=== PATIENT | female | born 1985 | race Caucasian/White ===

== ENCOUNTER 2020-07-14 15:23 | Inpatient (IN) | payer SELFPAY ==
[2020-07-14 15:24] VITALS: BP 173/131; PULSE 115; RESP 24; TEMP 36.8; O2SAT 98; BMI 29.0
--- NOTE | 2020-07-14 15:29 | W.ED.PSYCH ---
HPI - Psych General: Chief Complaint: Psychiatric Symptoms Stated Complaint: PSYCHOSIS Time Seen by Provider: 07/14/20 15:24 History of Present Illness: HPI Narrative: 34-year-old female comes in with acute psychosis. She was found by law enforcement and they were called through health and welfare check she was standing outside with a temperature is him upper 30s it was raining she was naked would not answer questions appropriately was behaving bizarrely. The deputy ultimately decided to bring her into the emergency room for psychiatric evaluation. According to family at the scene they reported IPH with a history of drug abuse allegedly did not give a drug of choice. She has had episodes like this in the past of this acute psychotic behavior in relation to her drug use. On arrival in the emergency room patient is completely naked in the police officers car staff help to get her out of the car in the ambulance bay was readily apparent that she is currently having her menses. She does not answer questions appropriately gives bizarre nonsensical answers or simply has cysts and spits at the staff. MD complaint: altered mental status Onset (ago): unknown Duration: constant Relieving factors: none Exacerbating factors: none Context: recent drug abuse Associated psychiatric symptoms: racing thoughts and delusions Treatments prior to arrival: physical restraints Review of Systems General: Reports: ROS unobtainable due to medical condition PFS ED PFSH: Medical History Drug abuse Physical Exam HENMT: COMMON NORMALS: normocephalic, atraumatic and hearing grossly normal bilaterally HEAD & SCALP: normocephalic and atraumatic Resp: COMMON NORMALS: normal respiratory effort, No retractions, No use of accessory muscles and clear to auscultation bilaterally AUSCULTATION: clear to auscultation bilaterally Cardio: COMMON NORMALS: regular rate, regular rhythm and No murmurs present (Cardio) RATE: regular rate RHYTHM: regular rhythm GI: COMMON NORMALS: Soft to palpation and No hepatosplenomegaly present AUSCULTATION: Yes normoactive bowel sounds PALPATION: Yes Soft to palpation, No Tenderness to palpation present (GI), No Guarding due to palpation present (GI) and Yes No hepatosplenomegaly present Psych: ATTITUDE: Yes bizarre, Yes uncooperative, Yes agitated, Yes aggressive and Yes hostile ACTIVITY/MOTOR BEHAVIOR: Yes psychomotor agitation and Yes hyperactivity SPEECH: Yes incoherent MOOD & AFFECT: Yes hostile affect THOUGHT PROCESS: incoherent, disorganized and Flight of ideas present Skin: COMMON NORMALS: no rashes or lesions noted GENERAL SKIN EXAM: no rashes or lesions noted MDM - Psych MDM Narrative: Medical decision making narrative: Patient now sedate out of the hard restraints. Medically cleared admitted for acute psychosis to Dr. Anglin. I discussed with him orders are written. Lab Data: Labs: Lab Results 07/14/20 07/14/20 07/14/20 Range/Units 15:58 15:58 15:58 WBC 12.6 H (4.0-10.0) 10^3/ uL RBC 4.85 (4.1-5.3) 10^6/u L Hgb 14.0 (11.5-15.3) g/dL Hct 41.7 (37.0-47.0) % MCV 86.0 (81-99) fL MCH 28.9 (28.0-34.0) pg MCHC 33.6 (30.0-36.0) g/dL RDW 12.7 (12.1-15.1) % Plt Count 317 (130-400) 10^3/c mm MPV 9.7 (7.4-10.4) fL Neut % (Auto) 80.5 % Lymph % (Auto) 13.0 % Davie % (Auto) 5.6 % Eos % (Auto) 0.3 % Baso % (Auto) 0.4 % Neut # (Auto) 10.11 H (1.8-7.7) 10^3/u L Lymph # (Auto) 1.6 (0.8-4.8) 10^3/u L Davie # (Auto) 0.7 (0.2-0.9) 10^3/u L Eos # (Auto) 0.0 (0.0-0.8) 10^3/u L Baso # (Auto) 0.1 (0.0-0.1) 10^3/u L Nucleated RBC % (a uto) 0 % Nucleated RBCs # 0.0 /100WBC Sodium 139 (136-145) mmol/L Potassium 3.1 L (3.5-5.1) mmol/L Chloride 103 (98-107) mmol/L Carbon Dioxide 20 L (22-29) mmol/L Anion Gap 19.1 H (5-19) BUN 29 H (6-20) mg/dL Creatinine 0.8 (0.5-0.9) mg/dL GFR Calculation 81.6 L (90-130) mL/min Glucose 109 (65-115) mg/dL Calculated Osmolal ity 294 (285-295) mOsm/k g Calcium 9.3 (8.5-10.5) mg/dL Total Bilirubin 0.6 (0.15-1.2) mg/dL AST 42 H (0-32) U/L ALT 37 H (0-33) U/L Alkaline Phosphata se 61 (35-105) IU/L Total Protein 7.3 (6.6-8.7) g/dL Albumin 4.2 (3.5-5.2) g/dL Globulin 3.1 (1.3-4.6) g/dL HCG, Qual Negative (Negative) Urine Color (Yellow) Urine Appearance (CLEAR) Urine pH (5-7) Ur Specific Gravit y (1.005-1.030) Urine Protein (Negative) Urine Glucose (UA) (Normal) Urine Ketones (Negative) Urine Blood (Negative) Urine Nitrate (Negative) Urine Bilirubin (Negative) Urine Urobilinogen (Negative) mg/dL Ur Leukocyte Marce ase (Negative) Urine RBC (0-2) /hpf Urine WBC (0-5) /hpf Ur Squamous Epith Cells (0-5) /hpf Amorphous Sediment Urine Bacteria (NONE) /hpf Hyaline Casts /lpf Urine Mucus /hpf Salicylates < 0.3 L (3-10) mg/dL Urine Opiates Scre en (Negative) ng/mL Acetaminophen < 5.0 L (10-30) ug/mL Ur Barbiturates Sc reen (Negative) ng/mL Ur Phencyclidine S crn (Negative) ng/mL Ur Amphetamines Sc reen (Negative) ng/mL U Benzodiazepines Scrn (Negative) ng/mL Urine Cocaine Scre en (Negative) ng/mL U Marijuana (THC) Screen (Negative) ng/mL Ethyl Alcohol < 10 (0-10) mg/dL 07/14/20 07/14/20 Range/Units 15:58 15:58 WBC (4.0-10.0) 10^3/ uL RBC (4.1-5.3) 10^6/u L Hgb (11.5-15.3) g/dL Hct (37.0-47.0) % MCV (81-99) fL MCH (28.0-34.0) pg MCHC (30.0-36.0) g/dL RDW (12.1-15.1) % Plt Count (130-400) 10^3/c mm MPV (7.4-10.4) fL Neut % (Auto) % Lymph % (Auto) % Davie % (Auto) % Eos % (Auto) % Baso % (Auto) % Neut # (Auto) (1.8-7.7) 10^3/u L Lymph # (Auto) (0.8-4.8) 10^3/u L Davie # (Auto) (0.2-0.9) 10^3/u L Eos # (Auto) (0.0-0.8) 10^3/u L Baso # (Auto) (0.0-0.1) 10^3/u L Nucleated RBC % (a uto) % Nucleated RBCs # /100WBC Sodium (136-145) mmol/L Potassium (3.5-5.1) mmol/L Chloride (98-107) mmol/L Carbon Dioxide (22-29) mmol/L Anion Gap (5-19) BUN (6-20) mg/dL Creatinine (0.5-0.9) mg/dL GFR Calculation (90-130) mL/min Glucose (65-115) mg/dL Calculated Osmolal ity (285-295) mOsm/k g Calcium (8.5-10.5) mg/dL Total Bilirubin (0.15-1.2) mg/dL AST (0-32) U/L ALT (0-33) U/L Alkaline Phosphata se (35-105) IU/L Total Protein (6.6-8.7) g/dL Albumin (3.5-5.2) g/dL Globulin (1.3-4.6) g/dL HCG, Qual (Negative) Urine Color Yellow (Yellow) Urine Appearance Sl hazy (CLEAR) Urine pH 5 (5-7) Ur Specific Gravit y 1.030 (1.005-1.030) Urine Protein Trace (Negative) Urine Glucose (UA) Norm (Normal) Urine Ketones 3+ H (Negative) Urine Blood 3+ H (Negative) Urine Nitrate Negative (Negative) Urine Bilirubin 1+ H (Negative) Urine Urobilinogen 1 H (Negative) mg/dL Ur Leukocyte Marce ase Negative (Negative) Urine RBC 0-4 H (0-2) /hpf Urine WBC 0-4 H (0-5) /hpf Ur Squamous Epith Cells Rare (0-5) /hpf Amorphous Sediment Not Reportable Urine Bacteria 1+ H (NONE) /hpf Hyaline Casts 10-15 H /lpf Urine Mucus 1+ /hpf Salicylates (3-10) mg/dL Urine Opiates Scre en Positive H (Negative) ng/mL Acetaminophen (10-30) ug/mL Ur Barbiturates Sc reen Negative (Negative) ng/mL Ur Phencyclidine S crn Negative (Negative) ng/mL Ur Amphetamines Sc reen Negative (Negative) ng/mL U Benzodiazepines Scrn Negative (Negative) ng/mL Urine Cocaine Scre en Negative (Negative) ng/mL U Marijuana (THC) Screen Negative (Negative) ng/mL Ethyl Alcohol (0-10) mg/dL Discharge Plan Discharge Prescriptions: No Action Unable to Assess RF: 0 Coding Level of Care Code ED Asset Protection Agent for Chg Fwd Exam Detailed
[2020-07-14] MEDS: LORazepam 2 mg/mL INJ 1 mL IM (15:32)
[2020-07-14] MEDS: ziprasidone 20 mg/mL SDV IM (15:32)
[2020-07-14 16:11] LABS: Glucose Urine UA Norm (Normal); Ketones Urine 3+ (Negative); Protein Urine Trace (Negative); Urine Appearance SL Hazy (CLEAR); Urine Color Yellow (Yellow); pH Urine 5 (5-7)
[2020-07-14 16:12] LABS: Add Urine Microscopic? YES; Basophils # 0.1 10^3/uL (0.0-0.1); Basophils % 0.4 %; Bilirubin Urine 1+ (Negative); Blood Urine 3+ (Negative); Eosinophils % 0.3 %; Hematocrit 41.7 % (37.0-47.0); Leukocyte Esterase Urine Negative (Negative); Lymphocytes # 1.6 10^3/uL (0.8-4.8); Mean Corpuscular HGB Conc 33.6 g/dL (30.0-36.0); Mean Corpuscular Hemoglobin 28.9 pg (28.0-34.0); Mean Platelet Volume 9.7 fL (7.4-10.4); Monocytes # 0.7 10^3/uL (0.2-0.9); Monocytes % 5.6 %; Neutrophils # 10.11 10^3/uL (1.8-7.7); Neutrophils % 80.5 %; Nitrate Urine Negative (Negative); Nucleated Red Blood Cells % 0 %; Platelet Count 317 10^3/cmm (130-400); Red Blood Count 4.85 10^6/uL (4.1-5.3); Red Cell Distribution Width 12.7 % (12.1-15.1); Urobilinogen Urine 1 mg/dL (Negative); White Blood Count 12.6 10^3/uL (4.0-10.0)
[2020-07-14 16:19] LABS: Amphetamines Screen Urine Negative (Negative); Barbiturates Screen Urine Negative (Negative); Benzodiazepines Screen Urine Negative (Negative); Cocaine Screen Urine Negative (Negative); Opiate Screen Urine Positive (Negative); PCP Screen Urine Negative (Negative); THC Screen Urine Negative (Negative)
[2020-07-14 16:25] LABS: Bacteria Urine 1+ /hpf; Mucus Urine 1+ /hpf; RBC Urine 0-4 /hpf (0-2); Squamous Epithelial Cell Urine RARE /hpf (0-5); WBC Urine 0-4 /hpf (0-5)
[2020-07-14 16:29] LABS: HCG, Serum Qual Negative (Negative)
[2020-07-14 16:37] LABS: Acetaminophen < 5.0 ug/mL (10-30); Alanine Aminotransferase 37 U/L (0-33); Albumin Level 4.2 g/dL (3.5-5.2); Alcohol Level < 10 mg/dL (0-10); Alkaline Phosphatase 61 IU/L (35-105); Anion Gap 19.1 (5-19); Aspartate Amino Transferase 42 U/L (0-32); Blood Urea Nitrogen 29 mg/dL (6-20); Calcium 9.3 mg/dL (8.5-10.5); Carbon Dioxide 20 mmol/L (22-29); Chloride 103 mmol/L (98-107); Globulin 3.1 g/dL (1.3-4.6); Glomerular Filtration Rate 81.6 mL/min (90-130); Glucose 109 mg/dL (65-115); Osmolality Calculated 294 mOsm/kg (285-295); Potassium 3.1 mmol/L (3.5-5.1); Salicylate < 0.3 mg/dL (3-10); Sodium 139 mmol/L (136-145); Total Bilirubin 0.6 mg/dL (0.15-1.2); Total Protein 7.3 g/dL (6.6-8.7)
--- NOTE | 2020-07-14 16:50 | PC.NURSE ---
d/c'd all four restraints.
[2020-07-14 17:29] VITALS: BP 130/87; PULSE 86; RESP 20; O2SAT 98
[2020-07-14 18:00] VITALS: PULSE 68
[2020-07-14] MEDS: haloperidol inj 5 mg/mL INJ 1 mL IM (18:07)
--- NOTE | 2020-07-14 18:09 | PC.NURSE ---
Patient was out of full restraints and was resting in bed. Patient was awoken to get in a wheelchair to go to NPU, patient became combative with staff requiring four point restraints, was not following commands and was swinging at staff. Received verbal order of 5mg Haldol from Dr Don. Code 10 called. Will continue to monitor patient at this time.
--- NOTE | 2020-07-14 20:05 | PC.NURSE ---
Skin assessment revealed bruising on the left forearm.
[2020-07-14 20:23] VITALS: BP 127/77; PULSE 85; RESP 20; TEMP 37.1; O2SAT 96
[2020-07-14 21:14] VITALS: BP 127/77; PULSE 85; RESP 20; TEMP 37.1; O2SAT 96
--- NOTE | 2020-07-15 02:46 | PC.NURSE ---
The patient is awake and up to the bathroom. Cooperative at this time.
[2020-07-15 05:43] VITALS: BP 144/103; PULSE 110; RESP 20; TEMP 36.3; O2SAT 100
[2020-07-15] MEDS: LORazepam 2 mg/mL INJ 1 mL IM ×2 (06:05→15:48)
[2020-07-15] MEDS: haloperidol inj 5 mg/mL INJ 1 mL IM ×2 (06:06→15:48)
--- NOTE | 2020-07-15 06:07 | PC.NURSE ---
the patient is up and pacing in the hallway. Banging her arms on the winter. Disorganized behavior. Threw TV remote on the floor. Removing contents of trash cans. Not responding to verbal redirection. Stated, I am a little boy named Coy. Ativan 2 mg IM and Haldol 5 mg IM given to right deltoid. The patient was cooperative with the administration.
[2020-07-15] MEDS: acetaminophen 325 mg Tablet 650 MG PO (08:11)
[2020-07-15] MEDS: potassium chloride oral liq 20 mEq/15 mL UDC PO (08:11)
[2020-07-15] MEDS: ziprasidone 20 mg/mL SDV IM (11:17)
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
[2020-07-15 13:46] VITALS: BP 107/68; PULSE 79; RESP 18; TEMP 36.4
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
[2020-07-15 20:01] VITALS: RESP 19
[2020-07-16] MEDS: haloperidol inj 5 mg/mL INJ 1 mL IM ×3 (01:21→15:52)
[2020-07-16] MEDS: diphenhydrAMINE 50 mg/mL SDV 1mL IM ×3 (01:21→15:53)
[2020-07-16] MEDS: LORazepam 2 mg/mL INJ 1 mL IM ×3 (01:22→15:53)
--- NOTE | 2020-07-16 01:27 | PC.NURSE ---
Pt has been noted to be up and down to the bathroom. has been trying to flush several items down the toilet. Pt also noted to be striping her clothes off. per RN, Ativan 2mg, Haldol 5mg, and Benadryl 50mg all given IM. Pt tolerated injections without difficulty.
[2020-07-16] MEDS: acetaminophen 325 mg Tablet 650 MG PO (01:44)
[2020-07-16 06:00] VITALS: BP 106/69; PULSE 107; RESP 19; TEMP 36.6; O2SAT 97
[2020-07-16] MEDS: ziprasidone 20 mg/mL SDV IM (09:34)
--- NOTE | 2020-07-16 09:39 | PC.NURSE ---
PRN GEODON 20mg IM Geodon given in L deltoid per psychosis, agitation, and hallucinations. Patient picking at doors in hallway, attempting to enter other patient's rooms, seeming to act paranoid. Patient did comply with injection and went to her room. Inj given and patient now resting in bed. Will monitor for med effectiveness. Continue 1:1 sitter for safety.
--- NOTE | 2020-07-16 11:41 | PC.NURSE ---
PRN MEDICATIONS 5mg Haldol, 2mg Ativan, & 50mg Benadryl IM given per increasing agitation. Patient near her room spitting on windows and doors, hitting wall with arm, seeming confused. Patient wandering all around, moving furniture. Attempt to communicate and orient patient unsuccessful. Dr. Anglin present and ordered the medications to be given and present when they were given. Will monitor for med effectiveness.
[2020-07-16 12:00] VITALS: BP 154/92; PULSE 104; RESP 18; TEMP 36.8; O2SAT 97
[2020-07-16 14:00] VITALS: BP 154/92; PULSE 104; RESP 18; TEMP 36.8; O2SAT 97
--- NOTE | 2020-07-16 16:06 | PC.NURSE ---
PRN MEDICATIONS 5mg Haldol, 2mg Ativan, & 50mg Benadryl IM given per direct order from Dr. Anglin for increasing agitation. Patient continues wandering all around, spitting on all winter, doors and windows. Patient also continues to take her shirt off and throw it in toilet. When new shirt placed on, patient just takes it off and throws it. Attempt to communicate and orient patient unsuccessful. Will monitor for med effectiveness.
[2020-07-16 18:00] VITALS: BP 132/86; PULSE 103; RESP 20; TEMP 36.8; O2SAT 95
--- NOTE | 2020-07-16 19:41 | PM.NPN ---
Subjective NPU Subjective: Interval history: Noni presents today continuing to have mostly purposeless interactions and behaviors. Making different sounds, spitting, trying to take her clothes off etc. He continues to be a poor historian and unable to give any responses in relation to what we should do as far as medication. Mental Status Exam MSE Comments: This is an obese white female with hospital scrubs on with limited grooming and eye contact. No abnormal movements except for aimless psychomotor agitation. Uncooperative with exam in no acute distress. Speech was limited spontaneous interactions often with odd prosody. Mood not described, affect bizarre. Thought process disorganized. Thought content: Patient did not respond to questions of lethality but did not have aggression towards herself or others, she did not report any delusional content and none was specifically noted, she did deny auditory or visual hallucinations while appearing to attend to internal stimuli. Attention compresses were impaired and memory was unreliable but none were formally tested. She is alert and oriented to person. Insight and judgment are impaired impulse control is impaired. Vitals/I&O/Wt Last Vital Signs Temp 98.2 F 07/16/20 18:00 Pulse 103 H 07/16/20 18:00 Resp 20 H 07/16/20 18:00 BP 132/86 07/16/20 18:00 Pulse Ox 95 07/16/20 18:00 Weight last 48 hrs Weight 81.647 kg Data NPU : 07/14/20 15:58 07/17/20 10:27 A&P Additional A&P Information (1) Psychosis: (2) Opiate use: (3) Substance use: Additional A&P Information This is a 34-year-old white female with a history of bipolar disorder and addiction who presents floridly psychotic with a positive UDS but not for anything that one would expect the yield this presentation who is unable to be a participant in her care due to the level of thought disorder being displayed. 1. Continue current medication. We will continue as needed antipsychotics as needed and hopefully we will be able to offer her a standing antipsychotic/mood stabilizer soon with some improvement. Initiated zyprexa IM 10mg q 2 hours max 3x/24 hours and the other interventions Haldol, Geodon have not been effective in slowing her down or stopping some of her more egregious behaviors. 2. Continue one-to-one for safety. 3. As she improves encourage individual and milieu therapy. 4. Work with treatment team for collateral information and encourage sober living treatment after discharge at the highest level of care to which she is willing to commit. 5. Talked to the ER doctor involved in her care, and we both believe that this could be best OR some other synthetic drug and not garden-variety pete. Involuntary Hold Information 96 Hour Hold: 96 Hour Involuntary Admission: No 96 Hour Hold Ending Date: 07/20/20 96 Hour Hold Ending Time: 18:15 Attestations NPU Medical Necessity Statement*: Inpatient hospitalization is medically necessary and the clinically appropriate intervention at this time. We will monitor medications and add or make changes as indicated. Likely length of stay 7-9 days. Coding Level of Care Code Acute Traffic Control Officer for Maritza Cherry
--- NOTE | 2020-07-16 20:13 | PC.NURSE ---
RESTING IN HER ROOM, SNORING, RESP EVEN, OCC MOVES LOWER EXT. HAS 1-1 SITTER D/T PSYCHOSIS, WILL DO ASSESSMENT WHEN AWAKE FOR VITAL SIGNS.
[2020-07-17] VITALS: BP 82/51; PULSE 88; RESP 20; TEMP 36.7; O2SAT 98
--- NOTE | 2020-07-17 00:18 | PC.NURSE ---
ASSESSMENT DONE WITH VITAL SIGNS,DENIES WANTING TO HARM SELF. CONTINUES TO HAVE 1-1 SITTER.
--- NOTE | 2020-07-17 02:31 | PC.NURSE ---
AWAKE, TRYING TO WASH HEWITT, STRIPPED BOTTOM CLOTHES OFF, HAD A GLOVE IN HER MOUTH TRYING TO BLOW IT UP, FOUND OTHER GLOVE AND REMOVED FROM ROOM. REDIRECTED TO HER BED, COVERED UP, CONTINUES TO HAVE 1-1 SITTER. MWD NURSE TO GIVE ZYPREXA [address] ORTIZ ORDERS TODAY PER DAY SHIFT. UP TO BATHROOM, PACING IN ROOM, CHEWING ON WET WASH CLOTH. ZYPREXA 10 MG IN GIVEN IN LEFT DELTOID PER S.M. MANAGER OF ORGANIZATIONAL DEVELOPMENT, PATIENT APPEARED TO TOLERATE INJECTION WELL. KEEPS KICKING COVERS OFF, REACHING FOR THINGS THAT IS NOT THERE. CONTINUES TO HAVE 1-1 SITTER.
[2020-07-17] MEDS: OLANZapine 10 mg VIAL IM ×3 (02:37→09:43)
--- NOTE | 2020-07-17 02:38 | PC.NURSE ---
Pt noted to be up and wandering. Pt assisted to the bathroom by CNAs. Pt noted with continued confusion. Zyprexa 10mg IM given as per shift report recommendations from
[2020-07-17] MEDS: acetaminophen 325 mg Tablet 650 MG PO ×2 (04:10→08:30)
[2020-07-17] MEDS: LORazepam 2 mg/mL INJ 1 mL IM ×4 (04:46→23:30)
[2020-07-17] MEDS: diphenhydrAMINE 50 mg/mL SDV 1mL IM ×4 (04:47→23:27)
--- NOTE | 2020-07-17 04:59 | PC.NURSE ---
PATIENT CONTINUES TO BE AWAKE, KEEPS EYES CLOSED, REPEATING NURSERY RHYMES, LITTLE SONGS AND REPEATING THINGS THAT MAKE NO SENSE. SWINGING AT AIDES AND NURSES, SPITTING ALL OVER AND LICKING HEWITT. CONTINUES TO TAKE HER CLOTHES OFF. CALLED DR ORTIZ, OKAYED TO GIVE ATIVAN 2 MG IM AND BENADRYL 50 IM IN RIGHT HIP. HAD SECOND DOSE OF ZYPREXA 10 MG IM AT 0434. HAS NOT SLOWED HER DOWN AT ALL. UP WANDERING IN ROOM, CONTINUES TO SPIT AND TRY TO HIT STAFF. SECURITY HERE. HOME HEALTH CARE PHYSICIAN AND ER STAFF HERE EARLIER.
--- NOTE | 2020-07-17 05:02 | PC.NURSE ---
Pt noted to be up wandering in room and hallway with both eyes closed, spitting at staff and try to wipe sputum on staff and winter. Pt given Zyprexa 10mg IM. Continuing to monitor with 1:1 sitter and several staff members.
--- NOTE | 2020-07-17 05:26 | PC.NURSE ---
CONTINUES TO SPIT AND TRY TO KICK STAFF. LAYS DOWN AND THEN GETS BACK UP. UNABLE TO BE REDIRECTED.
--- NOTE | 2020-07-17 05:46 | PC.NURSE ---
APPEARS TO BE SLEEPING/SORING, CONTINUES TO HAVE 1-1 SITTER.
[2020-07-17 06:00] VITALS: RESP 19
[2020-07-17] MEDS: hyDROXYzine 25 mg Capsule 50 MG PO ×2 (08:30→19:55)
--- NOTE | 2020-07-17 08:34 | PC.NURSE ---
Addendum entered by Safia Fontenot RN 07/17/20 09:30: Patient continues behavior, spitting everywhere, continuing to take her clothes off and walk outside in hallway. Dr. Anglin notified. Original Note: PRN Vistaril Patient appearing anxious, wandering around in room. Attempting to take her clothes off, hitting winter. Vistaril 50mg PO given with Tylenol for mouth pain. Patient redirected to bed to lay down. Will monitor for effectiveness.
[2020-07-17 09:40] VITALS: BP 147/103; PULSE 95; RESP 22; TEMP 36.8; O2SAT 97
--- NOTE | 2020-07-17 09:54 | PC.NURSE ---
PRN Medications Dr. Anglin notified that Vistaril was unsuccessful in calming patient and notified of continuing behavior. Patient also seems to be more agitated and aggressive today with staff, more difficult to redirect. Dr. Anglin ordered to give PRN medications of 10mg IM Zyprexa, 2mg IM Ativan, and 50mg IM Benadryl. Vital signs taken before administration. Will monitor for effectiveness.
[2020-07-17 11:00] LABS: Potassium 3.5 mmol/L (3.5-5.1)
[2020-07-17 12:00] VITALS: BP 141/95; PULSE 101; RESP 18; TEMP 36.9; O2SAT 94
--- NOTE | 2020-07-17 12:13 | PM.NPN ---
Subjective NPU Subjective: Interval history: Noni presents today with some occasional moments of cognitive clarity but those are few and far between. During the period of conversation which took place on a couple of occasions she at 1 point was answering questions if I posed them starting with her name. But she spent time spitting in the corner winter during that odd behavior where she takes her fingers and rubs in on the end of her tongue reducing spit in the very nasty unhygienic way. At times wandering aimlessly with purposeless behavior. At one point after her receiving another injection she attempted to lay down in bed which took about 15 minutes. Still on one-to-one being total care at times. Mental Status Exam MSE Comments: This is an obese white female with hospital scrubs on with limited grooming and eye contact. No abnormal movements except for aimless psychomotor agitation. Uncooperative with exam in no acute distress. Speech was limited spontaneous interactions often with odd prosody. Mood not described, affect bizarre. Thought process disorganized. Thought content: Patient did not respond to questions of lethality but did not have aggression towards herself or others but she did at times have agitation and destructive behavior requiring interventions, she did not report any delusional content and none was specifically noted, she did deny auditory or visual hallucinations while appearing to attend to internal stimuli. Attention and concentration were impaired and memory was unreliable but none were formally tested. She is alert and oriented to person. Insight and judgment are impaired impulse control is impaired. Vitals/I&O/Wt Last Vital Signs Temp 98.2 F 07/17/20 09:40 Pulse 95 07/17/20 09:40 Resp 22 H 07/17/20 09:40 BP 147/103 07/17/20 09:40 Pulse Ox 97 07/17/20 09:40 Weight last 48 hrs Weight 81.647 kg Data NPU : 07/14/20 15:58 07/17/20 10:27 A&P Additional A&P Information (1) Psychosis: (2) Opiate use: (3) Substance use: This is a 34-year-old white female with a history of bipolar disorder and addiction who presents floridly psychotic with a positive UDS but not for anything that one would expect the yield this presentation who is unable to be a participant in her care due to the level of thought disorder being displayed. 1. Continue current medication. 2. Continue one-to-one for safety. 3. As she improves encourage individual and milieu therapy. 4. Work with treatment team for collateral information and encourage sober living treatment after discharge at the highest level of care to which she is willing to commit. 5. Talked to the ER doctor involved in her care, and we both believe that this could be best OR some other synthetic drug and not garden-variety pete. Involuntary Hold Information 96 Hour Hold: 96 Hour Involuntary Admission: No 96 Hour Hold Ending Date: 07/20/20 96 Hour Hold Ending Time: 18:15 Attestations NPU Medical Necessity Statement*: Inpatient hospitalization is medically necessary and the clinically appropriate intervention at this time. We will monitor medications and add or make changes as indicated. Likely length of stay 6-8 days. Coding Level of Care Code Acute Patient Access Associate for Maritza Cherry
[2020-07-17] MEDS: haloperidol 5 mg Tablet PO ×2 (12:31→19:36)
[2020-07-17] MEDS: LORazepam 2 mg Tablet PO ×2 (12:50→19:55)
--- NOTE | 2020-07-17 12:50 | PC.NURSE ---
PRN Haldol & Ativan PRN Ativan 2mg PO & 5mg PO Haldol administered per Dr. Anglin order for continuing severe agitation, hallucinations, and behavior. Patient redirected to room in attempt to lay down. Patient continues to wander around very unsteadily. Fall mats placed beside bed and near room. Physician in room and attempting to speak with patient. Patient still walking around with eyes closed, unable to have conversation with physician or other staff members, attempting to grab staff's arms and hang upside off bed. 1:[address] still for safety.
[2020-07-17] MEDS: haloperidol inj 5 mg/mL INJ 1 mL IM ×2 (17:38→23:29)
[2020-07-17 18:00] VITALS: RESP 16
[2020-07-17] MEDS: OLANZapine 5 mg ODT PO (19:36)
[2020-07-17] MEDS: trazodone 50 mg Tablet PO (19:38)
--- NOTE | 2020-07-17 19:38 | PC.NURSE ---
PRN's Aggitation haloperidol 5mg po given for increased agitation trazodone 50mg PO given for sleep zyprexa zydis 5mg PO given fro increased agitation.
--- NOTE | 2020-07-17 20:08 | PC.NURSE ---
ativan/visteril Ativan 2mg PO given for increased agitation Visteril 50mg PO given for agitation Will continue to monitor pt
--- NOTE | 2020-07-17 20:15 | PC.NURSE ---
Pt Behavior Physician called. Dr. Anglin ordered 2mg ativan po and visteril 50mg in additon to the medication she received 10 min ago. She received zyprexa, geodon, and trazodone prior to calling physician. Pt is agitated, grabbing at staff mask, and acting out. RN Huber is sitting with pt. She is currently at the door of 170 and can barely stand. She has stripped her clothing and spit at staff and on herself.
--- NOTE | 2020-07-17 21:36 | PC.NURSE ---
HAS BEEN RESTING FOR SHORT WHILE, CONTINUES TO HAVE 1-1 SITTER .
--- NOTE | 2020-07-17 23:32 | PC.NURSE ---
B52/Aggression Pt has been increasingly anxious, agitated, with some episodes of aggression toward staff. Pt has been stripping off her bottoms, licking the windows,spit food, spit at the staff, she has thrown food at the staff. Every effort has been made by staff to de-escalate the patient and entice her to rest. She has not been excessively violent but the situation was becoming more intense. Pt is with 1:1. @2301 this evening I gave this pt 2mg IM Ativan/5mg IM Haldol in her right deltoid, and benedryl 50mg IM in her left deltoid using 22g needles. I continued to monitor this patient for the next 15 minutes to assure that she did not have any adverse affects from the injections. Pt is resting peacefully for the first time all evening. Will continue to monitor
[2020-07-18] VITALS: RESP 17
--- NOTE | 2020-07-18 00:58 | PC.NURSE ---
AWAKE/AGITATED PT SLEPT FOR A LITTLE OVER AN HOUR AFTER RECEIVING B52 THIS EVENING. sHE CONTINUES TO BE AGGRESSIVE/AGITATED/HALLUCINATING/AND UNABLE TO MAKE COHERENT CONVERSATION OR DECISIONS. UNABLE TO REASON WITH THIS PATIENT. PT TRIES TO CRAM SHEETS AND OTHER ITEMS INTO THE TOILET. SHE IS COMBATIVE WITH STAFF, TRIED TO ELBOW CHARGE NURSE RACHAEL. SHE TRIED TO KICK FRANCISCO RADHA, AND HAS BEEN GRABBING AT RN RODRÍGUEZ'S MASK. PT BACKS INTO THE CORNER NEAR THE RESTRAINT ROOM, HOLDS THE HANDLES, AND APPEARS TO LAUNCH HERSELF OUT OF THE CORNER. SHE HIDES BEHIND THE DOORS, PUTS HER HEAD DOWN AND WALKS WITH EYES SHUT. SHE CONTINUES TO BE COMBATIVE AND INTRUSIVE.
--- NOTE | 2020-07-18 04:00 | PC.NURSE ---
AWAKE AGAIN,UNABLE TO REDIRECT, HAS 3 TO ASSIST, ALMOST FALLS EACH TIME SHE GETS UP. WILL LAY ON BED FOR ABOUT 20 SECONDS AND THEN UP AGAIN.. MEDS DO NOT APPEAR TO BE HELPING HER IN ANY WAY.
--- NOTE | 2020-07-18 04:15 | PC.NURSE ---
Combative/Confused Pt is intrusive, becomes combative, irritable, refuses to follow simple commands. She has slept very little this evening. Pt repeatedly takes her clothing off, walks around the room as if she can not see where she is going. She is licking the winter, kissing the glass, and requires time piece repairer assistance of 2 or more staff. She grabs at staff and she is slapping at the staff. Pt is resistive to care. This patient is aggressive. I am not altogether convinced that all of this behavior is psychosis. Many of the things that she does and how she responds at times seems that she is playing. She seems to enjoy the intervention with staff and repeats the same actions over and over. Pt has require us to shut the annex area near her room to keep her from harming herself and others. Pt continues to walk around with her head down, eyes shut, stumbling, but has not fallen. Pt catches herself before she falls or injures herself. She seems to understand her limits in this area. Pt appears to need 2 full-time aides to assist at all times due to her behavior.
[2020-07-18 06:00] VITALS: BP 130/91; PULSE 90; RESP 19; TEMP 37.1; O2SAT 95
[2020-07-18] MEDS: diphenhydrAMINE 50 mg/mL SDV 1mL IM ×3 (08:49→23:15)
[2020-07-18] MEDS: OLANZapine 10 mg VIAL IM ×2 (08:49→15:34)
[2020-07-18] MEDS: LORazepam 2 mg/mL INJ 1 mL IM ×3 (08:49→23:15)
--- NOTE | 2020-07-18 08:50 | PC.NURSE ---
TELEPHONE ORDER FROM Cara ORTIZ TO GIVE INJECTION OF ZYPREXA 10 MG, ATIVAN 2 MG, BENADRYL 50 MG. PT UNCOOPERATIVE ON UNIT, PACING HALLWAY, BEING DISRUPTIVE, HITTING HEWITT, SPITTING ON THE FLOOR AND AT STAFF MEMBERS, REFUSING TO OPEN HER EYES WHILE AMBULATING DOWN HALLWAY. STAFF X4 HAS TO REDIRECT PT BACK TO HER ROOM SEVERAL TIMES. ZYPREXA GIVEN IN LEFT DELTOID, ATIVAN GIVEN IN RIGHT DELTOID, BENADRYL GIVEN RIGHT BUTTOCK. PT CONT TO BE 1:1 FOR SAFETY AND OBSERVATION.
[2020-07-18 12:00] VITALS: BP 145/105; PULSE 115; RESP 18; TEMP 36.9; O2SAT 97
--- NOTE | 2020-07-18 15:35 | PC.NURSE ---
Addendum entered by Kristal Reece LPN 07/18/20 16:30: PRN MEDS EFFECTIVE NO FURTHER C/O ANXIETY/AGGRESSION. PT ASLEEP IN BED IN ROOM, SNORING SOFTLY. CONT TO BE 1:1 WITH BOTTOM FINISHER Original Note: PRN ATIVAN, ZYPREXA, BENADRYL ATIVAN 2 MG GIVEN IM IN LEFT DELTOID PER PT C/O SEVERE ANXIETY/AGGRESSION. ZYPREXA 10 MG GIVEN IM IN LEFT BUTTOCK PER PT C/O SEVERE AGITATION/AGGRESSION/PSYCHOSIS. BENADRYL 50 MG GIVEN IM IN RIGHT DELTOID PER PT C/O SEVERE AGITATION/AGGRESSION/PREVENTATIVE DRUG FOR EPS. PT IN ROOM, ATTEMPTED TO TAKE CLIPBOARD FROM BOTTOM FINISHER, SPITTING ON THE FLOOR, ATTEMPTING TO PUSH THROUGH STAFF TO GET INTO HALLWAY. PHYSICIAN (ANA) IN ROOM AND OBSERVED BEHAVIOR. PT DEFIANT, UNABLE TO FOLLOW SAFETY INSTRUCTIONS GIVEN BY STAFF. VERBAL ORDER TO GIVE ATIVAN/BENADRYL/ZYPREXA IM NOW. PT DID TOLERATE INJECTIONS WITHOUT INCIDENT. WILL CONT TO MONITOR FOR DESIRED MED EFFECTIVENESS.
[2020-07-18] MEDS: OLANZapine 5 mg ODT PO ×2 (17:33→21:08)
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
--- NOTE | 2020-07-18 17:45 | PM.NPN ---
Subjective NPU Subjective: Interval history: Noni presents today continuing to have mostly aimless and lacking purpose. Still spitting being aggressive and agitated at times. She continues to need the full battery of as needed's throughout the day and needing seclusion to avoid her behaviors disturbing the other patients treatment. She remains unable to give appropriate [id number] of conversation. We discussed the fact that a 21-day hold will probably have to be filed in the next couple days. Mental Status Exam MSE Comments: This is an obese white female with hospital scrubs on with limited grooming and eye contact. No abnormal movements except for aimless psychomotor agitation. Uncooperative with exam in no acute distress. Speech was limited spontaneous interactions often with odd prosody. Mood not described, affect bizarre. Thought process disorganized. Thought content: Patient did not respond to questions of lethality but did have mounting aggression towards others and she did at times have agitation and destructive behavior requiring interventions, she did not report any delusional content and none was specifically noted, she did deny auditory or visual hallucinations while appearing to attend to internal stimuli. Attention and concentration were impaired and memory was unreliable but none were formally tested. She is alert and oriented to person. Insight and judgment are impaired impulse control is impaired. Vitals/I&O/Wt Last Vital Signs Temp 98.5 F 07/19/20 00:51 Pulse 80 07/19/20 00:51 Resp 16 07/19/20 00:51 BP 130/75 07/19/20 00:51 Pulse Ox 97 07/19/20 00:51 Data NPU : 07/14/20 15:58 07/17/20 10:27 Involuntary Hold Information 96 Hour Hold: 96 Hour Involuntary Admission: No 96 Hour Hold Ending Date: 07/20/20 96 Hour Hold Ending Time: 18:15 Attestations NPU Medical Necessity Statement*: Inpatient hospitalization is medically necessary and the clinically appropriate intervention at this time. We will monitor medications and add or make changes as indicated. Likely length of stay 6-8 days. Will be filing for 21-day hold shortly. Coding Level of Care Code Acute Typewriter Assembler for Maritza Cherry
--- NOTE | 2020-07-18 18:09 | PC.NURSE ---
OPEN SECLUSION Per Dr. Anglin, place patient in open seclusion room for safety for herself and for staff members. Patient not re-directable and becoming more and more agitated, aggressive, biting, kicking, punching, and spitting. Patient consistently taking clothes off and wandering down hallway near other patient's room. Patient will not open eyes when walking and is high fall risk. Patient seems to be not aware of behavior and unable to orient. 1:[address]
--- NOTE | 2020-07-18 19:24 | PC.NURSE ---
The patient is at the door of the seclusion room. She had disrobed. She was given a scrub top shirt by two female staff. the patient was given a snack. The patient said it is September 2019. She said she is in the cafeteria.
--- NOTE | 2020-07-18 19:51 | PC.NURSE ---
The patient disrobed again. I asked her to put the shirt back on and she did. I asked her to put the scrub pants back on and she did. I asked the patient if she wanted a snack. She was given a 4 ounce cup of pineapple flavored drink and a cookie.
--- NOTE | 2020-07-18 21:02 | PC.NURSE ---
The patient continues to display purposeless activity. She licks the window. She spits on the window and then may spread it with a lock of her hair. Currently pounding on the window in a very forceful manner. Hissing and making odd gestures with her fingers.
[2020-07-18] MEDS: haloperidol 5 mg Tablet PO (21:07)
--- NOTE | 2020-07-18 21:07 | PC.NURSE ---
bEHAVIOR pT IS IN SECLUSION ROOM AT THE BEGINNING OF MY SHIFT. sECLUSION TIME IS UP @2147. PT IS BANGING ON THE HEWITT AND DOORS, HISSING AT STAFF, URINATING IN THE CORNER, TORE HER SHIRT OFF INTO STRIPS WITH HER TEETH. sHE CONTINUES TO TAKE HER PANTS OFF. CONTACTED PHYSICIAN 2108 TO RENEW ORDER IF PO MEDICATIONS DO NOT HELP. PT IS RECEIVING ZYPREXA ZYDIS 5 MG PO AND HALDOL 5MG PO AT THIS TIME VIA [facility] NURSE ARELIS. WILL CONTINUE TO MONITOR PSYCHOSIS AND AGITATION FOR IMPROVEMENT. pT DOES NOT HAVE A MATTRESS IN THE ROOM AT THIS TIME DUE TO ATTEMPTS TO REMOVE THE ZIPPER. fALL MATTS ARE BEING PLACED AT THIS TIME,
--- NOTE | 2020-07-18 21:41 | PC.NURSE ---
The patient is standing at the seclusion room door. She is pounding on the wall and hissing. She has taken off her scrub pants and whipping them in the air.
--- NOTE | 2020-07-18 22:11 | PC.NURSE ---
The patient has become somewhat more cooperative. She is following verbal instructions. Evaluated by both RNs and decision made to remove patient from seclusion at 2209. The patient has agreed to cooperate. She said, I am cool and a 61.
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
--- NOTE | 2020-07-18 22:44 | PC.NURSE ---
@4902 Seclusion ordered Pt is combative with staff. Physician contacted. Seclusion reordered. Pt v/s 157/103 BP, UT 115, RR17. No physical injuries were received by staff or patient. She is in the seclusion room and is dressed at the moment. Med nurse notified that IM medication is necessary.
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
--- NOTE | 2020-07-18 23:01 | PC.NURSE ---
The patient is pounding on the wall. The patient said it is September, and she is in [place].
[2020-07-18] MEDS: haloperidol inj 5 mg/mL INJ 1 mL IM (23:15)
--- NOTE | 2020-07-18 23:36 | PC.NURSE ---
Addendum entered by Haven Wright RN 07/19/20 00:48: 0047 Pt removed from seclusion and is in bed resting, quietly with both eyes closed Original Note: @2315-Combative behavior Called medical records supervisor and security for assistance. Pt requires IM medication for combative/aggressive behavior. Attempts to verbally de-escalate patient has proved unsuccessful. B52 given.
[2020-07-19] VITALS: BP 130/75; PULSE 80; RESP 16; TEMP 36.9; O2SAT 97
--- NOTE | 2020-07-19 00:21 | PC.NURSE ---
I live at [address] [place] [address]. States it is July,, then corrects self and says it is 1920. She said she is in [facility].
--- NOTE | 2020-07-19 00:47 | PC.NURSE ---
The patient has become drowsy. She is sitting on a padded mat on the floor. Both RNs have assessed the patient and determined locked seclusion is no longer necessary. Locked seclusion discontinued at 0044. The patient ambulated to her bed and is resting. She remains on 1:1 observation.
--- NOTE | 2020-07-19 00:48 | PC.NURSE ---
0044..End Seclusion Pt is with 1:1 sitter at side, resting in bed with both eyes closed, pt is notably calmer,Pt complied with request to stand, walk to room, and lay down in bed with minimal assistance
[2020-07-19 00:51] VITALS: BP 130/75; PULSE 80; RESP 16; TEMP 36.9; O2SAT 97
--- NOTE | 2020-07-19 04:41 | PC.NURSE ---
The patient awakened at 0620. She approached me and appeared to be calm. She reached for a water I had on the table. Since it was fresh/unused I offered it to the patient. She moved to sit in a chair at my side. She abruptly began pushing past me to enter the hallway. She grabbed the meal I was eating and it ended up on the floor. She walked down the hallway where she was met by other staff members. The patient was resistant to redirection. She did not respond when food, fluid, toilet offered. She had her arm through the space between the windows at the nurse station. The patient was combative with staff members. Decision was made to place the patient in locked seclusion for the safety of the patient, other patients, and staff members. The patient was escorted to the seclusion room by the network security administrator and another staff member. The patient was controlled using a hold taught (SALT) in safe training.
--- NOTE | 2020-07-19 04:43 | PC.NURSE ---
0440-Seclusion ordered Pt woke up, threw the staffs belongings down the hallway, and came to the nurses station. Pt began to push staff, grab at their face masks, said take your fat ass down the hallway, Security was called by staff for assistance due to the increasingly combative nature of this patient. Patient recognized Keny as the vagina of a information security specialist. Several staff members attempted to coral the patient in a attempt to convince her to return to her room at the end of the myles. Pt then approached the nurses station, she put both hands through the glass openings and rubbed her wrists up and down over the glass in an attempt to harm herself. air defense control officer and NPU staff had to place pt in SALT position to walk her into the secured area for medication and safety of other patient and staff. air defense control officer, staff, warehouse freight handler, ED staff came to assist in administration of IM PRN medications. Pt is with 1:1 outside room for observation Pt began to take her pants off, she wrapped the pants around the door knob inside seclusion room, she shredded the scrub pants, attempted to remove the elastic band, waved them at the camera striking it, staff removed pant material. Patient is currently naked in the seclusion room and attempting to do the same thing with the scrub shirt. Physician notified of patient behavior and orders received to begin seclusion again. Will continue to monitor patient condition for changes.
[2020-07-19] MEDS: haloperidol inj 5 mg/mL INJ 1 mL IM (04:55)
[2020-07-19] MEDS: LORazepam 2 mg/mL INJ 1 mL IM (04:55)
[2020-07-19] MEDS: diphenhydrAMINE 50 mg/mL SDV 1mL IM (04:56)
--- NOTE | 2020-07-19 05:01 | PC.NURSE ---
The patient has completely disrobed. She is licking the winter. She is pounding the winter.
--- NOTE | 2020-07-19 05:24 | PC.NURSE ---
The patient said today is 1985. She said she is sitting on a porch swing.
--- NOTE | 2020-07-19 05:41 | PC.NURSE ---
I frequently am asking the patient to put on her scrub shirt. Usually she has complied but is not responding currently.
[2020-07-19 06:00] VITALS: RESP 16
--- NOTE | 2020-07-19 06:12 | PC.NURSE ---
aggressive/naked Pt has disrobed multiple times. Her skin is warm to touch. Pt is on her knees licking the door. Staff attempted redress patient and patient was cooperative at first. Mood changed and pt grabbed staffs eusebia harvey, attempted to bite the staff members face when asked to release the object. Pt then verbally became progressively angry and threatening to another staff member. She said, I am going to rip your face off, you fat fucking pig You play in your daughters underwear and I am going to kill you. Patient has received IM medications and continues to escalate. She is rubbing her bare breasts on the winter and pulled her pants down to rub her naked buttocks across the door. The entire seclusion room is contaminated with bodily fluids of all kinds. This patient repeatedly strips down to zero clothing stands in the corner facing the wall while touching various parts of her vagina.
--- NOTE | 2020-07-19 06:41 | PC.NURSE ---
Lab Drawn/Security and additional staff Pt was in seclusion, naked, she was cooperative enough to come out of the seclusion room. She was assisted by multiple staff members to a chair where she gave blood to lab members. Supervisor Inspection And Testing, lab staff, security staff, ED staff, and NPU staff members. Seclusion ended. Pt is in the bed resting with both eyes shut, RR is 17 at this time. NPU staff sitter with patient at this time. Will continue to monitor the need for additional medication and intervention,
[2020-07-19 06:52] LABS: Basophils # 0.1 10^3/uL (0.0-0.1); Basophils % 0.7 %; Eosinophils # 0.6 10^3/uL (0.0-0.8); Eosinophils % 7.5 %; Hematocrit 47.3 % (37.0-47.0); Hemoglobin 15.4 g/dL (11.5-15.3); Lymphocytes # 2.5 10^3/uL (0.8-4.8); Lymphocytes % 29.2 %; Mean Corpuscular HGB Conc 32.6 g/dL (30.0-36.0); Mean Corpuscular Hemoglobin 28.7 pg (28.0-34.0); Mean Corpuscular Volume 88.1 fL (81-99); Mean Platelet Volume 9.8 fL (7.4-10.4); Monocytes # 0.8 10^3/uL (0.2-0.9); Monocytes % 9.8 %; Neutrophils # 4.41 10^3/uL (1.8-7.7); Neutrophils % 52.7 %; Nucleated Red Blood Cells % 0 %; Platelet Count 309 10^3/cmm (130-400); Red Blood Count 5.37 10^6/uL (4.1-5.3); Red Cell Distribution Width 12.6 % (12.1-15.1); White Blood Count 8.4 10^3/uL (4.0-10.0)
[2020-07-19 07:04] LABS: Ammonia 15 umol/L (11-51)
[2020-07-19 07:06] LABS: Alanine Aminotransferase 45 U/L (0-33); Aspartate Amino Transferase 31 U/L (0-32); Lactate (Lactic Acid level) 1.6 mmol/L (0.5-2.2)
[2020-07-19 07:08] LABS: Alanine Aminotransferase 45 U/L (0-33); Albumin Level 4.5 g/dL (3.5-5.2); Alkaline Phosphatase 61 IU/L (35-105); Anion Gap 15.9 (5-19); Aspartate Amino Transferase 32 U/L (0-32); Blood Urea Nitrogen 19 mg/dL (6-20); Calcium 9.6 mg/dL (8.5-10.5); Carbon Dioxide 28 mmol/L (22-29); Chloride 102 mmol/L (98-107); Globulin 2.9 g/dL (1.3-4.6); Glomerular Filtration Rate 71.3 mL/min (90-130); Glucose 105 mg/dL (65-115); Osmolality Calculated 297 mOsm/kg (285-295); Potassium 3.9 mmol/L (3.5-5.1); Sodium 142 mmol/L (136-145); Total Bilirubin 0.3 mg/dL (0.15-1.2); Total Protein 7.4 g/dL (6.6-8.7)
[2020-07-19 07:16] LABS: Creatine Phosphokinase 624 U/L (26-192)
--- NOTE | 2020-07-19 08:20 | PC.NURSE ---
DISRUPTIVE BEHAVIOR/UNABLE TO REDIRECT PT CAME OUT OF ROOM 170, WITH HER TOP OFF, CAME DOWN THE HALLWAY TOWARDS THE NURSES STATION. STAFF OFFERED PT A SHIRT AND A SCRUB TOP TO PUT ON, PT TOOK SHIRT AND ALSO TOOK THE SCRUB TOP, SWUNG IT AT THIS NURSE IN A VIOLENT MANNER. PT ASKED TO CEASE BEHAVIOR. PT THEN HISSED AT THIS NURSE. SUBSTANCE ABUSE SPECIALIST AND CHARGE NURSE ALSO IN HALLWAY TO WITNESS BEHAVIOR. PT DID PUT ON SHIRT AND PROCEEDED TO WALK DOWN THE HALLWAY TOWARDS THE DAYROOM. ANOTHER MALE PATIENT WAS SITTING IN A CHAIR WATCHING TV, WITH HIS BACK TO PATIENT. PT CAME UP BEHIND HIM AND HELD HER HANDS OUT TOWARDS HIS NECK, ACTING LIKE SHE WAS GOING TO CHOKE HIM FROM BEHIND. STAFF INTERVENED BEFORE PT MADE ANY CONTACT WITH THIS MALE PATIENT, STAFF ASKED MALE PATIENT TO EXIT THE DAY ROOM AND HE DID. PT THEN WANDERED AROUND IN THE DAY ROOM, HAD HER EYES CLOSED, APPEARED TO BE RESPONDING TO INTERNAL STIMULI. HER HANDS KEEP MOTIONING THOUGHT SHE IS HOLDING AN ITEM ALTHOUGH SHE ISN'T, SHE ALSO ATTEMPTED TO STAND ON ONE OF THE CHAIRS DOWN IN THE DAY ROOM, STAFF AGAIN HAD TO INTERVENE AND ASSIST PT DOWN OFF OF THE CHAIR. PT THEN WENT INTO A CORNER OF THE ROOM AND TOOK HER PANTS OFF. STAFF ATTEMPTED TO REDIRECT WITH NO SUCCESS. WEB CONTENT EXECUTIVE ATTEMPTED TO ESCORT PT OUT OF THE DAY ROOM, PT SNATCHED HER HAND AWAY AND HIT WEB CONTENT EXECUTIVE ON HER BACKSIDE. Marisel MONTEMAYOR RN CONTACTED DOCTOR ORTIZ AND TELEPHONE ORDER RECEIVED TO PUT PT IN KAREL. SECURITY PRESENT AT THIS TIME AND HAD TO ASSIST TO ESCORT PATIENT BACK TO KAREL ALONG WITH SUBSTANCE ABUSE SPECIALIST AND TWO NURSING STAFF. PT CONT TO BE 1:1 WITH SUBSTANCE ABUSE SPECIALIST WHILE IN KAREL. STAFF WILL CONT TO MONITOR CLOSELY FOR CHANGE IN PT BEHAVIOR.
--- NOTE | 2020-07-19 10:30 | PC.NURSE ---
PT CONT TO BE IN KAREL, UNABLE TO FOLLOW SAFETY INSTRUCTIONS FROM STAFF. PT WILL NOT PUT HER SCRUB PANTS ON, HITTING AND KICKING THE DOOR. DIFFICULT TO REDIRECT. PT RESP EVEN ET UNLABORED & NO DISTRESS NOTED.
[2020-07-19 14:00] VITALS: RESP 16
--- NOTE | 2020-07-19 14:02 | PC.NURSE ---
PT CONTINUES TO BE IN KAREL UNDER 1:1 STAFF SUPERVISION. PT WAS GIVEN JUICE AND SNACKS. PT SITTING ON THE FLOOR EATING AND DRINKING HER JUICE.
--- NOTE | 2020-07-19 14:32 | PC.NURSE ---
PT CONT TO BE VERBALLY AGGRESSIVE WITH STAFF, YELLING AT STAFF THROUGH GLASS FUCK YOU! FUCK YOU LET ME OUT OF HERE! PT UNABLE TO FOLLOW VERBAL INSTRUCTION FROM STAFF.
--- NOTE | 2020-07-19 17:40 | P.PN_ITS ---
Subjective NPU Subjective: Interval history: Noni presented today continuing to struggle with moments of confusion and being out of control. Thus far she has had a little less medication but significant concerns about her safety. We discussed getting a consult but she was unclear what this meant. I did explain to her that another doctor will be coming in she did not seem to understand as she aimlessly walked around grabbing her tongue wiping spit on winter making weird noises and gestures. We are trying to get her to take oral medications which she does occasionally but she is certainly not having informed consent enough for us to initiate medication and schedule a likely desire. We informed her we were going to put in a 21-day hold request. Mental Status Exam MSE Comments: This is an obese white female with hospital scrubs on with limited grooming and eye contact. No abnormal movements except for aimless psychomotor agitation. Uncooperative with exam moderate distress. Speech was limited spontaneous interactions often with odd prosody. Mood not described, affect bizarre. Thought process disorganized. Thought content: Patient did not respond to questions of lethality but did have mounting aggression towards others and she did at times have agitation and destructive behavior requiring interventions, she did not report any delusional content and none was specifically noted, she did deny auditory or visual hallucinations while appearing to attend to internal stimuli. Attention and concentration were impaired and memory was unreliable but none were formally tested. She is alert and oriented to person. Insight and judgment are impaired impulse control is impaired. Vitals/I&O/Wt Last Vital Signs Temp 97.2 F L 07/19/20 18:28 Pulse 100 07/19/20 18:28 Resp 16 07/19/20 18:28 BP 132/95 07/19/20 18:28 Pulse Ox 99 07/19/20 18:28 Data NPU : 07/19/20 06:31 07/19/20 06:31 A&P Additional A&P Information (1) Psychosis: (2) Opiate use: (3) Substance use: This is a 34-year-old white female with a history of bipolar disorder and addiction who presents floridly psychotic with a positive UDS but not for anything that one would expect the yield this presentation who is unable to be a participant in her care due to the level of thought disorder being displayed. 1. Continue current medication. 2. Continue one-to-one for safety. 3. As she improves encourage individual and milieu therapy. 4. Work with treatment team for collateral information and encourage sober living treatment after discharge at the highest level of care to which she is willing to commit. Involuntary Hold Information 96 Hour Hold: 96 Hour Involuntary Admission: No 96 Hour Hold Ending Date: 07/20/20 96 Hour Hold Ending Time: 18:15 Attestations NPU Medical Necessity Statement*: Inpatient hospitalization is medically necessary and the clinically appropriate intervention at this time. We will monitor medications and add or make changes as indicated. Likely length of stay 6-8 days. Will be filing for 21-day hold shortly. Coding Level of Care Code Acute Parts Representative for Maritza Cherry
[2020-07-19 18:28] VITALS: BP 132/95; PULSE 100; RESP 16; TEMP 36.2; O2SAT 99
--- NOTE | 2020-07-19 19:45 | PC.NURSE ---
The patient said it is April,. The next big holiday is New . Stated she is currently on a trip to the [facility].
--- NOTE | 2020-07-19 21:01 | PC.NURSE ---
The patient said it is June,. She said she does not know her location.
[2020-07-19 22:00] VITALS: RESP 20
--- NOTE | 2020-07-19 22:00 | PC.NURSE ---
The patient has disrobed. She is agitated and pounding at the door to the seclusion room.
--- NOTE | 2020-07-19 23:13 | PC.NURSE ---
The patient is sitting on the floor. She said it is September,. She said she is at [facility]. I asked a few more questions and while her responses were not accurate they were at least related to the topic.
[2020-07-19] MEDS: haloperidol 5 mg Tablet PO (23:15)
[2020-07-19] MEDS: hyDROXYzine 25 mg Capsule 50 MG PO (23:15)
[2020-07-19] MEDS: LORazepam 2 mg Tablet PO (23:15)
--- NOTE | 2020-07-19 23:50 | PC.NURSE ---
The patient has been calm for about 15 minutes. She is following directions. Locked seclusion has been discontinued at 2350. The patient is on a mattress resting quietly covered by 3 blankets.
[2020-07-20] MEDS: trazodone 50 mg Tablet PO (02:11)
[2020-07-20] MEDS: OLANZapine 5 mg ODT PO (02:11)
[2020-07-20 06:00] VITALS: RESP 17
[2020-07-20] MEDS: LORazepam 2 mg Tablet PO (06:16)
[2020-07-20] MEDS: hyDROXYzine 25 mg Capsule 50 MG PO (06:16)
[2020-07-20] MEDS: haloperidol 5 mg Tablet PO ×2 (06:16→21:44)
--- NOTE | 2020-07-20 06:29 | PC.NURSE ---
At 0625 the patient became resistive and and was attempting to push past staff members to exit the seclusion area. The patient was moved to the smaller locked seclusion room where she would have no direct contact with staff members. The patient continues on 1:1 observation. The patient has partially disrobed in the seclusion room.
--- NOTE | 2020-07-20 10:59 | ECG_ITS ---
[facility] Test Date: 2020-07-20 Pat Name: Noni Rodríguez Department: Room: 170 Gender: Female Site Reliability Engineer: : 1985 Requested By: Petey Anglin Order Number: [id number] Zee MD: Daiana Rose M.D. Measurements Intervals [place] Rate: 96 P: 58 CO: 153 QRS: 42 QRSD: 84 T: 27 QT: 372 QTc: 470 Interpretive Statements SINUS RHYTHM Compared to ECG 10/07/2017 18:52:32 No significant changes Electronically Signed On 07-20-2020 22:42:58 BUSINESS ATTORNEY by Daiana Rose M.D. [id number]
[2020-07-20] MEDS: OLANZapine 10 mg ODT PO ×2 (11:16→21:44)
--- NOTE | 2020-07-20 11:16 | PC.NURSE ---
Addendum entered by Kristal Reece LPN 07/20/20 15:11: prn med not yet effective pt cont to be up in KAREL, cursing and punching the door, staff cont to be 1:1, pt not in physical distress but cont to be agitated Original Note: PRN ZYPREXA ZYDIS 10 MG GIVEN PO PER PT C/O PSYCHOSIS. PT UP AND TEARFUL, URINATED ON THE FLOOR, APPEARS TO BE RESPONDING TO INTERNAL STIMULI. MAKES MOVEMENTS WITH HER HANDS ACTING LIKE SHE IS GRABBING AT STUFF THAT ISN'T THERE. PT CONT TO BE 1:1 WITH DRY MOLDER. AFTER MED ADMINISTRATION PT CAME OUT OF KAREL, WENT TO LIE DOWN ON A MATTRESS ON THE FLOOR. CONT TO BE NAKED, REFUSED TO PUT CLOTHES ON, STAFF COVERED PT UP WITH A BLANKET TO PROTECT PRIVACY. STAFF WILL CONT TO MONITOR.
--- NOTE | 2020-07-20 12:55 | PM.CONSULT ---
Providers/Reason For Consult Consulting Physican/Specialty*: Armani Luna MD, hospitalist Reason for Consult*: Psychosis, abnormal movements Attending Physician: Petey Anglin MD History of Present Illness History of Present Illness Noni Rodríguez is a 34 year old female who have been asked to consult on by psychiatry secondary to abnormal movements, continued psychosis. Patient has an underlying mental health disorder, described on previous evaluation as bipolar disorder who was admitted on July 15 secondary to psychotic behavior. Patient cannot participate in giving an adequate history at this time. When I interviewed her she was able to respond in a calm way, complained of some left lower extremity discomfort, but would often go off on tangents. She believes her sister was in the room, and she was 12 years of age. Review of Systems General: Reports: ROS unobtainable due to mental status (Unable to obtain secondary to psychosis) Meds/Allergies Home Medications and Allergies Home Medications Medication Instructions Recorded Confirmed Last Taken Type Unable to Assess 07/18/20 07/18/20 Unknown History Allergies Allergy/AdvReac Type Severity Reaction Status Date / Time amoxicillin Allergy Unknown Unknown Verified 07/14/20 19:47 Current Medications Current Medications Generic Name Dose Route Start Last Admin Trade Name Freq PRN Reason Stop Dose Admin Acetaminophen 650 mg 07/14/20 19:36 07/17/20 08:30 Acetaminophen 325 Mg Tablet PO 650 mg Q4H PRN Administration MILD PAIN Diphenhydramine HCl 50 mg 07/14/20 19:36 07/18/20 15:34 Diphenhydramine 50 Mg/Ml Sdv 1ml IM 50 mg ONCE PRN Administration Severe Extrapyramidal Symptoms Diphenhydramine HCl 50 mg 07/14/20 19:36 07/19/20 04:56 Diphenhydramine 50 Mg/Ml Sdv 1ml IM 50 mg Q4H PRN Administration Severe Aggression Haloperidol 5 mg 07/14/20 19:36 07/20/20 06:16 Haloperidol 5 Mg Tablet PO 5 mg Q4H PRN Administration AGITATION Haloperidol Lactate 5 mg 07/14/20 19:36 07/19/20 04:55 Haloperidol Inj 5 Mg/Ml Inj 1 Ml IM 5 mg Q4H PRN Administration Severe Aggression Hydroxyzine Pamoate 50 mg 07/14/20 19:36 07/20/20 06:16 Hydroxyzine 25 Mg Capsule PO 50 mg Q6H PRN Administration ANXIETY Lorazepam 2 mg 07/14/20 19:36 07/19/20 04:55 Lorazepam 2 Mg/Ml Inj 1 Ml IM 2 mg Q4H PRN Administration Severe Aggression Lorazepam 2 mg 07/17/20 12:30 07/20/20 06:16 Lorazepam 2 Mg Tablet PO 2 mg Q4H PRN Administration ANXIETY Olanzapine 5 mg 07/14/20 19:36 07/20/20 02:11 Olanzapine 5 Mg Odt PO 5 mg Q4H PRN Administration Agitation/Psychosis Olanzapine 10 mg 07/16/20 16:13 07/18/20 15:34 Olanzapine 10 Mg Vial IM 10 mg Q2H PRN Administration SEVERE AGITATION Olanzapine 10 mg 07/20/20 10:23 07/20/20 11:16 Olanzapine 10 Mg Odt PO 10 mg Q6H PRN Administration psychosis Ziprasidone 20 mg 07/14/20 18:41 07/16/20 09:34 Ziprasidone 20 Mg/Ml Sdv IM 20 mg BID PRN Administration PSYCHOSIS/AGGRESSION PFSH Acute PFSH: Medical History (Updated 07/20/20 @ 12:57 by Armani Luna MD) Drug abuse Hyperlipidemia Hypertension Mental health disorder Obesity Female Reproductive History: Date of last menstrual period: 07/14/20 Supplemental PFSH Information: Secondary to patient's psychosis unable to obtain adequate surgical history, family history, or social history. Many of her responses are tangential. She denies alcohol, tobacco, or drug use at this time. Vitals/I&O/Wt Last Vital Signs Temp 97.2 F L 07/19/20 18:28 Pulse 100 07/19/20 18:28 Resp 17 07/20/20 06:00 BP 132/95 07/19/20 18:28 Pulse Ox 99 07/19/20 18:28 Physical Exam Narrative: EXAM NARRATIVE: General exam demonstrates a white female, with tangential thinking, who can communicate and respond with an answer to every question. However, she believes she is 12 years of age and her sister is in the room currently. Neurologic: Gait is measured but no obvious imbalance. She sits down without significant difficulty, and moves all extremities. There are no obvious focal deficits, or cerebellar dysfunction. She appears calm currently, but tries to keep her eyes closed or looking to the floor during the interview. She is capable upon being instructed to open her eyes without difficulty and extraocular movements are intact. No repetitive movement is noted during my exam HEENT: Atraumatic, normocephalic. Oropharynx is clear. Neck is supple no lymphadenopathy or thyromegaly Cardiovascular regular rate and rhythm without murmur Lungs are clear. No wheezing or crackles Abdomen is soft nontender, obese. No obvious organomegaly was deferred Extremities no cyanosis clubbing or edema, cap refill brisk Skin no obvious rash Data Other Data: Other data: LFTs are normal with exception of an ALT which is 45. CK was 624. Ammonia level is 15 A&P Assessment and plan (1) Psychosis: She has purposeful interactions currently. From discussing her case with psychiatry as well as nursing she occasionally will have some repetitive movements, but can continue purposeful movements at this time as well. She has been able to eat and drink. I do not think at this time there is any concern for seizure disorder. In reviewing her medications she is receiving there is a fair amount of antihistamine used to try to improve her agitation. At this point in time I would consider reducing this use to see if improvement would occur. She does not appear to be actively withdrawing. TSH will be ordered Status: Acute (2) Substance use: Urine drug screen positive for opiates on admission. Family indicated on admission that she has used drugs. Any drug use or individual drug use prior to admission is not known. Status: Acute Additional A&P Information Past history of bipolar disorder with psychotic presentation in the past Thank you for this consultation I will follow up tomorrow with the patient. Consult Attestations Medical Necessity Statement: As per primary Coding Level of Care Code Acute Smoking Pipe Coater for Maritza Cherry Diagnoses Psychosis F29 Substance use F19.90
[2020-07-20 14:00] VITALS: BP 129/94; PULSE 85; RESP 20; TEMP 36.3; O2SAT 100
[2020-07-20 14:25] LABS: Thyroid Stimulating Hormone 2.31 uIU/mL (0.27-4.20)
[2020-07-20] MEDS: LORazepam 2 mg/mL INJ 1 mL IM ×2 (16:19→23:43)
[2020-07-20] MEDS: OLANZapine 10 mg VIAL IM (16:19)
--- NOTE | 2020-07-20 16:19 | PC.NURSE ---
Addendum entered by Kristal Reece LPN 07/20/20 17:16: prn meds effective currently. pt mood is more calm, staff gave sandwich and milk in KAREL Original Note: CODE 10/PRN ZYPREXA AND ATIVAN PT HAD SOCK WRAPPED AROUND HER NECK IN KAREL. STAFF X2 ATTEMPT TO GET SOCK AWAY FROM PATIENT. PT CHARGED OUT OF KAREL & ATTEMPTED TO AMBULATE DOWN THE HALLWAY. PT PUSHED AND KICKED A BEDSIDE TABLE, PUSHED OVER A CLIPBOARD THAT 1:1 MARKET GARDEN WORKER WAS USING, REFUSED TO GIVE CLIPBOARD BACK TO STAFF. CODE 10 CALLED, SECURITY AND SEVERAL NURSING STAFF AND INSPECTOR MULTIFOCAL LENS PRESENT FOR CODE. SECURITY ASKED FOR CLIPBOARD BACK AND PATIENT WAS ABLE TO FOLLOW REQUEST AND GAVE CLIPBOARD BACK TO SECURITY. PT THEN AMBULATED BACK TO KAREL, TWO INJECTIONS GIVEN WITHOUT INCIDENT. ZYPREXA 10 MG WITH ATIVAN 2 MG BOTH GIVEN IM IN LEFT DELTOID. PT CONT TO BE BACK IN KAREL FOR HER BEHAVIORS, UNDER 1:1 SUPERVISION FROM STAFF.
--- NOTE | 2020-07-20 16:22 | PC.NURSE ---
CODE 10. STAFF SHOUTING FOR HELP TO THIS PATIENTS ROOM, PATIENT WAS REPORTEDLY PUTTING A SOCK AROUND HER NECK. OPENED SECLUSION DOOR TO OBTAIN SOCK FROM PATIENT, WHO THREW THE SOCK ON THE FLOOR AND PROCEEDED TO PUSH THE DOOR OPEN, HEADED TO THE BEDSIDE TABLE, KICKING IT INTO THE WALL, KNOCKING THE NURSING CLIPBOARD ON THE GROUND. PATIENT PICKED UP CLIPBOARD AND PROCEEDED TO STRIKE NURSE ON THE BOTTOM WITH IT, THEN ATTEMPTED TO PUT IT UNDER THE DRINK MACHINE. ATTEMPTS TO REDIRECT PATIENT BACK TO SECLUSION AND OBTAIN CLIPBOARD WERE NOT SUCCESSFUL. SECURITY ABLE TO OBTAIN CLIPBOARD WITH VERBAL DE-ESCALATION, PATIENT HANDED IT TO HIM AND WAS ABLE TO GET PATIENT TO WALK BACK TO SECLUSION WITHOUT DIFFICULTY. MEDICATION ADMINISTERED IM WITHOUT DIFFICULTY. WILL MONITOR FOR DRUG EFFECTIVENESS. PATIENT IN SECLUSION. NO DISTRESS NOTED.NO INJURIES NOTED TO PATIENT OR STAFF CONT WITH 1:1 PHYSICIAN PRESENT DURING CODE
--- NOTE | 2020-07-20 16:58 | P.PN_ITS ---
Subjective NPU Subjective: Interval history: Noni presents today being a little more cold at times still bleeding out of sorts reporting no pain or issues but then having continued moments where she is taking her clothes off spitting on things, throwing her food being aggressive and ultimately being in seclusion off and on. She may have had her first quiescent. Last night but woke up with the same energy and aimlessness as before. Mental Status Exam MSE Comments: This is an obese white female with hospital scrubs on with limited grooming and eye contact. No abnormal movements except for aimless psychomotor agitation. Uncooperative with exam moderate distress. Speech was limited spontaneous interactions often with odd prosody. Mood not described, affect bizarre. Thought process disorganized. Thought content: Patient did not respond to questions of lethality but did have mounting aggression towards others and she did at times have agitation and destructive behavior requiring interventions, she did not report any delusional content and none was specifically noted, she did deny auditory or visual hallucinations while appearing to attend to internal stimuli. Attention and concentration were impaired and memory was unreliable but none were formally tested. She is alert and oriented to person. Insight and judgment are impaired impulse control is impaired. Vitals/I&O/Wt Last Vital Signs Temp 97.4 F L 07/20/20 14:00 Pulse 85 07/20/20 14:00 Resp 20 H 07/20/20 14:00 BP 129/94 07/20/20 14:00 Pulse Ox 100 07/20/20 14:00 Data NPU : 07/19/20 06:31 07/19/20 06:31 A&P Additional A&P Information (1) Psychosis: (2) Opiate use: (3) Substance use: This is a 34-year-old white female with a history of bipolar disorder and addiction who presents floridly psychotic with a positive UDS but not for anything that one would expect the yield this presentation who is unable to be a participant in her care due to the level of thought disorder being displayed. 1. Continue current medication. 2. Continue one-to-one for safety. 3. As she improves encourage individual and milieu therapy. 4. Work with treatment team for collateral information and encourage sober living treatment after discharge at the highest level of care to which she is willing to commit. 5. Requested a consult this morning given the significant amount of antipsychotics, antihistamines, benzodiazepines that been given in the last 5 to 6 days. Wanting to see if there is any possible considerations neurologically or medically that we have not considered. Involuntary Hold Information 96 Hour Hold: 96 Hour Involuntary Admission: No 96 Hour Hold Ending Date: 07/20/20 96 Hour Hold Ending Time: 18:15 Attestations NPU Medical Necessity Statement*: Inpatient hospitalization is medically necessary and the clinically appropriate intervention at this time. We will monitor medications and add or make changes as indicated. Likely length of stay 6-8 days. 21-day hold filed. Coding Level of Care Code Acute Furnace And Wash Equipment Operator for Maritza Cherry
[2020-07-20 20:11] VITALS: RESP 20
--- NOTE | 2020-07-20 20:48 | PC.NURSE ---
Behavior not appropriate for situation. Patient is in and out of orientation.
--- NOTE | 2020-07-20 21:51 | PC.NURSE ---
PRN ZYPREXA & HALDOL PT WOKE UP AND STARTED PACING THE ROOM AND HITTING THE HEWITT. AFTER SEVERAL ATTEMPTS TO REDIRECT PATIENT. ADMINISTERED HALDOL 5MG & ZYPREXA 10MG. WILL MONITOR FOR MEDICATION EFFECTIVENESS.
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
[2020-07-20] MEDS: haloperidol inj 5 mg/mL INJ 1 mL 10 MG IM (23:42)
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
[2020-07-21] MEDS: nicotine 21 mg Patch 1 PATCH TRANSDERMA (02:21)
--- NOTE | 2020-07-21 03:59 | PC.NURSE ---
RASH PT WAS IN ROOM 170 UNDRESSED PRETENDING TO BE A VACUUM. THIS NURSE WENT TO CHECK ON PATENT AND NOTICED HER SKIN WAS RED AND BLOTCHY ALL OVER. PT'S RIGHT BREAST HAS A RED RASH AROUND THE AREOLA. PT STATES WHEN SHE GETS UPSET SHE GETS HIVES. PT REFUSED BENADRYL AT THIS TIME AND REFUSES TO PUT CLOTHES ON BECAUSE SHE STATES THE AIR FEELS GOOD ON HER SKIN. WILL CONTINUE TO MONITOR AND ATTEMPT TO REDIRECT PATIENT.
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
[2020-07-21 06:00] VITALS: BP 131/74; PULSE 123; RESP 21; TEMP 36.8; O2SAT 97
--- NOTE | 2020-07-21 09:03 | PC.NURSE ---
Patient out of seclusion room at 0855 Patient cooperative with staff and got dressed and used rest room and given breakfast.
--- NOTE | 2020-07-21 09:20 | CT_ITS ---
WS: [id number] CT HEAD NONCONTRAST HISTORY: psychosis TECHNIQUE: Contiguous axial imaging performed through the brain in 2.5 mm imaging. Bone and soft tiss ue windows. Sagittal and coronal reformats reviewed. All CT scans at [facility] use at ast one of these dose optimization techniques: automated exposure control; mA and/or kV adjustment pe r patient size (includes targeted exams where dose is matched to clinical indication); or iterative r econstruction. DLP: 811.29 mGy.cm COMPARISON: None available. No acute intracranial hemorrhage, midline shift or mass effect. No atrophy or prior infarcts or herniation. Ventricles: Normal size with no hydrocephalus. Paranasal sinuses: As visualized are clear. Mastoid air cells: Well pneumatized. Calvarium and scalp: Skull is intact with no soft tissue edema or swelling. CT/CT head wo con* 21221 IMPRESSION: Negative head CT.
--- NOTE | 2020-07-21 09:39 | PC.NURSE ---
Patient off unit for CT of head with RN and Security.
--- NOTE | 2020-07-21 11:14 | P.PN_ITS ---
Subjective Subjective: Interval history: Noni reports she is feeling okay this morning. She was able to eat breakfast. She was closed when I saw her after breakfast. She is willing to get a CT scan. Reports she has had a little bit of extremity pain but she believes this may be from laying in one spot all the time. Medications: Reviewed: Yes Vitals/I&O/Wt Last Vital Signs Temp 98.2 F 07/21/20 06:00 Pulse 123 H 07/21/20 06:00 Resp 21 H 07/21/20 06:00 BP 131/74 07/21/20 06:00 Pulse Ox 97 07/21/20 06:00 Physical Exam Narrative: EXAM NARRATIVE: General exam is a conversive white female, stating her age correctly Cardiovascular regular rate and rhythm without murmur Lungs clear Abdomen is soft with positive bowel sounds Extremities no cyanosis clubbing or edema Data : 07/19/20 06:31 07/19/20 06:31 A&P Assessment and plan (1) Psychosis: She has improved significantly since yesterday Continue to hold antihistamines TSH was performed and normal. CT head was ordered this morning to ensure no other process was occurring. I have reviewed this and it is normal. Status: Acute (2) Substance use: Urine drug screen positive for opiates on admission. Family indicated on admission that she has used drugs. Any drug use or individual drug use prior to admission is not known. Status: Acute Additional A&P Information Past history of bipolar disorder with psychotic presentation in the past Thank you for this consultation At this point considering the patient's improvement I will sign off. Attestations Medical Necessity Statement*: As per primary Coding Level of Care Code Acute Large Animal Husbandry Technician for Maritza Cherry Diagnoses Psychosis F29 Substance use F19.90
[2020-07-21] MEDS: LORazepam 2 mg Tablet PO (12:23)
--- NOTE | 2020-07-21 14:44 | PC.NURSE ---
Ativan Follow up Patient is still restless and constantly taking her clothes off. She has ripped clothing as well as bedding. Mattress is in secluded room with her, she is picking it up and moving it about the room. hits the door and window and does not male sense when trying to have a conversation
--- NOTE | 2020-07-21 15:59 | P.PN_ITS ---
Subjective NPU Subjective: Interval history: If the state needing to struggle with self control. She continues to be aimless and requiring significant medication and seclusion to avoid her posing a danger to herself and or others. She is seeming to sleep a little more and better, she is seeming to have a few periods of purposeful communication either spontaneously or when being engaged. She continues to regularly take her clothes off and show limited recognition of total norms or conformity. Mental Status Exam MSE Comments: This is an obese white female with hospital scrubs on with limited grooming and eye contact. No abnormal movements except for aimless psychomotor agitation. Uncooperative with exam moderate distress. Speech was limited spontaneous interactions often with odd prosody. Mood not described, affect bizarre. Thought process disorganized. Thought content: Patient did not respond to questions of lethality but did have mounting aggression towards others and she did at times have agitation and destructive behavior requiring interventions, she did not report any delusional content and none was specifically noted, she did deny auditory or visual hallucinations while appearing to attend to internal stimuli. Attention and concentration were impaired and memory was unreliable but none were formally tested. She is alert and oriented to person. Insight and judgment are impaired impulse control is impaired. Vitals/I&O/Wt Last Vital Signs Temp 98.2 F 07/21/20 06:00 Pulse 123 H 07/21/20 06:00 Resp 21 H 07/21/20 06:00 BP 131/74 07/21/20 06:00 Pulse Ox 97 07/21/20 06:00 Weight last 48 hrs Weight 90.718 kg Data NPU : 07/19/20 06:31 07/19/20 06:31 A&P Additional A&P Information (1) Psychosis: (2) Opiate use: (3) Substance use: This is a 34-year-old white female with a history of bipolar disorder and addiction who presents floridly psychotic with a positive UDS but not for anything that one would expect the yield this presentation who is unable to be a participant in her care due to the level of thought disorder being displayed. 1. Continue current medication. Encourage acceptance of a scheduled antipsycho tic. 2. Continue one-to-one for safety. 3. As she improves encourage individual, group and milieu therapy. 4. Work with treatment team for collateral information and encourage sober living treatment after discharge at the highest level of care to which she is willing to commit. 5. Appreciate consult and will follow recommendations. Involuntary Hold Information 96 Hour Hold: 96 Hour Involuntary Admission: No 96 Hour Hold Ending Date: 07/20/20 96 Hour Hold Ending Time: 18:15 Attestations NPU Medical Necessity Statement*: Inpatient hospitalization is medically necessary and the clinically appropriate intervention at this time. We will monitor med ications and add or make changes as indicated. Likely length of stay 8-10 days. 21-day hold hearing Friday. Coding Level of Care Code Acute Television Service Engineer for Maritza Cherry
[2020-07-21] MEDS: OLANZapine 10 mg ODT PO (21:32)
[2020-07-21] MEDS: trazodone 100 mg Tablet PO (21:32)
[2020-07-21 21:50] VITALS: BP 164/84; PULSE 113; RESP 19; TEMP 36.8; O2SAT 97
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
--- NOTE | 2020-07-22 03:50 | PC.NURSE ---
BEHAVIOR PT CONTINUES TO BANG ON THE DOOR, ROLL AROUND ON THE FLOOR, LICK HEWITT AND BE UNCOOPERATIVE. WILL CONTINUE TO MONITOR.
[2020-07-22 06:00] VITALS: RESP 20
--- NOTE | 2020-07-22 06:23 | PC.NURSE ---
PT REFUSED 0600 VITALS. RR NOTED
[2020-07-22] MEDS: LORazepam 2 mg Tablet PO (07:50)
[2020-07-22] MEDS: haloperidol 5 mg Tablet PO (07:50)
[2020-07-22] MEDS: OLANZapine 5 mg ODT PO (07:55)
--- NOTE | 2020-07-22 08:13 | PC.NURSE ---
PT BEHAVIOR; CLIENT PLACED IN SECLUSION AFTER EXHIBITING AGGRESSIVE BEHAVIORS DR ORTIZ NOTIFIED STAFF WILL CONTINUE TO MONITOR.
[2020-07-22] MEDS: acetaminophen 325 mg Tablet 650 MG PO (11:25)
[2020-07-22] MEDS: paliperidone ER 6 mg Tablet PO (11:25)
--- NOTE | 2020-07-22 12:36 | PC.NURSE ---
PT NOTE; PT GIVEN FIRST DOSE OF INVEGA 6MG PO AT 1042 THIS MORNING. CLIENT IS TOLERATING WELL. CLIENT REMAINS ONE ON ONE BUT IS CURRENTLY OUT OF SECLUSION AND IS RESTING WITH NO SIGNS OR SYMPTOMS OF DISTRESS AT THIS TIME. STAFF WILL CONTINUE TO MONITOR.
[2020-07-22] MEDS: hydrocortisone 2.5% cream 28 gm 1 APPLIC TOPICAL (13:43)
[2020-07-22 13:54] VITALS: RESP 18
--- NOTE | 2020-07-22 14:14 | PC.NURSE ---
Invega 6mg PO Patient was agreeable to take Invega 6mg PO and was given medication at 1125. Follow up at this time, there is no additional redness or rash noted to her skin that was not there prior to administering this medication.
--- NOTE | 2020-07-22 18:13 | PM.NPN ---
Subjective NPU Subjective: Interval history: Although Noni continues to require significant as needed medication and seclusion, she continues to have more purposeful communication and interaction. She listened to my discussion of the risks, benefits and alternatives of initiating Invega and she seemed understand and agreed to proceed as is documented in this note. She continued to be without social construct. Spending most of her time with her close off even with repeated assistance to put her clothes on she quickly comes out of them which is one of the reasons for seclusion. He was seen to sleep a little better and have more cogent moments but still significant disorganization and lack of clarity most of her waking hours. Mental Status Exam MSE Comments: This is an obese white female naked with limited grooming and eye contact. No abnormal movements except for aimless psychomotor agitation. More cooperative with exam moderate distress. Speech was limited spontaneous interactions often with odd prosody. Mood not described, affect bizarre. Thought process mostly disorganized with occasional moments of engagement and clarity. Thought content: Patient denied suicidal or homicidal ideations but did have aggression towards others and herself and she did at times have agitation and destructive behavior requiring interventions, she did report paranoia/delusional thoughts, but none was specifically noted, she endorsed some auditory/visual hallucinations. Attention and concentration were impaired and memory was unreliable but none were formally tested. She is alert and oriented to person. Insight and judgment are impaired, impulse control is impaired. Vitals/I&O/Wt Last Vital Signs Temp 97.9 F 07/22/20 22:00 Pulse 102 H 07/22/20 22:00 Resp 21 H 07/22/20 22:00 BP 128/81 07/22/20 22:00 Pulse Ox 98 07/22/20 22:00 Weight last 48 hrs Weight 90.718 kg Data NPU : 07/19/20 06:31 07/19/20 06:31 A&P Additional A&P Information (1) Psychosis: (2) Opiate use: (3) Substance use: This is a 34-year-old white female with a history of bipolar disorder and addiction who presents floridly psychotic with a positive UDS but not for anything that one would expect the yield this presentation who is unable to be a participant in her care due to the level of thought disorder being displayed. 1. Continue current medication. We will start Invega 6 mg p.o. every morning and continue to offer Zyprexa 10 mg p.o. nightly and assist with as needed medication aggressively in hopes of breaking this state. 2. Continue one-to-one for safety. 3. As she improves encourage individual, group and milieu therapy. 4. Work with treatment team for collateral information and encourage sober living treatment after discharge at the highest level of care to which she is willing to commit. 5. Appreciate consult and will follow recommendations. Involuntary Hold Information 96 Hour Hold: 96 Hour Involuntary Admission: No 96 Hour Hold Ending Date: 07/20/20 96 Hour Hold Ending Time: 18:15 Attestations NPU Medical Necessity Statement*: Inpatient hospitalization is medically necessary and the clinically appropriate intervention at this time. We will monitor medications and add or make changes as indicated. Likely length of stay 8-10 days. 21-day hold hearing Friday. Coding Level of Care Code Acute Strategic Planning Specialist for Maritza Cherry
[2020-07-22] MEDS: OLANZapine 10 mg ODT PO (21:41)
[2020-07-22] MEDS: trazodone 100 mg Tablet PO (21:41)
[2020-07-22 22:00] VITALS: BP 128/81; PULSE 102; RESP 21; TEMP 36.6; O2SAT 98
[2020-07-23 06:00] VITALS: RESP 19
[2020-07-23] MEDS: paliperidone ER 6 mg Tablet PO (07:51)
--- NOTE | 2020-07-23 11:20 | PC.NURSE ---
PT BEHAVIOR; PT REMAINS ONE ON ONE DUE HER PSYCHOTIC BEHAVIORS. CLIENT AGITATED AT TIMES CLIENT UNABLE TO KEEP CLOTHING ON AND NUMEROUS ATTEMPTS TO PROVIDE CLOTHING FOR THE PATIENT HAVE PROVED FUTILE. PT RIPES CLOTHING OFF BY TEARING IT UP WHICH POSES ANOTHER SAFETY HAZARD TO PT IN HER CURRENT STATE OF MIND. CLIENT REMAINS IN SECLUSION WITH A MATTRESS AND NO OTHER ITEMS THAT COULD POSE A DANGER TO THE PATIENT AT THIS TIME. STAFF CONTINUES TO MONITOR CLIENT CONTINUOUSLY.
[2020-07-23] MEDS: ziprasidone 20 mg/mL SDV IM (13:08)
[2020-07-23] MEDS: LORazepam 2 mg/mL INJ 1 mL IM (13:25)
--- NOTE | 2020-07-23 13:30 | PC.NURSE ---
PT BEHAVIOR NURSING INTERVENTION; CLIENT CONTINUES TO EXHIBIT BIZARRE AND UNUSUAL BEHAVIOR. CLIENT GIVEN 2MG OF ATIVAN IM AND 20MG OF GEODON IM ORDERED PRN FOR ANXIETY AND SEVERE AGITATION WHICH CLIENT HAS BEEN EXPERIENCING THROUGHOUT THE MORNING. CLIENT TOLERATED THE ADMINISTRATION OF PRESCRIBED MEDICATIONS WELL. CLIENT REMAINS ON ONE ON ONE OBSERVATION IN THE SECLUSION ROOM. STAFF WILL CONTINUE TO MONITOR AND ASSESS CLIENTS CONDITION FREQUENTLY. CLIENT OFFERED FOOD AND LIQUIDS AT THIS TIME. CLIENT DRANK A LARGE CUP OF JUICE BUT DECLINED HER MEAL AT THIS TIME.
[2020-07-23 14:00] VITALS: BP 139/85; PULSE 87; RESP 20; TEMP 36.6
--- NOTE | 2020-07-23 15:44 | P.PN_ITS ---
Subjective NPU Subjective: Interval history: Noni presents today reporting that she okay. Continues to have frequent visits to the seclusion room. Continues to have difficulty keeping close on but was unable to explain to me why. She appears to be slowly gaining the ability to have intelligent conversation for periods of time, but in between that she continues to be quite impulsive and continue to have periods of purposeless behavior. Mental Status Exam MSE Comments: This is an obese white female naked with limited grooming and eye contact. No abnormal movements except for aimless psychomotor agitation. More cooperative with exam in moderate distress. Speech was limited spontaneous interactions often with odd prosody. Mood not described, affect bizarre. Thought process mostly disorganized with occasional moments of engagement and clarity. Thought content: Patient denied suicidal or homicidal ideations but did have aggression towards others and herself and she did at times have a gitation and destructive behavior requiring interventions, she did report paranoia/delusional thoughts, but none was specifically noted, she endorsed some auditory/visual hallucinations. Attention and concentration were impaired and memory was unreliable but none were formally tested. She is alert and oriented to person. Insight and judgment are impaired, impulse control is impaired. Vitals/I&O/Wt Last Vital Signs Temp 97.9 F 07/23/20 15:55 Pulse 88 07/23/20 15:55 Resp 18 07/23/20 15:55 BP 139/85 07/23/20 15:55 Pulse Ox 98 07/23/20 15:55 Weight last 48 hrs Weight 90.718 kg Data NPU : 07/19/20 06:31 07/19/20 06:31 A&P Additional A&P Information (1) Psychosis: (2) Opiate use: (3) Substance use: This is a 34-year-old white female with a history of bipolar disorder and addiction who presents floridly psychotic with a positive UDS but not for anything that one would expect the yield this presentation who is unable to be a participant in her care due to the level of thought disorder being displayed. 1. Continue current medication. 2. Continue one-to-one for safety. 3. As she improves encourage individual, group and milieu therapy. 4. Work with treatment team for collateral information and encourage sober living treatment after discharge at the highest level of care to which she is willing to commit. 5. Appreciate consult and will follow recommendations. Involuntary Hold Information 96 Hour Hold: 96 Hour Involuntary Admission: No 96 Hour Hold Ending Date: 07/20/20 96 Hour Hold Ending Time: 18:15 Attestations NPU Medical Necessity Statement*: Inpatient hospitalization is medically necessary and the clinically appropriate intervention at this time. We will monitor medications and add or make changes as indicated. Likely length of stay 8-10 days. 21-day hold hearing tomorrow. Coding Level of Care Code Acute Licensed And Certified Midwife for Maritza Cherry
[2020-07-23 15:55] VITALS: BP 139/85; PULSE 88; RESP 18; TEMP 36.6; O2SAT 98
[2020-07-23] MEDS: trazodone 100 mg Tablet PO (21:00)
[2020-07-23] MEDS: OLANZapine 10 mg ODT PO (21:00)
[2020-07-23] MEDS: haloperidol 5 mg Tablet PO (21:00)
--- NOTE | 2020-07-23 21:12 | PC.NURSE ---
HAS BEEN SLEEPING OFF AND ON SINCE SHIFT CHANGE, WAS ASKING HOW SHE GOT HERE AND WHY WAS SHE HERE. WHEN AWAKE WAS ROLLING AROUND ON FLOOR, THEN WOULD PUT FEET ON WALL SHE LAID ON HER BACK.
--- NOTE | 2020-07-23 21:14 | PC.NURSE ---
CONTINUES WITH 1-1 SITTER.
[2020-07-23 22:00] VITALS: RESP 16
[2020-07-23] MEDS: acetaminophen 325 mg Tablet 650 MG PO (22:54)
--- NOTE | 2020-07-24 05:03 | PC.NURSE ---
HAS RASH TO BODY, HANDS ARE SWOLLEN, ORIENTED TO PLACE, YEAR BUT UNABLE TO RECALL HOW SHE GOT HERE. HAS BEEN SLEEPING GOOD TONIGHT. CONTINUES TO HAVE 1-1 SITTER.
[2020-07-24 06:00] VITALS: BP 139/87; PULSE 79; RESP 18; TEMP 36.8; O2SAT 99
[2020-07-24] MEDS: paliperidone ER 6 mg Tablet PO (07:53)
[2020-07-24] MEDS: OLANZapine 10 mg ODT PO ×2 (09:36→21:02)
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
[2020-07-24 14:00] VITALS: BP 125/84; PULSE 79; RESP 18; TEMP 37.4; O2SAT 99
--- NOTE | 2020-07-24 14:07 | PC.NURSE ---
Patient off unit Patient off unit accompanied by 2 [facility] deputies, in [facility].
--- NOTE | 2020-07-24 14:32 | PM.NPN ---
Subjective NPU Subjective: Interval history: Noni presents today reporting that she is feeling a little better. She is seeming to be a little less intrusive. She was able to go to the 21-day hearing and she did stipulate to ongoing treatment. She continues to demonstrate some awareness and understanding of her situation in 1 breath but then will have significant disconnect in another. She was seen mostly in clothing today at least by this telegraphic typewriter operator chief. She was little more interactive and less stuck in her room. She is starting to voice a desire to be discharged. If she continues to improve we can start discussing long-acting injectables. She continues to be in contact with her family as her communication skills are improving and waxing and waning less. She is eating okay and starting to sleep better. Mental Status Exam MSE Comments: This is an obese white female in hospital scrubs with limited grooming and eye contact. No abnormal movements except for aimless psychomotor agitation which is improving. More cooperative with exam in mild distress. Speech was improving in spontaneity but still limited often with odd prosody. Mood described as okay, affect becoming more normal. Thought process more organized with occasional moments of engagement and clarity. Thought content: Patient denied suicidal or homicidal ideations and was having less moments of aggression or agitation but still needing redirection, she did report paranoia/delusional thoughts, but none was specifically noted, she endorsed some auditory/visual hallucinations. Attention and concentration were impaired and memory was unreliable but none were formally tested. She is alert and oriented to person and place. Insight and judgment are impaired, impulse control is impaired. Vitals/I&O/Wt Last Vital Signs Temp 98.3 F 07/24/20 21:30 Pulse 80 07/24/20 21:30 Resp 16 07/24/20 21:30 BP 136/88 07/24/20 21:30 Pulse Ox 97 07/24/20 21:30 Data NPU : 07/19/20 06:31 07/19/20 06:31 A&P Additional A&P Information (1) Psychosis: (2) Opiate use: (3) Substance use: This is a 34-year-old white female with a history of bipolar disorder and addiction who presents floridly psychotic with a positive UDS but not for anything that one would expect the yield this presentation who is unable to be a participant in her care due to the level of thought disorder being displayed. 1. Continue current medication. If continues to improve we will explore Invega injection if she has insurance coverage or would be a candidate for the indigent program. 2. Continue one-to-one for safety. 3. As she improves encourage individual, group and milieu therapy. 4. Work with treatment team for collateral information and encourage sober living treatment after discharge at the highest level of care to which she is willing to commit. 5. She was placed on a 21-day hold. Involuntary Hold Information 96 Hour Hold: 96 Hour Involuntary Admission: No 96 Hour Hold Ending Date: 07/20/20 96 Hour Hold Ending Time: 18:15 Attestations NPU Medical Necessity Statement*: Inpatient hospitalization is medically necessary and the clinically appropriate intervention at this time. We will monitor medications and add or make changes as indicated. Likely length of stay 8-10 days. Coding Level of Care Code Acute Truck Assembler for Maritza Cherry
--- NOTE | 2020-07-24 15:03 | PC.NURSE ---
Patient back to unit from [address]
[2020-07-24] MEDS: trazodone 100 mg Tablet PO (21:02)
[2020-07-24 21:30] VITALS: BP 136/88; PULSE 80; RESP 16; TEMP 36.8; O2SAT 97
[2020-07-25 06:00] VITALS: BP 128/84; PULSE 83; RESP 16; TEMP 36.8; O2SAT 97
[2020-07-25] MEDS: paliperidone ER 6 mg Tablet PO (08:46)
[2020-07-25 14:00] VITALS: BP 124/82; PULSE 72; RESP 16; TEMP 37.1; O2SAT 98
--- NOTE | 2020-07-25 15:44 | P.PN_ITS ---
Subjective NPU Subjective: Interval history: Noni presented today actually starting to have a normal [id number] in conversation. She was able to avoid needing I am injections for management of her condition. She was also able to manage her self well enough for us to take her out of room 170 where the seclusion rooms are. And eventually during the day she was taken off of one-to-one observation. She continued to have no explanation for the extreme thing that had denying any elicited or engineered wood designer drug use. She is eating okay and sleeping a little better. Mental Status Exam MSE Comments: This is an obese white female in hospital scrubs with limited grooming and improving eye contact. No abnormal movements except for psychomotor retardation. More cooperative with exam in no acute distress. Speech was improving in spontaneity but still limited often with odd prosody. Mood described as okay, affect flat and subdued. Thought process more organized with more engagement and clarity. Thought content: Patient denied suicidal or homicidal ideations with clear reduction in aggression or agitation, responding to redirection, she did report paranoia/delusional thoughts, but none was sp ecifically noted, she endorsed some auditory/visual hallucinations. Attention and concentration were improving and memory was unreliable but none were formally tested. She is alert and oriented x3. Insight and judgment are impaired, but improving impulse control is impaired, but improving. Vitals/I&O/Wt Last Vital Signs Temp 98.8 F 07/25/20 14:00 Pulse 72 07/25/20 14:00 Resp 16 07/25/20 14:00 BP 124/82 07/25/20 14:00 Pulse Ox 98 07/25/20 14:00 Data NPU : 07/19/20 06:31 07/19/20 06:31 A&P Additional A&P Information (1) Psychosis: (2) Opiate use: (3) Substance use: This is a 34-year-old white female with a history of bipolar disorder and addiction who presents floridly psychotic with a positive UDS but not for anythi ng that one would expect the yield this presentation who is unable to be a participant in her care due to the level of thought disorder being displayed. 1. Continue current medication. If continues to improve we will explore Invega injection if she has insurance coverage or would be a candidate for the indigent program. 2. Initiate every 15 minute checks for safety and discontinue one-to-one o bservation. 3. Encourage individual, group and milieu therapy. 4. Work with treatment team for collateral information and encourage sober living treatment after discharge at the highest level of care to which she is willing to commit. 5. She was placed on a 21-day hold. Involuntary Hold Information 96 Hour Hold: 96 Hour Involuntary Admission: No 96 Hour Hold Ending Date: 07/20/20 96 Hour Hold Ending Time: 18:15 Attestations NPU Medical Necessity Statement*: Inpatient hospitalization is medically necessary and the clinically appropriate intervention at this time. We will monitor medications and add or make changes as indicated. Likely length of stay 7-9 days. Coding Level of Care Code Acute Physicist Cryogenics for Maritza Cherry
[2020-07-25] MEDS: trazodone 100 mg Tablet PO (21:35)
[2020-07-25] MEDS: OLANZapine 10 mg ODT PO (21:35)
[2020-07-25] MEDS: acetaminophen 325 mg Tablet 650 MG PO (21:36)
[2020-07-25 22:00] VITALS: BP 132/80; PULSE 74; RESP 18; TEMP 36.3; O2SAT 98
--- NOTE | 2020-07-26 02:18 | PC.NURSE ---
PM ASSESSMENT PT IS CALM, COOPERATIVE, AND EASY TO ENGAGE. SHE ANSWERS/ASKS QUESTIONS APPROPRIATELY. PT HAS BEEN IN HER ROOM MOST OF THE EVENING. ALL V/S ARE NORMAL, SHE GAVE A URINE SAMPLE WITHOUT ISSUE, AND SLEPT WITHOUT INCIDENT. THIS IS A BIG CHANGE FROM THE LAST TIME THIS NURSE OBSERVED THIS PATIENT.
[2020-07-26 06:00] VITALS: BP 129/79; PULSE 76; RESP 18; TEMP 36.8; O2SAT 97
[2020-07-26] MEDS: acetaminophen 325 mg Tablet 650 MG PO (07:08)
[2020-07-26] MEDS: paliperidone ER 6 mg Tablet PO (07:54)
[2020-07-26 12:36] VITALS: BP 141/91; PULSE 87; RESP 18; TEMP 37; O2SAT 97
--- NOTE | 2020-07-26 13:43 | PM.NPN ---
Subjective NPU Subjective: Interval history: Noni presents today reporting that she has been talking to her family and things are going better. She is finally well enough to start telling the story of what happened. She reports that she has been around some people prior to admission and smoking did not hear what it was. She did bring up the possibility of K2 or bath salts. She endorsed a plan to work with the treatment team to make sure that she had a safe and reasonable discharge. She endorsed having some memory of her behaviors from the past week but is very limited. Mental Status Exam MSE Comments: This is an obese white female in hospital scrubs with limited grooming and improving eye contact. No abnormal movements except for psychomotor retardation. More cooperative with exam in no acute distress. Speech was more normal rate and volume. Mood described as better, affect flat, but less subdued. Thought process more organized. Thought content: Patient denied suicidal or homicidal ideations, there were no delusions reported or noted, she denied any auditory or visual hallucinations. Attention and concentration were improving and memory was more reliable but none were formally tested. She is alert and oriented x3. Insight and judgment are improving, impulse control is impaired, but improving. Vitals/I&O/Wt Last Vital Signs Temp 98.6 F 07/26/20 12:36 Pulse 87 07/26/20 12:36 Resp 18 07/26/20 12:36 BP 141/91 07/26/20 12:36 Pulse Ox 97 07/26/20 12:36 Data NPU : 07/19/20 06:31 07/19/20 06:31 A&P Additional A&P Information (1) Psychosis: (2) Opiate use: (3) Substance use: This is a 34-year-old white female with a history of bipolar disorder and addiction who presents floridly psychotic with a positive UDS but not for anything that one would expect the yield this presentation who is unable to be a participant in her care due to the level of thought disorder being displayed. 1. Continue current medication. If continues to improve we will explore Invega injection if she has insurance coverage or would be a candidate for the indigent program. 2. Initiate every 15 minute checks for safety and discontinue one-to-one observation. 3. Encourage individual, group and milieu therapy. 4. Work with treatment team for collateral information and encourage sober living treatment after discharge at the highest level of care to which she is willing to commit. Involuntary Hold Information 96 Hour Hold: 96 Hour Involuntary Admission: No 96 Hour Hold Ending Date: 07/20/20 96 Hour Hold Ending Time: 18:15 Attestations NPU Medical Necessity Statement*: Inpatient hospitalization is medically necessary and the clinically appropriate intervention at this time. We will monitor medications and add or make changes as indicated. Likely length of stay 3-5 days. Coding Level of Care Code Acute Elastic Tape Inserter for Maritza Cherry
[2020-07-26] MEDS: nicotine 2 mg Gum BUCCAL ×2 (14:17→16:56)
[2020-07-26 15:07] LABS: Add Urine Microscopic? YES; Bilirubin Urine Neg (Negative); Blood Urine Trace (Negative); Glucose Urine UA Norm (Normal); Ketones Urine Negative (Negative); Leukocyte Esterase Urine Negative (Negative); Nitrate Urine Negative (Negative); Protein Urine Neg (Negative); Urine Appearance Clear (CLEAR); Urine Color Yellow (Yellow); Urobilinogen Urine Norm (Negative); pH Urine 7 (5-7)
[2020-07-26 15:08] LABS: Add Urine Culture? No; Bacteria Urine TRACE /hpf; RBC Urine RARE /hpf (0-2); Squamous Epithelial Cell Urine 0-4 /hpf (0-5)
[2020-07-26 21:09] VITALS: BP 148/78; PULSE 76; RESP 18; TEMP 36.8; O2SAT 96
[2020-07-26] MEDS: trazodone 100 mg Tablet PO (21:43)
[2020-07-26] MEDS: OLANZapine 10 mg ODT PO (21:43)
[2020-07-27 05:37] VITALS: BP 139/85; PULSE 79; RESP 18; TEMP 36.6; O2SAT 96
[2020-07-27] MEDS: nicotine 2 mg Gum BUCCAL ×2 (08:03→11:30)
[2020-07-27] MEDS: paliperidone ER 6 mg Tablet PO (08:03)
[2020-07-27 13:05] VITALS: BP 138/88; PULSE 79; RESP 18; TEMP 36.4; O2SAT 98
--- NOTE | 2020-07-27 17:45 | PM.NPN ---
Subjective NPU Subjective: Interval history: Today reporting feeling much better. All reports from staff are initiation much improved cognitive clarity and much more improved than anyone related is quickly given how bad last week was. She relates she has a recollection of what was going on but she quit doing about it as she was having extreme hallucinations and thinking. She continues to report that the medication has been effective and she is interested in continuing it but currently does not have [place] for [place] [facility] and identifying whether or not we could get her connected with medication rather than later. We discussed observing to see if she continues to have the ability and if so discussed discharge in the next 48 hours. Mental Status Exam MSE Comments: This is an obese white female in hospital scrubs with adequate grooming and improving eye contact. No abnormal movements except for mild psychomotor retardation. More cooperative with exam in no acute distress. Speech was more normal rate and volume. Mood described as pretty good, affect less flat. Thought process more organized. Thought content: Patient denied suicidal or homicidal ideations, there were no delusions reported or noted, she denied any auditory or visual hallucinations. Attention and concentration were improving and memory was more reliable but none were formally tested. She is alert and oriented x3. Insight and judgment are improving, impulse control is impaired, but improving. Vitals/I&O/Wt Last Vital Signs Temp 98.4 F 07/27/20 21:58 Pulse 92 07/27/20 21:58 Resp 18 07/27/20 21:58 BP 141/89 07/27/20 21:58 Pulse Ox 94 07/27/20 21:58 Data NPU : 07/19/20 06:31 07/19/20 06:31 A&P Additional A&P Information (1) Psychosis: (2) Opiate use: (3) Substance use: This is a 34-year-old white female with a history of bipolar disorder and addiction who presents floridly psychotic with a positive UDS but not for anything that one would expect the yield this presentation who is unable to be a participant in her care due to the level of thought disorder being displayed. 1. Continue current medication. 2. Initiate every 15 minute checks for safety and discontinue one-to-one observation. 3. Encourage individual, group and milieu therapy. Involuntary Hold Information 96 Hour Hold: 96 Hour Involuntary Admission: No 96 Hour Hold Ending Date: 07/20/20 96 Hour Hold Ending Time: 18:15 Attestations NPU Medical Necessity Statement*: Inpatient hospitalization is medically necessary and the clinically appropriate intervention at this time. We will monitor medications and add or make changes as indicated. Likely length of stay 1-4 days. We will consider discharge tomorrow. Coding Level of Care Code Acute Citrix Architect for Maritza Cherry
[2020-07-27] MEDS: trazodone 100 mg Tablet PO (19:46)
[2020-07-27] MEDS: OLANZapine 10 mg ODT PO (19:46)
[2020-07-27 21:58] VITALS: BP 141/89; PULSE 92; RESP 18; TEMP 36.9; O2SAT 94
[2020-07-27] MEDS: acetaminophen 325 mg Tablet 650 MG PO (22:43)
--- NOTE | 2020-07-28 00:04 | PC.NURSE ---
@0703 -Tylenol 650 mg Po given for headache and ear pain rated a 8 on 1-10 scale. @0004 pt is sleeping -Used FLAAC scale to rescore 0 at this time
[2020-07-28 06:00] VITALS: BP 122/84; PULSE 75; RESP 16; TEMP 36.4; O2SAT 98
--- NOTE | 2020-07-28 06:38 | PC.NURSE ---
Home meds Noni stated, I use the [facility] pharmacy in [place], [place]. She listed her home medications as Trazodone 25 PO at bedtime, Ibprophen for pain over the counter, Atorvastatin 25mg PO BID, and Prozac 40mg Po daily. She said that she needed a beta alicia for her hypertension. Med list and pharmacy are updated. We may need to call the pharmacy to ensure correct dosages and medications obtained here. She said that it has been over a month since she had her medications filled. Pt stated that she had an appointment scheduled with her doctor before all of this happened and she came to the unit to refill her medications.
[2020-07-28] MEDS: nicotine 2 mg Gum BUCCAL ×2 (08:43→16:49)
[2020-07-28] MEDS: paliperidone ER 6 mg Tablet PO (08:43)
[2020-07-28 14:00] VITALS: BP 146/92; PULSE 69; RESP 18; TEMP 36.6; O2SAT 99
[2020-07-28] MEDS: OLANZapine 5 mg ODT PO (17:42)
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
[2020-07-28 17:44] VITALS: BP 146/92; PULSE 69; RESP 18; TEMP 36.6; O2SAT 99
== END 2020-07-28 18:04 | disposition home or self-care (01) | DRG 885 ==
LOC: ER 16:01 → NP 17:43
PROVIDERS: Internal Medicine; Admitting Provider Psychiatry & Neurology Psychiatry; Emergency Provider Family Medicine; Visit Provider Psychiatry & Neurology Psychiatry
DX: F29 Unspecified psychosis not due to a substance or known physiological condition (principal); E78.5 Hyperlipidemia, unspecified; I10 Essential (primary) hypertension; F11.90 Opioid use, unspecified, uncomplicated; F19.90 Other psychoactive substance use, unspecified, uncomplicated; E66.9 Obesity, unspecified; Z68.32 Body mass index [BMI] 32.0-32.9, adult
CPT/HCPCS: 12345; 36415; 70450; 80053; 80306; 80307; 81001; 82140; 82550; 83605; 84132; 84443; 84450; 84460; 84703; 85025; 93005; 96372; 99285; J1200; J1630; J2060; J3486; J3490

== ENCOUNTER 2020-08-01 16:28 | Inpatient (IN) | payer SELFPAY ==
[2020-08-01 16:32] VITALS: BP 173/108; PULSE 59; RESP 20; TEMP 36.7; O2SAT 100; BMI 37.0
--- NOTE | 2020-08-01 17:13 | ECG_ITS ---
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 Measurements Intervals Santa Rate: 55 P: 48 DE: 169 QRS: 36 QRSD: 88 T: 29 QT: 437 QTc: 421 Interpretive Statements SINUS BRADYCARDIA Compared to ECG 07/20/2020 12:58:29 Sinus rhythm no longer present Electronically Signed On 08-01-2020 23:54:53 INTERNATIONAL LOGISTICS COORDINATOR by Daiana Rose M.D. [id number]
--- NOTE | 2020-08-01 17:17 | PC.NURSE ---
Patient changed out of fdc jump suit and into hospital gown due to no availability of paper scrubs to fit patient. Patient also provided urine sample at this time. Patient was under my 1:1 supervision until directed to go sit 1:1 with a different patient.
[2020-08-01 17:25] LABS: HCG Qualitative Urine. Negative (Negative)
[2020-08-01 18:06] VITALS: BP 154/92; PULSE 62; RESP 18; O2SAT 98
[2020-08-01 18:26] LABS: Basophils # 0.1 10^3/uL (0.0-0.1); Basophils % 0.5 %; Eosinophils # 0.5 10^3/uL (0.0-0.8); Eosinophils % 5.2 %; Hematocrit 40.6 % (37.0-47.0); Hemoglobin 13.2 g/dL (11.5-15.3); Lymphocytes # 2.9 10^3/uL (0.8-4.8); Lymphocytes % 31.8 %; Mean Corpuscular HGB Conc 32.5 g/dL (30.0-36.0); Mean Corpuscular Hemoglobin 28.8 pg (28.0-34.0); Mean Corpuscular Volume 88.5 fL (81-99); Mean Platelet Volume 9.2 fL (7.4-10.4); Monocytes # 0.6 10^3/uL (0.2-0.9); Monocytes % 6.8 %; Neutrophils # 5.07 10^3/uL (1.8-7.7); Neutrophils % 55.5 %; Nucleated Red Blood Cells % 0 %; Platelet Count 355 10^3/cmm (130-400); Red Blood Count 4.59 10^6/uL (4.1-5.3); Red Cell Distribution Width 13.1 % (12.1-15.1); White Blood Count 9.2 10^3/uL (4.0-10.0)
[2020-08-01 18:39] LABS: Amphetamines Screen Urine Negative (Negative); Barbiturates Screen Urine Negative (Negative); Benzodiazepines Screen Urine Negative (Negative); Cocaine Screen Urine Negative (Negative); Opiate Screen Urine Negative (Negative); PCP Screen Urine Negative (Negative); THC Screen Urine Negative (Negative)
--- NOTE | 2020-08-01 18:39 | ED_ITS ---
HPI - Psych General: Chief Complaint: Psychiatric Symptoms Stated Complaint: PSYCH SYMPTOMS/SEEKING 96 HR HOLD Time Seen by Provider: 08/01/20 17:08 History of Present Illness: HPI Narrative: The patient is a 34-year-old female who comes to the ER brought by police after cable hooker ordered 96-hour hold on her for bizarre and destructive behavior. She also had suicidal thoughts in care home and she says she is going to kill someone and herself. Reports were that she went crazy destroying property, mailbox, vehicles and wanting to eat a baby girl. In the ER she denies suicidal ideations but says she did feel that way in care home earlier today MD complaint: suicidal ideation Associated psychiatric symptoms: suicidal ideation Associated symptoms: Deny depression Review of Systems General: Reports: 10 or more systems reviewed and unremarkable except in HPI and below Const: Denies: fatigue Eyes: Denies: change in vision, blurry vision or eye redness ENMT: Denies: throat pain, swelling of lips/tongue, ear or mastoid pain or nasal congestion Card: Denies: chest pain, palpitations, irregular heart rhythm, edema, dyspnea on exertion or orthopnea Resp: Denies: dyspnea, productive cough or non-productive cough GI: Denies: abdominal pain, diarrhea or GI cramping : Denies: flank pain, difficulty voiding, urinary frequency or urinary urgency Musc: Denies: neck pain, back pain, extremity pain, joint pain, joint redness, limited range of motion or muscle weakness Skin/Breast: Denies: rash, pruritus, erythema, skin pain or skin tenderness Neuro: Denies: headache(s), numbness in extremities, weakness in extremities, sensory changes, difficulty walking, dizziness, confusion or Slurred speech present Psych: Denies: anxiety or depression Endo: Denies: polyuria All/Imm: Denies: urticaria, throat swelling or tongue swelling [facility] PFSH: Medical History (Updated 08/01/20 @ 19:19 by Josesito Manjarrez MD) Drug abuse Hyperlipidemia Hypertension Mental health disorder Obesity Female Reproductive History: Date of last menstrual period: 07/14/20 Physical Exam Const: COMMON NORMALS: no acute distress, average body habitus, patient oriented x3, no limitations, healthy appearing, alert and well nourished GENERAL APPEARANCE: cooperative, comfortable and well developed ORIENTATION/CONSCIOUSNESS: Yes awake, Yes oriented to person, Yes oriented to place and Yes oriented to time HENMT: COMMON NORMALS: normocephalic, external ears normal and Normal external nose present HEAD & SCALP: normal to inspection and normocephalic NOSE: Normal external nose present EXTERNAL EAR: Yes external ears normal MOUTH: Normal oral and palatal mucosa present THROAT: posterior oropharynx normal Eye: COMMON NORMALS: Equal, round and reactive pupils present and EOMs intact bilaterally GENERAL EYE: appearance normal, both eyes and all related struc tures PUPIL: Yes Equal, round and reactive pupils present Neck/C-Spine: COMMON NORMALS: full ROM, no lymphadenopathy, no meningeal signs and no JVD GENERAL: Yes normal visual inspection Lymph: LYMPHATIC: no lymphadenopathy noted Chest: COMMONS NORMALS: normal inspection of the chest and normal palpation of entire chest wall Resp: COMMON NORMALS: normal respiratory effort, No retractions, No use of accessory muscles, clear to auscultation bilaterally and percussion normal EFFORT & INSPECTION: Yes able to speak in complete sentences AUSCULTATION: clear to auscultation bilaterally PERCUSSION: percussion normal Cardio: COMMON NORMALS: no JVD, regular rate, regular rhythm, S1 normal heart sound present, S2 normal heart sound present and Peripheral pulses 2+ throughout RATE: regular rate RHYTHM: regular rhythm HEART SOUNDS: S1 normal heart sound present and S2 normal heart sound present PERIPHERAL PULSES: Peripheral pulses 2+ throughout GI: COMMON NORMALS: Normal to inspection, nondistended, normoactive bowel sounds present, Soft to palpation, non-tender and no masses INSPECTION: Yes normal to inspection PALPATION: Yes Soft to palpation : COMMON NORMALS: Yes no CVA tenderness BLADDER/KIDNEY EXAM: Yes no CVA tenderness Back/Pelvis: COMMON NORMALS: no CVA tenderness, thoracic and lumbar spine normal to inspection, no thoracic nor lumbar tenderness and thoraco-lumbar ROM normal Extremity: COMMON NORMALS: normal to inspection, full ROM, capillary refill normal, no joint enlargement and no pedal edema GENERAL: Yes normal exam except as noted Neuro: COMMON NORMALS: patient oriented x3, CN's II-XII intact bilaterally, moves all extremities, no focal motor deficits, no sensory deficits noted and gait normal SENSORIUM/ORIENTATION: Yes alert, Yes oriented to person, Yes oriented to place and Yes oriented to time MENINGEAL SIGNS: Yes no meningeal signs Psych: COMMON NORMALS: mental status grossly normal, Normal thought process present, cooperative and speech normal APPEARANCE: Yes unkempt ATTITUDE: Yes calm SPEECH: Yes normal speech THOUGHT PROCESS: Normal thought process present THOUGHT CONTENT: Yes Suicidality present INSIGHT: Poor insight present (Psych) JUDGEMENT: Poor judgement present (Psych) Skin: COMMON NORMALS: no rashes or lesions noted GENERAL SKIN EXAM: no rashes or lesions noted MDM - Psych MDM Narrative: Medical decision making narrative: Patient has a cable hooker ordered 96-hour hold. She is suicidal and exhibiting psychotic behaviors. Discussed with Dr. Anglin who accepts to behavioral health Lab Data: Labs: Lab Results 08/01/20 08/01/20 08/01/20 Range/Units 17:14 17:14 17:14 WBC (4.0-10.0) 10^3/ uL RBC (4.1-5.3) 10^6/u L Hgb (11.5-15.3) g/dL Hct (37.0-47.0) % MCV (81-99) fL MCH (28.0-34.0) pg MCHC (30.0-36.0) g/dL RDW (12.1-15.1) % Plt Count (130-400) 10^3/c mm MPV (7.4-10.4) fL Neut % (Auto) % Lymph % (Auto) % Wilkes % (Auto) % Eos % (Auto) % Baso % (Auto) % Neut # (Auto) (1.8-7.7) 10^3/u L Lymph # (Auto) (0.8-4.8) 10^3/u L Wilkes # (Auto) (0.2-0.9) 10^3/u L Eos # (Auto) (0.0-0.8) 10^3/u L Baso # (Auto) (0.0-0.1) 10^3/u L Nucleated RBC % (a uto) % Nucleated RBCs # /100WBC Sodium (136-145) mmol/L Potassium (3.5-5.1) mmol/L Chloride (98-107) mmol/L Carbon Dioxide (22-29) mmol/L Anion Gap (5-19) BUN (6-20) mg/dL Creatinine (0.5-0.9) mg/dL GFR Calculation (90-130) mL/min Glucose (65-115) mg/dL Calculated Osmolal ity (285-295) mOsm/k g Calcium (8.5-10.5) mg/dL Total Bilirubin (0.15-1.2) mg/dL AST (0-32) U/L ALT (0-33) U/L Alkaline Phosphata se (35-105) IU/L Total Protein (6.6-8.7) g/dL Albumin (3.5-5.2) g/dL Globulin (1.3-4.6) g/dL TSH (0.27-4.20) uIU/ mL HCG, Qual Negative (Negative) Urine Color Yellow (Yellow) Urine Appearance Clear (CLEAR) Urine pH 5.0 (5-7) Ur Specific Gravit y 1.020 (1.005-1.030) Urine Protein Neg (Negative) Urine Glucose (UA) Norm (Normal) Urine Ketones Negative (Negative) Urine Blood 2+ H (Negative) Urine Nitrate Negative (Negative) Urine Bilirubin Neg (Negative) Urine Urobilinogen Norm (Negative) mg/dL Ur Leukocyte Marce ase Negative (Negative) Urine RBC 0-4 H (0-2) /hpf Urine WBC None (0-5) /hpf Ur Squamous Epith Cells 10-15 H (0-5) /hpf Amorphous Sediment Not Reportable Urine Bacteria 1+ H (NONE) /hpf Salicylates (3-10) mg/dL Urine Opiates Scre en Negative (Negative) ng/mL Acetaminophen (10-30) ug/mL Ur Barbiturates Sc reen Negative (Negative) ng/mL Ur Phencyclidine S crn Negative (Negative) ng/mL Ur Amphetamines Sc reen Negative (Negative) ng/mL U Benzodiazepines Scrn Negative (Negative) ng/mL Urine Cocaine Scre en Negative (Negative) ng/mL U Marijuana (THC) Screen Negative (Negative) ng/mL Ethyl Alcohol (0-10) mg/dL 08/01/20 08/01/20 Range/Units 18:16 18:16 WBC 9.2 (4.0-10.0) 10^3/ uL RBC 4.59 (4.1-5.3) 10^6/u L Hgb 13.2 (11.5-15.3) g/dL Hct 40.6 (37.0-47.0) % MCV 88.5 (81-99) fL MCH 28.8 (28.0-34.0) pg MCHC 32.5 (30.0-36.0) g/dL RDW 13.1 (12.1-15.1) % Plt Count 355 (130-400) 10^3/c mm MPV 9.2 (7.4-10.4) fL Neut % (Auto) 55.5 % Lymph % (Auto) 31.8 % Wilkes % (Auto) 6.8 % Eos % (Auto) 5.2 % Baso % (Auto) 0.5 % Neut # (Auto) 5.07 (1.8-7.7) 10^3/u L Lymph # (Auto) 2.9 (0.8-4.8) 10^3/u L Wilkes # (Auto) 0.6 (0.2-0.9) 10^3/u L Eos # (Auto) 0.5 (0.0-0.8) 10^3/u L Baso # (Auto) 0.1 (0.0-0.1) 10^3/u L Nucleated RBC % (a uto) 0 % Nucleated RBCs # 0.0 /100WBC Sodium 140 (136-145) mmol/L Potassium 4.3 (3.5-5.1) mmol/L Chloride 104 (98-107) mmol/L Carbon Dioxide 27 (22-29) mmol/L Anion Gap 13.3 (5-19) BUN 8 (6-20) mg/dL Creatinine 0.7 (0.5-0.9) mg/dL GFR Calculation 95.2 (90-130) mL/min Glucose 104 (65-115) mg/dL Calculated Osmolal ity 289 (285-295) mOsm/k g Calcium 9.3 (8.5-10.5) mg/dL Total Bilirubin 0.2 (0.15-1.2) mg/dL AST 18 (0-32) U/L ALT 38 H (0-33) U/L Alkaline Phosphata se 78 (35-105) IU/L Total Protein 7.2 (6.6-8.7) g/dL Albumin 4.1 (3.5-5.2) g/dL Globulin 3.1 (1.3-4.6) g/dL TSH 1.48 (0.27-4.20) uIU/ mL HCG, Qual (Negative) Urine Color (Yellow) Urine Appearance (CLEAR) Urine pH (5-7) Ur Specific Gravit y (1.005-1.030) Urine Protein (Negative) Urine Glucose (UA) (Normal) Urine Ketones (Negative) Urine Blood (Negative) Urine Nitrate (Negative) Urine Bilirubin (Negative) Urine Urobilinogen (Negative) mg/dL Ur Leukocyte Marce ase (Negative) Urine RBC (0-2) /hpf Urine WBC (0-5) /hpf Ur Squamous Epith Cells (0-5) /hpf Amorphous Sediment Urine Bacteria (NONE) /hpf Salicylates < 0.3 L (3-10) mg/dL Urine Opiates Scre en (Negative) ng/mL Acetaminophen < 5.0 L (10-30) ug/mL Ur Barbiturates Sc reen (Negative) ng/mL Ur Phencyclidine S crn (Negative) ng/mL Ur Amphetamines Sc reen (Negative) ng/mL U Benzodiazepines Scrn (Negative) ng/mL Urine Cocaine Scre en (Negative) ng/mL U Marijuana (THC) Screen (Negative) ng/mL Ethyl Alcohol < 10 (0-10) mg/dL Discharge Plan Discharge Patient Disposition: Admitted As Inpatient Clinical Impression: Suicidal ideation Psychosis Qualifiers: Psychosis type: unspecified psychosis type Qualified Code(s): F29 - Unspecified psychosis not due to a substance or known physiological condition Condition: Stable Discharge Diet: Usual diet Discharge Activity: Resume usual activity Coding Level of Care Code ED Ballpoint Pen Cartridge Tester for Maritza Fwd Exam Comprehensive
[2020-08-01 19:03] LABS: Alanine Aminotransferase 38 U/L (0-33); Albumin Level 4.1 g/dL (3.5-5.2); Alkaline Phosphatase 78 IU/L (35-105); Anion Gap 13.3 (5-19); Aspartate Amino Transferase 18 U/L (0-32); Blood Urea Nitrogen 8 mg/dL (6-20); Calcium 9.3 mg/dL (8.5-10.5); Carbon Dioxide 27 mmol/L (22-29); Chloride 104 mmol/L (98-107); Globulin 3.1 g/dL (1.3-4.6); Glomerular Filtration Rate 95.2 mL/min (90-130); Glucose 104 mg/dL (65-115); Osmolality Calculated 289 mOsm/kg (285-295); Potassium 4.3 mmol/L (3.5-5.1); Sodium 140 mmol/L (136-145); Thyroid Stimulating Hormone 1.48 uIU/mL (0.27-4.20); Total Bilirubin 0.2 mg/dL (0.15-1.2); Total Protein 7.2 g/dL (6.6-8.7)
[2020-08-01 19:05] LABS: Urine Appearance Clear (CLEAR); Urine Color Yellow (Yellow)
[2020-08-01 19:06] LABS: Add Urine Culture? No; Add Urine Microscopic? YES; Bacteria Urine 1+ /hpf; Bilirubin Urine Neg (Negative); Blood Urine 2+ (Negative); Glucose Urine UA Norm (Normal); Ketones Urine Negative (Negative); Leukocyte Esterase Urine Negative (Negative); Nitrate Urine Negative (Negative); Protein Urine Neg (Negative); RBC Urine 0-4 /hpf (0-2); Urobilinogen Urine Norm (Negative)
[2020-08-01 19:10] LABS: Acetaminophen < 5.0 ug/mL (10-30); Alcohol Level < 10 mg/dL (0-10); Salicylate < 0.3 mg/dL (3-10)
[2020-08-01 20:11] VITALS: BP 136/71; PULSE 85; RESP 17; O2SAT 99
[2020-08-01 20:35] VITALS: BP 148/86; PULSE 71; RESP 18; TEMP 37.1; O2SAT 97
[2020-08-01] MEDS: trazodone 50 mg Tablet PO (21:30)
[2020-08-01] MEDS: hyDROXYzine 25 mg Capsule 50 MG PO (21:31)
[2020-08-01 22:00] VITALS: BP 148/86; PULSE 71; RESP 18; TEMP 37.1; O2SAT 97
[2020-08-02] MEDS: acetaminophen 325 mg Tablet 650 MG PO ×3 (01:44→23:01)
--- NOTE | 2020-08-02 05:11 | PC.NURSE ---
Skin assessment revealed no wounds or injuries.
[2020-08-02 06:00] VITALS: BP 119/73; PULSE 78; RESP 18; TEMP 36.8; O2SAT 96
[2020-08-02] MEDS: nicotine 21 mg Patch 1 PATCH TRANSDERMA (09:18)
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
[2020-08-02 14:00] VITALS: BP 132/80; PULSE 80; RESP 20; TEMP 37; O2SAT 98
[2020-08-02] MEDS: ibuprofen 800 mg tablet PO (18:33)
[2020-08-02] MEDS: hyDROXYzine 25 mg Capsule 50 MG PO (21:41)
[2020-08-02] MEDS: nicotine 2 mg Gum BUCCAL (21:41)
[2020-08-02] MEDS: trazodone 50 mg Tablet PO (21:42)
[2020-08-02] MEDS: OLANZapine 5 mg ODT PO (21:42)
--- NOTE | 2020-08-02 21:53 | PC.NURSE ---
Panic attack Pt was in the dayroom and had a panic attack. She was hearing a dog bark and it set her off. Pt was tearful but regained composure with breathing exercises, going to a less stimulating area, relaxing in her room, medication received. Patient is calm now, she asked to bathe.
[2020-08-02 22:00] VITALS: BP 140/62; PULSE 84; RESP 17; TEMP 36.9; O2SAT 99
--- NOTE | 2020-08-02 22:53 | PC.NURSE ---
pain level reassessed at 19:03 from medication administered by day shift.
--- NOTE | 2020-08-03 00:53 | PC.NURSE ---
Angry outburst Pt verbalized anger toward staff interpreter while they were on unit cleaning. Pt wanted her floor mopped and she did not like the answer one of the staff gave her. Nursing Staff was able to calm patient. She was moved to another room to avoid any further complications. She is resting comfortably at this time .
[2020-08-03] MEDS: blistex lip oint 7 gm Tube 1 APPLIC TOPICAL (01:32)
[2020-08-03] MEDS: ibuprofen 800 mg tablet PO ×3 (03:37→21:40)
[2020-08-03 03:44] LABS: Bilirubin Urine Neg (Negative); Blood Urine Neg (Negative); Glucose Urine UA Norm (Normal); Ketones Urine Negative (Negative); Leukocyte Esterase Urine Negative (Negative); Nitrate Urine Negative (Negative); Protein Urine Neg (Negative); Urine Appearance Clear (CLEAR); Urine Color Yellow (Yellow); Urobilinogen Urine Norm (Negative)
[2020-08-03 03:47] LABS: Add Urine Culture? No; Bacteria Urine TRACE /hpf; Mucus Urine 1+ /hpf
--- NOTE | 2020-08-03 03:48 | PC.NURSE ---
Addendum entered by Haven Wright RN 08/03/20 04:13: Pt reports decrease in pain to a 4 on a 1-10 pain scale, will continue to monitor pt for s/s of infection or pain increase Original Note: Motrin 800mg Po given for pain. Pt reports pain of 8 on a 1-10 pain scale. She states, I have either a kidney stone or infection. Pt reports urine retention, pressure, pain, and burning before/during urination. UA w/micro ordered, collected, sent to lab. Will continue to monitor pt.
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
--- NOTE | 2020-08-03 05:29 | PC.NURSE ---
2100 Removed Nicotine patch
[2020-08-03 05:55] VITALS: BP 162/114; PULSE 83; RESP 20; TEMP 36.7; O2SAT 99
[2020-08-03] MEDS: OLANZapine 5 mg ODT PO ×2 (06:29→22:32)
--- NOTE | 2020-08-03 06:29 | PC.NURSE ---
Zyprexa Zydis 5mg PO given for increasing anxiety. Pt was in the patient bathroom, took the laundry tub, slammed the lid, put the trash in the floor. She is fixated on cleaning the unit to avoid covid. Will continue to monitor for decrease anxiety
[2020-08-03] MEDS: acetaminophen 325 mg Tablet 650 MG PO ×2 (07:53→14:18)
[2020-08-03] MEDS: nicotine 21 mg Patch 1 PATCH TRANSDERMA (07:58)
[2020-08-03] MEDS: metoprolol tartrate 25 mg Tablet PO ×2 (07:58→17:13)
--- NOTE | 2020-08-03 08:01 | PC.NURSE ---
BEHAVIOR PT CAME TO THE NURSES STATION AND STATED SHE WAS IN PAIN. I OFFERED HER TYLENOL BUT SHE WANTED IBUPROFEN. PT IS UNABLE TO HAVE IBU AT THIS TIME. PT THEN BECAME UPSET STATING THIS NURSES TEETH WERE TO BIG AND YOUR FACE IS TO LONG, YOU LOOK LIKE WICKED WITCH OF THE WEST . PT STATES SHE HAS US FIGURED OUT. WE SIT AND WATCH HER ON THE CAMERAS AND MUST FIND HER ENTERTAINING. ZACK WALLER HELPED TO DE-ESCALATE PATIENT. ADMINISTERED NICOTINE PATCH AND BLOOD PRESSURE MEDICATION. PT IS NOW RESTING IN BED. WILL CONTINUE TO MONITOR AND RE-DIRECT NEEDED.
[2020-08-03] MEDS: sennosides-docusate Tablet 2 TAB PO (13:13)
[2020-08-03 13:28] VITALS: BP 163/92; PULSE 69; RESP 18; TEMP 37.3; O2SAT 98
--- NOTE | 2020-08-03 15:08 | P.PN_ITS ---
Subjective NPU Subjective: Interval history: Noni presented today having some confusion and a somewhat disjointed accounting of what occurred after discharge last week. Further investigation and covered what we were fearing and that is that she did not potato picker her medication and therefore has not had her medication since she left. She endorsed a willingness to take the medication and can give no clear reason why she did not get it. She did endorse at some point going to the pharmacy and the being closed but then related to monitor to the pharmacy and she got her medication, but it is likely she is talking about other medications for her medical maladies and not the psychiatric medications that brought her out of an extreme altered mental state. We discussed making sure she gets the medication here and we may need to see if there is any possible way we can get her the injection so that she is able to maintain her stability. Mental Status Exam MSE Comments: This is an obese white female in hospital scrubs with adequate grooming and eye contact. No abnormal movements except for mild psychomotor retardation. Mostly cooperative with exam in no acute distress. Speech was decreased rate and volume. Mood described as okay, affect flat and somewhat odd. Thought process mostly organized. Thought content: Patient denied suicidal or homicidal ideations, there were no delusions reported but some paranoia seeming to be present, she denied any auditory or visual hallucinations. Attention and concentration were improving and memory was unreliable but none were formally tested. She is alert and oriented x3. Insight and judgment are limited, impulse control is impaired. Vitals/I&O/Wt Last Vital Signs Temp 98.2 F 08/03/20 20:11 Pulse 69 08/03/20 20:11 Resp 15 08/03/20 20:11 BP 165/90 08/03/20 20:11 Pulse Ox 99 08/03/20 20:11 Data NPU : 08/01/20 18:16 08/01/20 18:16 A&P Additional A&P Information (1) Suicidal ideation: (2) Substance use: (3) Opiate use: (4) Psychosis: This is a 34-year-old white female with a recent history of a very challenging psychiatric admission where she was getting as needed medications and being in seclusion often. She returns less than a week after discharge with less p rominent symptoms then her previous day but reports of fairly aggressive destructive behavior prior to admission. 1. Continue current Acacian. Identify if there is any way we can get her approved for the Invega Sustenna injection. 2. Continue every 15 minute checks for safety. 3. Encourage individual, group and milieu therapy. 4. Encourage sober living treatment discharge the highest level of care to which she is willing to commit. Involuntary Hold Information 96 Hour Hold: 96 Hour Involuntary Admission: Yes 96 Hour Hold Ending Date: 08/08/20 96 Hour Hold Ending Time: 19:18 Attestations NPU Medical Necessity Statement*: Inpatient hospitalization is medically necessary and the clinically appropriate intervention at this time. We will monitor medications make changes as indicated. Likely length of stay 4 to 6 days. Coding Level of Care Code Acute Circuit Breaker Supervisor for Maritza Cherry
[2020-08-03] MEDS: nicotine 2 mg Gum BUCCAL (18:23)
[2020-08-03 20:11] VITALS: BP 165/90; PULSE 69; RESP 15; TEMP 36.8; O2SAT 99
[2020-08-03] MEDS: hyDROXYzine 25 mg Capsule 50 MG PO (21:39)
[2020-08-03] MEDS: OLANZapine 10 mg TABLET PO (21:39)
[2020-08-03] MEDS: paliperidone ER 6 mg Tablet PO (21:40)
[2020-08-03] MEDS: trazodone 100 mg Tablet PO (21:40)
[2020-08-04] MEDS: LORazepam 2 mg Tablet PO (02:00)
--- NOTE | 2020-08-04 02:03 | PC.NURSE ---
Patient is beginning to have increased anxiety. She is pacing the myles way. She was pounding on exit door. Gave 2mg Ativan PO as per Dr. morse. Counseled patient about agitation and pounding on doors. Patient returned to room and is currently resting in bed.
[2020-08-04 06:00] VITALS: BP 132/85; PULSE 73; RESP 18; TEMP 36.7; O2SAT 97
[2020-08-04] MEDS: fluoxetine 20 mg Capsule 40 MG PO (08:45)
[2020-08-04] MEDS: paliperidone ER 6 mg Tablet PO (08:45)
[2020-08-04] MEDS: metoprolol tartrate 25 mg Tablet PO ×2 (08:46→17:05)
[2020-08-04] MEDS: nicotine 21 mg Patch 1 PATCH TRANSDERMA (10:05)
[2020-08-04] MEDS: ibuprofen 800 mg tablet PO (12:28)
--- NOTE | 2020-08-04 12:32 | PC.NURSE ---
PRN MED PT GIVEN 800MG IBUPROFEN FOR C/O BACK PAIN AT 6 ON SCALE 1-10 WILL CONTINUE TO MONITOR.
[2020-08-04 13:44] VITALS: BP 141/79; PULSE 78; RESP 20; TEMP 37; O2SAT 99
--- NOTE | 2020-08-04 14:44 | PM.NPN ---
Subjective NPU Subjective: Interval history: Noni presents today reporting that one of the major issues with her and her medication compliance is lost. We discussed the importance of her taking the medication so that she can have the clarity that she had prior to her last discharge. We agreed to work with the treatment team to make sure that she can get access to her medication prior to discharge. She continues to have some confusion and have some angry thoughts but reports he is eating okay and sleeping fine. Mental Status Exam MSE Comments: This is an obese white female in hospital scrubs with adequate grooming and eye contact. No abnormal movements except for mild psychomotor retardation. Mostly cooperative with exam in no acute distress. Speech was decreased rate and volume. Mood described as fine, affect flat and somewhat odd. Thought process mostly organized. Thought content: Patient denied suicidal or homicidal ideations, there were no delusions reported but some paranoia seeming to be present, she denied any auditory or visual hallucinations. Attention and concentration were improving and memory was unreliable but none were formally tested. She is alert and oriented x3. Insight and judgment are limited, impulse control is impaired. Vitals/I&O/Wt Last Vital Signs Temp 98.4 F 08/04/20 20:52 Pulse 71 08/04/20 20:52 Resp 18 08/04/20 20:52 BP 135/76 08/04/20 20:52 Pulse Ox 98 08/04/20 20:52 Data NPU : 08/01/20 18:16 08/01/20 18:16 A&P Additional A&P Information (1) Suicidal ideation: (2) Substance use: (3) Opiate use: (4) Psychosis: This is a 34-year-old white female with a recent history of a very challenging psychiatric admission where she was getting as needed medications and being in seclusion often. She returns less than a week after discharge with less prominent symptoms then her previous day but reports of fairly aggressive destructive behavior prior to admission. 1. Continue current medication. Will work to see if there are any indigent programs to ensure that she gets her medication daily after discharge. 2. Continue every 15 minute checks for safety. 3. Encourage individual, group and milieu therapy. 4. Encourage sober living treatment discharge the highest level of care to which she is willing to commit. Involuntary Hold Information 96 Hour Hold: 96 Hour Involuntary Admission: Yes 96 Hour Hold Ending Date: 08/08/20 96 Hour Hold Ending Time: 19:18 Attestations NPU Medical Necessity Statement*: Inpatient hospitalization is medically necessary and the clinically appropriate intervention at this time. We will monitor medications make changes as indicated. Likely length of stay 4 to 6 days. Coding Level of Care Code Acute Ruby Software Developer for Maritza Cherry
[2020-08-04] MEDS: acetaminophen 325 mg Tablet 650 MG PO (18:13)
[2020-08-04] MEDS: OLANZapine 10 mg TABLET PO (20:36)
[2020-08-04] MEDS: trazodone 100 mg Tablet PO (20:36)
[2020-08-04 20:52] VITALS: BP 135/76; PULSE 71; RESP 18; TEMP 36.9; O2SAT 98
[2020-08-05] MEDS: diphenhydrAMINE 25 mg Capsule PO (03:18)
[2020-08-05] MEDS: ibuprofen 800 mg tablet PO ×2 (03:19→14:41)
[2020-08-05] MEDS: dexamethasone 4 mg Tablet 10 MG PO (03:23)
--- NOTE | 2020-08-05 03:26 | PC.NURSE ---
Swelling Pt woke up with swollen lips, face, hands, feet. Contacted Dr Anglin for consult. Dr Healy contacted via telephone. He gave orders for 25mg PO benedryl now and Decadron 10mg PO now. Meds given, will continue to monitor patient condition for any worsening effect
[2020-08-05] MEDS: nicotine 2 mg Gum BUCCAL ×2 (04:06→12:03)
--- NOTE | 2020-08-05 04:47 | PC.NURSE ---
Dr Healy consult Pt lips were swollen, feet swollen, hands swollen, and face swelling. Given an order for 25mg Benedryl PO and Decadron 10mg PO. Pt received those medications. Swelling has not increased but still remains somewhat swollen. Pt is attempting to rest at this time. Will continue to monitor this patient.
[2020-08-05] MEDS: sennosides-docusate Tablet 2 TAB PO (04:56)
[2020-08-05 06:00] VITALS: BP 114/74; PULSE 69; RESP 18; TEMP 36.9; O2SAT 98
[2020-08-05] MEDS: blistex lip oint 7 gm Tube 1 APPLIC TOPICAL (07:47)
[2020-08-05] MEDS: metoprolol tartrate 25 mg Tablet PO ×2 (08:32→18:02)
[2020-08-05] MEDS: LORazepam 2 mg Tablet PO (08:32)
[2020-08-05] MEDS: paliperidone ER 6 mg Tablet PO (08:33)
[2020-08-05] MEDS: fluoxetine 20 mg Capsule 40 MG PO (08:33)
[2020-08-05 14:00] VITALS: BP 148/88; PULSE 96; RESP 20; TEMP 37.1; O2SAT 97
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
[2020-08-05 20:06] VITALS: BP 143/81; PULSE 85; RESP 17; TEMP 37.3; O2SAT 97
[2020-08-05] MEDS: trazodone 100 mg Tablet PO (21:34)
[2020-08-05] MEDS: OLANZapine 10 mg TABLET PO (21:34)
[2020-08-05] MEDS: acetaminophen 325 mg Tablet 650 MG PO (21:35)
[2020-08-05] MEDS: hyDROXYzine 25 mg Capsule 50 MG PO (21:42)
[2020-08-06] MEDS: OLANZapine 5 mg ODT PO (00:57)
--- NOTE | 2020-08-06 00:57 | PC.NURSE ---
PRN ZYPREXA ZYDIS PT CAME TO NURSES STATION STATING SHE WAS BECOMING MORE ANXIOUS. ADMINISTERED ZYPREXA ZYDIS 5MG SUBLINGUAL. WILL MONITOR FOR MEDICATION EFFECTIVENESS.
[2020-08-06] MEDS: nicotine 2 mg Gum BUCCAL ×3 (03:24→16:14)
[2020-08-06 05:50] VITALS: BP 136/88; PULSE 78; RESP 19; TEMP 36.1; O2SAT 97
[2020-08-06 05:59] VITALS: BMI 37.0
[2020-08-06] MEDS: fluoxetine 20 mg Capsule 40 MG PO (08:28)
[2020-08-06] MEDS: metoprolol tartrate 25 mg Tablet PO ×2 (08:28→17:25)
[2020-08-06] MEDS: ibuprofen 800 mg tablet PO (08:28)
[2020-08-06] MEDS: paliperidone ER 6 mg Tablet PO (08:28)
--- NOTE | 2020-08-06 09:47 | PM.NPN ---
Subjective NPU Subjective: Interval history: Noni presents today continuing to show slow improvement in her altered mental status. We continue to discuss the importance of her taking her medication daily and following the treatment regimen that she is on here in the hospital. She continues to express concerns about availability of medication and we will explore those things in depth in the morning with the treatment team. Mental Status Exam MSE Comments: This is an obese white female in hospital scrubs with adequate grooming and eye contact. No abnormal movements except for mild psychomotor retardation. Mostly cooperative with exam in no acute distress. Speech was more normal rate and volume. Mood described as a little better, affect brighter. Thought process mostly organized. Thought content: Patient denied suicidal or homicidal ideations, there were no delusions reported or noted, she denied any auditory or visual hallucinations. Attention and concentration were improving and memory was becoming more reliable but none were formally tested. She is alert and oriented x3. Insight and judgment are limited, but improving impulse control is impaired. Vitals/I&O/Wt Last Vital Signs Temp 97 F L 08/06/20 05:50 Pulse 78 08/06/20 05:50 Resp 19 H 08/06/20 05:50 BP 136/88 08/06/20 05:50 Pulse Ox 97 08/06/20 05:50 Weight last 48 hrs Weight 110.677 kg Data NPU : 08/01/20 18:16 08/01/20 18:16 A&P Additional A&P Information (1) Suicidal ideation: (2) Substance use: (3) Opiate use: (4) Psychosis: This is a 34-year-old white female with a recent history of a very challenging psychiatric admission where she was getting as needed medications and being in seclusion often. She returns less than a week after discharge with less prominent symptoms then her previous day but reports of fairly aggressive destructive behavior prior to admission. 1. Continue current medication. Will work to see if there are any indigent programs to ensure that she gets her medication daily after discharge. 2. Continue every 15 minute checks for safety. 3. Encourage individual, group and milieu therapy. 4. Encourage sober living treatment discharge the highest level of care to which she is willing to commit. Involuntary Hold Information 96 Hour Hold: 96 Hour Involuntary Admission: Yes 96 Hour Hold Ending Date: 08/08/20 96 Hour Hold Ending Time: 19:18 Attestations NPU Medical Necessity Statement*: Inpatient hospitalization is medically necessary and the clinically appropriate intervention at this time. We will monitor medications make changes as indicated. Likely length of stay 2-4 days. Coding Level of Care Code Acute Clinical Program Manager for Maritza Cherry
[2020-08-06] MEDS: acetaminophen 325 mg Tablet 650 MG PO (12:28)
[2020-08-06] MEDS: hyDROXYzine 25 mg Capsule 50 MG PO ×2 (13:53→20:51)
--- NOTE | 2020-08-06 13:53 | PC.NURSE ---
PRN ANXIETY Patient given 50 mg po Vistaril for anxiety.
[2020-08-06 14:00] VITALS: BP 146/96; PULSE 86; RESP 18; TEMP 36.8
--- NOTE | 2020-08-06 20:14 | PC.NURSE ---
HAS BEEN IN DAY ROOM WATCHING TV AND THEN ON PHONE. DENIES WANTING TO HARM SELF OR OTHERS AT THIS TIME,
[2020-08-06] MEDS: OLANZapine 10 mg TABLET PO (20:51)
[2020-08-06] MEDS: sennosides-docusate Tablet 2 TAB PO (20:51)
[2020-08-06] MEDS: trazodone 100 mg Tablet PO (20:51)
[2020-08-06 21:28] VITALS: BP 127/82; PULSE 69; RESP 19; TEMP 36.9; O2SAT 99
[2020-08-06] MEDS: magnesium hydroxide 30 mL UDC PO (23:01)
[2020-08-06] MEDS: haloperidol 5 mg Tablet PO (23:27)
[2020-08-07] MEDS: nicotine 2 mg Gum BUCCAL ×3 (03:19→14:34)
--- NOTE | 2020-08-07 03:29 | PC.NURSE ---
HAS BEEN UP MOST OF EVENING, OCC LAYS DOWN TO REST. APPEARS TO GET AGITATED WITH STAFF AND THEN WALKS AWAY. CURRENTLY IN DAY ROOM WATCHING SHADOW ON WALL AND MOVING AROUND IN DAY ROOM. WAS GIVEN HALDOL 5 MG PO AT 2330, HAS NOT APPEARED TO HELP ANY.
[2020-08-07] MEDS: ibuprofen 800 mg tablet PO (03:53)
[2020-08-07 06:00] VITALS: BP 152/97; PULSE 65; RESP 17; TEMP 36.5; O2SAT 99
[2020-08-07] MEDS: fluoxetine 20 mg Capsule 40 MG PO (08:23)
[2020-08-07] MEDS: metoprolol tartrate 25 mg Tablet PO ×2 (08:23→17:07)
[2020-08-07] MEDS: paliperidone ER 6 mg Tablet PO (08:23)
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
[2020-08-07 15:29] VITALS: BP 152/97; PULSE 65; RESP 17; TEMP 36.5; O2SAT 99
== END 2020-08-07 17:59 | disposition home or self-care (01) | DRG 885 ==
LOC: ER 19:19 → NP 19:44
PROVIDERS: Admitting Provider Psychiatry & Neurology Psychiatry; Emergency Provider Family Medicine; Visit Provider Psychiatry & Neurology Psychiatry
DX: F29 Unspecified psychosis not due to a substance or known physiological condition (principal); R45.851 Suicidal ideations; E78.5 Hyperlipidemia, unspecified; I10 Essential (primary) hypertension; F17.210 Nicotine dependence, cigarettes, uncomplicated; E66.9 Obesity, unspecified; Z68.37 Body mass index [BMI] 37.0-37.9, adult; F11.90 Opioid use, unspecified, uncomplicated; F19.90 Other psychoactive substance use, unspecified, uncomplicated; R45.850 Homicidal ideations; Z91.14 Patient's other noncompliance with medication regimen
CPT/HCPCS: 12345; 80053; 80306; 80307; 81001; 81025; 84443; 85025; 93005; 99284; J8540

== ENCOUNTER 2020-08-11 11:18 | Emergency (ER) | payer SELFPAY ==
[2020-08-11 12:34] VITALS: BP 134/84; PULSE 79; RESP 20; TEMP 36.8; O2SAT 98; BMI 35.7
[2020-08-11 13:19] VITALS: PULSE 75
--- NOTE | 2020-08-11 13:21 | XR_ITS ---
WS: [id number] Right knee, 3 views, 08/11/2020 Clinical Data: trauma Comparison: Right knee, 07/18/2016. Findings: The proximal lateral plate of the right tibia is fixed to the tibia with multiple orthopedic screws. No change from the prior right knee x-rays seen. Narrowing of the lateral joint compartment. The patella is intact. The soft tissues are normal. XR/XR knee RT 3V* [id number] Impression: 1. No change in internal fixation of lateral tibial plateau fracture. 2. Narrowing of the lateral joint compartment.
[2020-08-11 13:23] VITALS: BP 135/80; PULSE 80; RESP 18; TEMP 36.6; O2SAT 99
--- NOTE | 2020-08-11 13:30 | ED_ITS ---
HPI - Extremity Injury (Lower) General: Chief Complaint: Extremity Injury, Lower Stated Complaint: Rt leg possibly broken Time Seen by Provider: 08/11/20 13:19 Source: patient Mode of arrival: wheelchair Limitations: no limitations History of Present Illness: HPI Narrative: Patient is a nice 34-year-old female who presents to ED today for evaluation of her right knee injury. Freeman destinychaya tells me earlier this morning she was standing on a table to turn on a ceiling fan when the table gave way causing her to fall. Patient states when she landed she twisted her right knee. She did not fall to the ground or have any direct injury or trauma. She has no other complaints other than her right knee discomfort. Patient tells me she is able to ambulate on the extremity but with discomfort. She states any type of twisting activity gives her a sensation of instability. She has noticed significant swelling to the knee and extremity since event. MD complaint: knee injury Onset (ago): hour(s) Place: home Severity: moderate Relieving factors: immobilization Exacerbating factors: weight bearing, movement and palpation Other symptoms: none Review of Systems Const: Denies: fever(s) or chills Card: Denies: chest pain Resp: Denies: dyspnea Musc: Reports: joint pain (R knee), joint swelling (R knee) and limited range of motion; Denies: neck pain or back pain Neuro: Denies: numbness in extremities or sensory changes [facility] PFSH: Medical History (Updated 08/11/20 @ 13:53 by ABEL George) Drug abuse Hyperlipidemia Hypertension Mental health disorder Obesity Female Reproductive History: Date of last menstrual period: 07/14/20 Physical Exam Const: COMMON NORMALS: no acute distress, average body habitus, patient oriented x3, no limitations, healthy appearing, alert and well nourished Extremity: GENERAL: Yes normal exam except as noted RIGHT LOWER EXTREMITY: Yes knee joint (significant swelling consistent with effusion; warmth) Right knee: Yes ROM (dec secondary to pain and swelling) and Yes neurovascular exam (normal) OTHER: pt with significant swelling/warmth to R knee; swelling starting to move distally into lower extremity; no calf pain Neuro: COMMON NORMALS: patient oriented x3, moves all extremities, no focal motor deficits and no sensory deficits noted SENSORIUM/ORIENTATION: Yes alert GAIT: Yes Unable to assess gait Skin: COMMON NORMALS: no rashes or lesions noted GENERAL SKIN EXAM: no rashes or lesions noted Course Vital Signs: Vital signs: Vital Signs Temperature 97.8 F 08/11/20 13:23 Pulse Rate 80 08/11/20 13:23 Respiratory Rate 18 08/11/20 13:23 Blood Pressure 135/80 08/11/20 13:23 Pulse Oximetry 99 08/11/20 13:23 MDM - Extremity Injury (Lower) MDM Narrative: Medical decision making narrative: Pt reports she has NILSA wrap and crutches at home she feels comfortable using. She states OTC Tylenol will be adequate for her pain. Imaging Data^: R knee XR: Radiologist's impression: [address] [address] XRay Report Signed Patient: Wilber Rodríguez #: [id number] : 1985Acct#:[id number] Age/Sex: 34 / FADM Date: 08/11/20 Loc: ERRoom/Bed: Attending Dr: Ordering Provider/Ordering MD: Myra Joshi Date of Service: 08/11/20 Procedure(s): XR knee RT 3V* [id number] Accession Number(s): [id number] Report Number: [id number] WS: [id number] Right knee, 3 views, 08/11/2020 Clinical Data: trauma Comparison: Right knee, 07/18/2016. Findings: The proximal lateral plate of the right tibia is fixed to the tibia with multiple orthopedic screws. No change from the prior right knee x-rays seen. Narrowing of the lateral joint compartment. The patella is intact. The soft tissues are normal. XR/XR knee RT 3V* [id number] Impression: 1. No change in internal fixation of lateral tibial plateau fracture. 2. Narrowing of the lateral joint compartment. Dictated By:Char Tsai MD Signed By:Char Tsai MDSigned Date/Time:08/11/201336 DD/ 1335 Discharge Plan Discharge Patient Disposition: Home Clinical Impression: Injury of right knee Qualifiers: Encounter type: initial encounter Qualified Code(s): S89.91XA - Unspecified injury of right lower leg, initial encounter Condition: Stable Prescriptions: No Action Tylenol 325 mg Tablet 325 mg PO QID PRN (Reason: Pain) RF: 0 Hair,Skin and Nails 1 mg iron-66.7 mcg-1,000 mcg Tablet 1 tab PO DAILY@0630 RF: 0 Prozac 40 mg capsule 40 mg PO DAILY@0630 RF: 0 trazodone 100 mg tablet 100 mg PO BEDTIME RF: 0 olanzapine 10 mg PO BEDTIME RF: 0 paliperidone 6 mg PO DAILY RF: 0 Motrin 600 mg PO QID PRN (Reason: Pain) RF: 0 metoprolol tartrate 25 mg Tablet 25 mg PO BID RF: 0 Discharge Orders: Discharge ED (Routine); Ordered 08/11/20 Ordered By: Myra Joshi Patient Instructions: Knee Sprain (ED), Knee Effusion (ED), RICE Therapy (ED) Activity Restrictions/Additional Instructions: As discussed perform the RICE therapy as directed. You have been given handouts regarding this. Please follow up with your primary care provider in 1 to 2 weeks for continued pain and swelling. You may require further evaluation/imaging. I hope your knee begins to feel better soon. Coding Level of Care Code ED Edi Programmer Analyst for Chg Fwd Exam Expanded Problem Focused
[2020-08-11 14:30] VITALS: BP 138/84; PULSE 84; RESP 16; O2SAT 97
== END 2020-08-11 14:33 | disposition home or self-care (01) ==
PROVIDERS: Emergency Provider Physician Assistant
DX: S89.91XA Unspecified injury of right lower leg, initial encounter (principal); E78.5 Hyperlipidemia, unspecified; I10 Essential (primary) hypertension; W08.XXXA Fall from other furniture, initial encounter
CPT/HCPCS: 12345; 73562; 99281; 99282

== ENCOUNTER 2020-09-25 13:40 | Inpatient (IN) | payer SELFPAY ==
[2020-09-25 13:55] VITALS: BP 139/91; PULSE 91; RESP 16; TEMP 36.7; O2SAT 96; BMI 31.6
[2020-09-25 14:14] LABS: Add Urine Microscopic? NO
[2020-09-25 14:17] LABS: Basophils # 0.1 10^3/uL (0.0-0.1); Basophils % 0.4 %; Eosinophils # 0.9 10^3/uL (0.0-0.8); Eosinophils % 7.6 %; Hemoglobin 15.2 g/dL (11.5-15.3); Lymphocytes # 3.2 10^3/uL (0.8-4.8); Lymphocytes % 27.7 %; Mean Corpuscular HGB Conc 32.3 g/dL (30.0-36.0); Mean Corpuscular Hemoglobin 29.1 pg (28.0-34.0); Mean Platelet Volume 9.4 fL (7.4-10.4); Monocytes # 0.6 10^3/uL (0.2-0.9); Monocytes % 5.3 %; Neutrophils # 6.84 10^3/uL (1.8-7.7); Neutrophils % 58.7 %; Nucleated Red Blood Cells % 0 %; Platelet Count 279 10^3/cmm (130-400); Red Blood Count 5.22 10^6/uL (4.1-5.3); Red Cell Distribution Width 13.6 % (12.1-15.1); White Blood Count 11.7 10^3/uL (4.0-10.0)
[2020-09-25 14:27] LABS: Bilirubin Urine Neg (Negative); Blood Urine Neg (Negative); Glucose Urine UA Norm (Normal); HCG Qualitative Urine. Negative (Negative); Ketones Urine Negative (Negative); Leukocyte Esterase Urine Negative (Negative); Nitrate Urine Negative (Negative); Protein Urine Neg (Negative); Specific Gravity, Urine 1.005 (1.005-1.030); Urine Appearance Clear (CLEAR); Urine Color Straw (Yellow); Urobilinogen Urine Norm (Negative); pH Urine 5 (5-7)
[2020-09-25 14:31] LABS: Amphetamines Screen Urine Negative (Negative); Barbiturates Screen Urine Negative (Negative); Benzodiazepines Screen Urine Negative (Negative); Cocaine Screen Urine Negative (Negative); Opiate Screen Urine Negative (Negative); PCP Screen Urine Negative (Negative); THC Screen Urine Negative (Negative)
[2020-09-25 14:52] LABS: Alanine Aminotransferase 18 U/L (0-33); Albumin Level 4.4 g/dL (3.5-5.2); Alcohol Level 40 mg/dL (0-10); Alkaline Phosphatase 65 IU/L (35-105); Anion Gap 14.3 (5-19); Aspartate Amino Transferase 14 U/L (0-32); Blood Urea Nitrogen 9 mg/dL (6-20); Calcium 9.4 mg/dL (8.5-10.5); Carbon Dioxide 24 mmol/L (22-29); Chloride 104 mmol/L (98-107); Creatinine Clr Calc Pharmacy 151.7419; Globulin 3.3 g/dL (1.3-4.6); Glomerular Filtration Rate 113.1 mL/min (90-130); Glucose 84 mg/dL (65-115); Osmolality Calculated 284 mOsm/kg (285-295); Potassium 4.3 mmol/L (3.5-5.1); Sodium 138 mmol/L (136-145); Thyroid Stimulating Hormone 1.72 uIU/mL (0.27-4.20); Total Bilirubin 0.2 mg/dL (0.15-1.2); Total Protein 7.7 g/dL (6.6-8.7)
[2020-09-25 14:57] LABS: Acetaminophen < 5.0 ug/mL (10-30); Salicylate < 0.3 mg/dL (3-10)
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
[2020-09-25] MEDS: LORazepam 2 mg/mL INJ 1 mL IM (15:31)
[2020-09-25] MEDS: haloperidol inj 5 mg/mL INJ 1 mL IM (15:32)
[2020-09-25 15:39] VITALS: RESP 20
[2020-09-25] MEDS: OLANZapine 10 mg ODT PO (16:42)
[2020-09-25] MEDS: fluoxetine 10 mg Capsule PO (16:42)
[2020-09-25 16:45] VITALS: BP 116/79; PULSE 79; RESP 18; TEMP 37.2; O2SAT 97
[2020-09-25 19:39] VITALS: BP 133/84; PULSE 95; RESP 18; TEMP 36.3; O2SAT 97
[2020-09-26 06:00] VITALS: BP 121/84; PULSE 91; RESP 18; TEMP 36.8; O2SAT 97
[2020-09-26] MEDS: OLANZapine 10 mg ODT PO (08:12)
[2020-09-26] MEDS: fluoxetine 10 mg Capsule PO (08:12)
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
[2020-09-26 14:00] VITALS: BP 132/86; PULSE 92; RESP 20; TEMP 36.3; O2SAT 97
[2020-09-26] MEDS: nicotine 2 mg Gum BUCCAL (18:01)
[2020-09-26 19:23] VITALS: BP 122/85; PULSE 98; RESP 19; TEMP 37; O2SAT 97
[2020-09-26] MEDS: hyDROXYzine 25 mg Capsule 50 MG PO (21:39)
[2020-09-26] MEDS: trazodone 50 mg Tablet PO (21:39)
[2020-09-27] MEDS: nicotine 2 mg Gum BUCCAL ×2 (02:45→07:33)
[2020-09-27 06:00] VITALS: BP 130/80; PULSE 95; RESP 18; TEMP 36.3; O2SAT 95
[2020-09-27] MEDS: fluoxetine 20 mg Capsule 40 MG PO (07:32)
[2020-09-27] MEDS: acetaminophen 325 mg Tablet 650 MG PO (07:56)
--- NOTE | 2020-09-27 10:19 | PM.NDC ---
Diagnoses at Discharge Discharge Diagnosis (1) Psychosis: Status: Acute (2) Substance use: Status: Acute Reason for Visit Reason for Visit: 96 Hospital Course Hospital Course 35 year old female with history of unclearly defined episodes of acute psychotic behavior presented to the emergency department after calling police and had reportedly been handling an electric wire with water nearby and what was perceived to be a suicidal gesture although patient currently denying any suicidal gesture or attempt. Patient was started on olanzapine 5 mg twice daily at the time of her admission although patient quickly reconstituted with no reported bizarre behaviors while on the unit. Patient was also noted to not have any disorganized speech or behavior or disorganization of her thoughts. Urine drug screen was negative at the time of admission although patient reports drinking a couple of beers and had a blood alcohol level of 40 mg/dL. Patient historically is a substance user, opiate abuse, and states that at the time of her last presentation she had taken a couple of hits of dab with psychotic behaviors. Patient was denying any mood symptoms during her hospitalization and denied any suicidal ideation or thoughts about self-harm. Patient participated in unit milieu with no reports of behavioral disturbances and tolerated restarting her home medication with no reports of any medication side effects. Patient was not suicidal at the time of discharge and did not appear to pose an imminent threat of harm to self or others. Low to moderate risk of harm to self and others given no current suicidal ideation and no current report of any psychiatric symptoms although patient's risk may be elevated if she continues to abuse substances or alcohol or is noncompliant with her medication medication management follow-up leading to unexpected, impulsive behavior. Risk mitigation included psychiatric hospitalization for observation for any psychotic symptoms, suicidal ideation or behavior, continuation of her home medications, coordination for safe discharge as well as recommendation to abstain from the use of substances and alcohol. Patient was able to communicate her understanding of the need to abstain from the use of substances and alcohol as well as the need for compliance with her medication and medication management follow-up in order to further mitigate her risk of harm to self and others. Involuntary Hold Information 96 Hour Hold: 96 Hour Involuntary Admission: Yes 96 Hour Hold Ending Date: 09/29/20 96 Hour Hold Ending Time: 15:00 Mental Status Exam MSE Comments: Initially sitting in the day room participating in a group session, calm, cooperative, appropriately groomed and dressed, good eye contact Psychomotor activity is neither increased nor decreased, no agitation Speech is normal rate and volume, spontaneous, clear articulation, not pressured Good, full range of affect, appropriately smiles at times during interview, not labile Alert and oriented to person, place, time, situation Memory and concentration appear to be intact per interview Thought process, linear, no flight of ideas, no looseness of associations Thought content, no delusions, no hallucinations, no suicidal or homicidal ideation Insight and judgment appear to be intact Discharge Data Vitals: Last Vital Signs Temp 97.4 F L 09/27/20 06:00 Pulse 95 09/27/20 06:00 Resp 18 09/27/20 06:00 BP 130/80 09/27/20 06:00 Pulse Ox 95 09/27/20 06:00 Discharge Plan Discharge Patient Disposition: Home Condition: Stable Prescriptions: Continued fluoxetine [Prozac] 40 mg capsule 40 mg PO QAM RF: 0 cyclobenzaprine 10 mg tablet 10 mg PO TID PRN (Reason: Muscle Spasm) RF: 0 trazodone 50 mg tablet 50 mg PO BEDTIME RF: 0 cetirizine 10 mg tablet 10 mg PO QAM RF: 0 Allergy Eye (ketotifen) 0.025 % (0.035 %) Drops 1 - 2 drp ophthalmic (eye) PRN RF: 0 atenolol 25 mg tablet 25 mg PO BID RF: 0 Tylenol Extra Strength 500 mg Tablet 1,000 mg PO PRN RF: 0 ibuprofen 200 mg Tablet 800 mg PO PRN RF: 0 Saline Nasal 0.65 % Aerosol,[place] 1 - 2 spray INTRANASAL PRN RF: 0 Ear Nose Throat Lozenges 1 robert PO DAILY RF: 0 Discharge Orders: Discharge Order (Routine); Ordered 09/27/20 Ordered By: Nuria Rosales Referrals: Kirsten Pearce [Referring] - 10/03/20 10:00 am (Hospital follow up) Discharge Diet: Usual diet Discharge Activity: Resume usual activity Patient Instructions: Brief Psychotic Disorder (GEN) Discharge Attestations NPU Time Spent in Discharge Care*: greater than 30 min Status at Discharge: Cognitive status at discharge: cognitively intact, Behavioral status at discharge: cooperative, Functional status at discharge: independent ambulation Overall status at discharge: patient is back to baseline Coding Level of Care Code Acute [employer] Worker for Maritza Cherry Diagnoses Psychosis F29 Substance use F19.90
[2020-09-27 10:20] VITALS: BP 130/80; PULSE 95; RESP 18; TEMP 36.3; O2SAT 95
== END 2020-09-27 10:43 | disposition short-term general hospital (02) | DRG 885 ==
LOC: ER 15:53 → NP 15:57
PROVIDERS: Admitting Provider Psychiatry & Neurology Psychiatry; Emergency Provider Family Medicine; Visit Provider Psychiatry & Neurology Psychiatry
DX: F29 Unspecified psychosis not due to a substance or known physiological condition (principal); F12.90 Cannabis use, unspecified, uncomplicated; F11.10 Opioid abuse, uncomplicated; E78.5 Hyperlipidemia, unspecified; I10 Essential (primary) hypertension; E66.9 Obesity, unspecified; Z68.31 Body mass index [BMI] 31.0-31.9, adult
CPT/HCPCS: 36415; 80053; 80306; 80307; 81003; 81025; 84443; 85025; 99285; J1630; J2060

== ENCOUNTER 2020-10-05 18:58 | Inpatient (IN) | payer MEDICAID, SELFPAY ==
[2020-10-05 19:08] VITALS: BP 159/99; PULSE 101; RESP 18; TEMP 36.6; O2SAT 97; BMI 31.6
[2020-10-05] MEDS: haloperidol inj 5 mg/mL INJ 1 mL IM (19:26)
[2020-10-05] MEDS: LORazepam 2 mg/mL INJ 1 mL IM (19:27)
[2020-10-05 19:37] VITALS: BP 159/99; PULSE 101; RESP 16; O2SAT 97
[2020-10-05 19:49] LABS: HCG Qualitative Urine. Negative (Negative)
[2020-10-05 19:57] LABS: Amphetamines Screen Urine Negative (Negative); Barbiturates Screen Urine Negative (Negative); Benzodiazepines Screen Urine Negative (Negative); Cocaine Screen Urine Negative (Negative); Opiate Screen Urine Negative (Negative); PCP Screen Urine Negative (Negative); THC Screen Urine Negative (Negative)
[2020-10-05 20:36] VITALS: BP 159/105; PULSE 99; RESP 18; O2SAT 99
[2020-10-05 20:37] LABS: Basophils # 0.1 10^3/uL (0.0-0.1); Basophils % 0.5 %; Eosinophils # 0.4 10^3/uL (0.0-0.8); Eosinophils % 4.6 %; Hematocrit 43.6 % (37.0-47.0); Hemoglobin 14.2 g/dL (11.5-15.3); Lymphocytes # 3.3 10^3/uL (0.8-4.8); Mean Corpuscular HGB Conc 32.6 g/dL (30.0-36.0); Mean Corpuscular Hemoglobin 28.7 pg (28.0-34.0); Mean Corpuscular Volume 88.3 fL (81-99); Mean Platelet Volume 9.8 fL (7.4-10.4); Monocytes # 0.6 10^3/uL (0.2-0.9); Monocytes % 6.3 %; Neutrophils # 5.01 10^3/uL (1.8-7.7); Neutrophils % 53.5 %; Nucleated Red Blood Cells % 0 %; Platelet Count 342 10^3/cmm (130-400); Red Blood Count 4.94 10^6/uL (4.1-5.3); Red Cell Distribution Width 13.3 % (12.1-15.1); White Blood Count 9.4 10^3/uL (4.0-10.0)
[2020-10-05 20:49] LABS: Alanine Aminotransferase 26 U/L (0-33); Albumin Level 4.3 g/dL (3.5-5.2); Alkaline Phosphatase 70 IU/L (35-105); Anion Gap 14.6 (5-19); Aspartate Amino Transferase 19 U/L (0-32); Blood Urea Nitrogen 7 mg/dL (6-20); Calcium 9.2 mg/dL (8.5-10.5); Carbon Dioxide 25 mmol/L (22-29); Chloride 103 mmol/L (98-107); Creatinine Clr Calc Pharmacy 151.7419; Globulin 3.2 g/dL (1.3-4.6); Glomerular Filtration Rate 113.1 mL/min (90-130); Glucose 104 mg/dL (65-115); Osmolality Calculated 286 mOsm/kg (285-295); Potassium 3.6 mmol/L (3.5-5.1); Salicylate < 0.3 mg/dL (3-10); Sodium 139 mmol/L (136-145); Total Bilirubin 0.2 mg/dL (0.15-1.2); Total Protein 7.5 g/dL (6.6-8.7)
[2020-10-05 20:50] LABS: Acetaminophen < 5.0 ug/mL (10-30); Alcohol Level < 10 mg/dL (0-10)
[2020-10-05 20:52] VITALS: BP 110/75; PULSE 86; RESP 14; O2SAT 94
[2020-10-05 21:26] VITALS: BP 129/77; PULSE 87; RESP 18; O2SAT 94
[2020-10-05 22:00] VITALS: BP 141/83; PULSE 86; RESP 17; TEMP 36.5; O2SAT 95
--- NOTE | 2020-10-05 22:43 | W.ED.PSYCH ---
HPI - Psych General: Chief Complaint: Psychiatric Symptoms Stated Complaint: 96 hour hold Time Seen by Provider: 10/05/20 19:02 Source: patient and police Mode of arrival: other (law enforcement) History of Present Illness: HPI Narrative: This 35-year-old female patient was brought into the emergency department by law enforcement. They were called to her location and she was apparently not making any sense. She appeared to be psychotic and threatened to kill her . She told the officers that she was a galeana and other things that do not make sense. They filled out affidavits and brought her in to be evaluated. She is not making a lot of sense in the ED. complaint: altered mental status History of same: No Relieving factors: none Exacerbating factors: none Associated symptoms: Reports homicidal ideation Review of Systems General: Reports: ROS unobtainable due to mental status Psych: Reports: homicidal ideation [facility] ED PFSH: Medical History (Reviewed 10/05/20 @ 23:13 by Delphine Seymour MD, [facility]) Drug abuse Hyperlipidemia Hypertension Mental health disorder Obesity Female Reproductive History: Date of last menstrual period: 07/14/20 Physical Exam Const: COMMON NORMALS: no acute distress, average body habitus, patient oriented x3, no limitations, healthy appearing, alert and well nourished HENMT: COMMON NORMALS: normocephalic, atraumatic and moist oral mucous membranes HEAD & SCALP: normocephalic and atraumatic Neck/C-Spine: COMMON NORMALS: no meningeal signs and no JVD Resp: COMMON NORMALS: normal respiratory effort, No retractions, No use of accessory muscles, clear to auscultation bilaterally and percussion normal AUSCULTATION: clear to auscultation bilaterally PERCUSSION: percussion normal Cardio: COMMON NORMALS: no JVD, regular rate, regular rhythm, S1 normal heart sound present, S2 normal heart sound present, No gallops present (Cardio), No clicks present (Cardio), No murmurs present (Cardio), No rub (Cardio) and Peripheral pulses 2+ throughout RATE: regular rate RHYTHM: regular rhythm HEART SOUNDS: S1 normal heart sound present and S2 normal heart sound present PERIPHERAL PULSES: Peripheral pulses 2+ throughout GI: COMMON NORMALS: Normal to inspection, nondistended, normoactive bowel sounds present, Soft to palpation, non-tender, No hepatosplenomegaly present, no masses and no bruits PALPATION: Yes Soft to palpation and Yes No hepatosplenomegaly present Extremity: COMMON NORMALS: normal to inspection, full ROM, capillary refill normal, no calf tenderness and no pedal edema Neuro: COMMON NORMALS: patient oriented x3 SENSORIUM/ORIENTATION: Yes alert MENINGEAL SIGNS: Yes no meningeal signs Psych: APPEARANCE: Yes disheveled ATTITUDE: Yes evasive ACTIVITY/MOTOR BEHAVIOR: Yes psychomotor agitation Skin: COMMON NORMALS: no rashes or lesions noted, no wounds, turgor normal, no jaundice, no petechiae and no mottling GENERAL SKIN EXAM: no rashes or lesions noted and turgor normal MDM - Psych MDM Narrative: Medical decision making narrative: Patient is a 35-year-old female who was brought in by law enforcement and she was in obvious psychosis. While she was in the emergency department she became aggressive ripped out things from the wall and the room started chewing on the curtains and had to be physically and chemically restrained. She was medically cleared and admitted to the neuropsychiatric unit for further evaluation and management. Medical Records: Attestation: I reviewed the patient's medical records. Lab Data: Attestation: I reviewed the patient's lab results. Labs: Lab Results 10/05/20 10/05/20 10/05/20 Range/Units 19:20 19:20 19:20 WBC 9.4 (4.0-10.0) 10^3/ uL RBC 4.94 (4.1-5.3) 10^6/u L Hgb 14.2 (11.5-15.3) g/dL Hct 43.6 (37.0-47.0) % MCV 88.3 (81-99) fL MCH 28.7 (28.0-34.0) pg MCHC 32.6 (30.0-36.0) g/dL RDW 13.3 (12.1-15.1) % Plt Count 342 (130-400) 10^3/c mm MPV 9.8 (7.4-10.4) fL Neut % (Auto) 53.5 % Lymph % (Auto) 35.0 % Isabela % (Auto) 6.3 % Eos % (Auto) 4.6 % Baso % (Auto) 0.5 % Neut # (Auto) 5.01 (1.8-7.7) 10^3/u L Lymph # (Auto) 3.3 (0.8-4.8) 10^3/u L Isabela # (Auto) 0.6 (0.2-0.9) 10^3/u L Eos # (Auto) 0.4 (0.0-0.8) 10^3/u L Baso # (Auto) 0.1 (0.0-0.1) 10^3/u L Nucleated RBC % (a uto) 0 % Nucleated RBCs # 0.0 /100WBC Sodium 139 (136-145) mmol/L Potassium 3.6 (3.5-5.1) mmol/L Chloride 103 (98-107) mmol/L Carbon Dioxide 25 (22-29) mmol/L Anion Gap 14.6 (5-19) BUN 7 (6-20) mg/dL Creatinine 0.6 (0.5-0.9) mg/dL GFR Calculation 113.1 (90-130) mL/min Glucose 104 (65-115) mg/dL Calculated Osmolal ity 286 (285-295) mOsm/k g Calcium 9.2 (8.5-10.5) mg/dL Total Bilirubin 0.2 (0.15-1.2) mg/dL AST 19 (0-32) U/L ALT 26 (0-33) U/L Alkaline Phosphata se 70 (35-105) IU/L Total Protein 7.5 (6.6-8.7) g/dL Albumin 4.3 (3.5-5.2) g/dL Globulin 3.2 (1.3-4.6) g/dL HCG, Qual Negative (Negative) Salicylates < 0.3 L (3-10) mg/dL Urine Opiates Scre en (Negative) ng/mL Acetaminophen < 5.0 L (10-30) ug/mL Ur Barbiturates Sc reen (Negative) ng/mL Ur Phencyclidine S crn (Negative) ng/mL Ur Amphetamines Sc reen (Negative) ng/mL U Benzodiazepines Scrn (Negative) ng/mL Urine Cocaine Scre en (Negative) ng/mL U Marijuana (THC) Screen (Negative) ng/mL Ethyl Alcohol < 10 (0-10) mg/dL 03/04/21 Range/Units 19:20 WBC (4.0-10.0) 10^3/ uL RBC (4.1-5.3) 10^6/u L Hgb (11.5-15.3) g/dL Hct (37.0-47.0) % MCV (81-99) fL MCH (28.0-34.0) pg MCHC (30.0-36.0) g/dL RDW (12.1-15.1) % Plt Count (130-400) 10^3/c mm MPV (7.4-10.4) fL Neut % (Auto) % Lymph % (Auto) % Isabela % (Auto) % Eos % (Auto) % Baso % (Auto) % Neut # (Auto) (1.8-7.7) 10^3/u L Lymph # (Auto) (0.8-4.8) 10^3/u L Isabela # (Auto) (0.2-0.9) 10^3/u L Eos # (Auto) (0.0-0.8) 10^3/u L Baso # (Auto) (0.0-0.1) 10^3/u L Nucleated RBC % (a uto) % Nucleated RBCs # /100WBC Sodium (136-145) mmol/L Potassium (3.5-5.1) mmol/L Chloride (98-107) mmol/L Carbon Dioxide (22-29) mmol/L Anion Gap (5-19) BUN (6-20) mg/dL Creatinine (0.5-0.9) mg/dL GFR Calculation (90-130) mL/min Glucose (65-115) mg/dL Calculated Osmolal ity (285-295) mOsm/k g Calcium (8.5-10.5) mg/dL Total Bilirubin (0.15-1.2) mg/dL AST (0-32) U/L ALT (0-33) U/L Alkaline Phosphata se (35-105) IU/L Total Protein (6.6-8.7) g/dL Albumin (3.5-5.2) g/dL Globulin (1.3-4.6) g/dL HCG, Qual (Negative) Salicylates (3-10) mg/dL Urine Opiates Scre en Negative (Negative) ng/mL Acetaminophen (10-30) ug/mL Ur Barbiturates Sc reen Negative (Negative) ng/mL Ur Phencyclidine S crn Negative (Negative) ng/mL Ur Amphetamines Sc reen Negative (Negative) ng/mL U Benzodiazepines Scrn Negative (Negative) ng/mL Urine Cocaine Scre en Negative (Negative) ng/mL U Marijuana (THC) Screen Negative (Negative) ng/mL Ethyl Alcohol (0-10) mg/dL Discharge Plan Discharge Patient Disposition: Admitted As Inpatient Admit Provider: Petey Anglin Clinical Impression: Acute psychosis Condition: Stable Coding Level of Care Code ED Advertising Teacher for Maritza Cherry
[2020-10-06] MEDS: haloperidol 5 mg Tablet PO (03:11)
--- NOTE | 2020-10-06 03:13 | PC.NURSE ---
Based on patients behavior and level of agitation ( she does not respond well to zyprexa ) 5mg Haldol PO was give.
--- NOTE | 2020-10-06 03:25 | PC.NURSE ---
PM assessment 35/F combative in ED, restrained for about an hour,as she caused a code 10 by yelling, becoming aggressive, punching holes in the wall, and tearing the room up. She received IM Ketamine 180mg, 5mg Im Haldol, and 2mg Im Ativan transported by law enforcement this evening. They were called to her location and she was apparently not making any sense. She appeared to be psychotic and threatened to kill her . She told the officers that she was a galeana and other things that do not make sense. They filled out affidavits and brought her in to be evaluated. Once in NPU, pt was placed in scrubs and she slept for a couple of hours, woke up, went to the bathroom, staff assisted pt to the shower to clean her up as she is on a very heavy menses. Pt talked with nursing staff, cooperated with requests, ate a snack, and began to make comments that did not make sense again. PSA is 1:1 with patient at this time. Pt is easily irritated, becomes agitated, fixates on one person. This can escalate quickly, Med nurse gave 5mg PO Haldol at approximately 0300. Decision to skip Zyprexa Zydis was made between both RN's. This patient is known to staff, she does not respond to Zyprexa Zydis, she becomes increasingly irritable with it. Heart/ Lung Sounds are WNL, pt is not SI, but still is HI. Pt does not seem to experience AH/VH at this time, however, speech is tangential. Mood rapidly changes.
[2020-10-06 06:00] VITALS: RESP 16
[2020-10-06] MEDS: cetirizine 10 mg Tablet PO (08:08)
[2020-10-06] MEDS: fluoxetine 20 mg Capsule 40 MG PO (08:08)
[2020-10-06] MEDS: atenolol 50 mg Tablet 25 MG PO ×2 (08:09→21:34)
[2020-10-06 13:39] VITALS: BP 127/85; PULSE 95; RESP 16; TEMP 36.3; O2SAT 96
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
[2020-10-06 20:24] VITALS: BP 133/86; PULSE 87; RESP 17; TEMP 36.2; O2SAT 99
[2020-10-06] MEDS: trazodone 50 mg Tablet PO (21:35)
[2020-10-07] MEDS: ibuprofen 200 mg Tablet PO (02:01)
[2020-10-07] MEDS: cyclobenzaprine 10 mg Tablet PO (02:03)
[2020-10-07 06:00] VITALS: BP 121/82; PULSE 76; RESP 15; TEMP 36.2; O2SAT 95
[2020-10-07] MEDS: haloperidol 5 mg Tablet PO (07:58)
[2020-10-07] MEDS: atenolol 50 mg Tablet 25 MG PO ×2 (07:58→21:42)
[2020-10-07] MEDS: cetirizine 10 mg Tablet PO (07:58)
[2020-10-07] MEDS: fluoxetine 20 mg Capsule 40 MG PO (07:58)
--- NOTE | 2020-10-07 08:01 | PC.NURSE ---
PRN HALDOL 5 MG GIVEN PO PER PT C/O INCREASED AGITATION/PSYCHOSIS. PACING UNIT, MANIC BEHAVIOR, ATTEMPTING TO EAT PAPER AND CRAYONS. STAFF AND SECURITY INTERVENE & REDIRECT PT TO NOT EAT THOSE ITEMS. PT TOOK MEDS WITHOUT INCIDENT. WILL CONT TO MONITOR
[2020-10-07] MEDS: nicotine 2 mg Gum BUCCAL ×2 (09:32→17:12)
[2020-10-07] MEDS: OLANZapine 5 mg ODT PO (10:59)
--- NOTE | 2020-10-07 10:59 | PC.NURSE ---
PRN ZYPREXA ZYDIS 5 MG GIVEN PO PER PT C/O AGITATION/PSYCHOSIS. PT UP PACING UNIT, CONT TO BE SOMEWHAT DISRUPTIVE, BROKE THE END OF THE SINK OFF IN THE DAY ROOM. GAVE SINK PART TO STAFF. PT IN DAY ROOM WATCHING TV CURRENTLY. WILL CONT TO MONITOR.
--- NOTE | 2020-10-07 11:20 | PM.NPN ---
Subjective NPU Subjective: Interval history: Noni presents today appearing somewhat annoyed. She seemed to want to blame others for her being in the hospital and not understanding why she is in the hospital. She needed as needed medication to calm down but that hospitalization and since then and she identifies that is a problem with a hospital and denies any issues with her behavior that would require admission or medication by the NPU staff. She denied to discuss any substance abuse issues denying that those things have any relevance. Mental Status Exam MSE Comments: This is an obese white female looking older than her stated age with limited grooming and eye contact. No abnormal movements except for psychomotor retardation. Semicooperative with exam and no acute distress. Speech was limited and decreased rate and volume. Mood described as there is nothing wrong with me, affect confused. Thought process disorganized. Thought content: Patient endorsed homicidal ideation, but denied suicidal ideation, there were no delusions reported but clear paranoid, persecutory and bizarre delusions noted, she denied auditory or visual hallucinations but did appear to be attending to internal stimuli. Attention and concentration were impaired and memory was unreliable but none were formally tested. She is alert and oriented to person and place. Insight and judgment are impaired, impulse control is impaired. Vitals/I&O/Wt Last Vital Signs Temp 97.2 F L 10/07/20 06:00 Pulse 76 10/07/20 06:00 Resp 15 10/07/20 06:00 BP 121/82 10/07/20 06:00 Pulse Ox 95 10/07/20 06:00 Weight last 48 hrs Weight 92.986 kg Data NPU : 10/05/20 19:20 10/05/20 19:20 A&P Additional A&P Information (1) Acute psychosis: (2) Substance use: (3) Obesity: Additional A&P Information This is a 35-year-old white female with psychosis and substance use who presents with psychosis and a negative UDS endorsing homicidality with bizarre behavior and aggression. 1. Continue current medication. 2. Continue every 15 minute checks for safety. 3. Encourage individual, group and milieu therapies. 4. Encourage sober living treatment after discharge at the highest level of care to which she is willing to commit. Involuntary Hold Information 96 Hour Hold: 96 Hour Involuntary Admission: Yes 96 Hour Hold Ending Date: 10/11/20 96 Hour Hold Ending Time: 22:21 Attestations NPU Medical Necessity Statement*: Inpatient hospitalization is medically necessary and the clinically appropriate intervention at this time. We will monitor medications and make changes as indicated. Likely length of stay 3 to 5 days. Coding Level of Care Code Acute Pockets And Pieces Necktie Operator for Maritza Cherry
[2020-10-07 14:00] VITALS: RESP 19
[2020-10-07 17:12] VITALS: BP 144/90; PULSE 72; RESP 20; TEMP 36.2; O2SAT 97
[2020-10-07] MEDS: trazodone 50 mg Tablet PO (21:42)
[2020-10-07] MEDS: hyDROXYzine 25 mg Capsule 50 MG PO (21:42)
--- NOTE | 2020-10-07 21:43 | PC.NURSE ---
VISTERIL 50MG PO GIVEN FOR ANXIETY
[2020-10-07 22:00] VITALS: RESP 17
[2020-10-08] MEDS: nicotine 2 mg Gum BUCCAL (05:57)
[2020-10-08 06:00] VITALS: BP 129/82; PULSE 67; RESP 18; TEMP 36.6; O2SAT 94
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
[2020-10-08] MEDS: LORazepam 2 mg/mL INJ 1 mL IM (06:36)
[2020-10-08] MEDS: haloperidol inj 5 mg/mL INJ 1 mL IM (06:36)
[2020-10-08] MEDS: diphenhydrAMINE 50 mg/mL SDV 1mL IM (06:38)
--- NOTE | 2020-10-08 06:40 | PC.NURSE ---
Patient was beginning to get severely agitated, pounding nurses station glass, yelling and talking nonsense, throwing and ripping up tissue.. yelling at staff that they are Cunts . B-52 ( 5mg IM Haldol, 50mg Benadryl IM, and 2mg atavan IM given.
[2020-10-08] MEDS: atenolol 50 mg Tablet 25 MG PO ×2 (09:51→21:17)
[2020-10-08] MEDS: cetirizine 10 mg Tablet PO (09:51)
[2020-10-08] MEDS: fluoxetine 20 mg Capsule 40 MG PO (09:51)
[2020-10-08 14:00] VITALS: BP 144/88; PULSE 78; RESP 18; TEMP 37.1
--- NOTE | 2020-10-08 17:34 | P.PN_ITS ---
Subjective NPU Subjective: Interval history: Noni presents today continuing to be irritable and endorsed that the issue she is having in the hospital are reflection of others and not her behavior. She continues to deny that addiction has any role in it and blames it all on her relationship and her anger about her relationship and her significant other cheating and being unkind to her. She did not except the fact that they are . She continues to have some periods of disorganization. Mental Status Exam MSE Comments: This is an obese white female looking older than her stated age with limited grooming and eye contact. No abnormal movements except for psychomotor retardation. Semicooperative with exam and no acute distress. Speech was limited and decreased rate and volume. Mood described as I am fine, affect less confused, but irritable. Thought process disorganized, but improv ing. Thought content: Patient endorsed homicidal ideation, but denied suicidal ideation, there were no delusions reported but clear paranoid, persecutory and bizarre delusions noted, she denied auditory or visual hallucinations but did appear to be attending to internal stimuli. Attention and concentration were impaired, but improving and memory was unreliable but none were formally tested. She is alert and oriented to person and place. Insight and judgment are impaired, impulse control is impaired. Vitals/I&O/Wt Last Vital Signs Temp 97.9 F 10/08/20 20:50 Pulse 85 10/08/20 20:50 Resp 16 10/08/20 20:50 BP 143/85 10/08/20 20:50 Pulse Ox 97 10/08/20 20:50 Weight last 48 hrs Weight 92.986 kg Data NPU : 10/05/20 19:20 10/05/20 19:20 A&P Additional A&P Information (1) Acute psychosis: (2) Substance use: (3) Obesity: Additional A&P Information This is a 35-year-old white female with psychosis and substance use who presents with psychosis and a negative UDS endorsing homicidality with bizarre behavior and aggression. 1. Continue current medication. Continue offer antipsychotic but she is currently refusing. 2. Continue every 15 minute checks for safety. 3. Encourage individual, group and milieu therapies. 4. Encourage sober living treatment after discharge at the highest level of care to which she is willing to commit. Involuntary Hold Information 96 Hour Hold: 96 Hour Involuntary Admission: Yes 96 Hour Hold Ending Date: 10/11/20 96 Hour Hold Ending Time: 22:21 Attestations NPU Medical Necessity Statement*: Inpatient hospitalization is medically necessary and the clinically appropriate intervention at this time. We will monitor medications and make changes as indicated. Likely length of stay 3 to 5 days. Coding Level of Care Code Acute Service Center Representative for Maritza Cherry
[2020-10-08 20:50] VITALS: BP 143/85; PULSE 85; RESP 16; TEMP 36.6; O2SAT 97
[2020-10-08] MEDS: OLANZapine 5 mg ODT PO (21:17)
[2020-10-08] MEDS: hyDROXYzine 25 mg Capsule 50 MG PO (21:17)
[2020-10-08] MEDS: trazodone 50 mg Tablet PO (21:17)
[2020-10-09 06:00] VITALS: BP 147/96; PULSE 58; RESP 19; TEMP 36.9; O2SAT 97
[2020-10-09] MEDS: atenolol 50 mg Tablet 25 MG PO (08:07)
[2020-10-09] MEDS: cetirizine 10 mg Tablet PO (08:07)
[2020-10-09] MEDS: hyDROXYzine 25 mg Capsule 50 MG PO (08:07)
[2020-10-09] MEDS: fluoxetine 20 mg Capsule 40 MG PO (08:07)
--- NOTE | 2020-10-09 08:09 | PC.NURSE ---
PRN VISTARIL 50 MG GIVEN PO PER PT C/O ANXIETY. PT PACING UNIT, RAPID PRESSURED SPEECH NOTED. PT KEEPS GOING TO THE TELEPHONE, HITTING RANDOM NUMBERS, CAME TO THE DESK AND WAS PICKING HER NOSE, BIZARRE BEHAVIOR. STAFF ATTEMPTED TO REDIRECT WITH LITTLE SUCCESS. WILL CONT TO MONITOR.
[2020-10-09] MEDS: nicotine 2 mg Gum BUCCAL (10:17)
[2020-10-09 14:00] VITALS: BP 131/84; PULSE 70; RESP 16; TEMP 36.9; O2SAT 98
[2020-10-09] MEDS: nicotine 21 mg Patch 1 PATCH TRANSDERMA (14:12)
--- NOTE | 2020-10-09 17:13 | PM.NPN ---
Subjective NPU Subjective: Interval history: Noni presents today reporting that she does not think there is anything wrong with her but ultimately she endorsed a willingness to take an antipsychotic. We discussed the risk benefits and alternatives of initiating Zyprexa at night and she understood and agreed to proceed as is documented in this note. She continued to be quite irritable and negative about [facility], the NPU and staff in general. Mental Status Exam MSE Comments: This is an obese white female looking older than her stated age with limited grooming and eye contact. No abnormal movements except for psychomotor agitation. Semicooperative with exam in mild distress. Speech was more spontaneous and more normal rate and volume. Mood described as I am fine, affect less confused, but irritable. Thought process disorganized, but improving. Thought content: Patient endorsed homicidal ideation, but denied suicidal ideation, there were no delusions reported but clear paranoid, persecutory and bizarre delusions noted, she denied auditory or visual hallucinations but did appear to be attending to internal stimuli. Attention and concentration were impaired, but improving and memory was unreliable but none were formally tested. She is alert and oriented to person and place. Insight and judgment are impaired, impulse control is impaired. Vitals/I&O/Wt Last Vital Signs Temp 98.2 F 10/09/20 22:00 Pulse 70 10/09/20 14:00 Resp 18 10/09/20 22:00 BP 131/84 10/09/20 14:00 Pulse Ox 98 10/09/20 14:00 Data NPU : 10/05/20 19:20 10/05/20 19:20 A&P Additional A&P Information (1) Acute psychosis: (2) Substance use: (3) Obesity: Additional A&P Information This is a 35-year-old white female with psychosis and substance use who presents with psychosis and a negative UDS endorsing homicidality with bizarre behavior and aggression. 1. Continue current medication. Start Zyprexa 10 mg p.o. nightly. 2. Continue every 15 minute checks for safety. 3. Encourage individual, group and milieu therapies. 4. Encourage sober living treatment after discharge at the highest level of care to which she is willing to commit. Involuntary Hold Information 96 Hour Hold: 96 Hour Involuntary Admission: Yes 96 Hour Hold Ending Date: 10/11/20 96 Hour Hold Ending Time: 22:21 Attestations NPU Medical Necessity Statement*: Inpatient hospitalization is medically necessary and the clinically appropriate intervention at this time. We will monitor medications and make changes as indicated. Likely length of stay 3 to 5 days. Coding Level of Care Code Acute Windows Systems Architect for Maritza Cherry
--- NOTE | 2020-10-09 18:04 | PC.NURSE ---
Addendum entered by Kristal Reece, MOSHE 10/09/20 18:51: PRN ATIVAN 2 MG/HALDOL 5 MG EFFECTIVE, PT RESTING QUIETLY IN BED IN ROOM WITH EYES CLOSED, RESP EVEN ET UNLABORED. NO FURTHER C/O AGITATION/AGGRESSION/ANXIETY Original Note: CODE 10 PT ESCALATING AT THE NURSES STATION BECAUSE SHE COULD NOT MAKE A PHONE CALL. STAFF TOLD PT THAT PER PHYSICIAN ORDER, SHE NO LONGER HAD PHONE PRIVILEGES FOR THE DAY. PREVIOUSLY PT WAS CALLING HER CHILDREN'S [employer] AND MAKING THREATS. STAFF ATTEMPTS TO EDUCATE PT THAT THIS IS WHY SHE CAN NOT USE THE PHONE RIGHT NOW. PT GETTING VERBALLY AND PHYSICALLY AGGRESSIVE WITH STAFF, THREW HER BRUSH DOWN ON THE FLOOR IN THE HALLWAY. YELLED AT STAFF THAT SHE WOULD BE LEAVING TONIGHT. PT GIVEN COPY OF HER 96 HOUR HOLD PAPERWORK, PT CONT TO BE RESISTANT TO LEARNING. YELLING & CURSING AT STAFF, THROWING PAPERS IN HALLWAY, ACTING AGGRESSIVELY. SECURITY ON UNIT. PT PICKED UP PAPERS FROM FLOOR AND STATED I WONDER IF THESE PAPERS WILL FLUSH DOWN THE TOILET! PT THEN WENT INTO BATHROOM BY NURSES STATION AND ATTEMPTED TO FLUSH PAPERS DOWN THE TOILET. NURSING STAFF AND SECURITY WENT TO GET PT OUT OF BATHROOM AND PREVENT PT FROM DESTRUCTING PROPERTY. STAFF AND SECURITY HAD TO DO A MANUAL HOLD, SALT TECHNIQUE USED. CODE 10 CALLED AT THIS TIME. PT ESCORTED TO RESTRAINT ROOM BY SECURITY AND NURSING STAFF. PT SAT ON THE BED, BUT NO RESTRAINTS WERE PUT ON. INJECTION OF ATIVAN/HALDOL GIVEN IN LEFT DELTOID. PT TOOK INJECTION WITHOUT INCIDENT. PROCUREMENT REPRESENTATIVE AND SECURITY CONT TO TALK TO PT TO ENCOURAGE DE-ESCALATION.
[2020-10-09] MEDS: haloperidol inj 5 mg/mL INJ 1 mL IM (18:27)
[2020-10-09] MEDS: LORazepam 2 mg/mL INJ 1 mL IM (18:27)
[2020-10-09 22:00] VITALS: RESP 18; TEMP 36.8
[2020-10-10 06:45] VITALS: BP 148/94; PULSE 85; RESP 18; TEMP 36.7; O2SAT 97
[2020-10-10] MEDS: acetaminophen 325 mg Tablet 650 MG PO (07:15)
[2020-10-10] MEDS: nicotine 21 mg Patch 1 PATCH TRANSDERMA (09:01)
[2020-10-10] MEDS: atenolol 50 mg Tablet 25 MG PO ×2 (09:02→20:57)
[2020-10-10] MEDS: cetirizine 10 mg Tablet PO (09:02)
[2020-10-10] MEDS: fluoxetine 20 mg Capsule 40 MG PO (09:02)
--- NOTE | 2020-10-10 11:51 | PC.NURSE ---
bizzare behavior Patient came to nurses station carrying a dripping wet ball of hair. This nurse asked patient to please go throw this away, she lifts it up and places it in her mouth and walks away.
[2020-10-10 14:00] VITALS: BP 160/95; PULSE 84; RESP 16; TEMP 36.2; O2SAT 97
--- NOTE | 2020-10-10 18:00 | PM.NPN ---
Subjective NPU Subjective: Interval history: Noni continues to present with a balance between irritable and aggressive versus whimsical and apparent attempts to be comical. She is very needy and frustrated if something does not happen immediately and many of her behaviors come across as attention seeking. After a fairly exhaustive day she then was asking if she was for sure leaving tomorrow. We discussed the fact that she is a 96-hour hold and is unclear if she actually safe for discharge. Discussed the possibility of a 21-day hold and her eventually getting a second opinion with Dr. Rosales. He continues to have some fairly spontaneous bizarre actions. Mental Status Exam MSE Comments: This is an obese white female looking older than her stated age with limited grooming and eye contact. No abnormal movements except for psychomotor agitation. Semicooperative with exam in mild distress. Speech was more spontaneous and more normal rate and volume. Mood described as [place] going home tomorrow, affect less confused or irritable. Thought process disorganized, but improving. Thought content: Patient denied homicidal or suicidal ideation, there were no delusions reported but clear paranoid, persecutory and bizarre delusions noted, she denied auditory or visual hallucinations but did appear to be attending to internal stimuli. Attention and concentration were improving, but and memory was unreliable but none were formally tested. She is alert and oriented to person and place. Insight and judgment are impaired, impulse control is impaired. Vitals/I&O/Wt Last Vital Signs Temp 98.2 F 10/10/20 20:11 Pulse 90 10/10/20 20:11 Resp 16 10/10/20 20:11 BP 138/89 10/10/20 20:11 Pulse Ox 97 10/10/20 20:11 Data NPU : 10/05/20 19:20 10/05/20 19:20 A&P Additional A&P Information (1) Acute psychosis: (2) Substance use: (3) Obesity: Additional A&P Information This is a 35-year-old white female with psychosis and substance use who presents with psychosis and a negative UDS endorsing homicidality with bizarre behavior and aggression. 1. Continue current medication. 2. Continue every 15 minute checks for safety. 3. Encourage individual, group and milieu therapies. 4. Encourage sober living treatment after discharge at the highest level of care to which she is willing to commit. 5. We will consider 21-day hold tomorrow. Involuntary Hold Information 96 Hour Hold: 96 Hour Involuntary Admission: Yes 96 Hour Hold Ending Date: 10/11/20 96 Hour Hold Ending Time: 22:21 Attestations NPU Medical Necessity Statement*: Inpatient hospitalization is medically necessary and the clinically appropriate intervention at this time. We will monitor medications and make changes as indicated. Likely length of stay 2-4 days. Coding Level of Care Code Acute Flavor Tank Tender for Maritza Cherry
[2020-10-10 20:11] VITALS: BP 138/89; PULSE 90; RESP 16; TEMP 36.8; O2SAT 97
--- NOTE | 2020-10-10 20:32 | PC.NURSE ---
The patient started to escalate around 1944. She was pounding on the bench near the nurse's station. She came to the nurse's station holding a plastic bottle to her ear as if on a phone call then asked several times, is the doctor a good person. She was redirected when seen shutting the door to another patient's room. The patient said, he wanted me to shut the door. She asked to take a bath. A few minutes later she came out of the bathroom undressed, breast covered with hands. She was on her way to the day room. Redirected to return to the bathroom and assisted by female HEAD BANDER AND LINER OPERATOR to dress in scrubs.
[2020-10-10 20:38] LABS: Glucose Point of Care 126 mg/dL (70-110)
[2020-10-10] MEDS: cyclobenzaprine 10 mg Tablet PO (20:56)
[2020-10-10] MEDS: trazodone 50 mg Tablet PO (20:57)
[2020-10-10] MEDS: OLANZapine 5 mg ODT PO (20:57)
[2020-10-10] MEDS: OLANZapine 10 mg TABLET PO (20:57)
[2020-10-11 06:00] VITALS: BP 144/82; PULSE 85; RESP 17; TEMP 36.8; O2SAT 97
[2020-10-11] MEDS: fluoxetine 20 mg Capsule 40 MG PO (07:46)
[2020-10-11] MEDS: cetirizine 10 mg Tablet PO (07:47)
[2020-10-11] MEDS: atenolol 50 mg Tablet 25 MG PO ×2 (07:47→20:24)
[2020-10-11] MEDS: nicotine 21 mg Patch 1 PATCH TRANSDERMA (09:04)
[2020-10-11] MEDS: acetaminophen 325 mg Tablet 650 MG PO (13:05)
[2020-10-11 14:00] VITALS: BP 161/96; PULSE 80; RESP 20; TEMP 36; O2SAT 97
--- NOTE | 2020-10-11 18:29 | PM.NPN ---
Subjective NPU Subjective: Interval history: Noni presents today very upset about being put on a 21-day hold but came to have odd behaviors and speak nonsensically. She went on about a 10-minute ramp about why she could use the phone and was wrong with her calling her kids school etc. talked about the importance of her being able to follow basic norms. Not eat hair out of the drain, while naked on the hallway etc. She endorsed that she would work on her behaviors so that she can be discharged after she saw Dr. Rosales and noted that he let me go earlier than you do. Mental Status Exam MSE Comments: This is an obese white female looking older than her stated age with limited grooming and eye contact. No abnormal movements except for psychomotor agitation. Semicooperative with exam in mild distress. Speech was more spontaneous and more normal rate and volume. Mood described as what is wrong with me? , affect less confused but agitated. Thought process disorganized, but improving. Thought content: Patient denied homicidal or suicidal ideation, there were no delusions reported but clear paranoid, persecutory and bizarre delusions noted, she denied auditory or visual hallucinations but did appear to be attending to internal stimuli. Attention and concentration were improving, but and memory was unreliable but none were formally tested. She is alert and oriented to person and place. Insight and judgment are impaired, impulse control is impaired. Vitals/I&O/Wt Last Vital Signs Temp 98.3 F 10/11/20 20:24 Pulse 83 10/11/20 20:24 Resp 18 10/11/20 20:24 BP 165/105 10/11/20 20:24 Pulse Ox 97 10/11/20 20:24 Data NPU : 10/05/20 19:20 10/05/20 19:20 A&P Additional A&P Information (1) Acute psychosis: (2) Substance use: (3) Obesity: Additional A&P Information This is a 35-year-old white female with psychosis and substance use who presents with psychosis and a negative UDS endorsing homicidality with bizarre behavior and aggression. 1. Continue current medication. 2. Continue every 15 minute checks for safety. 3. Encourage individual, group and milieu therapies. 4. Encourage sober living treatment after discharge at the highest level of care to which she is willing to commit. 5. 21-day hold submitted will allow Dr. Rosales to evaluate. Involuntary Hold Information 96 Hour Hold: 96 Hour Involuntary Admission: Yes 96 Hour Hold Ending Date: 10/11/20 96 Hour Hold Ending Time: 22:21 Attestations NPU Medical Necessity Statement*: Inpatient hospitalization is medically necessary and the clinically appropriate intervention at this time. We will monitor medications and make changes as indicated. Likely length of stay 2-4 days. Coding Level of Care Code Acute Industrial Engineering Intern for Maritza Cherry
[2020-10-11 20:24] VITALS: BP 165/105; PULSE 83; RESP 18; TEMP 36.8; O2SAT 97
[2020-10-11] MEDS: cyclobenzaprine 10 mg Tablet PO (20:24)
[2020-10-11] MEDS: trazodone 50 mg Tablet PO (20:24)
[2020-10-11] MEDS: hyDROXYzine 25 mg Capsule 50 MG PO (20:48)
[2020-10-11] MEDS: OLANZapine 10 mg TABLET PO (20:48)
[2020-10-11] MEDS: nicotine 2 mg Gum BUCCAL (21:19)
[2020-10-11] MEDS: diphenhydrAMINE 50 mg/mL SDV 1mL IM (22:54)
[2020-10-11] MEDS: haloperidol inj 5 mg/mL INJ 1 mL IM (22:55)
[2020-10-11] MEDS: LORazepam 2 mg/mL INJ 1 mL (22:55)
--- NOTE | 2020-10-11 23:00 | PC.NURSE ---
The patient has become increasingly agitated. She said, I will walk home tonight. She does not accept she is on a hold. She said she has frostbite on her feet. She has pressured speech. She began shouting and disrobing. She tore up a book. She approached the RN Concrete Mixer Truck Driver and said, I want to fight. I want to fuck somebody up. Bring on that oracle security consultant. She shouted, give me a shot. Haldol 5 mg IM, Ativan 2 mg IM, Benadryl 50 mg IM given.
--- NOTE | 2020-10-11 23:05 | PC.NURSE ---
@[id number] given for agitation and increased potential for violence against staff. Pt became angry when she began to talk about her 21-day hold paperwork that she received today. Pt began to yell, tore up a bible, threw items down the myles way. Nursing staff called security to deter patient from escalating further, camp housekeeper notified for potential of code. Nursing claims adjuster supervisor came to the unit and she was approached by patient got nose to nose with her. Nursing claims adjuster supervisor requested patient to step back, patient got mad, asked her, why shouldn't I hurt you, are you ? Pt yelled Bring on fucking security, I wanna fucking fight,give me a shot, fuck it .. I hate my life, I might as well . Charge nurse gave 2mg Ativan IM combined with 5mg Haldol IM and gave this injection to patient in the hip. Patient received a second IM injection containing 50mg Benedryl. Patient went into her room, shut off the light, and went to bed leaving a trail of torn up papers in the myles near female side nurses station. Will continue to observe patient for any s/s of increased/decreased agitation.
--- NOTE | 2020-10-12 00:22 | PC.NURSE ---
B52 FOLLOW-UP PT RESTING CALMLY IN HER ROOM, RR , SNORING GENTLY, NO S/S OF AGITATION NOTED AT THIS TIME.
--- NOTE | 2020-10-12 02:32 | PC.NURSE ---
PM assessment Pt was irritable from the beginning of shift. Patient stated, I can't get along with the drunks and crack heads over on the male side. Pt received 21-day court paperwork notification to appear. She is upset, confused as to the meaning of having to appear. Pt believes she is able to leave whenever she wants as long as she goes to court. The volatility of her mood is escalated all shift until the patient had a meltdown in the hallway of the NPU unit. Pt destroyed a bible, smeared red crayon down the hallway, and took off her scrub top in the myles. Pt continues to talk about subjects like illicit drugs and needing/wanting to . staff continues to redirect her.
[2020-10-12 06:00] VITALS: RESP 16
[2020-10-12] MEDS: atenolol 50 mg Tablet 25 MG PO ×2 (07:56→21:52)
[2020-10-12] MEDS: cetirizine 10 mg Tablet PO (07:57)
[2020-10-12] MEDS: fluoxetine 20 mg Capsule 40 MG PO (07:57)
[2020-10-12] MEDS: nicotine 21 mg Patch 1 PATCH TRANSDERMA (10:04)
[2020-10-12 14:00] VITALS: BP 152/93; PULSE 75; RESP 20; TEMP 36.8; O2SAT 97
--- NOTE | 2020-10-12 16:37 | PM.NPN ---
Subjective NPU Subjective: Interval history: Patient with reported interval behavioral disturbances requiring as needed medication. Patient is calm and cooperative during interview Denies any mood symptoms, denies any depressive symptoms but reports being frustrated with family and feels like people are calling to have her admitted to the hospital Denies any interval auditory or visual hallucinations, denies any delusions Reports being compliant with her medication and denies any medication side effects Denies any problems with sleep Reports appetite is been good Mental Status Exam MSE Comments: Sitting in the day room, calm, cooperative, appropriately groomed and dressed, good eye contact Psychomotor activity is neither increased nor decreased, no agitation Speech is normal rate and volume, spontaneous, clear articulation, not pressured Good, full range of affect, not labile Alert and oriented to person, place, time, situation Memory and concentration appear to be intact per interview Thought process, linear, no flight of ideas, no looseness of associations Thought content, no delusions, no hallucinations, no suicidal or homicidal ideation Insight and judgment appear to be intact Vitals/I&O/Wt Last Vital Signs Temp 98.2 F 10/12/20 14:00 Pulse 75 10/12/20 14:00 Resp 20 H 10/12/20 14:00 BP 152/93 10/12/20 14:00 Pulse Ox 97 10/12/20 14:00 Data NPU : 10/05/20 19:20 10/05/20 19:20 A&P Assessment and plan (1) Acute psychosis: Status: Acute (2) Substance use: Status: Acute Additional A&P Information Patient appears to be organized, no disorganization of speech or behavior, denies any hallucinations, no reported delusions. Patient has history of substance use and remains unclear with regards to contribution of substance use with her psychiatric symptoms. CONTINUE current medication, continue to monitor Patient has court scheduled for tomorrow Involuntary Hold Information 96 Hour Hold: 96 Hour Involuntary Admission: Yes 96 Hour Hold Ending Date: 10/11/20 96 Hour Hold Ending Time: 22:21 Attestations NPU Medical Necessity Statement*: Continues require psychiatric hospitalization for observation, medication stabilization Coding Level of Care Code Acute Photonics Engineering Technician for Mairtza Cherry Diagnoses Acute psychosis F23 Substance use F19.90
--- NOTE | 2020-10-12 19:29 | PM.NPTHER ---
NPU Therapy Progress Note Therapy Progress Note Date: 10/13/20 Time In: 18:20 Time Out: 18:40 Symptoms Reported: anger, frustration Mood: elevated, appropriate, is noted to exhibit much less psychotic sx Progress Note: SUPERVISOR MACHINE WORKERS approached Noni in the dayroom as she is watching T.V. Noni is open and friendly, willing to talk with SUPERVISOR MACHINE WORKERS. She vents about life frustrations involving ownership of land and her trailer that her Ex is fighting her in court for. She tells SUPERVISOR MACHINE WORKERS this is a trigger for her coming to the hospital. She is mildly manic in her speech but is redirectable and she converses well. She seems to still lack insight into the gravity of of sx as she states her goals after the NPU are to eventually get off all medications ; however, she is open to continuing to take an antidepressant. Intervention: SUPERVISOR MACHINE WORKERS listened and provided therapeutic support. Noni has questions about her 21 day paperwork and SUPERVISOR MACHINE WORKERS answered to her best knowledge. Noni was appropriate and understanding and in no time was she observed to become agitated. She is honest about not wanting to follow up at [facility]; however, she has ongoing therapy tx from a provider in [place], [place]. This works for her as she lives in [place]. SUPERVISOR MACHINE WORKERS educated on [facility] crisis services and her ability to walk-in should she be in crisis and speak with a therapist face to face without charge. Noni thanked SUPERVISOR MACHINE WORKERS for this information and was happy to take [facility]'s card and information. Reported Goals Before Discharge: none reported except to be released due to obligations she has waiting at home
[2020-10-12] MEDS: cyclobenzaprine 10 mg Tablet PO (21:07)
[2020-10-12] MEDS: trazodone 50 mg Tablet PO (21:07)
[2020-10-12] MEDS: OLANZapine 10 mg TABLET PO (21:10)
[2020-10-12] MEDS: nicotine 2 mg Gum BUCCAL (21:11)
[2020-10-12 22:00] VITALS: BP 154/101; PULSE 77; RESP 18; TEMP 36.6; O2SAT 99
[2020-10-13 06:00] VITALS: BP 145/102; PULSE 75; RESP 19; TEMP 36.6; O2SAT 97
[2020-10-13] MEDS: atenolol 50 mg Tablet 25 MG PO (08:05)
[2020-10-13] MEDS: fluoxetine 20 mg Capsule 40 MG PO (08:05)
[2020-10-13] MEDS: cetirizine 10 mg Tablet PO (08:06)
--- NOTE | 2020-10-13 09:05 | PM.NDC ---
Diagnoses at Discharge Discharge Diagnosis (1) Acute psychosis: Status: Acute (2) Substance use: Status: Acute Reason for Visit Reason for Visit: 96/officer with patient Hospital Course Hospital Course Under unclear circumstances please were called to respond to the patient at her residence secondary to unusual behavior. Patient was reportedly not making sense and was demonstrating psychotic symptoms. Patient has presented under similar circumstances in the past and unclear if this represents pete versus substance-induced psychosis although patient has denied use of substances and has had a negative UDS on last 2 presentations. Patient was restarted on her home medication and quickly reconstituted presenting in a more organized manner with no reports of any side effects. Patient occasionally would have some behavioral disturbances and appears to have some elevated and expansive mood but does not appear to be pressured or endorsing any psychotic signs or symptoms. Patient continues to report her understanding of the need with compliance with her medication and medication management follow-up and did not endorse any suicidal ideation or homicidal ideation throughout her hospital stay. Patient was not suicidal at the time of discharge and did not appear to pose an imminent threat of harm to self or others. Low to moderate risk of harm to self and others given no current suicidal ideation and no current report of any psychiatric symptoms although patient's risk may be elevated if she continues to abuse substances or alcohol or is noncompliant with her medication and medication management follow-up leading to unexpected, impulsive behavior. Risk mitigation included psychiatric hospitalization for observation for any psychotic symptoms, suicidal ideation or behavior, continuation of her home medications, coordination for safe discharge as well as recommendation to abstain from the use of substances and alcohol. Patient was able to communicate her understanding of the need to abstain from the use of substances and alcohol as well as the need for compliance with her medication and medication management follow-up in order to further mitigate her risk of harm to self and others. Involuntary Hold Information 96 Hour Hold: 96 Hour Involuntary Admission: Yes 96 Hour Hold Ending Date: 10/11/20 96 Hour Hold Ending Time: 22:21 Mental Status Exam MSE Comments: Appears stated age, properly groomed and dressed, wearing glasses, wearing hospital scrubs, calm, cooperative, interactive, good eye contact Psychomotor activity is neither increased nor decreased, no agitation Speech is normal rate and volume, spontaneous, clear articulation, not pressured I feel good, full range, not labile Alert and oriented to person, place, time, situation Memory and concentration appear to be intact per interview Intellectual functioning appears to be average based on vocabulary, interview Thought process, linear, occasionally circumstantial but easily redirected, no flight of ideas, no looseness of associations Thought content, no delusions, no hallucinations, no suicidal or homicidal ideation Insight and judgment appear to be fair to intact Discharge Data Vitals: Last Vital Signs Temp 97.9 F 10/13/20 06:00 Pulse 75 10/13/20 06:00 Resp 19 H 10/13/20 06:00 BP 145/102 10/13/20 06:00 Pulse Ox 97 10/13/20 06:00 Discharge Plan Discharge Patient Disposition: Home Condition: Stable Prescriptions: New olanzapine 10 mg Tablet 10 mg PO BEDTIME Qty: 30 RF: 0 Continued fluoxetine [Prozac] 40 mg capsule 40 mg PO DAILY RF: 0 cyclobenzaprine 10 mg tablet 10 mg PO TID PRN (Reason: Muscle Spasm) RF: 0 trazodone 50 mg tablet 50 mg PO BEDTIME RF: 0 cetirizine 10 mg tablet 10 mg PO DAILY RF: 0 ketotifen fumarate [Allergy Eye (ketotifen)] 0.025 % (0.035 %) Drops 1 - 2 drp ophthalmic (eye) PRN RF: 0 atenolol 25 mg tablet 25 mg PO BID RF: 0 acetaminophen [Tylenol Extra Strength] 500 mg Tablet 1,000 mg PO PRN RF: 0 ibuprofen 200 mg Tablet 800 mg PO PRN RF: 0 sodium chloride [Saline Nasal] 0.65 % Aerosol,[place] 1 - 2 spray INTRANASAL PRN RF: 0 Ear Nose Throat Lozenges 1 robert PO DAILY RF: 0 Discharge Orders: Discharge Order (Routine); Ordered 10/13/20 Ordered By: Nuria Rosales Referrals: Kirsten Pearce [Referring] - 10/27/20 10:30 am (Hosptial follow up) Discharge Diet: Regular Discharge Activity: Resume usual activity Discharge Attestations NPU Time Spent in Discharge Care*: greater than 30 min Status at Discharge: Cognitive status at discharge: cognitively intact, Behavioral status at discharge: cooperative, Coding Level of Care Code Acute Senior C Software Engineer for g Fwd Diagnoses Acute psychosis F23 Substance use F19.90
[2020-10-13 09:33] VITALS: BP 145/102; PULSE 75; RESP 19; TEMP 36.6; O2SAT 97
== END 2020-10-13 10:20 | disposition home or self-care (01) | DRG 885 ==
LOC: ER 19:08 → NP 21:12
PROVIDERS: Emergency Medicine; Admitting Provider Psychiatry & Neurology Psychiatry; Emergency Provider Family Medicine; Visit Provider Psychiatry & Neurology Psychiatry
DX: F23 Brief psychotic disorder (principal); F19.90 Other psychoactive substance use, unspecified, uncomplicated; E78.5 Hyperlipidemia, unspecified; I10 Essential (primary) hypertension; E66.9 Obesity, unspecified; Z68.31 Body mass index [BMI] 31.0-31.9, adult
CPT/HCPCS: 36416; 80053; 80306; 80307; 81025; 82962; 85025; 96372; 99285; J1200; J1630; J2060; J3490

== ENCOUNTER 2022-06-04 00:12 | Emergency (ER) | payer OTHER, MEDICAID, SELFPAY ==
[2022-06-04 00:17] VITALS: BP 178/128; PULSE 87; RESP 16; TEMP 36.4; O2SAT 97
--- NOTE | 2022-06-04 00:43 | W.ED.GENADLT ---
HPI - General Adult General: Chief complaint: General Medical Stated complaint: Rt Hand Numb\Jaws will not close Time Seen by Provider: 06/04/22 00:29 Source: patient Mode of arrival: ambulatory Limitations: no limitations History of Present Illness: 36-year-old female states she been having right arm pain and muscle spasms for over a year. She states she is also noticed some tingling to her hand she was seen at [facility] yesterday diagnosed with Raynaud's and started on nifedipine. Patient here states that she is having difficulty sleeping that has been going on for 3 years she wants to figure out what is causing her pain for over a year and why she cannot sleep. She denies any chest pain. Denies any new complaints today. Associated symptoms: Deny chest pain, dyspnea, headache(s), nausea, rash or vomiting Review of Systems Const: Denies: fever(s), chills, body aches or change in appetite Eyes: Denies: blurry vision or eye discomfort ENMT: Denies: throat pain or dental pain Card: Denies: chest pain Resp: Denies: dyspnea GI: Denies: abdominal pain, nausea, vomiting or diarrhea : Denies: dysuria Musc: Reports: extremity pain Skin/Breast: Denies: rash Neuro: Denies: headache(s) Psych: Reports: sleeping less Wai/Lymph: Denies: easy bruising All/Imm: Denies: urticaria PFS ED PFSH: Medical History (Updated 06/04/22 @ 00:45 by Barbara Shearer MD) Drug abuse Hyperlipidemia Hypertension Mental health disorder Obesity Female Reproductive History: Date of last menstrual period: 07/14/20 Physical Exam Const: COMMON NORMALS: no acute distress, patient oriented x3 and healthy appearing HENMT: COMMON NORMALS: normocephalic and atraumatic HEAD & SCALP: normocephalic and atraumatic Eye: COMMON NORMALS: Equal, round and reactive pupils present and EOMs intact bilaterally PUPIL: Yes Equal, round and reactive pupils present Neck/C-Spine: COMMON NORMALS: full ROM and supple Chest: COMMONS NORMALS: normal inspection of the chest and normal palpation of entire chest wall Resp: COMMON NORMALS: normal respiratory effort, No retractions, No use of accessory muscles and clear to auscultation bilaterally AUSCULTATION: clear to auscultation bilaterally Cardio: COMMON NORMALS: regular rate, regular rhythm and No murmurs present (Cardio) RATE: regular rate RHYTHM: regular rhythm GI: COMMON NORMALS: Normal to inspection, nondistended, normoactive bowel sounds present, Soft to palpation, non-tender and no masses PALPATION: Yes Soft to palpation Extremity: COMMON NORMALS: normal to inspection and full ROM Neuro: COMMON NORMALS: patient oriented x3, moves all extremities and no focal motor deficits Psych: COMMON NORMALS: mental status grossly normal, Normal thought process present and cooperative THOUGHT PROCESS: Normal thought process present Skin: COMMON NORMALS: no rashes or lesions noted and no wounds GENERAL SKIN EXAM: no rashes or lesions noted Course Vital Signs: Vital signs: Vital Signs Temperature 97.5 F L 06/04/22 00:17 Pulse Rate 87 06/04/22 00:17 Respiratory Rate 16 06/04/22 00:17 Blood Pressure 178/128 06/04/22 00:17 Pulse Oximetry 97 06/04/22 00:17 Oxygen Delivery Me thod 06/04/22 00:17 MDM - General Adult Medical Decision Making Patient presents here with insomnia and spitting on for years along with right upper extremity pain she states that she would like an MRI as she is supposed to go on outpatient I informed her we are not able to do an MRI here and she is to follow-up with her PCP to get MRI set up also get her follow-up with orthopedics for her wrist pain that has been chronic. Discharge Plan Discharge Patient Disposition: Home Clinical Impression: Hand pain, right, Insomnia Condition: Stable Prescriptions: No Action fluoxetine [Prozac] 40 mg capsule 40 mg PO DAILY cyclobenzaprine 10 mg tablet 10 mg PO TID PRN (Reason: Muscle Spasm) trazodone 50 mg tablet 50 mg PO BEDTIME cetirizine 10 mg tablet 10 mg PO DAILY ketotifen fumarate [Allergy Eye (ketotifen)] 0.025 % (0.035 %) Drops 1 - 2 drp ophthalmic (eye) PRN atenolol 25 mg tablet 25 mg PO BID acetaminophen [Tylenol Extra Strength] 500 mg Tablet 1,000 mg PO PRN ibuprofen 200 mg Tablet 800 mg PO PRN sodium chloride [Saline Nasal] 0.65 % Aerosol,Marvin 1 - 2 spray INTRANASAL PRN Ear Nose Throat Lozenges 1 robert PO DAILY olanzapine 10 mg Tablet 10 mg PO BEDTIME Qty: 30 0RF Discharge Orders: Discharge ED (Routine); Ordered 06/04/22 Ordered By: Barbara Shearer Referrals: Mari Maldonado FNP [Primary Care Provider] - Mahad Ritter DO [Physician] - 1-3 days Discharge Diet: Advance as tolerated Discharge Activity: Resume usual activity Patient Instructions: Raynaud Disease (ED) Coding Level of Care Code ED Electronic Warfare Officer for Maritza Cherry
[2022-06-04 01:13] VITALS: BP 168/98; PULSE 82; RESP 16; TEMP 36.4; O2SAT 98
--- NOTE | 2022-06-04 08:55 | DCPLANNER ---
Addendum entered by Sidra Huff 08/02/22 14:45: Patient had a follow up appointment scheduled with ortho - patient did not attend appointment Addendum entered by Sidra Huff 06/07/22 14:05: Patient has a follow up appointment scheduled for June at 9:[address] Ritter at ortho. Clinic will call patient with appointment information. Original Note: manager protein had message to schedule a follow up appointment for patient with ortho. manager protein sent patients information to the front office staff at ortho. Patients information will be printed and reviewed. Clinic will call patient with appointment information.
== END 2022-06-04 01:17 | disposition home or self-care (01) ==
PROVIDERS: Emergency Provider Emergency Medicine; PCP Nurse Practitioner Family
DX: G47.00 Insomnia, unspecified (principal); M79.641 Pain in right hand; E78.5 Hyperlipidemia, unspecified; I10 Essential (primary) hypertension
CPT/HCPCS: 99282

== ENCOUNTER 2022-06-23 11:21 | Emergency (ER) | payer MEDICAID, SELFPAY ==
[2022-06-23 11:36] VITALS: BP 152/93; PULSE 99; RESP 18; TEMP 37.1; O2SAT 99
--- NOTE | 2022-06-23 11:58 | W.ED.GENADLT ---
HPI - General Adult General: Chief complaint: Extremity Problem,Nontraumatic Stated complaint: thinks she may have an infection in both hands Time Seen by Provider: 06/23/22 11:47 History of Present Illness: 36-year-old female presents to the emergency department requesting help with pain in her fingertips. She was diagnosed with Raynaud's syndrome over the last few months. She has not undergone work-up for any other alternative diagnosis. She had formally been vaping, drinking alcohol, smoking cigarettes, and using vibrating tools at work. She has since stopped all of this. She does take atenolol but has not been started on any calcium channel blockers. She has apparent dry gangrene on her right second third and fourth digits distal to the DIP as well as on the left hand in the second digit in particular but also starting in the remainder of the digits. She reports this keeps her up at night despite using trazodone. She is taking Tylenol and aspirin. She has been trying to use warm clothing and gloves to minimize symptoms. She went to the emergency department at [facility] and was were referred to an orthopedic surgery but did not think this was appropriate. Today she would like referral to a different specialists and recommendations on what to do for pain. Associated symptoms: Reports rash; Deny chest pain, dyspnea, nausea, syncope or vomiting Review of Systems General: Reports: 10 or more systems reviewed and unremarkable except in HPI and below Const: Denies: fever(s), chills or body aches Eyes: Denies: change in vision ENMT: Denies: throat pain Card: Denies: chest pain, edema or syncope Resp: Denies: dyspnea or productive cough GI: Denies: abdominal pain, nausea, vomiting or diarrhea : Denies: flank pain, dysuria or urinary frequency Musc: Reports: extremity pain; Denies: joint redness Skin/Breast: Reports: rash, erythema, skin pain, skin tenderness, skin swelling, sores, changes in skin color and dry skin Neuro: Reports: other (Burning in the fingertips) [facility] ED PFSH: Medical History (Updated 06/23/22 @ 12:33 by Agustín Dove MD) Drug abuse Hyperlipidemia Hypertension Mental health disorder Obesity Female Reproductive History: Date of last menstrual period: 07/14/20 Physical Exam Const: COMMON NORMALS: no limitations, alert and well nourished EXAM LIMITATIONS: no altered mental status HENMT: COMMON NORMALS: normocephalic, atraumatic and external ears normal HEAD & SCALP: normocephalic and atraumatic EXTERNAL EAR: Yes external ears normal MOUTH: no muffled voice Eye: COMMON NORMALS: conjunctivae normal CONJUNCTIVA: Yes conjunctivae normal Neck/C-Spine: GENERAL: Yes normal visual inspection and Yes trachea midline Resp: COMMON NORMALS: normal respiratory effort and No use of accessory muscles Cardio: COMMON NORMALS: regular rate RATE: regular rate Neuro: COMMON NORMALS: moves all extremities and no focal motor deficits SENSORIUM/ORIENTATION: Yes alert Psych: COMMON NORMALS: mental status grossly normal, Normal thought process present, cooperative, normal affect and speech normal SPEECH: Yes normal speech THOUGHT PROCESS: Normal thought process present Skin: COMMON NORMALS: turgor normal and no jaundice NARRATIVE SKIN EXAM: The patient's right fingertips were examined. There is dry gangrene of the second third and fourth digits with early changes in the first and fifth digits as well. There is mild swelling at this area and mild decreased sensation to some aspects of touch and increased pain sensation to others. On the left hand the second digit is the worse followed by the third fourth and early changes in the fifth and first as well. There is no evidence of overt infection, streaking, redness, warmth of any of the fingertips. All of this is distal to the DIP joints. There are some early nail changes. She has dry gangrene as described above. GENERAL SKIN EXAM: turgor normal Course Vital Signs: Vital signs: Vital Signs Temperature 98.7 F 06/23/22 11:36 Pulse Rate 87 06/23/22 12:50 Respiratory Rate 18 06/23/22 11:36 Blood Pressure 162/105 06/23/22 12:30 Pulse Oximetry 94 06/23/22 12:50 Oxygen Delivery Me thod 06/23/22 12:30 MDM - General Adult Medical Decision Making I spoke with the superintendent general here about the best place for patient to have specialty follow-up. No vascular surgery is present here so I contacted [facility] in [place]. Johny Gonzales is a vascular surgeon there. I spoke with him about the patient. I am going to start the patient on amlodipine 5 mg twice a day. I will stop atenolol so she does not get symptomatic hypotension. I described to the patient that she should avoid using any vibrating tools and she should always keep her entire body warm, especially her hands and arms. She may continue to use fluoxetine and trazodone. Continue aspirin. She is going to follow-up with vascular surgery in [place] this week. I will prescribe her hydrocodone along with a bowel regimen for uncontrolled pain. The patient has already quit cigarettes and other provocative factors. I will place her on Keflex 500 mg twice a day until she has follow-up as the patient is worried she is developing infection. Discharge Plan Discharge Patient Disposition: Home Clinical Impression: Dry gangrene, Raynaud phenomenon Condition: Stable Prescriptions: New amlodipine 5 mg tablet 5 mg PO BID Qty: 60 2RF Colace 2-In-1 8.6-50 mg tablet 2 tab-cap PO BID PRN (Reason: constipation) Qty: 60 0RF hydrocodone-acetaminophen 5-325 mg tablet 1 tab PO Q6H PRN (Reason: pain) Qty: 20 0RF cephalexin 500 mg capsule 500 mg PO BID 7 Days Qty: 14 0RF Discontinued atenolol 25 mg tablet 25 mg PO BID acetaminophen [Tylenol Extra Strength] 500 mg Tablet 1,000 mg PO PRN No Action fluoxetine [Prozac] 40 mg capsule 40 mg PO DAILY cyclobenzaprine 10 mg tablet 10 mg PO TID PRN (Reason: Muscle Spasm) trazodone 50 mg tablet 50 mg PO BEDTIME cetirizine 10 mg tablet 10 mg PO DAILY ketotifen fumarate [Allergy Eye (ketotifen)] 0.025 % (0.035 %) Drops 1 - 2 drp ophthalmic (eye) PRN ibuprofen 200 mg Tablet 800 mg PO PRN sodium chloride [Saline Nasal] 0.65 % Aerosol,[place] 1 - 2 spray INTRANASAL PRN Ear Nose Throat Lozenges 1 robert PO DAILY olanzapine 10 mg Tablet 10 mg PO BEDTIME Qty: 30 0RF Discharge Orders: Discharge ED (Routine); Ordered 06/23/22 Ordered By: Agustín Dove Referrals: Reji Gonzales MD [Referring] - 1-3 days (Dry gangrene, vasculitis/spasm fingers) Discharge Diet: Usual diet Discharge Activity: Limit activity as instructed Patient Instructions: Gangrene (DC), Opioid Safety, Pain Management Activity Restrictions/Additional Instructions: Keep whole body warm, avoid cold exposure, drink at least 72oz of clear fluid daily, use gloves, avoid vibrations, no decongestants. General measures ?Avoidance of cold exposure?? Avoidance of cold exposure and sudden temperature changes (when possible) is a orona component of the management of RP. Patients should be made aware of circumstances that can trigger an attack such as putting one's hand in a refrigerator or freezer, holding an ice-cold drink, and entering an air conditioned environment such as the frozen food section of the [employer] or swimming in cold water. Modest seasonal changes such as cool rainy days can aggravate RP. There are no randomized trials that have investigated the effect of cold avoidance on symptoms of RP. This approach of avoiding a known trigger is based on our understanding of the mechanism of the disease along with common sense and anecdotal reports that taking measures to reduce cold exposure will limit the number of attacks. ?Strategies to maintain whole body and digital warmth?? It is important to understand that one must keep the whole body warm and not just the hands and feet. We therefore advise that patients with RP use strategies that not only keep the digits warm (eg, hand warmers, warm socks), but also the whole body. Strategies to maintain body warmth include dressing warmly with thermal underwear, layered clothing, and a hat when going outside and arranging to have appropriate heating in both the home and working environment. This also includes measures to avoid whole body cold exposure such as not sitting still in cold breezes from air conditioning and avoiding situations that involve rapid changes from a warm to cold ambient temperature. Keeping the digits of the hands and feet warm with winter gloves, chemical hand warmers, and heavy wool socks may also help. Heating up clothing in a dryer and putting them on while they are still warm before entering a cold environment is suggested as helpful. Limited evidence from two small observational studies of patients with systemic sclerosis (SSc, scleroderma) have suggested that warming the hands can reduce cold-induced symptoms [6,7https://www.[employer].com/contents/socflhocy-yf-gqtxbvr-osnayhpzsd-laczdvy-qaneexaimy/abstract/6,7]. A number of different types of gloves have been proposed for patients with RP to reduce the likelihood of attacks, including battery-heated gloves and gloves knotted with silver thread. The only randomized trial to evaluate specialized gloves, specifically ceramic-impregnated gloves, had significant methodologic issues, making it difficult to interpret the findings [8https://www.[employer]/contents/wfvfdvgct-kq-hvklefr-gilpbhgzkt-zoeryjp-aothzkutje/abstract/8]. Patients should also be taught methods to help terminate an attack of RP. These include placing the hands under warm water or in a warm place (such as the axilla) or rotating arms in a whirling or windmill pattern. A maneuver similar to throwing a Frisbee can also be used [9https://www.[employer]/contents/vvuuyjvja-qe-psltecl-sawyinjkao-zcbhmdd-vrdyisdmqb/abstract/9]. Rubbing the hands together can also help warm the hands and restore blood flow. A typical attack lasts approximately 15 to 20 minutes after rewarming. ?Other general measures: ?Avoidance of repeated trauma to the fingertips by all patients with RP and avoidance of vibrating tools by patients with vibration-induced RP [10https://www.[employer]/contents/htyxhqfnq-jx-uczapfu-dggzkbkpmx-zqyrmdu-xbxbonbdvb/abstract/10]. ?We do not routinely treatment counselor patients with RP to stop consuming caffeine-containing drinks, although some experts have recommended doing so. The impact of caffeine on RP has not been defined, and its xanthine-related properties may result in systemic vasodilation [11,12https://www.[employer]/contents/pfjupkwce-fi-duiynuo-izdcdmdpdu-ubyvrco-okecxbsiuv/abstract/11,12]. Coffee consumption has been associated with vasoconstrictive effects, which transiently increase blood pressure (BP). However, coffee contains many biologically active compounds in addition to caffeine and overall may have vascular benefit [13https://www.[employer]/contents/coavawzxr-wz-qnmrusj-royczvzfok-envagpk-cksczazxwe/abstract/13]. Thus, the decision to stop caffeine-containing drinks should be based on the patient's experience. ?In patients with RP undergoing surgery, the risk of attacks from increased cold exposure in the operating room can be reduced by keeping patients warm. The choice of medications in patients undergoing an attack in this setting should be individualized based upon the specific clinical circumstances. ?Control or limitation of emotional stress because the thermoregulatory vessels are constricted by increased sympathetic tone. Stress plus cold exposure is an especially potent trigger for RP [14https://www.[employer]/contents/iyjeufrpk-vy-xiapwmb-kbevmeuquf-hydcqwl-hgtgboduhs/abstract/14].The exact impact of stress and anxiety has been challenging to define due to the lack of studies accounting for the influence of ambient temperature and differences between laboratory-based studies and real life experiences. In a laboratory study of patients with primary RP, finger temperature decreased when subjects viewed a cold-related stress situation [15https://www.[employer]/contents/lxndptfur-zj-awngvlf-lgtyvbwxxu-eubuhlu-arbwrckoqf/abstract/15]. An ambulatory study in over 300 patients with primary RP found a relationship between the trait of anxiety and severity of RP [16https://www.[employer]/contents/xywzqltju-sx-grnvwyr-snrzctjhkv-chsldqe-djdnubcxej/abstract/16]. Most interventions have focused on managing stress situations rather than treating any defined mental health condition. To date, clinical trial evidence does not support behavioral therapy (eg, biofeedback, relaxation therapy) in the treatment of RP. The management of anxiety and stress in the treatment of RP is primarily based on clinical and patient-related experiences, and attention to depression and anxiety disorders should be provided. (See?'Therapies lacking efficacy or of uncertain benefit'https://www.[employer]/contents/rjwtamnmx-yo-iusnwfj-jcmxeefusl-nucerrn-rxpinokjhm?search=raynauds%20treatment&source=search_result&selectedTitle=1~150&usage_type=default&display_rank=1#[id number]?below.) Avoidance of vasoconstricting drugs???Patients should be advised to avoid medications known to worsen vasospasm, when possible. There are almost no formal studies that have evaluated the effects of various drugs on RP; however, since the therapeutic mechanism of some drugs is known to cause vasospasm, we advise that these medications be avoided. Several classes of drugs known to be associated with vasospasm include the following: ?Tgnu-fjj-wxpocvv nasal decongestants (eg,?phenylephrinehttps://www.[employer]/contents/nogefleolpuzs-cequ-kuomgqhliua?search=raynauds+treatment&hbyiwSwn=1815&source=see_link,?pseudoephedrinehttps://www.[employer]/Search123/zwealcpdnzqkrvb-taqg-twkzosijvnf?search=raynauds+treatment&to fvzBkd=0319&source=see_link) ?Amphetamines, diet pills, and herbs with ephedra ?Agents used to treat attention deficit hyperactivity disorder (ADHD) (methylphenidatehttps://[employer]/Search123/ipbzietlqafqzuo-eflj-izndypnahhi?search=raynauds+treatment&ynlelNwh=4100&source=see_link?and?dextroamphetaminehttps://[employer]/Search123/bnvwpimbjapbhioxi-yivq-fywetjwmddz?search=raynauds+treat ment&exvaqUqj=0473&source=see_link) ?Some medications used for migraine headaches, including serotonin agonists (eg,?sumatriptanhttps://[employer]/Search123/uoqjuhwerlx-qrsu-sstqtmxiebr?search=raynauds+treatment&kdvldPsf=2436&source=see_link) or?ergotaminehttps://www.[employer]/Search123/rjwuawwbmr-tqeb-rlbizryjmwh?search=raynauds+treatment&rbkkbDqq=8018&source=see_link The only study that investigated the relationship between a medication and RP was a small case-control study including 64 pediatric rheumatology patents, half of whom had RP [17https://www.[employer]/contents/lsipcpizr-bl-irtgjft-erzmjbocqm-xxiviyk-jjfmfblxck/abstract/17]. The presence of RP was associated with past or current use of stimulants for ADHD (methylphenidatehttps://[employer]/contents/bvxmanjvppvbmgl-upsk-vbbirhndrjg?search=raynauds+treatment&sthswCdj=0284&source=see_link?and?dextroamphetaminehttps://[employer]/Search123/jvcfxkjegvybclmpx-ecmq-cmvhrbhvsmc?search=raynauds+treat ment&jlcabZmg=8042&source=see_link). An aggravating role of estrogen use is suggested by the finding that postmenopausal women using unopposed estrogens have a higher prevalence of RP [18https://www.[employer]/contents/jcgkgnzwj-xr-ixeodaq-eemesfabrc-vafevtw-pkboqudglq/abstract/18]. However, while the exact impact of estrogens is not fully defined, most experts avoid estrogen replacement in patients with severe RP. Smoking cessation???The vascular effects of smoking do not appear to be any different in patients with RP [19https://www.[employer]/contents/rstkqpfan-uk-pnmvncy-wifuaolnnn-oueucwn-psnzbejkim/abstract/19]. Thus, avoidance of smoking is advised since smokers are sensitized to the vasoconstrictive properties of cigarettes. Avoiding secondhand smoke and electronic cigarettes is also prudent. (See? Benefits and consequences of smoking cessation https://www.[employer]/contents/cjinohue-cbq-obfgzlvqhsjb-tk-nnzcqxf-obxzcclqs?search=raynauds+treatment&jdoeyNnq=4047&source=see_link?and? Overview of smoking cessation management in adults https://www.[employer]/contents/nvkcnego-vt-divitai-svjnczbzz-fybmcuktir-om-adults?search=raynauds+treatment&rdpcoJcl=4697&source=see_link?and? Pharmacotherapy for smoking cessation in adults https://www.[employer]/contents/hdrclwhxdopaflg-mlt-hebjyvf-urifkyqjw-cu-fwflja?search=raynauds+treatment&ryyxbXxo=8860&source=see_link.). The detrimental effects of smoking are multifactorial, with mechanisms that include vasoconstriction and alterations in wound healing [19,20https://www.[employer]/contents/eaktospld-yj-cgiwaju-wuycbialjk-gaxjgaz-kpjoszmnhx/abstract/19,20]. A large study including over 600 patients with SSc found that smoking was associated with substantially worse RP symptoms and that symptom severity decreased after smoking cessation [21https://www.[employer]/contents/izojrkrwx-qu-yavgswj-puxqoyqijh-rvvvsar-mraiyxhhfl/abstract/21]. Coding Level of Care Code ED Mine Inspector for Maritza Cherry
[2022-06-23] MEDS: HYDROcodone-acetaminophen 10-325 mg Tablet 1 TAB PO (12:27)
[2022-06-23] MEDS: NIFEdipine 10 mg Capsule PO (12:27)
[2022-06-23 12:30] VITALS: BP 162/105; PULSE 96; O2SAT 100
[2022-06-23 12:50] VITALS: PULSE 87; O2SAT 94
== END 2022-06-23 12:48 | disposition home or self-care (01) ==
PROVIDERS: Emergency Provider Emergency Medicine; PCP Nurse Practitioner Family
DX: I96 Gangrene, not elsewhere classified (principal); I73.00 Raynaud's syndrome without gangrene
CPT/HCPCS: 99283

== ENCOUNTER 2022-07-05 09:57 | Emergency (ER) | payer MEDICAID, SELFPAY ==
[2022-07-05 10:23] VITALS: BP 133/89; PULSE 91; RESP 14; TEMP 36.8; O2SAT 100; BMI 35.7
--- NOTE | 2022-07-05 11:17 | W.ED.EXTPRO ---
HPI - Extremity Problem General: Chief complaint: Extremity Problem,Nontraumatic Stated complaint: possible finger tip infection, left hand Time Seen by Provider: 07/05/22 10:57 History of Present Illness: This patient returns to the emergency department because she is concerned about her fingers. She had a history of Raynaud's phenomena and was in the emergency departmentOn 23 June. At that time consultation was arranged with vascular surgery at [facility] which she was unable to follow through with because of transportation issues as she does not drive. She is here now today because she is concerned that she might be developing infection in her fingers. She completed a course of Keflex which ended last Friday. She denies any fevers or chills. She has significant pain in 9 out of 10 of her digits. She states she is made very valid attempts to completely quit smoking and she is down to approximately 3 cigarettes/day. She denies caffeine use. She attempts to avoid other triggers. Has had some issues with constipation due to her opioid use but that has improved with use of a colonic stimulant and she does not have any constipation issues today. MD Complaint: extremity pain Associated symptoms: Deny chest pain or fever(s) Review of Systems Const: Denies: fever(s) or chills Eyes: Denies: change in vision ENMT: Denies: throat pain, odynophagia, nasal discharge or nasal congestion Card: Denies: chest pain or palpitations Resp: Denies: dyspnea, productive cough or non-productive cough GI: Denies: nausea, vomiting or diarrhea Musc: Denies: neck pain or back pain Skin/Breast: Reports: skin pain Neuro: Reports: numbness in extremities; Denies: headache(s) or weakness in extremities Psych: Reports: anxiety PFSH ED PFSH: Medical History Drug abuse Hyperlipidemia Hypertension Mental health disorder Obesity Female Reproductive History: Date of last menstrual period: 07/14/20 Physical Exam Narrative: EXAM NARRATIVE: Patient is alert makes good eye contact speech is goal-directed. Const: COMMON NORMALS: no acute distress, average body habitus and patient oriented x3 GENERAL APPEARANCE: cooperative HENMT: COMMON NORMALS: normocephalic and moist oral mucous membranes HEAD & SCALP: normocephalic Eye: COMMON NORMALS: Equal, round and reactive pupils present PUPIL: Yes Equal, round and reactive pupils present Neck/C-Spine: COMMON NORMALS: full ROM Resp: COMMON NORMALS: normal respiratory effort and No use of accessory muscles EFFORT & INSPECTION: Yes able to speak in complete sentences Cardio: COMMON NORMALS: Peripheral pulses 2+ throughout PERIPHERAL PULSES: Peripheral pulses 2+ throughout Back/Pelvis: COMMON NORMALS: thoraco-lumbar ROM normal Extremity: NARRATIVE EXTREMITY EXAM: Extremities are normal with exception of both left and right hands. 9 out of 10 digits are involved with cyanotic tips the exception being the fifth finger on the right hand which is unaffected. There is evidence of significantly decreased vascularity to the fingertips with dusky appearance. There is no proximal erythema, swelling, lymphangitis, lymphadenopathy. Neuro: COMMON NORMALS: patient oriented x3, moves all extremities and no focal motor deficits Psych: COMMON NORMALS: mental status grossly normal and denies suicidal ideation Skin: COMMON NORMALS: turgor normal NARRATIVE SKIN EXAM: Fingertip changes as noted in the extremity examination. GENERAL SKIN EXAM: turgor normal Course Vital Signs: Vital signs: Vital Signs Temperature 98.3 F 07/05/22 10:23 Pulse Rate 91 07/05/22 10:23 Respiratory Rate 14 07/05/22 10:23 Blood Pressure 133/89 07/05/22 10:23 Pulse Oximetry 100 07/05/22 10:23 Oxygen Delivery Me thod 07/05/22 10:23 MDM - Extremity (Nontraumatic) Medical Decision Making This patient return to the emergency department primarily because of concerns about infection of her fingertips. No evidence clinically to suggest infection at this time. She is afebrile no erythema or other signs of infection at this time. She has significant dry gangrene of her fingertips consistent with severe Raynaud's. She had some issues with being able to get to [place] for vascular surgery appointment and I have engaged case management to assist with making appointment and getting her there. She is currently on a calcium channel alicia and has had a history of opioid use for obvious reasons. I proposed to her that we give her a trial of gabapentin to help with her neuropathic pain as well as adding sildenafil to her regimen for its vasodilatory properties. I encouraged her to continue her calcium channel alicia, discontinue smoking, avoid cold or other precipitating environments as much as possible. Also discussed return precautions with her regarding fevers chills worsening symptoms etc. that might occur prior to her vascular surgery appointment. She acknowledged our discussion. Medical Records I reviewed the patient's medical records. Lab Data I reviewed the patient's lab results. Discharge Plan Discharge Patient Disposition: Home Clinical Impression: Raynaud's disease with gangrene Condition: Stable Prescriptions: New sildenafil 25 mg tablet 25 mg PO DAILY Qty: 30 1RF gabapentin 300 mg capsule 300 mg PO BID Qty: 60 1RF No Action fluoxetine [Prozac] 40 mg capsule 40 mg PO DAILY trazodone 50 mg tablet 50 mg PO BEDTIME cetirizine 10 mg tablet 10 mg PO DAILY ibuprofen 200 mg Tablet 800 mg PO PRN Saline Nasal 0.65 % Aerosol,[place] 1 - 2 spray INTRANASAL DAILY PRN (Reason: Allergy Symptoms) nifedipine 30 mg tablet extended release 24hr 30 mg PO DAILY atorvastatin 20 mg tablet 20 mg PO DAILY amlodipine 5 mg tablet 5 mg PO BID Qty: 60 2RF sennosides-docusate sodium [Colace 2-In-1] 8.6-50 mg tablet 2 tab-cap PO BID PRN (Reason: constipation) Qty: 60 0RF Discharge Orders: Discharge ED (Routine); Ordered 07/05/22 Ordered By: Kyree Flor Referrals: Mari Maldonado FNP [Primary Care Provider] - Discharge Diet: Usual diet Discharge Activity: Increase activity as tolerated Patient Instructions: Opioid Safety, Pain Management Activity Restrictions/Additional Instructions: Continue to take your usual medications with the exception of your atenolol. We have prescribed 2 medications for you: #1. A different type of medication to help control your pain and #2. A medicine to help dilate your blood vessels and increase blood flow. You should receive contact information and a an appointment time to see Dr. Jonna Clmeens the vascular surgeon at [facility] in [place]. Do not smoke cigarettes under any circumstances. To the best of your ability prevents her hands from getting cold. Make sure they are covered in the ambient temperature that she do not have the remainder of your body exposed to cold either as this may also contribute to your vasoconstriction. If you develop fevers redness of your hands etc. return to this or the nearest emergency department for reevaluation. Coding Level of Care Code ED Appliance Sales Associate for Maritza Cherry Exam Comprehensive
[2022-07-05 12:33] VITALS: BP 116/86; PULSE 95; RESP 16; O2SAT 100
--- NOTE | 2022-07-09 10:12 | DCPLANNER ---
manager staffing was asked to send patients records to [facility] vascular surgery. manager staffing faxed patients information to the [phone]. Clinic will call patient with appointment information.
== END 2022-07-05 12:30 | disposition home or self-care (01) ==
PROVIDERS: Emergency Provider Emergency Medicine; PCP Nurse Practitioner Family
DX: I73.01 Raynaud's syndrome with gangrene (principal); F17.210 Nicotine dependence, cigarettes, uncomplicated; Z79.891 Long term (current) use of opiate analgesic
CPT/HCPCS: 99283

== ENCOUNTER 2022-07-12 17:31 | Emergency (ER) | payer MEDICAID, SELFPAY ==
[2022-07-12 17:38] VITALS: BP 120/77; PULSE 125; RESP 18; O2SAT 98
--- NOTE | 2022-07-12 18:05 | W.ED.ALLEREA ---
HPI - Allergic Reaction General: Chief complaint: Allergic Reaction Stated complaint: Allergic Reaction Time Seen by Provider: 07/12/22 17:40 Source: patient Mode of arrival: ambulatory Limitations: no limitations History of Present Illness: HPI narrative: 36-year-old female states she has had a rash to her trunk over the last 2 days states pruritic in nature states she felt some difficulty breathing she has no throat swelling here she is in no distress she states she believes she have allergic reaction she denies any worsening proving factors denies any vomiting or diarrhea. Associated symptoms: Deny abdominal pain, nausea or vomiting Review of Systems Const: Denies: fever(s), chills, body aches or change in appetite Eyes: Denies: blurry vision or eye discomfort ENMT: Denies: throat pain or dental pain Card: Denies: chest pain Resp: Denies: dyspnea GI: Denies: abdominal pain, nausea, vomiting or diarrhea : Denies: dysuria Musc: Denies: neck pain or back pain Skin/Breast: Reports: rash and pruritus Neuro: Denies: headache(s) Psych: Denies: depression Wai/Lymph: Denies: easy bruising All/Imm: Denies: urticaria PFSH ED PFSH: Medical History Drug abuse Hyperlipidemia Hypertension Mental health disorder Obesity Female Reproductive History: Date of last menstrual period: 07/14/20 Physical Exam Const: COMMON NORMALS: no acute distress, patient oriented x3 and healthy appearing HENMT: COMMON NORMALS: normocephalic and atraumatic HEAD & SCALP: normocephalic and atraumatic Eye: COMMON NORMALS: Equal, round and reactive pupils present and EOMs intact bilaterally PUPIL: Yes Equal, round and reactive pupils present Neck/C-Spine: COMMON NORMALS: full ROM and supple Chest: COMMONS NORMALS: normal inspection of the chest and normal palpation of entire chest wall Resp: COMMON NORMALS: normal respiratory effort, No retractions, No use of accessory muscles and clear to auscultation bilaterally AUSCULTATION: clear to auscultation bilaterally Cardio: COMMON NORMALS: regular rate, regular rhythm and No murmurs present (Cardio) RATE: regular rate RHYTHM: regular rhythm GI: COMMON NORMALS: Normal to inspection, nondistended, normoactive bowel sounds present, Soft to palpation, non-tender and no masses PALPATION: Yes Soft to palpation Extremity: COMMON NORMALS: normal to inspection and full ROM Neuro: COMMON NORMALS: patient oriented x3, moves all extremities and no focal motor deficits Psych: COMMON NORMALS: mental status grossly normal, Normal thought process present and cooperative THOUGHT PROCESS: Normal thought process present Skin: COMMON NORMALS: no wounds NARRATIVE SKIN EXAM: Slight rash to trunk Course Vital Signs: Vital signs: Vital Signs Pulse Rate 125 H 07/12/22 17:38 Respiratory Rate 18 07/12/22 17:38 Blood Pressure 120/77 07/12/22 17:38 Pulse Oximetry 98 07/12/22 17:38 Oxygen Delivery Me thod 07/12/22 17:38 MDM - Allergic Reaction Medical Decision Making Patient presents here with slight rash possible allergic reaction patient given prednisone and Benadryl will prescribe prednisone for home. Patient is to return if worsening. Discharge Plan Discharge Patient Disposition: Home Clinical Impression: Allergic reaction Condition: Stable Prescriptions: New prednisone 50 mg tablet 50 mg PO DAILY Qty: 5 0RF No Action fluoxetine [Prozac] 40 mg capsule 40 mg PO DAILY trazodone 50 mg tablet 50 mg PO BEDTIME cetirizine 10 mg tablet 10 mg PO DAILY ibuprofen 200 mg Tablet 800 mg PO PRN Saline Nasal 0.65 % Aerosol,[place] 1 - 2 spray INTRANASAL DAILY PRN (Reason: Allergy Symptoms) nifedipine 30 mg tablet extended release 24hr 30 mg PO DAILY atorvastatin 20 mg tablet 20 mg PO DAILY sildenafil 25 mg tablet 25 mg PO DAILY Qty: 30 1RF gabapentin 300 mg capsule 300 mg PO BID Qty: 60 1RF amlodipine 5 mg tablet 5 mg PO BID Qty: 60 2RF sennosides-docusate sodium [Colace 2-In-1] 8.6-50 mg tablet 2 tab-cap PO BID PRN (Reason: constipation) Qty: 60 0RF Discharge Orders: Discharge ED (Routine); Ordered 07/12/22 Ordered By: Barbara Shearer Referrals: Mari Maldonado FNP [Primary Care Provider] - Discharge Diet: Advance as tolerated Discharge Activity: Resume usual activity Patient Instructions: Allergic Reaction Coding Level of Care Code ED Train Electronic Technician for Chg Fwd Exam Comprehensive
[2022-07-12] MEDS: diphenhydrAMINE 50 mg Capsule PO (18:06)
[2022-07-12] MEDS: predniSONE 20 mg Tablet 60 MG PO (18:06)
== END 2022-07-12 18:50 | disposition home or self-care (01) ==
PROVIDERS: Emergency Provider Emergency Medicine; PCP Nurse Practitioner Family
DX: T78.40XA Allergy, unspecified, initial encounter (principal); X58.XXXA Exposure to other specified factors, initial encounter; L29.9 Pruritus, unspecified; R21 Rash and other nonspecific skin eruption
CPT/HCPCS: 99283; J7512; Q0163

== ENCOUNTER 2022-07-19 17:40 | Inpatient (IN) | payer OTHER, MEDICAID, SELFPAY ==
[2022-07-19 18:01] VITALS: BP 149/75; PULSE 116; RESP 18; O2SAT 99
[2022-07-19 18:05] VITALS: BP 132/76
--- NOTE | 2022-07-19 18:37 | W.ED.PSYCHS ---
HPI - Psych General: Chief Complaint: Psychiatric Symptoms Stated Complaint: Mental Health Eval Time Seen by Provider: 07/19/22 17:43 Source: patient and police Mode of arrival: other (Police brought her in) Limitations: other (Patient has disorganized speech and acutely psychotic) History of Present Illness: See nursing assessment. 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 Patient very anxious. Patient states it is 2021 with would not give me the month. She denies any pain anywhere. She does admit to having Raynaud's phenomenon. Associated symptoms: Reports visual hallucinations; Deny suicidal ideation Review of Systems Const: Denies: fever(s) or chills Eyes: Denies: change in vision ENMT: Denies: throat pain Card: Denies: chest pain or palpitations Resp: Denies: dyspnea or wheezing GI: Denies: abdominal pain, nausea or vomiting : Denies: flank pain Musc: Denies: neck pain or back pain Skin/Breast: Reports: other (Chronic necrosis of fingertips due to Raynaud's); Denies: rash or pruritus Neuro: Denies: headache(s) or numbness in extremities Psych: Reports: anxiety, mood swings, paranoia and visual hallucinations; Denies: suicidal ideation Wai/Lymph: Denies: enlarged lymph nodes COUNT INCLUDES THE [facility] ED PFSH: Medical History Drug abuse Hyperlipidemia Hypertension Mental health disorder Obesity Female Reproductive History: Date of last menstrual period: 07/14/20 Physical Exam Const: COMMON NORMALS: no limitations and well nourished GENERAL APPEARANCE: cooperative HENMT: COMMON NORMALS: normocephalic and atraumatic HEAD & SCALP: normocephalic and atraumatic FACE & SINUS: normal facial exam Eye: COMMON NORMALS: EOMs intact bilaterally Neck/C-Spine: COMMON NORMALS: full ROM, no lymphadenopathy, supple and no meningeal signs GENERAL: Yes normal visual inspection Lymph: LYMPHATIC: no lymphadenopathy noted Chest: COMMONS NORMALS: normal inspection of the chest and normal palpation of entire chest wall CHEST: No Ecchymosis present and No rash Resp: COMMON NORMALS: normal respiratory effort, No retractions and clear to auscultation bilaterally EFFORT & INSPECTION: No respiratory distress AUSCULTATION: clear to auscultation bilaterally Cardio: COMMON NORMALS: regular rate, regular rhythm and Peripheral pulses 2+ throughout JUGULAR VENOUS DISTENTION: no JVD RATE: regular rate RHYTHM: regular rhythm PERIPHERAL PULSES: Peripheral pulses 2+ throughout GI: COMMON NORMALS: Normal to inspection, nondistended, normoactive bowel sounds present and non-tender : COMMON NORMALS: Yes no CVA tenderness BLADDER/KIDNEY EXAM: Yes no CVA tenderness Back/Pelvis: COMMON NORMALS: no CVA tenderness Extremity: COMMON NORMALS: normal to inspection, full ROM and capillary refill normal Neuro: COMMON NORMALS: CN's II-XII intact bilaterally, no focal motor deficits and no sensory deficits noted MENINGEAL SIGNS: Yes no meningeal signs Psych: APPEARANCE: Yes disheveled ATTITUDE: Yes paranoid, Yes bizarre, No agitated, No aggressive and No hostile ACTIVITY/MOTOR BEHAVIOR: Yes psychomotor agitation, Yes fidgeting and Yes hyperactivity SPEECH: Yes excessive and Yes rapid MOOD & AFFECT: Yes anxious THOUGHT PROCESS: incoherent, disorganized, Flight of ideas present, Illogical thought process present and Tangential thought process present ATTENTION/CONCENTRATION: Yes concentration grossly impaired INSIGHT: Poor insight present (Psych) JUDGEMENT: Poor judgement present (Psych) OTHER: EducatedPatient is unable to make surgeons about her care. Skin: OTHER: Patient does have chronic necrosis of many of her fingertips consistent with her Raynaud's phenomenon. No acute bleeding. Course Vital Signs: Vital signs: Vital Signs Pulse Rate 116 H 07/19/22 18:01 Respiratory Rate 18 07/19/22 18:01 Blood Pressure 132/76 07/19/22 18:05 Pulse Oximetry 99 07/19/22 18:01 [facility] - Psych Medical Decision Making 96-hour involuntary hold affidavit was filled out by vice squad police officer that brought patient in. Patient reportedly was running around naked the parking lot and states she was playing baseball for the [employer]. Patient is acutely psychotic. Patient has flight of ideas and disorganized speech. She appears to have visual hallucinations. She is alert and oriented to year but not the month. No stroke symptoms. Patient does have a history of Raynaud's phenomenon 1938: Patient much improved after Geodon injection. Patient's speech is clear now. She is slightly somnolent but feels much better. She is okay with Rocephin injection for urinary tract infection 2056: Discussed with psychiatrist Dr. Anglin. He excepted the patient for admission to the behavioral health unit. Lab Data 07/19/22 19:50 07/19/22 19:50 Laboratory Results WBC 10.8 10^3/uL (4.0-10.0) H 07/19/22 19:50 RBC 3.80 10^6/uL (4.1-5.3) L 07/19/22 19:50 Hgb 10.1 g/dL (11.5-15.3) L 07/19/22 19:50 Hct 32.4 % (37.0-47.0) L 07/19/22 19:50 MCV 85.3 fl (81-99) 07/19/22 19:50 MCH 26.6 pg (28.0-34.0) L 07/19/22 19:50 MCHC 31.2 g/dL (30.0-36.0) 07/19/22 19:50 RDW 13.6 % (12.1-15.1) 07/19/22 19:50 Plt Count 548 10^3/cmm (130-400) H 07/19/22 19:50 MPV 8.1 fL (7.4-10.4) 07/19/22 19:50 Neut % (Auto) 68.0 % 07/19/22 19:50 Lymph % (Auto) 20.7 % 07/19/22 19:50 [place] % (Auto) 5.9 % 07/19/22 19:50 Eos % (Auto) 4.7 % 07/19/22 19:50 Baso % (Auto) 0.3 % 07/19/22 19:50 Neut # (Auto) 7.32 10^3/uL (1.8-7.7) 07/19/22 19:50 Lymph # (Auto) 2.2 10^3/uL (0.8-4.8) 07/19/22 19:50 [place] # (Auto) 0.6 10^3/uL (0.2-0.9) 07/19/22 19:50 Eos # (Auto) 0.5 10^3/uL (0.0-0.8) 07/19/22 19:50 Baso # (Auto) 0.0 10^3/uL (0.0-0.1) 07/19/22 19:50 Nucleated RBC % (auto) 0 % 07/19/22 19:50 Nucleated RBCs # 0.0 /100WBC 07/19/22 19:50 Sodium 138 mmol/L (136-145) 07/19/22 19:50 Potassium 3.6 mmol/L (3.5-5.1) 07/19/22 19:50 Chloride 101 mmol/L (98-107) 07/19/22 19:50 Carbon Dioxide 27 mmol/L (22-29) 07/19/22 19:50 Anion Gap 13.6 (5-19) 07/19/22 19:50 BUN 11 mg/dL (6-20) 07/19/22 19:50 Creatinine 0.6 mg/dL (0.5-0.9) 07/19/22 19:50 GFR Calculation 112.5 mL/min (90-130) 07/19/22 19:50 Glucose 114 mg/dL (65-115) 07/19/22 19:50 Calculated Osmolality 286 mOsm/kg (285-295) 07/19/22 19:50 Calcium 8.7 mg/dL (8.5-10.5) 07/19/22 19:50 Total Bilirubin 0.2 mg/dL (0.15-1.2) 07/19/22 19:50 AST 12 U/L (0-32) 07/19/22 19:50 ALT 15 U/L (0-33) 07/19/22 19:50 Alkaline Phosphatase 100 U/L (35-105) 07/19/22 19:50 Total Protein 6.7 g/dL (6.6-8.7) 07/19/22 19:50 Albumin 3.1 g/dL (3.5-5.2) L 07/19/22 19:50 Globulin 3.6 g/dL (1.3-4.6) 07/19/22 19:50 TSH 1.58 uIU/mL (0.27-4.20) 07/19/22 19:50 HCG, Qual Negative (Negative) 07/19/22 17:59 Urine Color Yellow (Yellow) 07/19/22 17:59 Urine Appearance Hazy (CLEAR) A 07/19/22 17:59 Urine pH 5 (5-7) 07/19/22 17:59 Ur Specific [place] 1.025 (1.005-1.030) 07/19/22 17:59 Urine Protein 1+ (Negative) H 07/19/22 17:59 Urine Glucose (UA) Norm (Normal) 07/19/22 17:59 Urine Ketones 1+ (Negative) H 07/19/22 17:59 Urine Blood 3+ (Negative) H 07/19/22 17:59 Urine Nitrate Negative (Negative) 07/19/22 17:59 Urine Bilirubin 1+ (Negative) H 07/19/22 17:59 Urine Urobilinogen 1 mg/dL (Negative) H 07/19/22 17:59 Ur Leukocyte Esterase 2+ (Negative) H 07/19/22 17:59 Urine RBC 10-15 /hpf (0-2) H 07/19/22 17:59 Urine WBC 55-80 /hpf (0-5) H 07/19/22 17:59 Ur Squamous Epith Cells 15-25 /hpf (0-5) H 07/19/22 17:59 Amorphous Sediment Not Reportable 07/19/22 17:59 Urine Bacteria 3+ /hpf (NONE) H 07/19/22 17:59 Salicylates < 0.3 mg/dL (3-10) L 07/19/22 19:50 Urine Opiates Screen Negative ng/mL (Negative) 07/19/22 17:59 Acetaminophen < 5.0 ug/mL (10-30) L 07/19/22 19:50 Ur Barbiturates Screen Negative ng/mL (Negative) 07/19/22 17:59 Ur Phencyclidine Scrn Negative ng/mL (Negative) 07/19/22 17:59 Ur Amphetamines Screen Negative ng/mL (Negative) 07/19/22 17:59 U Benzodiazepines Scrn Positive ng/mL (Negative) H 07/19/22 17:59 Urine Cocaine Screen Negative ng/mL (Negative) 07/19/22 17:59 U Marijuana (THC) Screen Positive ng/mL (Negative) H 07/19/22 17:59 Ethyl Alcohol < 10 mg/dL (0-10) 07/19/22 19:50 Discharge Plan Discharge Patient Disposition: Admitted As Inpatient Clinical Impression: Acute psychosis Raynauds disease Qualifiers: Raynaud?s-associated gangrene presence: with gangrene Qualified Code(s): I73.01 - Raynaud's syndrome with gangrene UTI (urinary tract infection) Qualifiers: Urinary tract infection type: site unspecified Hematuria presence: without hematuria Qualified Code(s): N39.0 - Urinary tract infection, site not specified Condition: Stable Coding Level of Care Code ED Upstairs Maid for Chg Fwd History Comprehensive Exam Comprehensive Medical Decision Making Moderate Complexity
[2022-07-19] MEDS: ziprasidone 20 mg/mL SDV 10 MG IM ×2 (18:44→20:17)
[2022-07-19 19:02] LABS: HCG Qualitative Urine. Negative (Negative)
[2022-07-19 19:10] LABS: Amphetamines Screen Urine Negative (Negative); Barbiturates Screen Urine Negative (Negative); Benzodiazepines Screen Urine Positive (Negative); Cocaine Screen Urine Negative (Negative); Opiate Screen Urine Negative (Negative); PCP Screen Urine Negative (Negative); THC Screen Urine Positive (Negative)
[2022-07-19 19:23] LABS: Bilirubin Urine 1+ (Negative); Blood Urine 3+ (Negative); Glucose Urine UA Norm (Normal); Ketones Urine 1+ (Negative); Nitrate Urine Negative (Negative); Protein Urine 1+ (Negative); Specific Gravity, Urine 1.025 (1.005-1.030); Urine Appearance Hazy (CLEAR); Urine Color Yellow (Yellow); Urobilinogen Urine 1 mg/dL (Negative); pH Urine 5 (5-7)
[2022-07-19 19:24] LABS: Leukocyte Esterase Urine 2+ (Negative)
[2022-07-19 19:25] LABS: Add Urine Culture? Yes; Bacteria Urine 3+ /hpf; Squamous Epithelial Cell Urine 15-25 /hpf (0-5); WBC Urine 55-80 /hpf (0-5)
[2022-07-19 20:02] LABS: Basophils % 0.3 %; Eosinophils # 0.5 10^3/uL (0.0-0.8); Eosinophils % 4.7 %; Hematocrit 32.4 % (37.0-47.0); Hemoglobin 10.1 g/dL (11.5-15.3); Lymphocytes # 2.2 10^3/uL (0.8-4.8); Lymphocytes % 20.7 %; Mean Corpuscular HGB Conc 31.2 g/dL (30.0-36.0); Mean Corpuscular Hemoglobin 26.6 pg (28.0-34.0); Mean Corpuscular Volume 85.3 fl (81-99); Mean Platelet Volume 8.1 fL (7.4-10.4); Monocytes # 0.6 10^3/uL (0.2-0.9); Monocytes % 5.9 %; Neutrophils # 7.32 10^3/uL (1.8-7.7); Nucleated Red Blood Cells % 0 %; Platelet Count 548 10^3/cmm (130-400); Red Cell Distribution Width 13.6 % (12.1-15.1); White Blood Count 10.8 10^3/uL (4.0-10.0)
[2022-07-19] MEDS: cefTRIAXone 1,000 MG in lidocaine 1% 2.1 ML 3 MG IM (20:05)
[2022-07-19 20:39] LABS: Alanine Aminotransferase 15 U/L (0-33); Albumin Level 3.1 g/dL (3.5-5.2); Alkaline Phosphatase 100 U/L (35-105); Anion Gap 13.6 (5-19); Aspartate Amino Transferase 12 U/L (0-32); Blood Urea Nitrogen 11 mg/dL (6-20); Calcium 8.7 mg/dL (8.5-10.5); Carbon Dioxide 27 mmol/L (22-29); Chloride 101 mmol/L (98-107); Globulin 3.6 g/dL (1.3-4.6); Glomerular Filtration Rate 112.5 mL/min (90-130); Glucose 114 mg/dL (65-115); Osmolality Calculated 286 mOsm/kg (285-295); Potassium 3.6 mmol/L (3.5-5.1); Sodium 138 mmol/L (136-145); Thyroid Stimulating Hormone 1.58 uIU/mL (0.27-4.20); Total Bilirubin 0.2 mg/dL (0.15-1.2); Total Protein 6.7 g/dL (6.6-8.7)
[2022-07-19 20:51] LABS: Salicylate < 0.3 mg/dL (3-10)
[2022-07-19 20:52] LABS: Acetaminophen < 5.0 ug/mL (10-30); Alcohol Level < 10 mg/dL (0-10)
[2022-07-19 21:01] VITALS: BP 133/85; PULSE 88; RESP 18; TEMP 36.7; O2SAT 96
[2022-07-19 21:43] LABS: SARS Covid-2 Antigen negative (Negative)
[2022-07-19 21:44] LABS: Influenza A by IFA Negative (Negative); Influenza B by IFA Negative (Negative)
[2022-07-19 22:00] VITALS: BP 131/72; BP 133/85; PULSE 102; PULSE 88; RESP 18; TEMP 36.7; O2SAT 96; O2SAT 98
[2022-07-20] MEDS: diphenhydrAMINE 50 mg/mL SDV 1mL IM (00:35)
[2022-07-20] MEDS: LORazepam 2 mg/mL INJ 1 mL IM (00:35)
[2022-07-20] MEDS: haloperidol inj 5 mg/mL INJ 1 mL IM (00:35)
--- NOTE | 2022-07-20 00:43 | PC.NURSE ---
Patient arrived from the ED at 23:35. Patient was unable to be redirected when requested to refrain from entering other patients rooms. She was unable to speak in coherent sentences / speech. Patient would not stay in her room and began tearing patient informational materials from the wall. Patient began hitting her head ageist the wall and hitting herself with the telephone. Charge nurse had notified MD earlier and received T.O for Geodon 20mg BID IM or PO. Decision was made to give Haldol 5mg IM, Benadryl 50mg IM and Ativan 2mg IM as patient had already received a total of 20mg Geodon IM in the ED prior to arrival on the unit.
[2022-07-20 06:00] VITALS: RESP 18
[2022-07-20] MEDS: fluoxetine 20 mg Capsule 40 MG PO (08:08)
[2022-07-20] MEDS: diphenhydrAMINE 50 mg Capsule PO ×2 (08:08→13:30)
[2022-07-20] MEDS: atorvastatin 40 mg Tablet 20 MG PO (08:09)
[2022-07-20] MEDS: benztropine 1 mg Tablet PO (08:09)
[2022-07-20] MEDS: LORazepam 2 mg Tablet PO ×2 (08:09→13:30)
[2022-07-20] MEDS: amlodipine 5 mg Tablet PO (08:09)
[2022-07-20] MEDS: cetirizine 10 mg Tablet PO (08:09)
[2022-07-20] MEDS: gabapentin 300 mg Capsule PO ×2 (08:09→18:04)
[2022-07-20] MEDS: ziprasidone hcl 20 mg Capsule PO ×2 (08:09→20:25)
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
[2022-07-20] MEDS: ibuprofen 200 mg Tablet 800 MG PO (08:48)
[2022-07-20] MEDS: haloperidol 5 mg Tablet PO (13:30)
[2022-07-20 14:00] VITALS: BP 136/89; PULSE 87; RESP 17; TEMP 36.6; O2SAT 100
[2022-07-20] MEDS: OLANZapine 5 mg ODT PO (14:43)
[2022-07-20] MEDS: nicotine 4 mg lozenge MUCOUS MEM (14:43)
[2022-07-20] MEDS: sulfamethoxazole-trimeth DS 160-800 mg Tablet 1 TAB PO ×2 (14:43→20:25)
--- NOTE | 2022-07-20 15:30 | USR_ITS ---
PROCEDURE INFORMATION: Exam: US Bilateral Noninvasive Physiologic Study of the Upper Extremity Arteries, Limited Exam date and time: 07/20/2022 6:04 PM Age: 36 years old Clinical indication: Other: Discoloration; Additional info: Buergers disease TECHNIQUE: Imaging protocol: Bilateral Noninvasive physiologic studies of upper extremity arteries. Images were documented and archived. Exam is limited. COMPARISON: OT Knee 3 views, RIGHT* [id number] 01/14/2016 10:29 AM FINDINGS: Right upper arm arterial waveform: Vascular waveforms are normal in the artery. Waveforms have sharp upstrokes with scooped or flat interval between peaks. Dicrotic notch is present. Right forearm arterial waveform: Vascular waveforms are normal in the artery. Waveforms have sharp upstrokes with scooped or flat interval between peaks. Dicrotic notch is present. Right wrist arterial waveform: Vascular waveforms are normal in the artery. Waveforms have sharp upstrokes with scooped or flat interval between peaks. Dicrotic notch is present. Left arm arterial waveform: Vascular waveforms are normal in the artery. Waveforms have sharp upstrokes with scooped or flat interval between peaks. Dicrotic notch is present. Left forearm arterial waveform: Vascular waveforms are normal in the artery. Waveforms have sharp upstrokes with scooped or flat interval between peaks. Dicrotic notch is present. Left wrist arterial waveform: Vascular waveforms are normal in the artery. Waveforms have sharp upstrokes with scooped or flat interval between peaks. Dicrotic notch is present. Right systolic pressures: Not provided. Left Systolic pressures: Not provided. US/CV ankle brachial index [id number] IMPRESSION: No evidence of stenosis or occlusion in the upper extremity.
--- NOTE | 2022-07-20 15:30 | USR_ITS ---
PROCEDURE INFORMATION: Exam: US Duplex Upper Extremity Arteries Exam date and time: 07/20/2022 6:23 PM Age: 36 years old Clinical indication: Other: Finger discoloration; Additional info: Wrist brachial index for buergers disease TECHNIQUE: Imaging protocol: Real-time ultrasound scan of the arteries of the bilateral upper extremities with 2-D dougherty scale, color Doppler flow and spectral waveform analysis. Complete exam. COMPARISON: US CV ankle brachial index [id number] 07/20/2022 6:04 PM FINDINGS: Right subclavian artery: No occlusion or significant stenosis. Normal waveform. Right axillary artery: No occlusion or significant stenosis. Normal waveform. Right brachial artery: No occlusion or significant stenosis. Normal waveform. Right radial artery: No occlusion or significant stenosis. Normal waveform. Right ulnar artery: No occlusion or significant stenosis. Normal waveform. Left subclavian artery: No occlusion or significant stenosis. Normal waveform. Left axillary artery: No occlusion or significant stenosis. Normal waveform. Left brachial artery: No occlusion or significant stenosis. Normal waveform. Left radial artery: No occlusion or significant stenosis. Normal waveform. Left ulnar artery: No occlusion or significant stenosis. Normal waveform. US/[place] [id number] IMPRESSION: No arterial stenosis.
--- NOTE | 2022-07-20 15:51 | P.CONIM_ITS ---
Providers/Reason For Consult Consulting Physician/Specialty*: PSYCHIATRY Reason for Consult*: [facility] Attending Physician: Petey Anglin MD Primary Care Provider: Mari Maldonado History of Present Illness History of Present Illness Noni Rodríguez is a 36 year old female with a past medical history of Raynaud's disease, hypertension, history of marijuana use, who presents to [facility], currently admitted in the neuropsychiatric unit for acute psychosis, she was found wandering villeda, acutely psychotic. Currently she is alert to person, to place, not to time she follows all commands, general medical service is consulted as she has been blackened bilateral upper extremities. She tells me that she has a history of Raynaud's disease, she tells me that she has had a bluish and blackish discoloration of her bilateral digits of upper extremities for the last month, it really has not hurt or bothered her, she has not really seeK any medical attention for it, she does smoke, when I asked her is her possibility that she has developed frostbite, but she tells me that she has her own house, she lives with her boyfriend, although she was found wandering outside, the cold, she has a house, and this has been present for the last month. She denies a history of vasculitis, denies a history of Buerger's disease, does have Raynaud's she frequently uses gloves. When I asked her about the severe mummification blackening of a few of her digits, she tells that it re ally does not bother her, she tells me that some of them have drained in the last few weeks, but now they are quite dry, and she picks at them. She also has blue discoloration of lower bilateral lower extremity lower digits, she has blocking of her fifth digit of her left foot. Review of Systems Const: Denies: fever(s) Eyes: Denies: change in vision Card: Denies: chest pain Resp: Denies: dyspnea GI: Denies: abdominal pain : Denies: flank pain Skin/Breast: Reports: rash Medications/Allergies Home Medications Medication Instructions Recorded Confirmed Last Taken Type fluoxetine 40 mg capsule (Prozac) 40 mg PO DAILY 08/01/20 07/20/22 07/05/22 History cetirizine 10 mg tablet 10 mg PO DAILY 09/25/20 07/20/22 07/05/22 History ibuprofen 200 mg tablet 800 mg PO PRN PRN Back Pain 09/25/20 07/20/22 Unknown History sodium chloride 0.65 % nasal spray 1 - 2 spray intranasal DAILY PRN 09/25/20 07/20/22 Unknown History aerosol (Saline Nasal) Allergy Symptoms trazodone 50 mg tablet 50 mg PO BEDTIME 09/25/20 07/20/22 07/04/22 History amlodipine 5 mg tablet 5 mg PO BID #60 tabs 06/23/22 07/19/22 07/05/22 Rx sennosides 8.6 mg-docusate sodium 2 tab-cap PO BID PRN constipation 06/23/22 07/20/22 Unknown Rx 50 mg tablet (Colace 2-In-1) #60 tabs atorvastatin 20 mg tablet 20 mg PO DAILY 07/05/22 07/19/22 07/05/22 History gabapentin 300 mg capsule 300 mg PO BID raynauds #60 caps 07/05/22 07/20/22 Unknown Rx sildenafil 25 mg tablet 25 mg PO DAILY raynauds #30 tabs 07/05/22 07/20/22 Unknown Rx Allergies Allergy/AdvReac Type Severity Reaction Status Date / Time amoxicillin Allergy Unknown Unknown Verified 07/05/22 11:27 cod liver oil Allergy ADR-Anxiety Verified 07/05/22 11:30 Penicillins Allergy Unknown Verified 07/05/22 11:27 Current Medications Generic Name Dose Route Start Last Admin Trade Name Freq PRN Reason Stop Dose Admin Atorvastatin Calcium 20 mg 07/20/22 09:00 07/20/22 08:09 Atorvastatin 40 Mg Tablet PO 20 mg DAILY COLLIN Administration Benztropine Mesylate 1 mg 07/19/22 21:00 07/20/22 08:09 Benztropine 1 Mg Tablet PO 1 mg BID PRN Administration Mild Extrapyramidal symptoms Cetirizine HCl 10 mg 07/20/22 09:00 07/20/22 08:09 Cetirizine 10 Mg Tablet PO 10 mg DAILY COLLIN Administration Diphenhydramine HCl 50 mg 07/19/22 21:00 07/20/22 00:35 Diphenhydramine 50 Mg/Ml Sdv 1ml IM 50 mg ONCE PRN Administration Severe Extrapyramidal Symptoms Diphenhydramine HCl 50 mg 07/20/22 00:30 07/20/22 13:30 Diphenhydramine 50 Mg Capsule PO 50 mg Q4H PRN Administration AGITATION Fluoxetine HCl 40 mg 07/20/22 09:00 07/20/22 08:08 Fluoxetine 20 Mg Capsule PO 40 mg DAILY COLLIN Administration Gabapentin 300 mg 07/20/22 09:00 07/20/22 08:09 Gabapentin 300 Mg Capsule PO 300 mg BID COLLIN Administration Haloperidol 5 mg 07/20/22 07:32 07/20/22 13:30 Haloperidol 5 Mg Tablet PO 5 mg Q4H PRN Administration AGITATION Haloperidol Lactate 5 mg 07/19/22 21:00 07/20/22 00:35 Haloperidol Inj 5 Mg/Ml Inj 1 Ml IM 5 mg Q4H PRN Administration Severe Aggression Ibuprofen 800 mg 07/20/22 00:54 07/20/22 08:48 Ibuprofen 200 Mg Tablet PO 800 mg PRN PRN Administration Back Pain Lorazepam 2 mg 07/19/22 21:00 07/20/22 00:35 Lorazepam 2 Mg/Ml Inj 1 Ml IM 2 mg Q4H PRN Administration Severe Aggression Lorazepam 2 mg 07/20/22 00:28 07/20/22 13:30 Lorazepam 2 Mg Tablet PO 2 mg Q4H PRN Administration ANXIETY Nicotine Polacrilex 4 mg 07/20/22 13:57 07/20/22 14:43 Nicotine 4 Mg Lozenge MUCOUS MEM 4 mg Q2H PRN Administration NICOTINE CRAVINGS Olanzapine 5 mg 07/19/22 21:00 07/20/22 14:43 Olanzapine 5 Mg Odt PO 5 mg Q4H PRN Administration Agitation/Psychosis Trimethoprim/Sulfamethoxazole 1 tab 07/20/22 14:15 07/20/22 14:43 Sulfamethoxazole-Trimeth Ds 160-800 Mg Tablet PO 1 tab Q12H COLLIN Administration Protocol Ziprasidone 20 mg 07/20/22 00:24 07/20/22 08:09 Ziprasidone Hcl 20 Mg Capsule PO 20 mg BID PRN Administration AGITATION PFSH Acute PFSH: Medical History Drug abuse Hyperlipidemia Hypertension Mental health disorder Obesity Social History Smoking and tobacco status: current every day smoker Female Reproductive History: Date of last menstrual period: 07/14/22 Vitals/I&O/Wt Last Vital Signs Temp 98.1 F 07/19/22 22:00 Pulse 88 07/19/22 22:00 Resp 18 07/20/22 06:00 BP 133/85 07/19/22 22:00 Pulse Ox 96 07/19/22 22:00 O2 Del Method 07/19/22 23:47 Weight last 48 hrs Weight 102.058 kg Physical Exam Const: COMMON NORMALS: no acute distress and patient oriented x3 HENMT: COMMON NORMALS: normocephalic HEAD & SCALP: normocephalic Resp: COMMON NORMALS: normal respiratory effort, No retractions, No use of accessory muscles and clear to auscultation bilaterally AUSCULTATION: clear to auscultation bilaterally Cardio: COMMON NORMALS: regular rate, regular rhythm, S1 normal heart sound present and S2 normal heart sound present RATE: regular rate RHYTHM: regular rhythm HEART SOUNDS: S1 normal heart sound present and S2 normal heart sound present GI: COMMON NORMALS: Normal to inspection, nondistended, normoactive bowel sounds present, Soft to palpation, non-tender, No hepatosplenomegaly present, no masses and no bruits PALPATION: Yes Soft to palpation and Yes No hepatosplenomegaly present Extremity: COMMON NORMALS: no calf tenderness and no pedal edema Neuro: COMMON NORMALS: patient oriented x3, CN's II-XII intact bilaterally, moves all extremities and no focal motor deficits Psych: COMMON NORMALS: mental status grossly normal Data 07/19/22 19:50 07/19/22 19:50 A&P Assessment and plan (1) Buerger disease: - Right hand -First digit, thumb, black discoloration, extending up to DIP joint, involving the nail -Second digit, dry gangrene, black discoloration, at the tips of the finger -Third digit, also black discoloration, dry gangrene at the tip -Fourth digit, also black discoloration, dry gangrene at the tip -Fifth digit, blue-black discoloration Left hand -First digit, thumb, black and blue and dry gangrene, at the tip -Second digit, significant mummification, extending close to PIP joint -Third digit, black or blue discoloration, dry gangrene Fourth digit, blue blue discoloration, dry gangrene at the tip -Fifth digit also blue-black discoloration, dry gangrene at the tip -Lower extremities, right foot, all 5 digits have a bluish discoloration only slight -Left foot, all 5 digits also have a bit of a bluish discolored discoloration -Fifth digit left foot, pinky toe has blue-black discoloration, partial dry gangrene -Buerger's disease versus severe vasculitis versus frostbite -Etiology unclear at this time -She is a smoker, Buerger's disease is a possibility -She did have an ER visit on 06/25/2022, for discoloration of her fingertips, also dry gangrene, she was referred to vascular surgeon at [facility] however has not followed up -I spoke to [facility] burn unit, waiting to speak with the physician, but apparently she has been up to [facility] multiple times for these complaints, -This could be a severe frostbite that has been persistently getting worse due to improper care for the last month -Plan on doing a vascular's study work-up, vasculitis work-up -In terms of wound care, I have reached out to [facility] -She will also need a vascular surgeon to evaluate her we will see if we can arrange an appointment -More recommendations based upon discussion with [facility] -Bactrim for antibiotic coverage Coding Level of Care Code Acute Unix Architect for Chg Fwd Diagnoses Buerger disease I73.1
[2022-07-20] MEDS: NIFEdipine ER (24 hr) 30 mg Tablet PO (15:59)
[2022-07-20 16:50] LABS: Erythrocyte Sedimentation Rate 40 mm/hr (0-15)
[2022-07-20] MEDS: aspirin 81 mg EC Tablet PO (16:57)
[2022-07-20] MEDS: acetaminophen 325 mg Tablet 650 MG PO (16:57)
[2022-07-20 17:13] LABS: C Reactive Protein 5.5 mg/L (0.0-4.9); Complement C3 145 mg/dL (90-180)
[2022-07-20 17:17] LABS: Estmated Average Glucose 103; Hemoglobin A1C 5.2 % (4.0-6.0)
[2022-07-20 17:26] LABS: HIV 1 & 2 Antibody Non-Reactive (Non-Reactiv); HIV 1 & 2 Antigen Non-Reactive (Non-Reactiv)
[2022-07-20 17:29] LABS: Hepatitis A Antibody IgM Non-Reactive (Nonreactive); Hepatitis B Core IgM Non-Reactive (Nonreactive); Hepatitis B Surface Antigen Non-Reactive (Nonreactive); Hepatitis C Virus Antibody Non-Reactive (Nonreactive)
[2022-07-20] MEDS: trazodone 50 mg Tablet PO (20:24)
[2022-07-20 20:48] VITALS: BP 146/102; RESP 16; TEMP 36.5
[2022-07-21] MEDS: diphenhydrAMINE 50 mg Capsule PO ×4 (04:44→21:20)
[2022-07-21] MEDS: LORazepam 2 mg Tablet PO ×4 (04:44→21:21)
[2022-07-21] MEDS: haloperidol 5 mg Tablet PO ×4 (04:45→21:21)
[2022-07-21 05:21] VITALS: BP 121/71; RESP 18; TEMP 36.9
[2022-07-21] MEDS: atorvastatin 40 mg Tablet 20 MG PO (07:53)
[2022-07-21] MEDS: fluoxetine 20 mg Capsule 40 MG PO (07:53)
[2022-07-21] MEDS: gabapentin 300 mg Capsule PO ×2 (07:54→17:02)
[2022-07-21] MEDS: NIFEdipine ER (24 hr) 30 mg Tablet PO (07:54)
[2022-07-21] MEDS: aspirin 81 mg EC Tablet PO (07:54)
[2022-07-21] MEDS: cetirizine 10 mg Tablet PO (07:54)
[2022-07-21] MEDS: ibuprofen 200 mg Tablet 800 MG PO (07:58)
[2022-07-21] MEDS: sulfamethoxazole-trimeth DS 160-800 mg Tablet 1 TAB PO ×2 (07:59→19:40)
[2022-07-21] MEDS: benztropine 1 mg Tablet PO (07:59)
[2022-07-21] MEDS: ziprasidone hcl 20 mg Capsule PO ×2 (07:59→19:40)
--- NOTE | 2022-07-21 08:05 | PC.NURSE ---
PT WALKING THE HALLS PANTLESS, YELLING SAY NO TO DRUGS PT ATTEMPTING TO GO INTO OTHER PTS ROOMS, PT MAKING DELUSIONAL STATEMENTS, ROBOTIC NOISES. PT GIVEN PRN MEDS WITH AM SCHEDULED MEDS. PT RESPONDING TO INTERNAL STIMULI SPEAKING TO NOBODY IN HALLS. BIZARRE BEHAVIORS, PICKING UP TRASH BAGS AND CARRYING BAGS AROUND SPEAKING TO THE BAGS AND WHATS INSIDE THEN THROWING OUT TRASH ONTO FLOOR
[2022-07-21] MEDS: OLANZapine 5 mg ODT PO ×2 (12:21→17:23)
--- NOTE | 2022-07-21 13:33 | P.PN_ITS ---
Subjective Subjective: Patient was seen this morning, she has no complaints this morning, no lower extremity pain, no hand pain Vitals/I&O/Wt Last Vital Signs Temp 98.5 F 07/21/22 05:21 Pulse 87 07/20/22 14:00 Resp 18 07/21/22 05:21 BP 121/71 07/21/22 05:21 Pulse Ox 100 07/20/22 14:00 O2 Del Method 07/19/22 23:47 Weight last 48 hrs Weight 109.588 kg Weight 102.058 kg Physical Exam Const: COMMON NORMALS: no acute distress and patient oriented x3 Resp: COMMON NORMALS: normal respiratory effort, No retractions, No use of accessory muscles and clear to auscultation bilaterally AUSCULTATION: clear to auscultation bilaterally Cardio: COMMON NORMALS: regular rate, regular rhythm, S1 normal heart sound present and S2 normal heart sound present RATE: regular rate RHYTHM: regular rhythm HEART SOUNDS: S1 normal heart sound present and S2 normal heart sound present GI: COMMON NORMALS: Normal to inspection, nondistended, normoactive bowel sounds present and non-tender Extremity: COMMON NORMALS: no pedal edema Neuro: COMMON NORMALS: patient oriented x3 Psych: COMMON NORMALS: mental status grossly normal Data 07/19/22 19:50 07/19/22 19:50 Micro: Microbiology 07/19/22 17:59 Urine Culture - Preliminary Urine,Clean Catch A&P Assessment and plan (1) Buerger disease: - Right hand -First digit, thumb, black discoloration, extending up to DIP joint, involving the nail -Second digit, dry gangrene, black discoloration, at the tips of the finger -Third digit, also black discoloration, dry gangrene at the tip -Fourth digit, also black discoloration, dry gangrene at the tip -Fifth digit, blue-black discoloration Left hand -First digit, thumb, black and blue and dry gangrene, at the tip -Second digit, significant mummification, extending close to PIP joint -Third digit, black or blue discoloration, dry gangrene Fourth digit, blue blue discoloration, dry gangrene at the tip -Fifth digit also blue-black discoloration, dry gangrene at the tip -Lower extremities, right foot, all 5 digits have a bluish discoloration only slight -Left foot, all 5 digits also have a bit of a bluish discolored discoloration -Fifth digit left foot, pinky toe has blue-black discoloration, partial dry gangrene LEILANI Right subclavian artery: No occlusion or significant stenosis. Normal waveform. Right axillary artery: No occlusion or significant stenosis. Normal waveform. Right brachial artery: No occlusion or significant stenosis. Normal waveform. Right radial artery: No occlusion or significant stenosis. Normal waveform. Right ulnar artery: No occlusion or significant stenosis. Normal waveform. Left subclavian artery: No occlusion or significant stenosis. Normal waveform. Left axillary artery: No occlusion or significant stenosis. Normal waveform. Left brachial artery: No occlusion or significant stenosis. Normal waveform. Left radial artery: No occlusion or significant stenosis. Normal waveform. Left ulnar artery: No occlusion or significant stenosis. Normal waveform. ight upper arm arterial waveform: Vascular waveforms are normal in the artery. Waveforms have sharp upstrokes with scooped or flat interval between peaks. Dicrotic notch is present. Right forearm arterial waveform: Vascular waveforms are normal in the artery. Waveforms have sharp upstrokes with scooped or flat interval between peaks. Dicrotic notch is present. Right wrist arterial waveform: Vascular waveforms are normal in the artery. Waveforms have sharp upstrokes with scooped or flat interval between peaks. Dicrotic notch is present. Left arm arterial waveform: Vascular waveforms are normal in the artery. Waveforms have sharp upstrokes with scooped or flat interval between peaks. Dicrotic notch is present. Left forearm arterial waveform: Vascular waveforms are normal in the artery. Waveforms have sharp upstrokes with scooped or flat interval between peaks. Dicrotic notch is present. Left wrist arterial waveform: Vascular waveforms are normal in the artery. Waveforms have sharp upstrokes with scooped or flat interval between peaks. Dicrotic notch is present. Right systolic pressures: Not provided. Left Systolic pressures: Not provided. -Likely Buerger's disease -Other thoughts that it could be are severe vasculitis versus frostbite although frostbite fairly unlikely -She is a smoker, Buerger's disease is likely -She did have an ER visit on 06/25/2022, for discoloration of her fingertips, also dry gangrene, she was referred to vascular surgeon at [facility] however has not followed up -I spoke to [facility] burn unit, however according to their records she has been up at at [facility] ER and burn unit multiple times for these exact complaints is not much that they can do further there and they have made a referral for her to follow with a hand specialist however she has not, and patient's not sure exactly this information -The burn community health program representative who I spoke to also reached out to the physician at [facility] burn unit, I was not allowed the opportunity to speak to the [facility] burn unit physician all I was told is that this is not a burn and that the cannot do anything for her there, and they have advised for her to follow-up with hand specialist at [facility] -I spoke to a orthopedic, hand specialist at [facility], they are aware of the case, she was supposed to follow-up but she has not, only have advised is general wound care, dry dressings, a calcium channel alicia and nitro paste if needed -On discharge we need her to follow-up with our licensed nuclear operator for vasculitis -She needs to quit smoking, avoid all caffeine -Discharged with nifedipine -Dry dressings -She needs to follow-up with [facility] hand specialist, orthopedics on discharge, will have to arrange an appointment -I have ordered a vasculitis work-up she needs to follow-up with rheumatology -Continue Bactrim Attestations Medical Necessity Statement*: Patient requires hospitalization for buergers disease, acute psychosis Coding Level of Care Code Acute System Operator for g Fwd Diagnoses Buerger disease I73.1
[2022-07-21 14:00] VITALS: BP 120/82; PULSE 106; RESP 18; TEMP 36.4; O2SAT 98
[2022-07-21] MEDS: neomycin-poly-bacitracin oint 28 gm 1 APPLIC TOPICAL (17:43)
[2022-07-21] MEDS: hyDROXYzine 25 mg Capsule 50 MG PO (19:40)
[2022-07-21] MEDS: trazodone 50 mg Tablet PO (19:41)
[2022-07-21 20:53] VITALS: BP 124/82; RESP 16; TEMP 36.4
--- NOTE | 2022-07-21 21:25 | PC.NURSE ---
PT WANDERING UNIT WRAPPED ONLY IN A BLANKET. PT INSISTING SHE BE LET TO GO HOME. PT STATING SEVERAL TIMES IS THIS PART OF MY TRAINING? PT GIVEN ORAL B52 OF BENADRYL 50MG PO, ATIVAN 2MG PO AND HALDOL 5MG PO WITHOUT DIFFICULTY. PT ASSISTED BACK TO HER ROOM AND ASSITED WITH REDRESSING AND MAKING HER BED.
--- NOTE | 2022-07-21 21:49 | W.PM.NPUPNS ---
Subjective NPU Subjective: Patient is a 36-year-old white female admitted after showing evidence of active psychosis with patient showing evidence of bizarre behavior including stripping naked with disorganized behavior. She continued to show evidence of disorganized behavior and she had stripped naked on the milieu. 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 Her speech remained confused as well as she had stated that her medications were not helpful for her friend Coy Bernard. The patient was unable to provide any clear history but described her okay. Staff notes the patient was redirectable. Mental Status Exam MSE Comments: This is an obese white female with limited grooming and eye contact. Eschars on the tips of multiple fingers of her hands very noteworthy. No abnormal movements except for psychomotor retardation as well as actions that seem to have meaning to her but seem to aimless to the rest of us. She was minimally cooperative with exam and no acute distress. Speech was limited and normal rate and decreased volume. Mood described as good. Her affect was bizarre. Thought process disorganized. Thought content: Patient did not respond to question effectively, but did not appear to have any self-directed or outwardly directed aggression, there was evidence of bizarre behavior and bizarre delusions noted. She did appear to be attending to internal stimuli. Attention and concentration were impaired and memory was unreliable but none were formally tested. She is alert and oriented to person and place. Insight and judgment are impaired, impulse control is impaired. Vitals/I&O/Wt Last Vital Signs Temp 97.5 F L 07/21/22 20:53 Pulse 106 H 07/21/22 14:00 Resp 16 07/21/22 20:53 BP 124/82 07/21/22 20:53 Pulse Ox 98 07/21/22 14:00 O2 Del Method 07/19/22 23:47 Weight last 48 hrs Weight 109.588 kg Data NPU 07/19/22 19:50 07/19/22 19:50 Micro: Microbiology 07/19/22 17:59 Urine Culture - Preliminary Urine,Clean Catch Microbiology 07/19/22 17:59 Urine,Clean Catch Urine Culture - Preliminary A&P Assessment and plan (1) Acute psychosis: (2) Raynauds disease: Qualifiers: Raynaud?s-associated gangrene presence: with gangrene Qualified Code(s): I73.01 - Raynaud's syndrome with gangrene (3) UTI (urinary tract infection): Qualifiers: Hematuria presence: without hematuria Urinary tract infection type: site unspecified Qualified Code(s): N39.0 - Urinary tract infection, site not specified (4) Substance use: Plan This is a 36-year-old white female with psychosis and substance use who presents with psychosis/altered mental status and a positive UDS with bizarre behavior and the tips of her fingers with eschars behaving confused. 1.? Trial of Paliperidone 3mg at night, discontinue prozac. 2.? Continue every 15 minute checks for safety. 3.? Encourage individual, group and milieu therapies. 4.? Encourage sober living treatment after discharge at the highest level of care to which she is willing to commit. 5. Obtain a hospitalist consult to ensure there is nothing more we should be doing for the tips of her fingers. Involuntary Hold Information 96 Hour Hold: 96 Hour Involuntary Admission: Yes 96 Hour Hold Ending Date: 10/11/20 96 Hour Hold Ending Time: 22:21 Attestations NPU Medical Necessity Statement*: Inpatient hospitalization is medically necessary and the clinically appropriate intervention at this time. We will monitor medications and make changes as indicated with likely length of stay 7-10 days. Coding Level of Care Code Established Pt Acute Substation Technician for Maritza Cherry Patient Type Established History Problem Focused Exam Problem Focused Medical Decision Making Straight Forward Diagnoses Acute psychosis F23 Raynauds disease I73.01 Raynaud?s-associated gangrene presence: with gangrene UTI (urinary tract infection) N39.0 Hematuria presence: without hematuria Urinary tract infection type: site unspecified Substance use F19.90
[2022-07-22] MEDS: haloperidol 5 mg Tablet PO ×2 (04:07→20:29)
[2022-07-22] MEDS: diphenhydrAMINE 50 mg Capsule PO ×2 (04:07→20:31)
[2022-07-22] MEDS: LORazepam 2 mg Tablet PO ×2 (04:07→20:31)
--- NOTE | 2022-07-22 04:10 | PC.NURSE ---
PT UP WANDERING IN AND OUT OF OTHER PTS ROOMS, HAS BEEN WALKING IN THE HALLWAY WRAPPED ONLY IN HER BLANKET. rn REQUESTED PT BE GIVEN AN ORAL B52 (BENADRYL 50 MG CAP, HALDOL 5MG TAB, ATIVAN 2MG TAB). MEDICATION GIVEN.
--- NOTE | 2022-07-22 05:13 | PC.NURSE ---
0500 pt found in front of hallway bathroom in the floor. states she had a fall and tried to catch herself but was unable to. no injury noted or reported. ROM intact for BUE and BLE. denies pain. VSS. AxO X2 which is baseline at this time. fall precautions in place and socks placed on pt. no other issues voiced or noted at this time.
[2022-07-22 05:15] VITALS: BP 139/86; PULSE 117; RESP 18; TEMP 37; O2SAT 100
[2022-07-22] MEDS: gabapentin 300 mg Capsule PO ×2 (07:54→20:32)
[2022-07-22] MEDS: sulfamethoxazole-trimeth DS 160-800 mg Tablet 1 TAB PO ×2 (07:54→20:31)
[2022-07-22] MEDS: ziprasidone hcl 20 mg Capsule PO ×2 (07:55→20:32)
[2022-07-22] MEDS: paliperidone ER 3 mg Tablet PO (07:55)
[2022-07-22] MEDS: atorvastatin 40 mg Tablet 20 MG PO (07:55)
[2022-07-22] MEDS: aspirin 81 mg EC Tablet PO (07:55)
[2022-07-22] MEDS: cetirizine 10 mg Tablet PO (07:55)
[2022-07-22] MEDS: NIFEdipine ER (24 hr) 30 mg Tablet PO (07:55)
--- NOTE | 2022-07-22 08:11 | PC.NURSE ---
PT UP WALKING HALLS, INTRUSIVE DELUSIONAL. PT IN DAYROOM FOR BREAKFAST, FAHEEM SINGH REPORTS PT TOOK PAPER BAG OF TRASH AND DUMPED CONTENTS OF TRASH BAG ONTO HER FOOD TRAY, THEN WAS EATING TRASH. PT APPROACHING OTHER PTS GIVING THEM TRASH AND MAKING NONSENSICAL STATEMENTS. REPEATED ATTEMPTS BY STAFF TO REDIRECT PT BACK TO ROOM OR DAYROOM AND PT CONT BIZARRE BEHAVIOR
[2022-07-22] MEDS: neomycin-poly-bacitracin oint 28 gm 1 APPLIC TOPICAL (09:42)
[2022-07-22 12:14] LABS: COMPLEMENT, TOTAL (CH50) >60 U/mL (31-60)
[2022-07-22 13:04] LABS: COMPLEMENT COMPONENT C3C 152 mg/dL (83-193); COMPLEMENT COMPONENT C4C 22 mg/dL (15-57)
[2022-07-22 14:00] VITALS: BP 139/86; PULSE 117; RESP 18; TEMP 37; O2SAT 100
[2022-07-22] MEDS: ibuprofen 200 mg Tablet 800 MG PO ×2 (14:11→20:31)
[2022-07-22 14:55] LABS: Anti-Double Strand DNA AB 1 IU/mL; SS A Ro Sjogrens Antibody <1.0 NEG AI (<1.0 NEG); SS-B/LA IGG <1.0 NEG AI (<1.0 NEG); Smith Antibody <1.0 NEG AI (<1.0 NEG)
[2022-07-22 17:17] VITALS: BP 125/84; PULSE 107; RESP 20; TEMP 36.4; O2SAT 97
--- NOTE | 2022-07-22 20:04 | W.PM.NPUPNS ---
Subjective NPU Subjective: Patient is a 36-year-old white female admitted after showing evidence of active psychosis with patient showing evidence of bizarre behavior including stripping naked with disorganized behavior. Patient had appeared confused on showed evidence of continued problems with disorganized thinking. She had continued to report at times feeling but later in the day she had appeared to be working her thinking and stated that she had taken some unknown substance and had lost a sense of time for about 4 days. She had minimized the significance of her substance abuse as how it may relate to her being here in the hospital and stated that she was beginning to feel better. Staff notes indicate the patient had required significant redirection on the unit and continue to require as needed use of medications. Mental Status Exam MSE Comments: This is an obese white female with limited grooming and eye contact. Eschars on the tips of multiple fingers of her hands very noteworthy. No abnormal movements except for psychomotor retardation as well as actions that seem to have meaning to her but seem to aimless to the rest of us. She was more cooperative with exam and less distress. Speech was limited and normal rate and decreased volume. Mood described as good. Her affect was bizarre. Thought process appeared linear but appeared to derail during the interview. Thought content: Patient did not respond to question effectively, but did not appear to have any self-directed or outwardly directed aggression, there was continued evidence of bizarre behavior and bizarre delusions. She did appear to be responding to internal stimuli. Attention and concentration were impaired and memory was unreliable but none were formally tested. She is alert and oriented to person and place. Insight and judgment are impaired, impulse control is impaired. Vitals/I&O/Wt Last Vital Signs Temp 97.5 F L 07/22/22 17:17 Pulse 107 H 07/22/22 17:17 Resp 20 H 07/22/22 17:17 BP 125/84 07/22/22 17:17 Pulse Ox 97 07/22/22 17:17 O2 Del Method 07/19/22 23:47 Weight last 48 hrs Weight 109.588 kg Data NPU 07/19/22 19:50 07/19/22 19:50 Micro: Microbiology 07/19/22 17:59 Urine Culture - Final Urine,Clean Catch Microbiology 07/19/22 17:59 Urine,Clean Catch Urine Culture - Final A&P Assessment and plan (1) Acute psychosis: (2) Raynauds disease: Qualifiers: Raynaud?s-associated gangrene presence: with gangrene Qualified Code(s): I73.01 - Raynaud's syndrome with gangrene (3) UTI (urinary tract infection): Qualifiers: Hematuria presence: without hematuria Urinary tract infection type: site unspecified Qualified Code(s): N39.0 - Urinary tract infection, site not specified (4) Substance use: Plan This is a 36-year-old white female with psychosis and substance use who presents with psychosis/altered mental status and a positive UDS with bizarre behavior and the tips of her fingers with eschars behaving confused. 1.? Continue Paliperidone 3mg daily. 2.? Continue every 15 minute checks for safety. 3.? Encourage individual, group and milieu therapies. 4.? Encourage sober living treatment after discharge at the highest level of care to which she is willing to commit. 5. Obtain a hospitalist consult to ensure there is nothing more we should be doing for the tips of her fingers. Involuntary Hold Information 96 Hour Hold: 96 Hour Involuntary Admission: Yes 96 Hour Hold Ending Date: 10/11/20 96 Hour Hold Ending Time: 22:21 Attestations NPU Medical Necessity Statement*: Inpatient hospitalization is medically necessary and the clinically appropriate intervention at this time. We will monitor medications and make changes as indicated with likely length of stay 7-10 days. 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
[2022-07-22 20:11] VITALS: BP 145/82; PULSE 74; RESP 18; TEMP 36.7; O2SAT 98
[2022-07-22] MEDS: trazodone 50 mg Tablet PO (20:30)
--- NOTE | 2022-07-22 20:35 | PC.NURSE ---
Pt complaining of pain in both hands, motrin 800mg po given.
[2022-07-23 06:00] VITALS: RESP 18
[2022-07-23] MEDS: neomycin-poly-bacitracin oint 28 gm 1 APPLIC TOPICAL (08:35)
[2022-07-23] MEDS: sulfamethoxazole-trimeth DS 160-800 mg Tablet 1 TAB PO ×2 (08:36→20:17)
[2022-07-23] MEDS: atorvastatin 40 mg Tablet 20 MG PO (08:36)
[2022-07-23] MEDS: aspirin 81 mg EC Tablet PO (08:36)
[2022-07-23] MEDS: ziprasidone hcl 20 mg Capsule PO ×2 (08:36→20:17)
[2022-07-23] MEDS: cetirizine 10 mg Tablet PO (08:36)
[2022-07-23] MEDS: gabapentin 300 mg Capsule PO ×2 (08:36→20:17)
[2022-07-23] MEDS: paliperidone ER 3 mg Tablet PO (08:36)
[2022-07-23] MEDS: NIFEdipine ER (24 hr) 30 mg Tablet PO (08:36)
[2022-07-23 14:00] VITALS: BP 112/72; PULSE 115; RESP 20; TEMP 36.4; O2SAT 98
[2022-07-23 15:04] LABS: THYROID PEROXIDASE ANTIBODIES 1 IU/mL (<9)
[2022-07-23] MEDS: LORazepam 2 mg/mL INJ 1 mL IM (15:27)
[2022-07-23] MEDS: diphenhydrAMINE 50 mg/mL SDV 1mL IM (15:28)
[2022-07-23] MEDS: haloperidol inj 5 mg/mL INJ 1 mL IM (15:28)
[2022-07-23] MEDS: OLANZapine 5 mg ODT PO (15:39)
--- NOTE | 2022-07-23 15:51 | W.PM.NPUPNS ---
Subjective NPU Subjective: Patient is a 36-year-old white female admitted after showing evidence of active psychosis with patient showing evidence of bizarre behavior including stripping naked with disorganized behavior. Patient continued to show evidence of emotional incontinence with periods of bizarre behavior including throwing pillows at nurses and invading other patients personal spaces while appearing to respond to internal stimuli. The patient appeared significantly confused and reports confusion regarding where she is. 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 Mental Status Exam MSE Comments: This is an obese white female with limited grooming, malodorous, and eye contact. Eschars on the tips of multiple fingers of her hands very noteworthy. No abnormal movements except for psychomotor retardation as well as actions that seem to have meaning to her but seem to aimless to the rest of us. She was minimally cooperative on interview as she appeared wandering the halls. Speech was limited in productivity and normal rate and variable volume. Mood described as good. Her affect was bizarre and mood incongruent. Thought process appeared linear but appeared to derail during the interview. Thought content: She denied any suicidal or homicidal ideation. There was evidence of bizarre delusions with considerable ideas of reference. She did appear to be responding to internal stimuli. Attention and concentration were impaired and memory was unreliable but none were formally tested. She is alert and oriented to person and place. Insight and judgment are impaired, impulse control is impaired. Vitals/I&O/Wt Last Vital Signs Temp 97.5 F L 07/23/22 14:00 Pulse 115 H 07/23/22 14:00 Resp 20 H 07/23/22 14:00 BP 112/72 07/23/22 14:00 Pulse Ox 98 07/23/22 14:00 O2 Del Method 07/19/22 23:47 Data NPU 07/19/22 19:50 07/19/22 19:50 Micro: Microbiology 07/19/22 17:59 Urine Culture - Final Urine,Clean Catch Microbiology 07/19/22 17:59 Urine,Clean Catch Urine Culture - Final A&P Assessment and plan (1) Acute psychosis: (2) Raynauds disease: Qualifiers: Raynaud?s-associated gangrene presence: with gangrene Qualified Code(s): I73.01 - Raynaud's syndrome with gangrene (3) UTI (urinary tract infection): Qualifiers: Hematuria presence: without hematuria Urinary tract infection type: site unspecified Qualified Code(s): N39.0 - Urinary tract infection, site not specified (4) Substance use: Plan This is a 36-year-old white female with psychosis and substance use who presents with psychosis/altered mental status and a positive UDS with bizarre behavior and the tips of her fingers with eschars behaving confused. 1.? Increase Paliperidone 6mg daily. She continues to require prn use of antipsychotics today. 2.? Continue every 15 minute checks for safety. 3.? Encourage individual, group and milieu therapies. 4.? Encourage sober living treatment after discharge at the highest level of care to which she is willing to commit. 5. Obtain a hospitalist consult to ensure there is nothing more we should be doing for the tips of her fingers. Involuntary Hold Information 96 Hour Hold: 96 Hour Involuntary Admission: Yes 96 Hour Hold Ending Date: 10/11/20 96 Hour Hold Ending Time: 22:21 Attestations NPU Medical Necessity Statement*: Inpatient hospitalization is medically necessary and the clinically appropriate intervention at this time. We will monitor medications and make changes as indicated with likely length of stay 7-10 days. 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
[2022-07-23] MEDS: ondansetron 4 MG Tablet PO (16:13)
--- NOTE | 2022-07-23 17:26 | PC.NURSE ---
AT APPROX 1220 SITTER WITH PT, ALICIA, CALLED FOR HELP FROM DAYROOM, THIS NURSE INSTRUCTED STAFF TO CALL SECURITY FOR STANDBY AND WENT WITH AND CHAUNCEY SINGH WENT TO ASSIST IN DAYROOM. PT HAD SHOVED ALICIA IN CHEST AND THREW PAPER AND THE TV REMOTE AT HER. THIS NURSE AND CHAUNCEY WENT TO PT AND GUIDED HER BACK TO HER ROOM WITHOUT DIFF. PT WAS MAKING MACHINE NOISES AND MOVING LIKE A ROBOT. PT SPEECH NONSENSICAL. EVELYN CHAN AISSATOU UP PRN HALDOL, ATIVAN AND BENADRYL. LAYTON WITH SECURITY PRESENT, COMMERCIAL CREDIT ANALYST LYLE WALLER PRESENT. PT STATES THE LIGHTS THE STARS I ASKED HER IF THATS WHAT SHES SEEING AND PT STATES YES. EVELYN CHAN AISSATOU UP IM PRN HALDOL, ATIVAN, BENADRYL. PT INST SHE WAS GETTING MEDICINE TO HELP WITH VH, PT COMPLIANT WITH LAYING ON BELLY TO RECEIVE INJ. MEDS GIVEN WITHOUT ISSUE. STAFF STAYED IN ROOM WITH PT, PT IMMEDITLY UP AND MAKING BIZARRE MOVES AND NOISES. PT THREW A PILLOW AT EVELYN CHAN. REDIRECTED BACK TO BED. PT SLID OUT OF BED ONTO FLOOR AND BEGAIN SCOOTING AROUND ON HER BOTTOM. PT RESPONDING TO INTERNAL STIMULI AND SPEECH IS CONT TO BE NONSENSICAL. REPORTED TO DR YOUNG AND HE RECOMMENDED PRN ZYDIS AFTER APPROX 15MIN OF NO DE ESCALATING PT. ZYDIS SUB LINGUAL GIVEN WITHOUT DIFF. PT THEN C/O NAUSEA THEN PRN ZOFRAN GIVEN. PT DID LAY DOWN AFTER STAFF REDIRECTING HER TO BED MULTIPLE TIMES. PT STAYED IN BED AND LEFT WITH ONE TO ONE SITTER PRESENT IN ROOM. PT FELL ASLEEP. NO OTHER ISSUES
[2022-07-23] MEDS: haloperidol 5 mg Tablet PO (20:17)
[2022-07-23] MEDS: ibuprofen 200 mg Tablet 800 MG PO (20:17)
[2022-07-23] MEDS: diphenhydrAMINE 50 mg Capsule PO (20:18)
[2022-07-23] MEDS: trazodone 50 mg Tablet PO (20:18)
[2022-07-23] MEDS: LORazepam 2 mg Tablet PO (20:18)
[2022-07-23 20:19] VITALS: BP 126/80; PULSE 73; RESP 17; O2SAT 98
[2022-07-24 06:00] VITALS: RESP 18
[2022-07-24] MEDS: cetirizine 10 mg Tablet PO (08:13)
[2022-07-24] MEDS: atorvastatin 40 mg Tablet 20 MG PO (08:13)
[2022-07-24] MEDS: gabapentin 300 mg Capsule PO ×2 (08:13→19:47)
[2022-07-24] MEDS: paliperidone ER 6 mg Tablet PO (08:13)
[2022-07-24] MEDS: ondansetron 4 MG Tablet PO (08:13)
[2022-07-24] MEDS: aspirin 81 mg EC Tablet PO (08:13)
[2022-07-24] MEDS: NIFEdipine ER (24 hr) 30 mg Tablet PO (08:13)
[2022-07-24] MEDS: sulfamethoxazole-trimeth DS 160-800 mg Tablet 1 TAB PO ×2 (08:13→19:46)
[2022-07-24] MEDS: neomycin-poly-bacitracin oint 28 gm 1 APPLIC TOPICAL (08:16)
[2022-07-24 12:14] LABS: CENTROMERE B ANTIBODY <1.0 NEG AI (<1.0 NEG); JO-1 ANTIBODY <1.0 NEG AI (<1.0 NEG); RNP ANTIBODY <1.0 NEG AI (<1.0 NEG); SCL-70 ANTIBODY <1.0 NEG AI (<1.0 NEG); SJOGREN'S ANTIBODY (SS-A) <1.0 NEG AI (<1.0 NEG); SM ANTIBODY <1.0 NEG AI (<1.0 NEG); SS-B <1.0 NEG AI (<1.0 NEG)
[2022-07-24 14:00] VITALS: BP 115/74; PULSE 108; RESP 18; TEMP 36.6; O2SAT 98
[2022-07-24] MEDS: OLANZapine 5 mg ODT PO (16:17)
--- NOTE | 2022-07-24 16:18 | PC.NURSE ---
PRN School Guidance Counselor Patient presented to nurses' station tapping glass. When asked if this RN could get her something to eat or drink she began pointing frantically to the ceiling and in front of her, then stuck her armband in her mouth. This RN tried to verbally redirect patient and suggest the patient sit down in her room and take deep breaths but patient did not respond. Patient was still frantic so RN administered zyprexa 5 mg ODT. Patient is now in the dayroom, visibly responding to internal stimuli by whispering to herself and waving her arms about.
--- NOTE | 2022-07-24 17:43 | W.PM.NPUPNS ---
Subjective NPU Subjective: Patient is a 36-year-old white female admitted after showing evidence of active psychosis with patient showing evidence of bizarre behavior including stripping naked with disorganized behavior. The patient continued to struggle on the milieu with disorganized behavior and disorganized thinking. She required ongoing one-to-one observation due to unpredictable behaviors and excessive intrusiveness. She had required the use of as needed medications to manage agitation and threatening behavior. Patient continued to share odd beliefs and continued to make odd statements that were nonsensical on interview. Mental Status Exam MSE Comments: This is an obese white female with limited grooming, malodorous, and eye contact. Eschars on the tips of multiple fingers of her hands very noteworthy. No abnormal movements except for psychomotor retardation as well as actions that seem to have meaning to her but seem to aimless to the rest of us. She was minimally cooperative on interview as she appeared wandering the halls. Speech was limited in productivity and normal rate and variable volume. Mood described as fine. Her affect was bizarre and mood incongruent. Thought process was nonlinear, with word salad noted. Thought content: She denied any suicidal or homicidal ideation. There was evidence of bizarre delusions with considerable ideas of reference. She did appear to be responding to internal stimuli. Attention and concentration were impaired and memory was unreliable but none were formally tested. She is alert and oriented to person and place. Insight and judgment are impaired, impulse control is impaired. Vitals/I&O/Wt Last Vital Signs Temp 97.8 F 07/24/22 14:00 Pulse 108 H 07/24/22 14:00 Resp 18 07/24/22 14:00 BP 115/74 07/24/22 14:00 Pulse Ox 98 07/24/22 14:00 O2 Del Method 07/24/22 14:00 Data NPU 07/19/22 19:50 07/19/22 19:50 A&P Assessment and plan (1) Acute psychosis: (2) Raynauds disease: Qualifiers: Raynaud?s-associated gangrene presence: with gangrene Qualified Code(s): I73.01 - Raynaud's syndrome with gangrene (3) UTI (urinary tract infection): Qualifiers: Hematuria presence: without hematuria Urinary tract infection type: site unspecified Qualified Code(s): N39.0 - Urinary tract infection, site not specified (4) Substance use: Plan This is a 36-year-old white female with psychosis and substance use who presents with psychosis/altered mental status and a positive UDS with bizarre behavior and the tips of her fingers with eschars behaving confused. 1. Continue Paliperidone 6mg daily. She continues to require prn use of antipsychotics today. 2.? Continue every 15 minute checks for safety. 3.? Encourage individual, group and milieu therapies. 4.? Encourage sober living treatment after discharge at the highest level of care to which she is willing to commit. 5. Obtain a hospitalist consult to ensure there is nothing more we should be doing for the tips of her fingers. Involuntary Hold Information 96 Hour Hold: 96 Hour Involuntary Admission: Yes 96 Hour Hold Ending Date: 10/11/20 96 Hour Hold Ending Time: 22:21 Attestations NPU Medical Necessity Statement*: Inpatient hospitalization is medically necessary and the clinically appropriate intervention at this time. We will monitor medications and make changes as indicated with likely length of stay 7-10 days. 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
[2022-07-24] MEDS: LORazepam 2 mg Tablet PO (18:09)
[2022-07-24] MEDS: diphenhydrAMINE 50 mg Capsule PO (18:09)
[2022-07-24] MEDS: haloperidol 5 mg Tablet PO (18:09)
--- NOTE | 2022-07-24 18:12 | PC.NURSE ---
PRN Graphic Artist Patient becoming agitated towards 1:1 sitter and making threatening motions. Patient administered ativan 2 mg PO, haldol 5 mg PO, and benadryl 50 mg PO.
[2022-07-24] MEDS: hyDROXYzine 25 mg Capsule 50 MG PO (19:46)
[2022-07-24] MEDS: trazodone 50 mg Tablet PO (19:46)
[2022-07-24 20:25] VITALS: BP 143/82; PULSE 114; RESP 17; TEMP 36.7; O2SAT 96
[2022-07-24] MEDS: nicotine 2 mg Gum BUCCAL (20:37)
[2022-07-25 06:00] VITALS: RESP 18
[2022-07-25] MEDS: ibuprofen 200 mg Tablet 800 MG PO ×2 (06:52→10:13)
[2022-07-25] MEDS: nicotine 4 mg lozenge MUCOUS MEM ×2 (08:02→16:18)
[2022-07-25] MEDS: cetirizine 10 mg Tablet PO (08:02)
[2022-07-25] MEDS: sulfamethoxazole-trimeth DS 160-800 mg Tablet 1 TAB PO ×2 (08:02→19:48)
[2022-07-25] MEDS: NIFEdipine ER (24 hr) 30 mg Tablet PO (08:02)
[2022-07-25] MEDS: paliperidone ER 6 mg Tablet PO (08:02)
[2022-07-25] MEDS: aspirin 81 mg EC Tablet PO (08:02)
[2022-07-25] MEDS: atorvastatin 40 mg Tablet 20 MG PO (08:02)
[2022-07-25] MEDS: gabapentin 300 mg Capsule PO ×2 (08:03→19:49)
[2022-07-25] MEDS: neomycin-poly-bacitracin oint 28 gm 1 APPLIC TOPICAL (08:05)
[2022-07-25 09:04] LABS: ANA SCREEN, IFA POSITIVE (NEGATIVE); ANA TITER > OR = 1:1280 titer
[2022-07-25 13:34] LABS: ANCA Screen NEGATIVE (NEGATIVE)
[2022-07-25 14:00] VITALS: BP 119/74; PULSE 101; RESP 18; TEMP 36.6; O2SAT 100
[2022-07-25] MEDS: nicotine 2 mg Gum BUCCAL (15:03)
--- NOTE | 2022-07-25 18:05 | W.PM.NPUPNS ---
Subjective NPU Subjective: Patient is a 36-year-old white female admitted after showing evidence of active psychosis with patient showing evidence of bizarre behavior including stripping naked with disorganized behavior. The patient spent much of the day requiring one-to-one observation due to unusual and bizarre behaviors. She had repeatedly been sucking on her necrotic fingers and appeared unable to address or ask any meaningful questions on interview or discussion today. She appeared to remain confused and continued to report that angels were flying into her helmet. Mental Status Exam MSE Comments: This is an obese white female with limited grooming, malodorous, and eye contact. Eschars on the tips of multiple fingers of her hands very noteworthy. No abnormal movements except for psychomotor retardation as well as actions that seem to have meaning to her but seem to aimless to the rest of us. She was minimally cooperative on interview as she appeared wandering the halls. Speech was limited in productivity and normal rate and variable volume. Mood described as good. Her affect was bizarre and mood incongruent. Thought process was nonlinear, with derailment. Thought content: She denied any suicidal or homicidal ideation. There was evidence of bizarre delusions with considerable ideas of reference. She did appear to be responding to internal stimuli. Attention and concentration were impaired and memory was unreliable but none were formally tested. She is alert and oriented to person and place. Insight and judgment are impaired. The impulse control is impaired. Vitals/I&O/Wt Last Vital Signs Temp 97.9 F 07/25/22 14:00 Pulse 101 H 07/25/22 14:00 Resp 18 07/25/22 14:00 BP 119/74 07/25/22 14:00 Pulse Ox 100 07/25/22 14:00 O2 Del Method 07/24/22 14:00 Data NPU 07/19/22 19:50 07/19/22 19:50 A&P Assessment and plan (1) Acute psychosis: (2) Raynauds disease: Qualifiers: Raynaud?s-associated gangrene presence: with gangrene Qualified Code(s): I73.01 - Raynaud's syndrome with gangrene (3) UTI (urinary tract infection): Qualifiers: Hematuria presence: without hematuria Urinary tract infection type: site unspecified Qualified Code(s): N39.0 - Urinary tract infection, site not specified (4) Substance use: Plan This is a 36-year-old white female with psychosis and substance use who presents with psychosis/altered mental status and a positive UDS with bizarre behavior and the tips of her fingers with eschars behaving confused. 1. Increase Paliperidone 9mg daily. She continues to require prn use of antipsychotics today. 2.? Continue every 15 minute checks for safety. 3.? Encourage individual, group and milieu therapies. 4.? Encourage sober living treatment after discharge at the highest level of care to which she is willing to commit. 5. Obtain a hospitalist consult to ensure there is nothing more we should be doing for the tips of her fingers. Involuntary Hold Information 96 Hour Hold: 96 Hour Involuntary Admission: Yes 96 Hour Hold Ending Date: 10/11/20 96 Hour Hold Ending Time: 22:21 Attestations NPU Medical Necessity Statement*: Inpatient hospitalization is medically necessary and the clinically appropriate intervention at this time. We will monitor medications and make changes as indicated with likely length of stay 7-10 days. 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
[2022-07-25 19:21] VITALS: BP 134/86; PULSE 117; RESP 18; TEMP 36.7; O2SAT 98
[2022-07-25] MEDS: trazodone 50 mg Tablet PO (19:48)
[2022-07-25] MEDS: hyDROXYzine 25 mg Capsule 50 MG PO (19:49)
[2022-07-26] MEDS: ibuprofen 200 mg Tablet 800 MG PO ×2 (05:39→16:48)
[2022-07-26 05:54] VITALS: BP 122/79; PULSE 117; RESP 18; TEMP 36.9; O2SAT 96
[2022-07-26] MEDS: atorvastatin 40 mg Tablet 20 MG PO (08:09)
[2022-07-26] MEDS: paliperidone ER 6 mg Tablet 9 MG PO (08:09)
[2022-07-26] MEDS: NIFEdipine ER (24 hr) 30 mg Tablet PO (08:09)
[2022-07-26] MEDS: sulfamethoxazole-trimeth DS 160-800 mg Tablet 1 TAB PO ×2 (08:09→21:41)
[2022-07-26] MEDS: cetirizine 10 mg Tablet PO (08:09)
[2022-07-26] MEDS: gabapentin 300 mg Capsule PO ×2 (08:09→21:41)
[2022-07-26] MEDS: neomycin-poly-bacitracin oint 28 gm 1 APPLIC TOPICAL (08:10)
[2022-07-26] MEDS: nicotine 4 mg lozenge MUCOUS MEM (11:44)
[2022-07-26] MEDS: acetaminophen 325 mg Tablet 650 MG PO (13:48)
[2022-07-26 14:00] VITALS: RESP 18
--- NOTE | 2022-07-26 14:25 | PC.NURSE ---
Received verbal order from Dr. Quevedo for betadine topically to fingers; allow to air dry/pat dry as needed. Per pharmacy betadine is not part of the formulary here. Informed by pharmacy they use betasept instead. Received verbal order from Dr. Quevedo to use betasept BID to pt's fingers as previously ordered. No dressings. Monitor areas for drainage.
[2022-07-26] MEDS: chlorhexidine gluconate 4% Btl 118 mL 1 APPLIC TOPICAL (17:43)
--- NOTE | 2022-07-26 18:10 | W.PM.NPUPNS ---
Subjective NPU Subjective: Patient is a 36-year-old white female admitted after showing evidence of active psychosis with patient showing evidence of bizarre behavior including stripping naked with disorganized behavior. The patient continue to require one-to-one due to continued evidence of unusual behavior. She appeared less intrusive and was mostly in her room today. She had reported significant pain in her trigger finger of her right hand secondary to dry gangrene. The patient had received cleaning with Betadine in her fingers twice a day after consultation with the wound care team. The patient had reported that the pain had been unbearable at times with limited improvement with ibuprofen. She did appear to have continued unusual movements of hand movements without any reason while walking around the milieu. 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 She did report that she continued to travel between the [facility] and the [facility]. Mental Status Exam MSE Comments: This is an obese white female with limited grooming, malodorous, and eye contact. Eschars on the tips of multiple fingers of her hands very noteworthy. No abnormal movements except for psychomotor retardation. Her actions seem to have meaning to her but remained aimless to the typewriter assembly and parts inspector of this note. She was more cooperative on interview as she appeared wandering the halls. Speech was limited in productivity and normal rate and variable volume. Mood described as not good. Her affect was bizarre and mood incongruent. Thought process was more linear but derailed after a few minutes. Thought content: She denied any suicidal or homicidal ideation. There was evidence of bizarre delusions with considerable ideas of reference. She did appear to be responding to internal stimuli. Attention and concentration were impaired and memory was unreliable but none were formally tested. She is alert and oriented to person and place. Insight and judgment are impaired. The impulse control is impaired. Vitals/I&O/Wt Last Vital Signs Temp 98.4 F 07/26/22 05:54 Pulse 117 H 07/26/22 05:54 Resp 18 07/26/22 05:54 BP 122/79 07/26/22 05:54 Pulse Ox 96 07/26/22 05:54 O2 Del Method 07/24/22 14:00 Data NPU 07/19/22 19:50 07/19/22 19:50 A&P Assessment and plan (1) Acute psychosis: (2) Raynauds disease: Qualifiers: Raynaud?s-associated gangrene presence: with gangrene Qualified Code(s): I73.01 - Raynaud's syndrome with gangrene (3) UTI (urinary tract infection): Qualifiers: Hematuria presence: without hematuria Urinary tract infection type: site unspecified Qualified Code(s): N39.0 - Urinary tract infection, site not specified (4) Substance use: Plan This is a 36-year-old white female with psychosis and substance use who presents with psychosis/altered mental status and a positive UDS with bizarre behavior and the tips of her fingers with eschars behaving confused. 1. Continue Paliperidone 9mg daily. She continues to require prn use of antipsychotics today. She has been showing some modest improvement. 2.? Continue every 15 minute checks for safety. 3.? Encourage individual, group and milieu therapies. 4.? Encourage sober living treatment after discharge at the highest level of care to which she is willing to commit. 5. May require additional consultation as patient appears in some considerable pain with the betadyne washings. Involuntary Hold Information 96 Hour Hold: 96 Hour Involuntary Admission: Yes 96 Hour Hold Ending Date: 10/11/20 96 Hour Hold Ending Time: 22:21 Attestations NPU Medical Necessity Statement*: Inpatient hospitalization is medically necessary and the clinically appropriate intervention at this time. We will monitor medications and make changes as indicated with likely length of stay 7-10 days. 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
[2022-07-26] MEDS: sennosides-docusate Tablet 2 TAB PO (18:22)
[2022-07-26 20:29] VITALS: BP 130/77; PULSE 108; RESP 18; TEMP 36.6; O2SAT 98
[2022-07-26] MEDS: hyDROXYzine 25 mg Capsule 50 MG PO (21:41)
[2022-07-26] MEDS: trazodone 50 mg Tablet PO (21:41)
[2022-07-27 06:00] VITALS: RESP 17
[2022-07-27] MEDS: ibuprofen 200 mg Tablet 800 MG PO (06:58)
[2022-07-27] MEDS: paliperidone ER 6 mg Tablet 9 MG PO (09:30)
[2022-07-27] MEDS: gabapentin 300 mg Capsule PO ×2 (09:31→21:04)
[2022-07-27] MEDS: NIFEdipine ER (24 hr) 30 mg Tablet PO (09:32)
[2022-07-27] MEDS: atorvastatin 40 mg Tablet 20 MG PO (09:32)
[2022-07-27] MEDS: aspirin 81 mg EC Tablet PO (09:32)
[2022-07-27] MEDS: sulfamethoxazole-trimeth DS 160-800 mg Tablet 1 TAB PO ×2 (09:32→21:04)
[2022-07-27] MEDS: cetirizine 10 mg Tablet PO (09:33)
[2022-07-27] MEDS: nicotine 2 mg Gum BUCCAL (10:57)
[2022-07-27] MEDS: chlorhexidine gluconate 4% Btl 118 mL 1 APPLIC TOPICAL (11:48)
[2022-07-27 14:00] VITALS: BP 125/74; PULSE 106; RESP 16; TEMP 36.4; O2SAT 94
--- NOTE | 2022-07-27 16:36 | W.PM.NPUPNS ---
Subjective NPU Subjective: Patient presented today reporting that she is tired and did not have much to say. She spent much of the time underneath her blanket with very little of her face showing. She did at one point removed the blanket momentarily so I can see her and smiled and then recovered. She continues on one-to-one. Mental Status Exam MSE Comments: This is an obese white female in hospital scrubs with limited grooming, malodorous, and limited eye contact. Eschars on the tips of multiple fingers of her hands very noteworthy. No abnormal movements except for psychomotor retardation. She continued to have aimless and purposeless movements that seem to have meaning for her but the meaning can be derived. She was more cooperative with exam in no acute distress.. Speech was limited in productivity and normal rate and variable volume. Mood described as tired. Her affect was bizarre and mood incongruent. Thought process was more linear but derailed after a few minutes. Thought content: She denied any suicidal or homicidal ideation. There was evidence of bizarre delusions with considerable ideas of reference. She did appear to be responding to internal stimuli. Attention and concentration were impaired and memory was unreliable but none were formally tested. She is alert and oriented to person and place. Insight and judgment are impaired. The impulse control is impaired. Vitals/I&O/Wt Last Vital Signs Temp 97.5 F L 07/27/22 14:00 Pulse 106 H 07/27/22 14:00 Resp 16 07/27/22 14:00 BP 125/74 07/27/22 14:00 Pulse Ox 94 07/27/22 14:00 O2 Del Method 07/27/22 14:00 Weight last 48 hrs Weight 114.033 kg Data NPU 07/19/22 19:50 07/19/22 19:50 A&P Assessment and plan (1) Acute psychosis: (2) Raynauds disease: Qualifiers: Raynaud?s-associated gangrene presence: with gangrene Qualified Code(s): I73.01 - Raynaud's syndrome with gangrene (3) UTI (urinary tract infection): Qualifiers: Hematuria presence: without hematuria Urinary tract infection type: site unspecified Qualified Code(s): N39.0 - Urinary tract infection, site not specified (4) Substance use: Plan This is a 36-year-old white female with psychosis and substance use who presents with psychosis/altered mental status and a positive UDS with bizarre behavior and the tips of her fingers with eschars behaving confused. 1. Continue Paliperidone 9mg daily. She continues to require prn use of antipsychotics today. She has been showing some modest improvement. 2.? Continue one-to-one for safety. 3.? Encourage individual, group and milieu therapies. 4.? Encourage sober living treatment after discharge at the highest level of care to which she is willing to commit. 5. May require additional consultation as patient appears in some considerable pain with the betadyne washings. Involuntary Hold Information 96 Hour Hold: 96 Hour Involuntary Admission: Yes 96 Hour Hold Ending Date: 10/11/20 96 Hour Hold Ending Time: 22:21 Attestations NPU Medical Necessity Statement*: Inpatient hospitalization is medically necessary and the clinically appropriate intervention at this time. We will monitor medications and make changes as indicated with likely length of stay 7-10 days. 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
[2022-07-27 20:12] VITALS: BP 122/73; RESP 17; TEMP 37
[2022-07-27] MEDS: trazodone 50 mg Tablet PO (21:04)
[2022-07-28 06:00] VITALS: RESP 18
[2022-07-28] MEDS: gabapentin 300 mg Capsule PO ×2 (08:37→19:39)
[2022-07-28] MEDS: nicotine 4 mg lozenge MUCOUS MEM (08:37)
[2022-07-28] MEDS: cetirizine 10 mg Tablet PO (08:37)
[2022-07-28] MEDS: NIFEdipine ER (24 hr) 30 mg Tablet PO (08:37)
[2022-07-28] MEDS: sulfamethoxazole-trimeth DS 160-800 mg Tablet 1 TAB PO ×2 (08:37→19:39)
[2022-07-28] MEDS: OLANZapine 5 mg ODT PO (08:37)
[2022-07-28] MEDS: aspirin 81 mg EC Tablet PO (08:38)
[2022-07-28] MEDS: ziprasidone hcl 20 mg Capsule PO ×2 (08:38→19:38)
[2022-07-28] MEDS: paliperidone ER 6 mg Tablet 9 MG PO (08:38)
[2022-07-28] MEDS: benztropine 1 mg Tablet PO (08:38)
[2022-07-28] MEDS: acetaminophen 325 mg Tablet 650 MG PO (08:39)
[2022-07-28] MEDS: atorvastatin 40 mg Tablet 20 MG PO (08:39)
[2022-07-28] MEDS: chlorhexidine gluconate 4% Btl 118 mL 1 APPLIC TOPICAL ×3 (08:40→19:58)
[2022-07-28] MEDS: neomycin-poly-bacitracin oint 28 gm 1 APPLIC TOPICAL (08:42)
--- NOTE | 2022-07-28 08:42 | PC.NURSE ---
PRN GEODON & ZYPREXA ZYDIS GEODON 20 MG GIVEN PO ALONG WITH ZYPREXA ZYDIS 5 MG PO SUBLINGUAL PER PT C/O INCREASED ANXIETY/AGITATION/PSYCHOSIS. PT CONT TO BE 1:1, PACING UNIT AND HALLWAY, PLEASANT MOOD BUT WILL CONT TO MAKE SOME NONSENSICAL STATEMENTS, SUCH MY NAME ISN'T IN THE BIBLE EITHER BUT I THINK IT MEANS METH.
--- NOTE | 2022-07-28 10:58 | P.NPUPN_ITS ---
Subjective NPU Subjective: Patient presented today continuing to be fairly aimless and purposeless in her behaviors. She was a little more cogent in conversation and was reporting that she is been sober for a year and a half. She is aware to some degree of her thought disorder and her not being functional enough for d ischarge. We discussed continuing to get her medications to the point where she would be able to discharge. Mental Status Exam MSE Comments: This is an obese white female in hospital scrubs with limited g rooming, malodorous, and limited eye contact. Eschars and sloughing off of the tips of multiple fingers of her hands very noteworthy. No abnormal movements except for mild psychomotor agitation. She continued to have aimless and purposeless movements that seem to have meaning for her but the meaning can be derived. She was more cooperative with exam in no acute distress. Speech was more spontaneous and normal rate and variable volume. Mood described as okay. Her affect was bizarre and mood incongruent. Thought process was more linear/organized with less derailments. Thought content: She denied any suicidal or homicidal ideation. There was evidence of bizarre delusions with co nsiderable ideas of reference. She appeared to be less responsive to internal stimuli. Attention and concentration were improving and memory appeared more reliable but none were formally tested. She is alert and oriented to person and place. Insight and judgment are impaired. The impulse control is impaired. Vitals/I&O/Wt Last Vital Signs Temp 98.6 F 07/27/22 20:12 Pulse 106 H 07/27/22 14:00 Resp 18 07/28/22 06:00 BP 122/73 07/27/22 20:12 Pulse Ox 94 07/27/22 14:00 O2 Del Method 07/27/22 20:12 Weight last 48 hrs Weight 114.033 kg Data NPU 07/19/22 19:50 07/19/22 19:50 A&P Assessment and plan (1) Acute psychosis: (2) Raynauds disease: Qualifiers: Raynaud?s-associated gangrene presence: with gangrene Qualified Code(s): I73.01 - Raynaud's syndrome with gangrene (3) UTI (urinary tract infection): Qualifiers: Hematuria presence: without hematuria Urinary tract infection type: site unspecified Qualified Code(s): N39.0 - Urinary tract infection, site not specified (4) Substance use: Plan This is a 36-year-old white female with psychosis and substance use who presents with psychosis/altered mental status and a positive UDS with bizarre behavior and the tips of her fingers with eschars behaving confused. 1. Continue Paliperidone 9mg daily. She continues to require prn use of antipsychotics today. She has been showing some modest improvement. 2.? Continue one-to-one for safety. 3.? Encourage individual, group and milieu therapies. 4.? Encourage sober living treatment after discharge at the highest level of care to which she is willing to commit. 5. May require additional consultation as patient appears in some considerable pain with the betadyne washings. Involuntary Hold Information 96 Hour Hold: 96 Hour Involuntary Admission: Yes 96 Hour Hold Ending Date: 10/11/20 96 Hour Hold Ending Time: 22:21 Attestations NPU Medical Necessity Statement*: Inpatient hospitalization is medically necessary and the clinically appropriate intervention at this time. We will monitor medications and make changes as indicated with likely length of stay 6-9 days. 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
[2022-07-28 14:00] VITALS: BP 122/82; PULSE 107; RESP 18; TEMP 36.7; O2SAT 97
[2022-07-28] MEDS: sennosides-docusate Tablet 2 TAB PO (14:00)
--- NOTE | 2022-07-28 14:00 | PC.NURSE ---
PRN SENNA-S 2 TABLETS GIVEN PO PER PT C/O STATED CONSTIPATION
[2022-07-28] MEDS: nicotine 2 mg Gum BUCCAL (14:41)
[2022-07-28] MEDS: trazodone 50 mg Tablet PO (19:39)
[2022-07-28 19:58] VITALS: BP 128/80; PULSE 110; RESP 17; TEMP 36.6; O2SAT 96
[2022-07-29 06:00] VITALS: BP 126/78; PULSE 113; RESP 17; TEMP 36.6; O2SAT 97
[2022-07-29] MEDS: paliperidone ER 6 mg Tablet 9 MG PO (08:59)
[2022-07-29] MEDS: cetirizine 10 mg Tablet PO (09:00)
[2022-07-29] MEDS: aspirin 81 mg EC Tablet PO (09:00)
[2022-07-29] MEDS: atorvastatin 40 mg Tablet 20 MG PO (09:00)
[2022-07-29] MEDS: NIFEdipine ER (24 hr) 30 mg Tablet PO (09:01)
[2022-07-29] MEDS: gabapentin 300 mg Capsule PO ×2 (09:01→19:56)
[2022-07-29] MEDS: chlorhexidine gluconate 4% Btl 118 mL 1 APPLIC TOPICAL ×4 (09:02→19:54)
[2022-07-29] MEDS: sulfamethoxazole-trimeth DS 160-800 mg Tablet 1 TAB PO ×2 (09:10→19:27)
[2022-07-29] MEDS: neomycin-poly-bacitracin oint 28 gm 1 APPLIC TOPICAL (09:12)
[2022-07-29] MEDS: nicotine 2 mg Gum BUCCAL ×3 (11:18→19:28)
--- NOTE | 2022-07-29 11:40 | W.PM.NPUPNS ---
Subjective NPU Subjective: Patient presented today continuing to be fairly aimless and purposeless in her behaviors. She continued to be able to converse with limited insight, but with understanding of need for treatment. She is aware of her thought disorder, We discussed continuing to get her medications to the point where she would be able to discharge. Mental Status Exam MSE Comments: This is an obese white female in hospital scrubs with limited grooming, malodorous, and limited eye contact. Eschars and sloughing off of the tips of multiple fingers of her hands very noteworthy. No abnormal movements except for mild psychomotor agitation. She continued to have aimless and purposeless movements that seem to have meaning for her but the meaning can be derived. She was more cooperative with exam in no acute distress. Speech was more spontaneous and normal rate and variable volume. Mood described as okay. Her affect was less bizarre. Thought process was more linear/organized with less derailments. Thought content: She denied any suicidal or homicidal ideation. There was evidence of bizarre delusions with considerable ideas of reference. She appeared to be less responsive to internal stimuli. Attention and concentration were improving and memory appeared more reliable but none were formally tested. She is alert and oriented to person and place. Insight and judgment are impaired. The impulse control is impaired. Vitals/I&O/Wt Last Vital Signs Temp 97.9 F 07/28/22 19:58 Pulse 110 H 07/28/22 19:58 Resp 17 07/28/22 19:58 BP 128/80 07/28/22 19:58 Pulse Ox 96 07/28/22 19:58 O2 Del Method 07/28/22 14:00 Weight last 48 hrs Weight 114.033 kg Data NPU 07/19/22 19:50 07/19/22 19:50 A&P Assessment and plan (1) Acute psychosis: (2) Raynauds disease: Qualifiers: Raynaud?s-associated gangrene presence: with gangrene Qualified Code(s): I73.01 - Raynaud's syndrome with gangrene (3) UTI (urinary tract infection): Qualifiers: Hematuria presence: without hematuria Urinary tract infection type: site unspecified Qualified Code(s): N39.0 - Urinary tract infection, site not specified (4) Substance use: Plan This is a 36-year-old white female with psychosis and substance use who presents with psychosis/altered mental status and a positive UDS with bizarre behavior and the tips of her fingers with eschars behaving confused. 1. Continued Paliperidone 9mg daily. She continues to require prn use of antipsychotics today. She has been showing some modest improvement. 2.? Continue one-to-one for safety. 3.? Encourage individual, group and milieu therapies. 4.? Encourage sober living treatment after discharge at the highest level of care to which she is willing to commit. 5. May require additional consultation as patient appears in some considerable pain with the betadyne washings. Involuntary Hold Information 96 Hour Hold: 96 Hour Involuntary Admission: Yes 96 Hour Hold Ending Date: 10/11/20 96 Hour Hold Ending Time: 22:21 Attestations NPU Medical Necessity Statement*: Inpatient hospitalization is medically necessary and the clinically appropriate intervention at this time. We will monitor medications and make changes as indicated with likely length of stay 6-9 days. Coding Level of Care Code Acute Director Of Admissions for Maritza Cherry Diagnoses Acute psychosis F23 Raynauds disease I73.01 Raynaud?s-associated gangrene presence: with gangrene UTI (urinary tract infection) N39.0 Hematuria presence: without hematuria Urinary tract infection type: site unspecified Substance use F19.90
[2022-07-29 14:00] VITALS: BP 135/75; PULSE 113; RESP 19; TEMP 36.6; O2SAT 98
[2022-07-29] MEDS: nicotine 4 mg lozenge MUCOUS MEM (15:25)
[2022-07-29] MEDS: ziprasidone hcl 20 mg Capsule PO (19:27)
[2022-07-29] MEDS: trazodone 50 mg Tablet PO ×2 (19:27→21:42)
[2022-07-29] MEDS: magnesium hydroxide 30 mL UDC PO (19:29)
--- NOTE | 2022-07-29 19:30 | PC.NURSE ---
Pt noted to be agitating other pt's on the unit, pacing from room to dayroom. Geodon 20mg po given.
[2022-07-29 20:07] VITALS: BP 128/75; PULSE 110; RESP 16; TEMP 36.6; O2SAT 97
--- NOTE | 2022-07-29 23:00 | PC.NURSE ---
Pt noted to be continuing to pace the hallway. Rn visited with this pt and explained that her behavior was affecting other pt's, and pt agreed to come to staff if and when she started feeling the need to agitated. No further agitating behavior noted.
[2022-07-30 06:00] VITALS: BP 129/81; PULSE 107; RESP 18; TEMP 36.7; O2SAT 97
[2022-07-30] MEDS: ibuprofen 200 mg Tablet 800 MG PO ×2 (06:35→19:33)
[2022-07-30 08:45] VITALS: BP 134/82; PULSE 107; RESP 16; TEMP 36.6; O2SAT 98
[2022-07-30] MEDS: paliperidone ER 6 mg Tablet 9 MG PO (08:50)
[2022-07-30] MEDS: atorvastatin 40 mg Tablet 20 MG PO (08:50)
[2022-07-30] MEDS: sulfamethoxazole-trimeth DS 160-800 mg Tablet 1 TAB PO ×2 (08:51→19:32)
[2022-07-30] MEDS: gabapentin 300 mg Capsule PO ×2 (08:51→19:32)
[2022-07-30] MEDS: aspirin 81 mg EC Tablet PO (08:51)
[2022-07-30] MEDS: cetirizine 10 mg Tablet PO (08:51)
[2022-07-30] MEDS: NIFEdipine ER (24 hr) 30 mg Tablet PO (08:51)
[2022-07-30] MEDS: chlorhexidine gluconate 4% Btl 118 mL 1 APPLIC TOPICAL ×2 (09:13→21:03)
[2022-07-30] MEDS: neomycin-poly-bacitracin oint 28 gm 1 APPLIC TOPICAL (09:14)
[2022-07-30] MEDS: nicotine 2 mg Gum BUCCAL ×3 (10:15→16:15)
[2022-07-30 14:00] VITALS: BP 116/76; PULSE 115; RESP 18; O2SAT 99
--- NOTE | 2022-07-30 14:36 | PC.NURSE ---
[facility] here to take pt to her court appointment. Pt voiced no complaints. Earlier pt had asked how she should project herself to the court. Staff encouraged pt to be herself and not to try to project something she wasn't.
--- NOTE | 2022-07-30 15:24 | PC.NURSE ---
Pt returned from her court appointment. Appeared guarded; denied need for anything for anxiety. Up to station for snack.
[2022-07-30] MEDS: sennosides-docusate Tablet 2 TAB PO (16:15)
[2022-07-30] MEDS: hyDROXYzine 25 mg Capsule 50 MG PO (16:15)
[2022-07-30] MEDS: magnesium hydroxide 30 mL UDC PO (16:59)
--- NOTE | 2022-07-30 18:28 | P.NPUPN_ITS ---
Subjective NPU Subjective: Patient is a 36-year-old white female admitted with bizarre psychotic symptoms in the context substance abuse. She appeared to be more goal-directed on the milieu. She had not been aggressive. She had reported having repeated ideas of sexual stating that she often thought in form of colors and reported having feeling of a spiritual nature that had led her to understand and hear her thoughts that others were conveying even if they did not speak directly to her. She had reported feeling better. Mental Status Exam MSE Comments: This is an obese white female in hospital scrubs with limited g rooming, malodorous, and limited eye contact. Eschars and sloughing off of the tips of multiple fingers of her hands very noteworthy. No abnormal movements except for mild psychomotor agitation. She had no aimless or purposeless movements appreciated. She was more cooperative with exam in no acute distress. Speech was more spontaneous and normal rate and variable volume. Mood described as okay. Her affect was less bizarre. Thought process was more linear/organized with less derailments. Thought content: She denied any suicidal or homicidal ideation. There was evidence of bizarre delusions with considerable ideas of reference. She appeared to be less responsive to internal stimuli. Attention and concentration were improving and memory appeared more reliable but none were formally tested. She is alert and oriented to person and place. Insight and judgment are impaired. The impulse control is impaired. Vitals/I&O/Wt Last Vital Signs Temp 97.8 F 07/30/22 08:45 Pulse 115 H 07/30/22 14:00 Resp 18 07/30/22 14:00 BP 116/76 07/30/22 14:00 Pulse Ox 99 07/30/22 14:00 O2 Del Method 07/30/22 08:45 Data NPU 07/19/22 19:50 07/19/22 19:50 A&P Assessment and plan (1) Acute psychosis: (2) Raynauds disease: Qualifiers: Raynaud?s-associated gangrene presence: with gangrene Qualified Code(s): I73.01 - Raynaud's syndrome with gangrene (3) UTI (urinary tract infection): Qualifiers: Hematuria presence: without hematuria Urinary tract infection type: site unspecified Qualified Code(s): N39.0 - Urinary tract infection, site not specified (4) Substance use: Plan This is a 36-year-old white female with psychosis and substance use who presents with psychosis/altered mental status and a positive UDS with bizarre behavior and the tips of her fingers with eschars behaving confused. 1. Continued Paliperidone 9mg daily. She continues to require prn use of antipsychotics today. She has been showing some modest improvement. 2.? Continue one-to-one for safety. 3.? Encourage individual, group and milieu therapies. 4.? Encourage sober living treatment after discharge at the highest level of care to which she is willing to commit. 5. May require additional consultation as patient appears in some considerable pain with the betadyne washings. 6. Patient now placed on 21 day hold. Involuntary Hold Information 96 Hour Hold: 96 Hour Involuntary Admission: Yes 96 Hour Hold Ending Date: 10/11/20 96 Hour Hold Ending Time: 22:21 Attestations NPU Medical Necessity Statement*: Inpatient hospitalization is medically necessary and the clinically appropriate intervention at this time. We will monitor medications and make changes as indicated with likely length of stay 6-9 days. 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
--- NOTE | 2022-07-30 19:26 | PC.NURSE ---
While staff was doing rounding report, pt said she had just called 911 to let them know we were breaking HIPAA because we were talking about people. Pt was redirected. She later came back to staff saying, I didn't wet myself. I'm not incontinent. I threw up on myself. Pt has been walking about the halls talking to herself. She had been tearful earlier. Was asking staff if she could go home. Pt was redirected. She was verbally abusive towards staff calling them bitches and making attempts to rile up another pt with her behaviors. Pt was provided her medication, including prn geodon.
[2022-07-30] MEDS: ziprasidone hcl 20 mg Capsule PO (19:32)
[2022-07-30] MEDS: trazodone 50 mg Tablet PO (19:32)
[2022-07-30 20:23] VITALS: BP 128/77; PULSE 110; RESP 18; TEMP 36.7; O2SAT 95
--- NOTE | 2022-07-30 21:04 | PC.NURSE ---
Pt noted to be antagonizing other pts and calling 911 stating i'm being held prisoner in the psych place and their trying to kill me , Bebeto 20mg po given.
[2022-07-31 06:00] VITALS: RESP 18
[2022-07-31] MEDS: ibuprofen 200 mg Tablet 800 MG PO (09:10)
[2022-07-31] MEDS: OLANZapine 5 mg ODT PO (09:10)
[2022-07-31] MEDS: atorvastatin 40 mg Tablet 20 MG PO (09:10)
[2022-07-31] MEDS: gabapentin 300 mg Capsule PO ×2 (09:10→20:00)
[2022-07-31] MEDS: sulfamethoxazole-trimeth DS 160-800 mg Tablet 1 TAB PO ×2 (09:11→20:00)
[2022-07-31] MEDS: NIFEdipine ER (24 hr) 30 mg Tablet PO (09:11)
[2022-07-31] MEDS: paliperidone ER 6 mg Tablet 9 MG PO (09:11)
[2022-07-31] MEDS: aspirin 81 mg EC Tablet PO (09:11)
[2022-07-31] MEDS: cetirizine 10 mg Tablet PO (09:11)
[2022-07-31] MEDS: chlorhexidine gluconate 4% Btl 118 mL 1 APPLIC TOPICAL ×2 (09:27→21:00)
[2022-07-31] MEDS: neomycin-poly-bacitracin oint 28 gm 1 APPLIC TOPICAL (09:28)
[2022-07-31 11:05] LABS: DNA AB (DS) CRITHIDIA,IFA NEGATIVE (NEGATIVE)
[2022-07-31 14:00] VITALS: BP 145/85; PULSE 112; RESP 18; TEMP 37.2; O2SAT 98
--- NOTE | 2022-07-31 14:50 | P.NPUPN_ITS ---
Subjective NPU Subjective: Patient is a 36-year-old white female admitted with bizarre psychotic symptoms in the context substance abuse. Patient had reported feeling better today. She reported no side effects from her medication. She reports that she has a friend who would support her if she were to return home. She reports that she has been able to find work and reports that she had a bad side effect from her marijuana that was used. She denied any racing thoughts at this time. She reported her energy has having improved and stated no side effects from her Invega at this time. Mental Status Exam MSE Comments: This is an obese white female in hospital scrubs with limited grooming, malodorous, and limited eye contact. Eschars and sloughing off of the tips of multiple fingers of her hands very noteworthy. No abnormal movements except for mild psychomotor agitation. She had no aimless or purposeless mov ements appreciated. She was more cooperative with exam in no acute distress. Speech was more spontaneous and normal rate and variable volume. Mood described as okay. Her affect was less bizarre. Thought process was more linear/organized with less derailments. Thought content: She denied any suicidal or homicidal ideation. There was no evidence of delusional thinking today with diminished evidence of ideas of reference.. She did not appear to be responding to internal stimuli. Attention and concentration were improving and memory appeared more reliable but none were formally tested. She is alert and oriented to person and place. Insight and judgment are impaired. The impu lse control is improving. Vitals/I&O/Wt Last Vital Signs Temp 98.0 F 07/30/22 20:23 Pulse 110 H 07/30/22 20:23 Resp 18 07/31/22 06:00 BP 128/77 07/30/22 20:23 Pulse Ox 95 07/30/22 20:23 O2 Del Method 07/30/22 08:45 Data NPU 07/19/22 19:50 07/19/22 19:50 A&P Assessment and plan (1) Acute psychosis: (2) Raynauds disease: Qualifiers: Raynaud?s-associated gangrene presence: with gangrene Qualified Code(s): I73.01 - Raynaud's syndrome with gangrene (3) UTI (urinary tract infection): Qualifiers: Hematuria presence: without hematuria Urinary tract infection type: site unspecified Qualified Code(s): N39.0 - Urinary tract infection, site not specified (4) Substance use: Plan This is a 36-year-old white female with psychosis and substance use who presents with psychosis/altered mental status and a positive UDS with bizarre behavior and the tips of her fingers with eschars behaving confused. 1. Continued Paliperidone 9mg daily. She continues to require prn use of antipsychotics today. She has been showing some significant improvement. Begin appropriate discharge planning. 2.? Continue one-to-one for safety. 3.? Encourage individual, group and milieu therapies. 4.? Encourage sober living treatment after discharge at the highest level of care to which she is willing to commit. 5. May require additional consultation as patient appears in some considerable pain with the betadyne washings. 6. Patient now placed on 21 day hold. Involuntary Hold Information 96 Hour Hold: 96 Hour Involuntary Admission: Yes 96 Hour Hold Ending Date: 10/11/20 96 Hour Hold Ending Time: 22:21 Attestations NPU Medical Necessity Statement*: Inpatient hospitalization is medically necessary and the clinically appropriate intervention at this time. We will monitor medications and make changes as indicated with likely length of stay 2-4 days. 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
[2022-07-31] MEDS: ziprasidone 20 mg/mL SDV IM (16:11)
--- NOTE | 2022-07-31 16:13 | PC.NURSE ---
Pt given Geodon IM due to increased agitation. Pt crying and screaming saying she wanted to go home; I hate it here. Had attempted to get pt to take oral medication before, but she refused. Pt's agitation triggered another pt to become vocal and agitated. Pt initially resisted the thought of a shot, but then agreed to take it. Medication given in pt's left deltoid. She came out of her room and was asking to shower. Pt was asked to wait a bit considering what had just occurred. She was not happy but agreeable. She reported she was tired of being here.
--- NOTE | 2022-07-31 16:18 | PC.NURSE ---
PRN Electrical Parts Reconditioner Patient presented to staff very agitated and screaming that she needed punch. While CAD PROGRAMMER was getting punch to drink she was still yelling that she needed punch. Patient then began yelling at another patient, I'm not talking to you. Shut the fuck up! This RN asked the patient if I could do anything to alleviate her stress and how I might help her. She then said, you can transfer all the calls from 911 to out here and I'll answer all of 'em. How about that? RN requested patient to deep breathe, but patient refused and continued to yell that she would never take medications from staff because they made her sleepy. Geodon administered per OCT in left deltoid. Patient cried and stated, I just want to go home. Staff verbalized support and another RN practiced deep breathing with the patient to which she participated in.
[2022-07-31] MEDS: trazodone 50 mg Tablet PO ×2 (20:00→21:00)
[2022-07-31 22:00] VITALS: BP 113/74; PULSE 115; RESP 16; TEMP 37
[2022-08-01 06:00] VITALS: BP 102/68; PULSE 116; RESP 17; TEMP 36.4
[2022-08-01] MEDS: paliperidone ER 6 mg Tablet 9 MG PO (09:14)
[2022-08-01] MEDS: sulfamethoxazole-trimeth DS 160-800 mg Tablet 1 TAB PO (09:14)
[2022-08-01] MEDS: gabapentin 300 mg Capsule PO (09:14)
[2022-08-01] MEDS: NIFEdipine ER (24 hr) 30 mg Tablet PO (09:14)
[2022-08-01] MEDS: cetirizine 10 mg Tablet PO (09:14)
[2022-08-01] MEDS: aspirin 81 mg EC Tablet PO (09:14)
[2022-08-01] MEDS: atorvastatin 40 mg Tablet 20 MG PO (09:15)
[2022-08-01] MEDS: neomycin-poly-bacitracin oint 28 gm 1 APPLIC TOPICAL (09:53)
[2022-08-01] MEDS: nicotine 2 mg Gum BUCCAL (11:48)
[2022-08-01] MEDS: OLANZapine 5 mg ODT PO (13:10)
[2022-08-01 14:00] VITALS: RESP 18
[2022-08-01] MEDS: nicotine 4 mg lozenge MUCOUS MEM (15:41)
--- NOTE | 2022-08-01 16:08 | W.PM.NPUPNS ---
Subjective NPU Subjective: Patient is a 36-year-old white female admitted with bizarre psychotic symptoms in the context substance abuse. Patient had been more appropriate on the milieu. She had been able to attend groups. She reported that she had felt better about returning to live with her family upon discharge. Patient reported that she would continue to take her medications. She continued to ask appropriate questions regarding her Buerger's disease. She reported no thoughts of hurting herself or others. She has supported having improved ability to focus. She denied any paranoia at this time. Mental Status Exam MSE Comments: This is an obese white female in hospital scrubs with limited grooming, malodorous, and limited eye contact. Eschars and sloughing off of the tips of multiple fingers of her hands very noteworthy. No abnormal movements except for mild psychomotor agitation. She had no aimless or purposeless movements appreciated. She was more cooperative with exam in no acute distress. Speech was more spontaneous and normal rate and variable volume. Mood described as frustrated at being here. Her affect was less bizarre and mood congruent. Thought process was more linear/organized with less derailments. Thought content: She denied any suicidal or homicidal ideation. There was no evidence of delusional thinking today with diminished evidence of ideas of reference. She did not appear to be responding to internal stimuli. Attention and concentration were improving and memory appeared more reliable but none were formally tested. She is alert and oriented to person and place. Insight and judgment are improving. The impulse control is improving. Vitals/I&O/Wt Last Vital Signs Temp 97.6 F 08/01/22 06:00 Pulse 116 H 08/01/22 06:00 Resp 17 08/01/22 06:00 BP 102/68 08/01/22 06:00 Pulse Ox 98 07/31/22 14:00 O2 Del Method 07/30/22 08:45 Data NPU 07/19/22 19:50 07/19/22 19:50 A&P Assessment and plan (1) Acute psychosis: (2) Raynauds disease: Qualifiers: Raynaud?s-associated gangrene presence: with gangrene Qualified Code(s): I73.01 - Raynaud's syndrome with gangrene (3) UTI (urinary tract infection): Qualifiers: Hematuria presence: without hematuria Urinary tract infection type: site unspecified Qualified Code(s): N39.0 - Urinary tract infection, site not specified (4) Substance use: Plan This is a 36-year-old white female with psychosis and substance use who presents with psychosis/altered mental status and a positive UDS with bizarre behavior and the tips of her fingers with eschars behaving confused. 1. Continued Paliperidone 9mg daily. She has been showing some significant improvement. Begin appropriate discharge planning. 2.? Continue one-to-one for safety. 3.? Encourage individual, group and milieu therapies. 4.? Encourage sober living treatment after discharge at the highest level of care to which she is willing to commit. 5. May require additional consultation as patient appears in some considerable pain with the betadyne washings. 6. Patient now placed on 21 day hold. Involuntary Hold Information 96 Hour Hold: 96 Hour Involuntary Admission: Yes 96 Hour Hold Ending Date: 10/11/20 96 Hour Hold Ending Time: 22:21 Attestations NPU Medical Necessity Statement*: Inpatient hospitalization is medically necessary and the clinically appropriate intervention at this time. We will monitor medications and make changes as indicated with likely length of stay 2-4 days. Coding Level of Care Code Established Pt Acute Client Relations Specialist for [facility] Patient Type Established History Problem Focused Exam Problem Focused Medical Decision Making Straight Forward Diagnoses Acute psychosis F23 Raynauds disease I73.01 Raynaud?s-associated gangrene presence: with gangrene UTI (urinary tract infection) N39.0 Hematuria presence: without hematuria Urinary tract infection type: site unspecified Substance use F19.90
[2022-08-01 17:52] LABS: Add Urine Microscopic? YES; Bilirubin Urine Neg (Negative); Blood Urine 3+ (Negative); Glucose Urine UA Norm (Normal); Ketones Urine Negative (Negative); Leukocyte Esterase Urine 2+ (Negative); Nitrate Urine Negative (Negative); Protein Urine Neg (Negative); Urine Appearance Hazy (CLEAR); Urine Color Colorless (Yellow); Urobilinogen Urine Norm (Negative); pH Urine 5 (5-7)
[2022-08-01] MEDS: LORazepam 2 mg/mL INJ 1 mL IM (18:06)
[2022-08-01] MEDS: haloperidol inj 5 mg/mL INJ 1 mL IM (18:06)
[2022-08-01] MEDS: diphenhydrAMINE 50 mg/mL SDV 1mL IM (18:07)
[2022-08-01 18:09] LABS: Add Urine Culture? Yes; Bacteria Urine 1+ /hpf; Mucus Urine 1+ /hpf; RBC Urine 15-25 /hpf (0-2); Trichomonas Urine 2+ /hpf; WBC Urine 15-25 /hpf (0-5)
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
[2022-08-01 22:00] VITALS: RESP 18
--- NOTE | 2022-08-02 03:36 | PC.NURSE ---
2100 scheduled medications were not given do to pt sleeping from medication administered for severe agitation given before shift change at 1900 08/01/22 . pt continues to rest with eyes closed respiration even and non labored. pt continues to change positions in her bed.
[2022-08-02 06:00] VITALS: RESP 16
[2022-08-02] MEDS: aspirin 81 mg EC Tablet PO (08:43)
[2022-08-02] MEDS: sulfamethoxazole-trimeth DS 160-800 mg Tablet 1 TAB PO ×2 (08:43→19:45)
[2022-08-02] MEDS: atorvastatin 40 mg Tablet 20 MG PO (08:43)
[2022-08-02] MEDS: paliperidone ER 6 mg Tablet 9 MG PO (08:43)
[2022-08-02] MEDS: NIFEdipine ER (24 hr) 30 mg Tablet PO (08:44)
[2022-08-02] MEDS: cetirizine 10 mg Tablet PO (08:44)
[2022-08-02] MEDS: nicotine 2 mg Gum BUCCAL ×4 (08:56→18:05)
[2022-08-02] MEDS: neomycin-poly-bacitracin oint 28 gm 1 APPLIC TOPICAL (09:15)
[2022-08-02] MEDS: gabapentin 300 mg Capsule PO ×2 (09:15→19:45)
[2022-08-02] MEDS: chlorhexidine gluconate 4% Btl 118 mL 1 APPLIC TOPICAL ×2 (11:34→19:49)
--- NOTE | 2022-08-02 11:34 | PC.NURSE ---
1100 Applied Chlorhexidine topical treatment to affected digits, using sterile technique. Applied triple antibiotic ointment to affected digits and left open to airl. Pt tolerated treatment well.
[2022-08-02 14:00] VITALS: BP 122/77; PULSE 114; RESP 18; TEMP 36.9; O2SAT 99
[2022-08-02] MEDS: OLANZapine 5 mg ODT PO (16:06)
--- NOTE | 2022-08-02 17:09 | P.NPUPN_ITS ---
Subjective NPU Subjective: Patient is a 36-year-old white female admitted with bizarre psychotic symptoms in the context substance abuse. The patient had again required as needed medications due to aggression and agitation on the unit. The patient reports no side effects from her medication. She states that she is t ired of being in here. She had reported history of problems with mood swings in the past. She reports that she feels ready to return home but the patient increased problems with her behavior later this afternoon as she had required additional Geodon and Haldol today. Mental Status Exam MSE Comments: This is an obese white female in hospital scrubs with improved grooming and limited eye contact. Eschars and sloughing off of the tips of multiple fingers of her hands very noteworthy. No abnormal movements except for mild psychomotor agitation. She had no aimless or purposeless movements appre ciated. She was more cooperative with exam in no acute distress. Speech was more spontaneous and normal rate and variable volume. Mood described as angry. Her affect was less bizarre and mood congruent. Thought process was more linear/organized but derailed quickly on interview today. Thought content: She denied any suicidal or homicidal ideation. There was no evidence of delusional thinking today but continued evidence of ideas of reference. She did not appear to be responding to internal stimuli. Attention and concentration were improving and memory appeared more reliable but none were formally tested. She is alert and oriented to person and place. Insight and judgment are improving. The impulse control is improving. Vitals/I&O/Wt Last Vital Signs Temp 98.5 F 08/02/22 14:00 Pulse 114 H 08/02/22 14:00 Resp 18 08/02/22 14:00 BP 122/77 08/02/22 14:00 Pulse Ox 99 08/02/22 14:00 O2 Del Method 08/02/22 14:00 Data NPU 07/19/22 19:50 07/19/22 19:50 A&P Assessment and plan (1) Acute psychosis: (2) Raynauds disease: Qualifiers: Raynaud?s-associated gangrene presence: with gangrene Qualified Code(s): I73.01 - Raynaud's syndrome with gangrene (3) UTI (urinary tract infection): Qualifiers: Hematuria presence: without hematuria Urinary tract infection type: site unspecified Qualified Code(s): N39.0 - Urinary tract infection, site not specified (4) Substance use: Plan This is a 36-year-old white female with psychosis and substance use who presents with psychosis/altered mental status and a positive UDS with bizarre behavior and the tips of her fingers with eschars behaving confused. 1. Increase Paliperidone 12mg daily. Patient having increased behavior problems later in day with increased confusion noted. 2.? Continue one-to-one for safety. 3.? Encourage individual, group and milieu therapies. 4.? Encourage sober living treatment after discharge at the highest level of care to which she is willing to commit. 5. May require additional consultation as patient appears in some considerable pain with the betadyne washings. 6. Patient now placed on 21 day hold. Involuntary Hold Information 96 Hour Hold: 96 Hour Involuntary Admission: Yes 96 Hour Hold Ending Date: 10/11/20 96 Hour Hold Ending Time: 22:21 Attestations NPU Medical Necessity Statement*: Inpatient hospitalization is medically necessary and the clinically appropriate intervention at this time. We will monitor medications and make changes as indicated with likely length of stay 3-6 days. Coding Level of Care Code Established Pt Acute Picker Operator for Marit[facility] Cherry Patient Type Established History Problem Focused Exam Problem Focused Medical Decision Making Straight Forward Diagnoses Acute psychosis F23 Raynauds disease I73.01 Raynaud?s-associated gangrene presence: with gangrene UTI (urinary tract infection) N39.0 Hematuria presence: without hematuria Urinary tract infection type: site unspecified Substance use F19.90
[2022-08-02] MEDS: hyDROXYzine 25 mg Capsule 50 MG PO (19:45)
[2022-08-02] MEDS: trazodone 50 mg Tablet PO (19:45)
[2022-08-02] MEDS: diphenhydrAMINE 50 mg Capsule PO (21:29)
[2022-08-02] MEDS: ibuprofen 200 mg Tablet 800 MG PO (21:29)
[2022-08-02 21:39] VITALS: BP 141/71; PULSE 119; RESP 18; TEMP 36.6
[2022-08-03] MEDS: trazodone 50 mg Tablet PO ×2 (00:41→19:59)
[2022-08-03] MEDS: OLANZapine 5 mg ODT PO (00:41)
[2022-08-03] MEDS: nicotine 4 mg lozenge MUCOUS MEM (02:07)
[2022-08-03] MEDS: nicotine 2 mg Gum BUCCAL ×3 (04:23→13:03)
[2022-08-03] MEDS: ibuprofen 200 mg Tablet 800 MG PO (05:29)
[2022-08-03] MEDS: diphenhydrAMINE 50 mg Capsule PO (05:57)
[2022-08-03] MEDS: haloperidol 5 mg Tablet PO (05:57)
[2022-08-03 06:00] VITALS: RESP 16
[2022-08-03] MEDS: paliperidone ER 6 mg Tablet 12 MG PO (09:30)
[2022-08-03] MEDS: sennosides-docusate Tablet 2 TAB PO (09:30)
[2022-08-03] MEDS: NIFEdipine ER (24 hr) 30 mg Tablet PO (09:31)
[2022-08-03] MEDS: cetirizine 10 mg Tablet PO (09:31)
[2022-08-03] MEDS: atorvastatin 40 mg Tablet 20 MG PO (09:31)
[2022-08-03] MEDS: aspirin 81 mg EC Tablet PO (09:31)
[2022-08-03] MEDS: sulfamethoxazole-trimeth DS 160-800 mg Tablet 1 TAB PO ×2 (09:32→19:59)
[2022-08-03] MEDS: gabapentin 300 mg Capsule PO ×2 (09:34→19:59)
[2022-08-03] MEDS: neomycin-poly-bacitracin oint 28 gm 1 APPLIC TOPICAL ×2 (12:21→20:01)
[2022-08-03] MEDS: chlorhexidine gluconate 4% Btl 118 mL 1 APPLIC TOPICAL ×2 (12:21→20:05)
[2022-08-03 14:00] VITALS: BP 127/76; PULSE 112; RESP 18; TEMP 36.4; O2SAT 99
--- NOTE | 2022-08-03 14:20 | W.PM.NPUPNS ---
Subjective NPU Subjective: Patient is a 36-year-old white female admitted with bizarre psychotic symptoms in the context substance abuse. The patient had again required as needed medications for agitation later in the afternoon. She had become more anxious and irritable and stated that she had a tendency to go off when she was angry. She had tolerated Zyprexa as needed for the agitation. She continued to minimize the problems that led to her hospitalization. She had reported no prior trials of lithium or Depakote in the past. She had reported that she would like to stop all of her medications when she leaves here. The patient states that she has had periods of time where she has not slept for several days. She reports that she wishes to go home soon. She reported that she has been researching whether she has a character from the televisions shows [place]. Mental Status Exam MSE Comments: This is an obese white female in hospital scrubs with improved grooming and limited eye contact. Eschars and sloughing off of the tips of multiple fingers of her hands very noteworthy. No abnormal movements except for mild psychomotor agitation. She had no aimless or purposeless movements appreciated. She was more cooperative with exam in no acute distress. Speech was more spontaneous and normal rate and variable volume. Mood described as okay. She remained intrusive, frequently stopping service writer advisor in the myles. Her affect was labile. Thought process was more linear/organized thinkinginitially but derailed quickly on interview today as she showed me pictures of [place] that were meant to have special meaning to her. Thought content: She denied any suicidal or homicidal ideation. There was evidence of delusional thinking and continued ideas of reference. She did not appear to be responding to internal stimuli. Attention and concentration were improving and memory appeared more reliable but none were formally tested. She is alert and oriented to person and place. Insight and judgment are remain poor The impulse control is poor Vitals/I&O/Wt Last Vital Signs Temp 97.5 F L 08/03/22 14:00 Pulse 112 H 08/03/22 14:00 Resp 18 08/03/22 14:00 BP 127/76 08/03/22 14:00 Pulse Ox 99 08/03/22 14:00 O2 Del Method 08/02/22 14:00 Data NPU 07/19/22 19:50 12/16/22 19:50 A&P Assessment and plan (1) Acute psychosis: (2) Raynauds disease: Qualifiers: Raynaud?s-associated gangrene presence: with gangrene Qualified Code(s): I73.01 - Raynaud's syndrome with gangrene (3) UTI (urinary tract infection): Qualifiers: Hematuria presence: without hematuria Urinary tract infection type: site unspecified Qualified Code(s): N39.0 - Urinary tract infection, site not specified (4) Substance use: Plan This is a 36-year-old white female with psychosis and substance use who presents with psychosis/altered mental status and a positive UDS with bizarre behavior and the tips of her fingers with eschars behaving confused. 1. Continue paliperidone 12mg daily. Patient having increased behavior problems later in day with increased confusion noted.Begin depakote 500mg in am target pete. 2.? Continue one-to-one for safety. 3.? Encourage individual, group and milieu therapies. 4.? Encourage sober living treatment after discharge at the highest level of care to which she is willing to commit. 5. May require additional consultation as patient appears in some considerable pain with the betadyne washings. 6. Patient now placed on 21 day hold. Involuntary Hold Information 96 Hour Hold: 96 Hour Involuntary Admission: Yes 96 Hour Hold Ending Date: 10/11/20 96 Hour Hold Ending Time: 22:21 Attestations NPU Medical Necessity Statement*: Inpatient hospitalization is medically necessary and the clinically appropriate intervention at this time. We will monitor medications and make changes as indicated with likely length of stay 5-10 days. Coding Level of Care Code Established Pt Acute Change Control Manager for [facility] Patient Type Established History Problem Focused Exam Problem Focused Medical Decision Making Straight Forward Diagnoses Acute psychosis F23 Raynauds disease I73.01 Raynaud?s-associated gangrene presence: with gangrene UTI (urinary tract infection) N39.0 Hematuria presence: without hematuria Urinary tract infection type: site unspecified Substance use F19.90
[2022-08-03 18:39] LABS: Glucose Point of Care 136 mg/dL (70-110)
[2022-08-03 19:57] VITALS: RESP 18
[2022-08-04] MEDS: paliperidone ER 6 mg Tablet 12 MG PO (07:54)
[2022-08-04] MEDS: hyDROXYzine 25 mg Capsule 50 MG PO (07:55)
[2022-08-04] MEDS: sennosides-docusate Tablet 2 TAB PO (07:55)
[2022-08-04] MEDS: gabapentin 300 mg Capsule PO ×2 (07:55→20:02)
[2022-08-04] MEDS: cetirizine 10 mg Tablet PO (07:56)
[2022-08-04] MEDS: aspirin 81 mg EC Tablet PO (07:56)
[2022-08-04] MEDS: divalproex ER 500 mg Tablet (24H) PO (07:57)
[2022-08-04] MEDS: NIFEdipine ER (24 hr) 30 mg Tablet PO (07:57)
[2022-08-04] MEDS: sulfamethoxazole-trimeth DS 160-800 mg Tablet 1 TAB PO ×2 (07:57→20:02)
[2022-08-04] MEDS: nicotine 4 mg lozenge MUCOUS MEM (07:57)
[2022-08-04] MEDS: atorvastatin 40 mg Tablet 20 MG PO (07:57)
[2022-08-04] MEDS: chlorhexidine gluconate 4% Btl 118 mL 1 APPLIC TOPICAL ×2 (12:34→20:07)
[2022-08-04 14:00] VITALS: BP 127/76; PULSE 112; RESP 18; TEMP 36.4; O2SAT 99
[2022-08-04] MEDS: nicotine 2 mg Gum BUCCAL (14:47)
--- NOTE | 2022-08-04 17:12 | W.PM.NPUPNS ---
Subjective NPU Subjective: Patient is a 36-year-old white female admitted with bizarre psychotic symptoms in the context substance abuse. Patient reported no side effects from her Depakote at this time. She reported adequate sleep and stated that she could go home soon. She continued to endorse having some special abilities and stated that she had been increasingly angry in the morning. She had required additional as needed medications within the last 24 hours due to increased agitation. She had continued to suggest that specific things on the unit were directly due to her presence and due to the special abilities that she possessed. Mental Status Exam MSE Comments: This is an obese white female in hospital scrubs with improved grooming and limited eye contact. Eschars and sloughing off of the tips of multiple fingers of her hands very noteworthy. No abnormal movements except for mild psychomotor agitation. She had no aimless or purposeless movements appreciated. She was more cooperative with exam in no acute distress while lying in bed. Speech was more spontaneous and normal rate and variable volume. Mood described as so-so. Her affect was flatter today and less labile. Thought process derailed quickly. Thought content: She denied any suicidal or homicidal ideation. There was evidence of delusional thinking and continued ideas of reference. She did not appear to be responding to internal stimuli. Attention and concentration were improving and memory appeared more reliable but none were formally tested. She is alert and oriented to person and place. Insight and judgment are remain poor. The impulse control is poor Vitals/I&O/Wt Last Vital Signs Temp 97.5 F L 08/04/22 14:00 Pulse 112 H 08/04/22 14:00 Resp 18 08/04/22 14:00 BP 127/76 08/04/22 14:00 Pulse Ox 99 08/04/22 14:00 O2 Del Method 08/04/22 14:00 Data NPU 07/19/22 19:50 07/19/22 19:50 A&P Assessment and plan (1) Acute psychosis: (2) Raynauds disease: Qualifiers: Raynaud?s-associated gangrene presence: with gangrene Qualified Code(s): I73.01 - Raynaud's syndrome with gangrene (3) UTI (urinary tract infection): Qualifiers: Hematuria presence: without hematuria Urinary tract infection type: site unspecified Qualified Code(s): N39.0 - Urinary tract infection, site not specified (4) Substance use: Plan This is a 36-year-old white female with psychosis and substance use who presents with psychosis/altered mental status and a positive UDS with bizarre behavior and the tips of her fingers with eschars behaving confused. 1. Continue paliperidone 12mg daily. Patient having increased behavior problems later in day with increased confusion noted. Continue Depakote with plan for increase to 750mg ER daily tommorow. 2.? Continue one-to-one for safety. 3.? Encourage individual, group and milieu therapies. 4.? Encourage sober living treatment after discharge at the highest level of care to which she is willing to commit. 5. May require additional consultation as patient appears in some considerable pain with the betadyne washings. 6. Patient now placed on 21 day hold. Involuntary Hold Information 96 Hour Hold: 96 Hour Involuntary Admission: Yes 96 Hour Hold Ending Date: 10/11/20 96 Hour Hold Ending Time: 22:21 Attestations NPU Medical Necessity Statement*: Inpatient hospitalization is medically necessary and the clinically appropriate intervention at this time. We will monitor medications and make changes as indicated with likely length of stay 5-10 days. Coding Level of Care Code Established Pt Acute Food Technologist for Maritza Cherry Patient Type Established History Problem Focused Exam Problem Focused Medical Decision Making Straight Forward Diagnoses Acute psychosis F23 Raynauds disease I73.01 Raynaud?s-associated gangrene presence: with gangrene UTI (urinary tract infection) N39.0 Hematuria presence: without hematuria Urinary tract infection type: site unspecified Substance use F19.90
[2022-08-04] MEDS: trazodone 50 mg Tablet PO (20:02)
[2022-08-04 20:23] VITALS: BP 123/76; PULSE 123; RESP 18; TEMP 36.7; O2SAT 97
[2022-08-05 06:00] VITALS: BP 116/67; PULSE 103; RESP 20; TEMP 36.8; O2SAT 96
[2022-08-05] MEDS: paliperidone ER 6 mg Tablet 12 MG PO (08:03)
[2022-08-05] MEDS: aspirin 81 mg EC Tablet PO (08:03)
[2022-08-05] MEDS: sulfamethoxazole-trimeth DS 160-800 mg Tablet 1 TAB PO ×2 (08:03→20:14)
[2022-08-05] MEDS: gabapentin 300 mg Capsule PO ×2 (08:03→20:14)
[2022-08-05] MEDS: atorvastatin 40 mg Tablet 20 MG PO (08:03)
[2022-08-05] MEDS: NIFEdipine ER (24 hr) 30 mg Tablet PO (08:04)
[2022-08-05] MEDS: cetirizine 10 mg Tablet PO (08:04)
[2022-08-05] MEDS: divalproex ER 250 mg Tablet (24H) 750 MG PO (08:04)
[2022-08-05] MEDS: neomycin-poly-bacitracin oint 28 gm 1 APPLIC TOPICAL (08:06)
[2022-08-05] MEDS: chlorhexidine gluconate 4% Btl 118 mL 1 APPLIC TOPICAL ×2 (08:07→21:13)
[2022-08-05] MEDS: nicotine 2 mg Gum BUCCAL ×2 (12:05→15:16)
--- NOTE | 2022-08-05 12:27 | W.PM.NPUPNS ---
Subjective NPU Subjective: Patient presented today reporting that she was wondering about discharge. Unfortunately she continues to be somewhat disorganized and tangential. When asked what she would do if she was discharged she was somewhat lost with the question. She did eventually report that she would sit at home and acknowledged that she isolates. Then she reported something about playing with her dog and then identified that according to her her neighbor was eaten by her dogs. She reports that her neighbor is or was older. She denied any side effects from the medication and reports that she is eating and sleeping okay. Mental Status Exam MSE Comments: This is an obese white female in hospital scrubs with limited grooming, and limited eye contact. Eschars and sloughing off of the tips of multiple fingers of her hands very noteworthy with some fingers significantly shorter than they should be but not past the first knuckle. No abnormal movements. Limited aimless and purposeless movements. She was more cooperative with exam in no acute distress. Speech was more spontaneous and normal rate and variable volume. Mood described as better. Her affect was less bizarre. Thought process was more linear/organized with less derailments. Thought content: She denied any suicidal or homicidal ideation. There was no evidence of bizarre delusions or ideas of reference. She appeared to be less responsive to internal stimuli. Attention and concentration were improving and memory appeared more reliable but none were formally tested. She is alert and oriented to person and place. Insight and judgment are impaired. The impulse control is impaired. Vitals/I&O/Wt Last Vital Signs Temp 98.3 F 08/05/22 06:00 Pulse 103 H 08/05/22 06:00 Resp 20 H 08/05/22 06:00 BP 116/67 08/05/22 06:00 Pulse Ox 96 08/05/22 06:00 O2 Del Method 08/05/22 06:00 Weight last 48 hrs Weight 116.845 kg Data NPU 07/19/22 19:50 07/19/22 19:50 A&P Assessment and plan (1) Acute psychosis: (2) Raynauds disease: Qualifiers: Raynaud?s-associated gangrene presence: with gangrene Qualified Code(s): I73.01 - Raynaud's syndrome with gangrene (3) UTI (urinary tract infection): Qualifiers: Hematuria presence: without hematuria Urinary tract infection type: site unspecified Qualified Code(s): N39.0 - Urinary tract infection, site not specified (4) Substance use: Plan This is a 36-year-old white female with psychosis and substance use who presents with psychosis/altered mental status and a positive UDS with bizarre behavior and the tips of her fingers with eschars behaving confused. 1. Continue paliperidone 12mg daily. Patient having increased behavior problems later in day with increased confusion noted. Increase Depakote ER to 750mg daily today. 2.? Continue one-to-one for safety. 3.? Encourage individual, group and milieu therapies. 4.? Encourage sober living treatment after discharge at the highest level of care to which she is willing to commit. 5. May require additional consultation as patient appears in some considerable pain with the betadyne washings. 6. Patient now placed on 21 day hold. Involuntary Hold Information 96 Hour Hold: 96 Hour Involuntary Admission: Yes 96 Hour Hold Ending Date: 10/11/20 96 Hour Hold Ending Time: 22:21 Attestations NPU Medical Necessity Statement*: Inpatient hospitalization is medically necessary and the clinically appropriate intervention at this time. We will monitor medications and make changes as indicated with likely length of stay 5-10 days. Coding Level of Care Code Acute Sheet Heater Helper for [facility] Fwd Diagnoses Acute psychosis F23 Raynauds disease I73.01 Raynaud?s-associated gangrene presence: with gangrene UTI (urinary tract infection) N39.0 Hematuria presence: without hematuria Urinary tract infection type: site unspecified Substance use F19.90
[2022-08-05 14:00] VITALS: BP 130/74; PULSE 108; RESP 18; TEMP 36.9; O2SAT 99
[2022-08-05] MEDS: ibuprofen 200 mg Tablet 800 MG PO (14:14)
[2022-08-05] MEDS: hyDROXYzine 25 mg Capsule 50 MG PO (14:14)
[2022-08-05 19:32] VITALS: BP 106/57; PULSE 103; RESP 18; TEMP 36.6; O2SAT 98
[2022-08-05] MEDS: trazodone 50 mg Tablet PO ×2 (20:14→20:54)
[2022-08-06 06:00] VITALS: BP 111/69; PULSE 112; RESP 16; TEMP 36.8; O2SAT 97
[2022-08-06] MEDS: NIFEdipine ER (24 hr) 30 mg Tablet PO (08:59)
[2022-08-06] MEDS: paliperidone ER 6 mg Tablet 12 MG PO (08:59)
[2022-08-06] MEDS: atorvastatin 40 mg Tablet 20 MG PO (09:00)
[2022-08-06] MEDS: sulfamethoxazole-trimeth DS 160-800 mg Tablet 1 TAB PO ×2 (09:00→19:22)
[2022-08-06] MEDS: cetirizine 10 mg Tablet PO (09:00)
[2022-08-06] MEDS: divalproex ER 250 mg Tablet (24H) 750 MG PO (09:00)
[2022-08-06] MEDS: aspirin 81 mg EC Tablet PO (09:01)
[2022-08-06] MEDS: gabapentin 300 mg Capsule PO ×2 (09:04→19:23)
[2022-08-06] MEDS: chlorhexidine gluconate 4% Btl 118 mL 1 APPLIC TOPICAL ×2 (10:17→19:23)
[2022-08-06] MEDS: neomycin-poly-bacitracin oint 28 gm 1 APPLIC TOPICAL (10:17)
[2022-08-06] MEDS: nicotine 2 mg Gum BUCCAL ×2 (10:34→14:15)
[2022-08-06 14:00] VITALS: RESP 18
--- NOTE | 2022-08-06 17:26 | W.PM.NPUPNS ---
Subjective NPU Subjective: Patient presented today seeming somewhat less disorganized and continued to speak about getting home and attending to her animals. She continues to demonstrate no insight into her situation including loss of her fingertips. Using humor in place of earnest conversation about her challenges with continued psychosis. She continues to speak about some significant other but has no answers where the person was when she was found wandering. Mental Status Exam MSE Comments: This is an obese white female in hospital scrubs with limited grooming, and limited eye contact. Eschars and sloughing off of the tips of multiple fingers of her hands very noteworthy with some fingers significantly shorter than they should be but not past the first knuckle. No abnormal movements. Limited aimless and purposeless movements. She was more cooperative with exam in no acute distress. Speech was more spontaneous and normal rate and variable volume. Mood described as better. Her affect was less bizarre. Thought process was more linear/organized with less derailments. Thought content: She denied any suicidal or homicidal ideation. There was no evidence of bizarre delusions or ideas of reference. She appeared to be less responsive to internal stimuli. Attention and concentration were improving and memory appeared more reliable but none were formally tested. She is alert and oriented to person and place. Insight and judgment are impaired. The impulse control is impaired. Vitals/I&O/Wt Last Vital Signs Temp 98.6 F 08/06/22 22:00 Pulse 99 08/06/22 22:00 Resp 20 H 08/06/22 22:00 BP 131/80 08/06/22 22:00 Pulse Ox 97 08/06/22 22:00 O2 Del Method 08/06/22 22:00 Data NPU 07/19/22 19:50 07/19/22 19:50 A&P Assessment and plan (1) Acute psychosis: (2) Raynauds disease: Qualifiers: Raynaud?s-associated gangrene presence: with gangrene Qualified Code(s): I73.01 - Raynaud's syndrome with gangrene (3) UTI (urinary tract infection): Qualifiers: Hematuria presence: without hematuria Urinary tract infection type: site unspecified Qualified Code(s): N39.0 - Urinary tract infection, site not specified (4) Substance use: Plan This is a 36-year-old white female with psychosis and substance use who presents with psychosis/altered mental status and a positive UDS with bizarre behavior and the tips of her fingers with eschars behaving confused. 1. Continue paliperidone 12mg daily. Patient having increased behavior problems later in day with increased confusion noted. Increased Depakote ER to 750mg daily. 2.? Continue one-to-one for safety. 3.? Encourage individual, group and milieu therapies. 4.? Encourage sober living treatment after discharge at the highest level of care to which she is willing to commit. 5. May require additional consultation as patient appears in some considerable pain with the betadyne washings. 6. Patient now on 21 day hold. Involuntary Hold Information 96 Hour Hold: 96 Hour Involuntary Admission: Yes 96 Hour Hold Ending Date: 10/11/20 96 Hour Hold Ending Time: 22:21 Attestations NPU Medical Necessity Statement*: Inpatient hospitalization is medically necessary and the clinically appropriate intervention at this time. We will monitor medications and make changes as indicated with likely length of stay 4-9 days. 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
[2022-08-06] MEDS: trazodone 50 mg Tablet PO (19:22)
[2022-08-06 22:00] VITALS: BP 131/80; PULSE 99; RESP 20; TEMP 37; O2SAT 97
[2022-08-07 06:00] VITALS: BP 120/82; PULSE 98; RESP 18; TEMP 36.7; O2SAT 96
[2022-08-07] MEDS: atorvastatin 40 mg Tablet 20 MG PO (08:22)
[2022-08-07] MEDS: paliperidone ER 6 mg Tablet 12 MG PO (08:22)
[2022-08-07] MEDS: NIFEdipine ER (24 hr) 30 mg Tablet PO (08:23)
[2022-08-07] MEDS: gabapentin 300 mg Capsule PO ×2 (08:23→21:27)
[2022-08-07] MEDS: divalproex ER 250 mg Tablet (24H) 750 MG PO (08:23)
[2022-08-07] MEDS: aspirin 81 mg EC Tablet PO (08:23)
[2022-08-07] MEDS: cetirizine 10 mg Tablet PO (08:23)
[2022-08-07] MEDS: sulfamethoxazole-trimeth DS 160-800 mg Tablet 1 TAB PO ×2 (08:23→20:43)
[2022-08-07] MEDS: neomycin-poly-bacitracin oint 28 gm 1 APPLIC TOPICAL (08:25)
[2022-08-07 14:00] VITALS: BP 131/89; PULSE 101; RESP 16; TEMP 36.6; O2SAT 98
[2022-08-07] MEDS: nicotine 2 mg Gum BUCCAL (14:57)
--- NOTE | 2022-08-07 17:54 | W.PM.NPUPNS ---
Subjective NPU Subjective: Patient presents today reporting that she and her significant other have been together for a couple of years. She reports that he does not drink or smoke and they generally takes good care of her. She acknowledged that she does use sometimes and that can be a problem. She reports that her family owns mugs and that she will go there and drink and that he just plays pool. We discussed her continued improvement on medication but continued concerns about her moments where she is quite mercurial that are decreasing. Mental Status Exam MSE Comments: This is an obese white female in hospital scrubs with limited grooming, and limited eye contact. Eschars and sloughing off of the tips of multiple fingers of her hands very noteworthy with some fingers significantly shorter than they should be but not past the first knuckle. No abnormal movements. She was more cooperative with exam in no acute distress. Speech was more spontaneous and normal rate and variable volume. Mood described as better. Her affect was less bizarre. Thought process was more linear/organized with less derailments. Thought content: She denied any suicidal or homicidal ideation. There was no evidence of bizarre delusions or ideas of reference. She appeared to be less responsive to internal stimuli. Attention and concentration were improving and memory appeared more reliable but none were formally tested. She is alert and oriented to person and place. Improving but still limited. Insight, judgment and impulse control. Vitals/I&O/Wt Last Vital Signs Temp 98.3 F 08/07/22 19:49 Pulse 108 H 08/07/22 19:49 Resp 18 08/07/22 19:49 BP 136/88 08/07/22 19:49 Pulse Ox 97 08/07/22 19:49 O2 Del Method 08/07/22 19:49 Data NPU 07/19/22 19:50 07/19/22 19:50 A&P Assessment and plan (1) Acute psychosis: (2) Raynauds disease: Qualifiers: Raynaud?s-associated gangrene presence: with gangrene Qualified Code(s): I73.01 - Raynaud's syndrome with gangrene (3) UTI (urinary tract infection): Qualifiers: Hematuria presence: without hematuria Urinary tract infection type: site unspecified Qualified Code(s): N39.0 - Urinary tract infection, site not specified (4) Substance use: Plan This is a 36-year-old white female with psychosis and substance use who presents with psychosis/altered mental status and a positive UDS with bizarre behavior and the tips of her fingers with eschars behaving confused. 1. Continue paliperidone 12mg daily as well as Depakote ER 750mg daily. We will hold Depakote and check Depakote level in the morning and consider increasing. 2.? Continue one-to-one for safety. 3.? Encourage individual, group and milieu therapies. 4.? Encourage sober living treatment after discharge at the highest level of care to which she is willing to commit. 5. May require additional consultation as patient appears in some considerable pain with the betadyne washings. 6. Patient now on 21 day hold. Involuntary Hold Information 96 Hour Hold: 96 Hour Involuntary Admission: Yes 96 Hour Hold Ending Date: 10/11/20 96 Hour Hold Ending Time: 22:21 Attestations NPU Medical Necessity Statement*: Inpatient hospitalization is medically necessary and the clinically appropriate intervention at this time. We will monitor medications and make changes as indicated with likely length of stay 3-8 days. Coding Level of Care Code Acute Environmental Scientists for g Fwd Diagnoses Acute psychosis F23 Raynauds disease I73.01 Raynaud?s-associated gangrene presence: with gangrene UTI (urinary tract infection) N39.0 Hematuria presence: without hematuria Urinary tract infection type: site unspecified Substance use F19.90
[2022-08-07 19:49] VITALS: BP 136/88; PULSE 108; RESP 18; TEMP 36.8; O2SAT 97
[2022-08-07] MEDS: trazodone 50 mg Tablet PO (20:43)
[2022-08-07] MEDS: chlorhexidine gluconate 4% Btl 118 mL 1 APPLIC TOPICAL (20:44)
[2022-08-08] MEDS: NIFEdipine ER (24 hr) 30 mg Tablet PO (08:35)
[2022-08-08] MEDS: aspirin 81 mg EC Tablet PO (08:35)
[2022-08-08] MEDS: cetirizine 10 mg Tablet PO (08:35)
[2022-08-08] MEDS: gabapentin 300 mg Capsule PO ×2 (08:35→20:35)
[2022-08-08] MEDS: sulfamethoxazole-trimeth DS 160-800 mg Tablet 1 TAB PO ×2 (08:36→20:35)
[2022-08-08] MEDS: paliperidone ER 6 mg Tablet 12 MG PO (08:36)
[2022-08-08] MEDS: atorvastatin 40 mg Tablet 20 MG PO (08:36)
[2022-08-08] MEDS: chlorhexidine gluconate 4% Btl 118 mL 1 APPLIC TOPICAL ×2 (09:07→20:37)
[2022-08-08] MEDS: neomycin-poly-bacitracin oint 28 gm 1 APPLIC TOPICAL (09:07)
[2022-08-08] MEDS: nicotine 2 mg Gum BUCCAL ×2 (13:44→18:30)
[2022-08-08 14:00] VITALS: BP 128/74; PULSE 78; RESP 16; TEMP 36.9; O2SAT 98
--- NOTE | 2022-08-08 19:39 | P.NPUPN_ITS ---
Subjective NPU Subjective: Patient presented today reporting that she is feeling like she is doing better than she has in a while. We discussed her appearing less disorganized but still with some aimless qualities. She agreed that we need to work on identifying what her home supports would be given our great fear that the circumstances that outlined and led to her losing the tips of her fingers could manifest and have a greater impact than the tips of her fingers. She seems to understand. Mental Status Exam MSE Comments: This is an obese white female in hospital scrubs with limited grooming, and limited eye contact. Eschars and sloughing off of the tips of multiple fingers of her hands very noteworthy with some fingers significantly shorter than they should be but not past the first knuckle. No abnormal moveme nts. She was more cooperative with exam in no acute distress. Speech was more spontaneous and normal rate and variable volume. Mood described as better. Her affect was less bizarre. Thought process was more linear/organized with less derailments. Thought content: She denied any suicidal or homicidal ideation. There was no evidence of bizarre delusions or ideas of reference. She she did not appear to be responding to internal stimuli. Attention and concentration were improving and memory appeared more reliable but none were formally tested. She is alert and oriented to person and place. Insight, judgment and impulse control improving but still limited.. Vitals/I&O/Wt Last Vital Signs Temp 98.5 F 08/08/22 14:00 Pulse 78 08/08/22 14:00 Resp 16 08/08/22 14:00 BP 128/74 08/08/22 14:00 Pulse Ox 98 08/08/22 14:00 O2 Del Method 08/08/22 14:00 Data NPU 07/19/22 19:50 07/19/22 19:50 A&P Assessment and plan (1) Acute psychosis: (2) Raynauds disease: Qualifiers: Raynaud?s-associated gangrene presence: with gangrene Qualified Code(s): I73.01 - Raynaud's syndrome with gangrene (3) UTI (urinary tract infection): Qualifiers: Hematuria presence: without hematuria Urinary tract infection type: site unspecified Qualified Code(s): N39.0 - Urinary tract infection, site not specified (4) Substance use: Plan This is a 36-year-old white female with psychosis and substance use who presents with psychosis/altered mental status and a positive UDS with bizarre behavior and the tips of her fingers with eschars behaving confused. 1. Continue paliperidone 12mg daily as well as Depakote ER 750mg daily. We will check Depakote level in the morning and consider increasing. 2.? Continue one-to-one for safety. 3.? Encourage individual, group and milieu therapies. 4.? Encourage sober living treatment after discharge at the highest level of care to which she is willing to commit. 5. May require additional consultation as patient appears in some considerable pain with the betadyne washings. 6. Patient now on 21 day hold. Involuntary Hold Information 96 Hour Hold: 96 Hour Involuntary Admission: Yes 96 Hour Hold Ending Date: 10/11/20 96 Hour Hold Ending Time: 22:21 Attestations NPU Medical Necessity Statement*: Inpatient hospitalization is medically necessary and the clinically appropriate intervention at this time. We will monitor medications and make changes as indicated with likely length of stay 3-8 days. 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
[2022-08-08 20:11] VITALS: BP 123/83; PULSE 92; RESP 18; TEMP 36.3; O2SAT 98
[2022-08-08] MEDS: trazodone 50 mg Tablet PO (20:36)
[2022-08-09 06:00] VITALS: RESP 18
[2022-08-09] MEDS: paliperidone ER 6 mg Tablet 12 MG PO (09:23)
[2022-08-09] MEDS: cetirizine 10 mg Tablet PO (09:23)
[2022-08-09] MEDS: NIFEdipine ER (24 hr) 30 mg Tablet PO (09:23)
[2022-08-09] MEDS: gabapentin 300 mg Capsule PO ×2 (09:24→19:55)
[2022-08-09] MEDS: aspirin 81 mg EC Tablet PO (09:24)
[2022-08-09] MEDS: sulfamethoxazole-trimeth DS 160-800 mg Tablet 1 TAB PO ×2 (09:24→19:55)
[2022-08-09] MEDS: atorvastatin 40 mg Tablet 20 MG PO (09:24)
[2022-08-09] MEDS: neomycin-poly-bacitracin oint 28 gm 1 APPLIC TOPICAL (09:31)
[2022-08-09] MEDS: divalproex ER 250 mg Tablet (24H) 750 MG PO (09:35)
[2022-08-09] MEDS: chlorhexidine gluconate 4% Btl 118 mL 1 APPLIC TOPICAL (09:36)
[2022-08-09 09:40] LABS: Valproic Acid Level 13.3 ug/mL (50-100)
[2022-08-09] MEDS: nicotine 2 mg Gum BUCCAL (10:03)
--- NOTE | 2022-08-09 11:24 | P.NPUPN_ITS ---
Subjective NPU Subjective: Patient presented today that she feels fine. We discussed the result of the medication the Invega Sustenna changes and agreed proceed as is documented in this note. With her low Depakote level Depakote ER would be increased to 1000 mg. We discussed getting in-home assistance with treatment team as well as case management in the next week hopefully be able to move towards discharge. Mental Status Exam MSE Comments: This is an obese white female in hospital scrubs with limited grooming, and limited eye contact. Eschars and sloughing off of the tips of multiple fingers of her hands very noteworthy with some fingers significantly shorter than they should be but not past the first knuckle. No abnormal movements. She was more cooperative with exam in no acute distress. Speech was more spontaneous and normal rate and variable volume. Mood described as better. Her affect was less bizarre. Thought process was more linear/organized with less derailments. Thought content: She denied any suicidal or homicidal ideation. There was no evidence of bizarre delusions or ideas of reference. She she did not appear to be responding to internal stimuli. Attention and concentration were improving and memory appeared more reliable but none were formally tested. She is alert and oriented to person and place. Insight, judgment and impulse control improving but still limited. Vitals/I&O/Wt Last Vital Signs Temp 97.4 F L 08/08/22 20:11 Pulse 92 08/08/22 20:11 Resp 18 08/08/22 20:11 BP 123/83 08/08/22 20:11 Pulse Ox 98 08/08/22 20:11 O2 Del Method 08/08/22 14:00 Data NPU 07/19/22 19:50 07/19/22 19:50 A&P Assessment and plan (1) Acute psychosis: (2) Raynauds disease: Qualifiers: Raynaud?s-associated gangrene presence: with gangrene Qualified Code(s): I73.01 - Raynaud's syndrome with gangrene (3) UTI (urinary tract infection): Qualifiers: Hematuria presence: without hematuria Urinary tract infection type: si te unspecified Qualified Code(s): N39.0 - Urinary tract infection, site not specified (4) Substance use: Plan This is a 36-year-old white female with psychosis and substance use who presents with psychosis/altered mental status and a positive UDS with bizarre behavior and the tips of her fingers with eschars behaving confused. 1. Given first dose Invega Sustenna 204 mg IM to the deltoid crease oral paliperidone to 6mg daily as well as increase Depakote ER to 1000mg daily. since depakote level was low. 2.? Continue one-to-one for safety. 3.? Encourage individual, group and milieu therapies. 4.? Encourage sober living treatment after discharge at the highest level of care to which she is willing to commit. 5. May require additional consultation as patient appears in some considerable pain with the betadyne washings. 6. Patient now on 21 day hold. Involuntary Hold Information 96 Hour Hold: 96 Hour Involuntary Admission: Yes 96 Hour Hold Ending Date: 10/11/20 96 Hour Hold Ending Time: 22:21 Attestations NPU Medical Necessity Statement*: Inpatient hospitalization is medically necessary and the clinically appropriate intervention at this time. We will monitor medications and make changes as indicated with likely length of stay 3-8 days. 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
[2022-08-09] MEDS: divalproex ER 250 mg Tablet (24H) PO (13:52)
[2022-08-09 14:00] VITALS: BP 146/87; PULSE 98; RESP 18; TEMP 36.6; O2SAT 99
[2022-08-09] MEDS: paliperidone palmitate 234 mg Syringe IM (14:16)
--- NOTE | 2022-08-09 14:16 | PC.NURSE ---
INVRACIEL SUSTENNA 234 MG GIVEN IM ORDERED BY PHYSICIAN, INJECTION GIVEN IN LEFT DELTOID WILL CONT TO MONITOR INJECTION SITE FOR ANY REDNESS, SWELLING, OR IRRITATION LOT [id number] EXP 12/2023
[2022-08-09] MEDS: trazodone 50 mg Tablet PO (19:55)
[2022-08-09 19:59] VITALS: BP 117/79; PULSE 112; RESP 18; TEMP 36.7; O2SAT 100
[2022-08-10 05:52] VITALS: RESP 18
[2022-08-10] MEDS: aspirin 81 mg EC Tablet PO (08:10)
[2022-08-10] MEDS: atorvastatin 40 mg Tablet 20 MG PO (08:10)
[2022-08-10] MEDS: divalproex ER 500 mg Tablet (24H) 1000 MG PO (08:10)
[2022-08-10] MEDS: paliperidone ER 6 mg Tablet PO (08:10)
[2022-08-10] MEDS: NIFEdipine ER (24 hr) 30 mg Tablet PO (08:10)
[2022-08-10] MEDS: cetirizine 10 mg Tablet PO (08:10)
[2022-08-10] MEDS: gabapentin 300 mg Capsule PO ×2 (08:10→20:17)
[2022-08-10] MEDS: chlorhexidine gluconate 4% Btl 118 mL 1 APPLIC TOPICAL ×2 (08:12→20:20)
[2022-08-10] MEDS: neomycin-poly-bacitracin oint 28 gm 1 APPLIC TOPICAL (08:12)
[2022-08-10] MEDS: nicotine 2 mg Gum BUCCAL ×2 (11:22→13:55)
--- NOTE | 2022-08-10 13:09 | W.PM.NPUPNS ---
Subjective NPU Subjective: Patient presented today reporting that she got a visit from her father. She reported that he is talking about the possibility of her going home and him staying there until she gets healed up and appropriate resources are in place. We discussed working with the social work team to see if that would be a viable option as she continues to improve. Mental Status Exam MSE Comments: This is an obese white female in hospital scrubs with limited grooming, and limited eye contact. Eschars and sloughing off of the tips of multiple fingers of her hands very noteworthy with some fingers significantly shorter than they should be but not past the first knuckle. No abnormal movements. She was more cooperative with exam in no acute distress. Speech was more spontaneous and normal rate and variable volume. Mood described as better. Her affect was less bizarre. Thought process was more linear/organized with less derailments. Thought content: She denied any suicidal or homicidal ideation. There was no evidence of bizarre delusions or ideas of reference. She she did not appear to be responding to internal stimuli. Attention and concentration were improving and memory appeared more reliable but none were formally tested. She is alert and oriented to person and place. Insight, judgment and impulse control improving but still limited. Vitals/I&O/Wt Last Vital Signs Temp 98.0 F 08/09/22 19:59 Pulse 112 H 08/09/22 19:59 Resp 18 08/10/22 05:52 BP 117/79 08/09/22 19:59 Pulse Ox 100 08/09/22 19:59 O2 Del Method 08/09/22 14:00 Data NPU 07/19/22 19:50 07/19/22 19:50 A&P Assessment and plan (1) Acute psychosis: (2) Raynauds disease: Qualifiers: Raynaud?s-associated gangrene presence: with gangrene Qualified Code(s): I73.01 - Raynaud's syndrome with gangrene (3) UTI (urinary tract infection): Qualifiers: Hematuria presence: without hematuria Urinary tract infection type: site unspecified Qualified Code(s): N39.0 - Urinary tract infection, site not specified (4) Substance use: Plan This is a 36-year-old white female with psychosis and substance use who presents with psychosis/altered mental status and a positive UDS with bizarre behavior and the tips of her fingers with eschars behaving confused. 1. Given first dose Invega Sustenna 234 mg IM to the deltoid and decreaseed oral paliperidone to 6mg daily as well as increased Depakote ER to 1000mg daily. since depakote level was low. 2.? Continue one-to-one for safety. 3.? Encourage individual, group and milieu therapies. 4.? Encourage sober living treatment after discharge at the highest level of care to which she is willing to commit. 5. May require additional consultation as patient appears in some considerable pain with the betadyne washings. 6. Patient now on 21 day hold. Involuntary Hold Information 96 Hour Hold: 96 Hour Involuntary Admission: Yes 96 Hour Hold Ending Date: 10/11/20 96 Hour Hold Ending Time: 22:21 Attestations NPU Medical Necessity Statement*: Inpatient hospitalization is medically necessary and the clinically appropriate intervention at this time. We will monitor medications and make changes as indicated with likely length of stay 3-7 days. 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
[2022-08-10 13:58] VITALS: BP 122/80; PULSE 80; RESP 16; TEMP 36.6; O2SAT 98
[2022-08-10] MEDS: trazodone 50 mg Tablet PO (20:20)
[2022-08-10 20:33] VITALS: BP 135/82; PULSE 106; RESP 18; TEMP 36.6; O2SAT 96
[2022-08-11] MEDS: gabapentin 300 mg Capsule PO ×2 (08:21→19:33)
[2022-08-11] MEDS: aspirin 81 mg EC Tablet PO (08:21)
[2022-08-11] MEDS: NIFEdipine ER (24 hr) 30 mg Tablet PO (08:21)
[2022-08-11] MEDS: cetirizine 10 mg Tablet PO (08:21)
[2022-08-11] MEDS: paliperidone ER 6 mg Tablet PO (08:21)
[2022-08-11] MEDS: atorvastatin 40 mg Tablet 20 MG PO (08:21)
[2022-08-11] MEDS: chlorhexidine gluconate 4% Btl 118 mL 1 APPLIC TOPICAL ×2 (08:22→19:33)
[2022-08-11] MEDS: divalproex ER 500 mg Tablet (24H) 1000 MG PO (08:22)
--- NOTE | 2022-08-11 09:24 | W.PM.NPUPNS ---
Subjective NPU Subjective: Patient presented today reporting that she is doing okay. She denies any problems of medication today and continues to suggest a desire to be discharged as soon as possible. We discussed having the treatment team speak with her father to establish how dependable a support he is going to be given her challenges. Mental Status Exam MSE Comments: This is an obese white female in hospital scrubs with limited grooming, and limited eye contact. Eschars and sloughing off of the tips of multiple fingers of her hands very noteworthy with some fingers significantly shorter than they should be but not past the first knuckle. No abnormal movements. She was more cooperative with exam in no acute distress. Speech was more spontaneous and normal rate and variable volume. Mood described as pretty good. Her affect was less bizarre. Thought process was more linear/organized with less derailments. Thought content: She denied any suicidal or homicidal ideation. There was no evidence of bizarre delusions or ideas of reference. She she did not appear to be responding to internal stimuli. Attention and concentration were improving and memory appeared more reliable but none were formally tested. She is alert and oriented to person and place. Insight, judgment and impulse control improving but still limited. Vitals/I&O/Wt Last Vital Signs Temp 97.9 F 08/10/22 20:33 Pulse 106 H 08/10/22 20:33 Resp 18 08/10/22 20:33 BP 135/82 08/10/22 20:33 Pulse Ox 96 08/10/22 20:33 O2 Del Method 08/10/22 13:58 Weight last 48 hrs Weight 116.573 kg Data NPU 07/19/22 19:50 07/19/22 19:50 A&P Assessment and plan (1) Acute psychosis: (2) Raynauds disease: Qualifiers: Raynaud?s-associated gangrene presence: with gangrene Qualified Code(s): I73.01 - Raynaud's syndrome with gangrene (3) UTI (urinary tract infection): Qualifiers: Hematuria presence: without hematuria Urinary tract infection type: site unspecified Qualified Code(s): N39.0 - Urinary tract infection, site not specified (4) Substance use: Plan This is a 36-year-old white female with psychosis and substance use who presents with psychosis/altered mental status and a positive UDS with bizarre behavior and the tips of her fingers with eschars behaving confused. 1. Given first dose Invega Sustenna 234 mg IM to the deltoid and decreaseed oral paliperidone to 6mg daily as well as increased Depakote ER to 1000mg daily. since depakote level was low. 2.? Continue one-to-one for safety. 3.? Encourage individual, group and milieu therapies. 4.? Encourage sober living treatment after discharge at the highest level of care to which she is willing to commit. 5. May require additional consultation as patient appears in some considerable pain with the betadyne washings. 6. Patient now on 21 day hold. 7. We will obtain a ERNESTINE to see where she is functioning now. Involuntary Hold Information 96 Hour Hold: 96 Hour Involuntary Admission: Yes 96 Hour Hold Ending Date: 10/11/20 96 Hour Hold Ending Time: 22:21 Attestations NPU Medical Necessity Statement*: Inpatient hospitalization is medically necessary and the clinically appropriate intervention at this time. We will monitor medications and make changes as indicated with likely length of stay 3-7 days. 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
[2022-08-11 14:00] VITALS: BP 110/70; PULSE 96; RESP 18; TEMP 36.7; O2SAT 95
[2022-08-11 19:24] VITALS: BP 121/77; PULSE 100; RESP 16; TEMP 36.5; O2SAT 90
[2022-08-11] MEDS: trazodone 50 mg Tablet PO (19:33)
[2022-08-12 06:00] VITALS: RESP 16
[2022-08-12] MEDS: chlorhexidine gluconate 4% Btl 118 mL 1 APPLIC TOPICAL ×2 (08:38→19:35)
[2022-08-12] MEDS: gabapentin 300 mg Capsule PO ×2 (08:38→19:35)
[2022-08-12] MEDS: divalproex ER 500 mg Tablet (24H) 1000 MG PO (08:38)
[2022-08-12] MEDS: atorvastatin 40 mg Tablet 20 MG PO (08:38)
[2022-08-12] MEDS: cetirizine 10 mg Tablet PO (08:38)
[2022-08-12] MEDS: NIFEdipine ER (24 hr) 30 mg Tablet PO (08:38)
[2022-08-12] MEDS: aspirin 81 mg EC Tablet PO (08:38)
[2022-08-12] MEDS: paliperidone ER 6 mg Tablet PO (08:38)
[2022-08-12] MEDS: nicotine 2 mg Gum BUCCAL ×2 (10:19→16:13)
[2022-08-12 14:00] VITALS: BP 104/77; PULSE 114; RESP 18; TEMP 36.7; O2SAT 96
--- NOTE | 2022-08-12 14:58 | W.PM.NPUPNS ---
Subjective NPU Subjective: Patient presented today fairly focused on her fingers. We continued to discuss the possibility of discharge this week and working with her father to make sure she has appropriate support as we start to get case management and possible in-home resources in place to assist her in more independent functioning. Mental Status Exam MSE Comments: This is an obese white female in hospital scrubs with limited grooming, and limited eye contact. Eschars and sloughing off of the tips of multiple fingers of her hands very noteworthy with some fingers significantly shorter than they should be but not past the first knuckle. No abnormal movements. She was more cooperative with exam in no acute distress. Speech was more spontaneous and normal rate and variable volume. Mood described I think I am good enough to go home. Her affect was more congruent. Thought process was more linear/organized with less derailments. Thought content: She denied any suicidal or homicidal ideation. There was no evidence of bizarre delusions or ideas of reference. She she did not appear to be responding to internal stimuli. Attention and concentration were improving and memory appeared more reliable but none were formally tested. She is alert and oriented to person and place. Insight, judgment and impulse control improving but still limited, but improving. Vitals/I&O/Wt Last Vital Signs Temp 98.1 F 08/12/22 14:00 Pulse 114 H 08/12/22 14:00 Resp 18 08/12/22 14:00 BP 104/77 08/12/22 14:00 Pulse Ox 96 08/12/22 14:00 O2 Del Method 08/10/22 13:58 Data NPU 07/19/22 19:50 07/19/22 19:50 A&P Assessment and plan (1) Acute psychosis: (2) Raynauds disease: Qualifiers: Raynaud?s-associated gangrene presence: with gangrene Qualified Code(s): I73.01 - Raynaud's syndrome with gangrene (3) UTI (urinary tract infection): Qualifiers: Hematuria presence: without hematuria Urinary tract infection type: site unspecified Qualified Code(s): N39.0 - Urinary tract infection, site not specified (4) Substance use: Plan This is a 36-year-old white female with psychosis and substance use who presents with psychosis/altered mental status and a positive UDS with bizarre behavior and the tips of her fingers with eschars behaving confused. 1. Given first dose Invega Sustenna 234 mg IM to the deltoid and decreaseed oral paliperidone to 6mg daily as well as increased Depakote ER to 1000mg daily. since depakote level was low. 2.? Continue one-to-one for safety. 3.? Encourage individual, group and milieu therapies. 4.? Encourage sober living treatment after discharge at the highest level of care to which she is willing to commit. 5. May require additional consultation as patient appears in some considerable pain with the betadyne washings. 6. Patient now on 21 day hold. 7. Did well on her ERNESTINE about a week ago. We will work with father on discharge plan with his support. Involuntary Hold Information 96 Hour Hold: 96 Hour Involuntary Admission: Yes 96 Hour Hold Ending Date: 10/11/20 96 Hour Hold Ending Time: 22:21 Attestations NPU Medical Necessity Statement*: Inpatient hospitalization is medically necessary and the clinically appropriate intervention at this time. We will monitor medications and make changes as indicated with likely length of stay 2-5 days. Coding Level of Care Code Acute [employer] for [facility] Fwd Diagnoses Acute psychosis F23 Raynauds disease I73.01 Raynaud?s-associated gangrene presence: with gangrene UTI (urinary tract infection) N39.0 Hematuria presence: without hematuria Urinary tract infection type: site unspecified Substance use F19.90
[2022-08-12] MEDS: trazodone 50 mg Tablet PO (19:35)
[2022-08-12 20:40] VITALS: RESP 16
[2022-08-13 05:57] VITALS: RESP 16
[2022-08-13] MEDS: divalproex ER 500 mg Tablet (24H) 1000 MG PO (08:48)
[2022-08-13] MEDS: paliperidone ER 6 mg Tablet PO (08:48)
[2022-08-13] MEDS: NIFEdipine ER (24 hr) 30 mg Tablet PO (08:48)
[2022-08-13] MEDS: atorvastatin 40 mg Tablet 20 MG PO (08:48)
[2022-08-13] MEDS: gabapentin 300 mg Capsule PO ×2 (08:48→22:36)
[2022-08-13] MEDS: aspirin 81 mg EC Tablet PO (08:48)
[2022-08-13] MEDS: cetirizine 10 mg Tablet PO (08:48)
[2022-08-13] MEDS: chlorhexidine gluconate 4% Btl 118 mL 1 APPLIC TOPICAL ×2 (09:46→20:59)
[2022-08-13] MEDS: nicotine 2 mg Gum BUCCAL ×2 (11:11→15:26)
[2022-08-13] MEDS: zinc oxide oint 30 gm 1 APPLIC TOPICAL (12:28)
[2022-08-13 14:00] VITALS: BP 115/78; PULSE 96; RESP 18; TEMP 36.8; O2SAT 98
--- NOTE | 2022-08-13 14:55 | W.PM.NPUPNS ---
Subjective NPU Subjective: Patient presented today reporting much excitement at the prospect of being discharged tomorrow. Discussed the plan to check her Depakote level as well as give her her second loading dose of Invega tomorrow before she leaves. Treatment team working with dad to make sure she has appropriate support at home. She denies any side effects or concerns related to the medications. Mental Status Exam MSE Comments: This is an obese white female in hospital scrubs with limited grooming, and limited eye contact. Eschars and sloughing off of the tips of multiple fingers of her hands very noteworthy with some fingers significantly shorter than they should be but not past the first knuckle. No abnormal movements. She was more cooperative with exam in no acute distress. Speech was more spontaneous and normal rate and variable volume. Mood described happy to be discharging tomorrow. Her affect was congruent. Thought process was more linear/organized with less derailments. Thought content: She denied any suicidal or homicidal ideation. There was no evidence of bizarre delusions or ideas of reference. She she did not appear to be responding to internal stimuli. Attention and concentration were improving and memory appeared more reliable but none were formally tested. She is alert and oriented to person and place. Insight, judgment and impulse control improving. Vitals/I&O/Wt Last Vital Signs Temp 98.3 F 08/13/22 14:00 Pulse 96 08/13/22 14:00 Resp 18 08/13/22 14:00 BP 115/78 08/13/22 14:00 Pulse Ox 98 08/13/22 14:00 O2 Del Method 08/13/22 14:00 Data NPU 07/19/22 19:50 07/19/22 19:50 A&P Assessment and plan (1) Acute psychosis: (2) Raynauds disease: Qualifiers: Raynaud?s-associated gangrene presence: with gangrene Qualified Code(s): I73.01 - Raynaud's syndrome with gangrene (3) UTI (urinary tract infection): Qualifiers: Hematuria presence: without hematuria Urinary tract infection type: site unspecified Qualified Code(s): N39.0 - Urinary tract infection, site not specified (4) Substance use: Plan This is a 36-year-old white female with psychosis and substance use who presents with psychosis/altered mental status and a positive UDS with bizarre behavior and the tips of her fingers with eschars behaving confused. 1. Given first dose Invega Sustenna 234 mg IM to the deltoid and decreaseed oral paliperidone to 6mg daily as well as increased Depakote ER to 1000mg daily. since depakote level was low. Check her Depakote level in the morning and give her second loading dose of Invega Sustenna 2 days early so that there are no challenges getting it done after discharge. 2.? Continue one-to-one for safety. 3.? Encourage individual, group and milieu therapies. 4.? Encourage sober living treatment after discharge at the highest level of care to which she is willing to commit. 5. May require additional consultation as patient appears in some considerable pain with the betadyne washings. 6. Patient now on 21 day hold. 7. Did well on her ERNESTINE about a week ago. Tentative plan for discharge in the morning. Involuntary Hold Information 96 Hour Hold: 96 Hour Involuntary Admission: Yes 96 Hour Hold Ending Date: 10/11/20 96 Hour Hold Ending Time: 22:21 Attestations NPU Medical Necessity Statement*: Inpatient hospitalization is medically necessary and the clinically appropriate intervention at this time. We will monitor medications and make changes as indicated with likely length of stay 1-3 days. Coding Level of Care Code Acute [facility] for [facility] Fwd Diagnoses Acute psychosis F23 Raynauds disease I73.01 Raynaud?s-associated gangrene presence: with gangrene UTI (urinary tract infection) N39.0 Hematuria presence: without hematuria Urinary tract infection type: site unspecified Substance use F19.90
[2022-08-13] MEDS: ibuprofen 200 mg Tablet 800 MG PO (17:07)
[2022-08-13 20:14] VITALS: BP 141/93; PULSE 104; RESP 18; TEMP 36.8; O2SAT 99
[2022-08-13] MEDS: trazodone 50 mg Tablet PO ×2 (21:46→22:36)
[2022-08-14 06:00] VITALS: RESP 18
[2022-08-14] MEDS: paliperidone ER 6 mg Tablet PO (08:21)
[2022-08-14] MEDS: NIFEdipine ER (24 hr) 30 mg Tablet PO (08:21)
[2022-08-14] MEDS: atorvastatin 40 mg Tablet 20 MG PO (08:21)
[2022-08-14] MEDS: gabapentin 300 mg Capsule PO (08:21)
[2022-08-14] MEDS: cetirizine 10 mg Tablet PO (08:21)
[2022-08-14] MEDS: aspirin 81 mg EC Tablet PO (08:21)
[2022-08-14] MEDS: chlorhexidine gluconate 4% Btl 118 mL 1 APPLIC TOPICAL (08:23)
[2022-08-14 09:13] LABS: Valproic Acid Level 57.5 ug/mL (50-100)
[2022-08-14] MEDS: nicotine 2 mg Gum BUCCAL ×2 (09:25→15:23)
[2022-08-14] MEDS: acetaminophen 325 mg Tablet 650 MG PO (11:23)
[2022-08-14] MEDS: paliperidone palmitate 156 mg Syringe IM (11:24)
--- NOTE | 2022-08-14 12:04 | P.NPUDS_ITS ---
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 capsule 300 mg PO BID 30 Days Qty: 60 1RF Discontinued fluoxetine [Prozac] 40 mg capsule 40 mg PO DAILY trazodone 50 mg tablet 50 mg PO BEDTIME Discharge Orders: Discharge Order (Routine); Ordered 08/14/22 Ordered By: Petey Anglin Referrals: Referral for in-home services [Other] (Call to do assessment for in-home services.) [facility] [Outside] - 08/15/22 2:45 pm (Initial assessment for services. Please arrive 15 minutes early to complete paperwork.) Zainab Morrell MD [Physician] - 4-7 days Mari Maldonado FNP [Primary Care Provider] - 4-7 days (Mari Maldonado or a nurse will call for a follow-up. Call the office if you have not heard anything within one week.) Shakeel Forte MD [Referring] - 7-10 days (A followup will be made when the referral comes through) Discharge Diet: Regular Discharge Activity: Resume usual activity Patient Instructions: Nifedipine (By mouth) (Adalat CC, Nifedical XL, Procardia, Procardia XL), Trazodone (By mouth) (Desyrel, Desyrel Dividose, Oleptro, Trazamine), Divalproex (By mouth) (Depakote, Depakote ER, Depakote Sprinkles), Chlorhexidine (On the skin) (Hibiclens, Hibistat, Keisha-Hex,..., Paliperidone (By injection) (Invega Sustenna, Invega Trinza, Invega..., Psychotic Disorder (DC), Opioid Safety Discharge Attestations NPU Time Spent in Discharge Care*: less than 30 min Specific Discharge Activities: Specific discharge activities: educating patient, discussing with bottle caser/social workers/dc planners, documenting/other paperwork and evaluating patient/reviewing data Status at Discharge: Cognitive status at discharge: cognitively intact , Behavioral status at discharge: cooperative , Coding Level of Care Code Acute Chg FW DC note Diagnoses Acute psychosis F23 Raynauds disease I73.01 Raynaud?s-associated gangrene presence: with gangrene UTI (urinary tract infection) N39.0 Hematuria presence: without hematuria Urinary tract infection type: site unspecified Substance use F19.90
[2022-08-14 12:42] VITALS: BP 136/86; PULSE 96; RESP 18; TEMP 36.7; O2SAT 96
[2022-08-14 15:55] VITALS: BP 136/86; PULSE 96; RESP 18; TEMP 36.7; O2SAT 96
== END 2022-08-14 16:15 | disposition home or self-care (01) | DRG 885 ==
LOC: ER 20:59 → NP 21:15
PROVIDERS: Family Medicine; Admitting Provider Psychiatry & Neurology Psychiatry; Emergency Provider Family Medicine; PCP Nurse Practitioner Family; Visit Provider Psychiatry & Neurology Psychiatry
DX: F23 Brief psychotic disorder (principal); N39.0 Urinary tract infection, site not specified; I73.1 Thromboangiitis obliterans [Buerger's disease]; E78.5 Hyperlipidemia, unspecified; I10 Essential (primary) hypertension; E66.9 Obesity, unspecified; Z68.39 Body mass index [BMI] 39.0-39.9, adult; F17.200 Nicotine dependence, unspecified, uncomplicated; F12.90 Cannabis use, unspecified, uncomplicated; Z88.1 Allergy status to other antibiotic agents; Z88.0 Allergy status to penicillin
CPT/HCPCS: 36415; 36416; 80053; 80074; 80164; 80306; 80307; 81001; 81025; 82595; 82962; 83036; 84443; 85025; 85651; 86036; 86140; 86160; 86162; 86225; 86235; 86255; 86376; 86431; 87086; 87426; 87804; 87806; 93922; 93930; 96372; 97150; 97165; 99285; J0696; J1200; J1630; J2060; J3486; Q0162; Q0163

== ENCOUNTER → 2023-10-06 14:46 | Outpatient (BNVA) | payer MEDICAID, SELFPAY | PROVIDERS: PCP Nurse Practitioner Family; Visit Provider Registered Nurse Neonatal Intensive Care | DX: R39.9 Unspecified symptoms and signs involving the genitourinary system (principal); N39.0 Urinary tract infection, site not specified | CPT/HCPCS: 81000; 87086 ==

== ENCOUNTER 2024-02-26 14:40 | Emergency (ER) | payer MEDICAID, SELFPAY ==
[2024-02-26 14:53] VITALS: BP 167/99; PULSE 90; RESP 16; TEMP 37.2; O2SAT 99
[2024-02-26 15:20] LABS: Basophils # 0.1 10^3/uL (0.0-0.1); Basophils % 0.6 %; Eosinophils # 0.1 10^3/uL (0.0-0.8); Eosinophils % 0.6 %; Lymphocytes # 2.5 10^3/uL (0.8-4.8); Lymphocytes % 26.7 %; Mean Corpuscular HGB Conc 33.6 g/dL (30-55); Mean Corpuscular Volume 89.3 fl (85-98); Mean Platelet Volume 9.2 fL (7.4-10.4); Monocytes # 0.6 10^3/uL (0.2-0.9); Monocytes % 6.3 %; Neutrophils # 6.22 10^3/uL (1.8-7.7); Neutrophils % 65.6 %; Nucleated Red Blood Cells % 0 %; Platelet Count 272 10^3/cmm (157-399); Red Blood Count 5.04 10^6/uL (3.85-5.65); Red Cell Distribution Width 12.6 % (12.1-15.1)
[2024-02-26 15:41] LABS: Alanine Aminotransferase 39 U/L (0-33); Albumin Level 4.5 g/dL (3.5-5.2); Alkaline Phosphatase 43 U/L (35-105); Anion Gap 19.2 (5-19); Aspartate Amino Transferase 25 U/L (0-32); Blood Urea Nitrogen 10 mg/dL (6-20); Calcium 9.5 mg/dL (8.5-10.5); Carbon Dioxide 24 mmol/L (22-29); Chloride 100 mmol/L (98-107); Creatinine Clr Calc Pharmacy 115.3612; Glomerular Filtration Rate 69.7 mL/min (90-130); Glucose 94 mg/dL (65-115); Osmolality Calculated 287 mOsm/kg (285-295); Potassium 4.2 mmol/L (3.5-5.1); Sodium 139 mmol/L (136-145); Total Bilirubin 0.2 mg/dL (0.15-1.2); Total Protein 7.5 g/dL (6.6-8.7)
--- NOTE | 2024-02-26 15:45 | XRR_ITS ---
PROCEDURE INFORMATION: Exam: XR Chest Exam date and time: 02/26/2024 4:25 PM Age: 38 years old Clinical indication: Shortness of breath; Additional info: Dizzy TECHNIQUE: Imaging protocol: Radiologic exam of the chest. Views: 1 view. COMPARISON: No relevant prior studies available. FINDINGS: Lungs: Unremarkable. No consolidation. Pleural spaces: Unremarkable. No pleural effusion. No pneumothorax. Heart/Mediastinum: Unremarkable. No cardiomegaly. Bones/joints: Unremarkable. XR/XR chest 1V portable [id number] IMPRESSION: No acute findings.
--- NOTE | 2024-02-26 15:45 | ECG_ITS ---
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 Measurements Intervals Cerulean Rate: 78 P: 66 [place]: 156 QRS: 67 QRSD: 84 T: 55 QT: 387 QTc: 441 Interpretive Statements SINUS RHYTHM NONSPECIFIC T-WAVE ABNORMALITY Compared to ECG 08/01/2020 18:30:36 T-wave abnormality now present Sinus bradycardia no longer present Electronically Signed On 02-27-2024 0:55:34 CDT by Daiana Rose M.D. [id number]
--- NOTE | 2024-02-26 16:05 | CTR_ITS ---
PROCEDURE INFORMATION: Exam: CT Head Without Contrast Exam date and time: 02/26/2024 4:11 PM Age: 38 years old Clinical indication: Stroke-like symptoms; Altered mental status/memory loss; Additional info: Confusion TECHNIQUE: Imaging protocol: Computed tomography of the head without contrast. Radiation optimization: All CT scans at this facility use at least one of these dose optimization techniques: automated exposure control; mA and/or kV adjustment per patient size (includes targeted exams where dose is matched to clinical indication); or iterative reconstruction. Other technique: STROKE PROTOCOL was implemented. COMPARISON: CT head wo con* [id number] 07/21/2020 9:34 AM RADIATION DOSE METRICS: Total DLP (mGy-cm): 1109 FINDINGS: Brain: Normal. No hemorrhage. Unremarkable white matter. No mass effect or acute infarct. Cerebral ventricles: No ventriculomegaly. No midline shift. Paranasal sinuses: Visualized sinuses are unremarkable. No fluid levels. Mastoid air cells: Visualized mastoid air cells are well aerated. Bones: Unremarkable. No acute fracture. Soft tissues: Unremarkable. CT/CT head wo con* [id number] IMPRESSION: No acute intracranial abnormality. ASSESSMENT: ASPECTS (Sharlene Stroke Program Early CT Score) is 10.
--- NOTE | 2024-02-26 16:06 | ED_ITS ---
HPI - Weakness 2 General: Chief complaint: Weakness Stated complaint: referral from [facility] care, [place], confusion, dizziness Time Seen by Provider: 02/26/24 15:54 Source: patient Mode of arrival: ambulatory Limitations: no limitations History of Present Illness: 38-year-old female states she had a head ache on Friday and Friday states it felt like a migraine headache was not severe or worst headache of her life states she had seen Wesley Cesar yesterday had 2 shots unsure what they were but states since then she has felt shaky and has had a brain fog and felt confused at times she is answering all my questions appropriately denies any slurred speech no focal deficits. Associated symptoms: Reports confusion and headache(s); Denies chest pain, chills, fever(s), nausea or vomiting Review of Systems 2 Const: Denies: fever(s), chills, body aches or change in appetite ENMT: Denies: throat pain or dental pain Card: Denies: chest pain Resp: Denies: dyspnea GI: Denies: abdominal pain, nausea, vomiting or diarrhea Musc: Denies: neck pain or back pain Skin/Breast: Denies: rash Neuro: Reports: headache(s) and confusion PFSH ED 2 PFSH: Medical History Raynauds disease Obesity Hyperlipidemia Hypertension Mental health disorder Drug abuse Social History Smoking and tobacco/nicotine status: current every day tobacco/nicotine user Physical Exam 2 Const: COMMON NORMALS: no acute distress, patient oriented x3 and healthy appearing HENMT: COMMON NORMALS: normocephalic and atraumatic HEAD & SCALP: n ormocephalic and atraumatic Eye: COMMON NORMALS: Equal, round and reactive pupils present and EOMs intact bilaterally PUPIL: Yes Equal, round and reactive pupils present Neck/C-Spine: COMMON NORMALS: full ROM and supple Chest: COMMONS NORMALS: normal inspection of the chest and normal palpation of entire chest wall Resp: COMMON NORMALS: normal respiratory effort, No retractions, No use of accessory muscles and clear to auscultation bilaterally AUSCULTATION: clear to auscultation bilaterally Cardio: COMMON NORMALS: regular rate, regular rhythm and No murmurs present (Cardio) RATE: regular rate RHYTHM: regular rhythm Extremity: COMMON NORMALS: normal to inspection and full ROM Neuro: COMMON NORMALS: patient oriented x3, moves all extremities and no focal motor deficits CRANIAL NERVES: Yes CN normal except as noted SPEECH: s peech normal GAIT: Yes Normal gait present MOTOR EXAM: 5/5 motor strength present throughout Psych: COMMON NORMALS: mental status grossly normal, Normal thought process present and cooperative THOUGHT PROCESS: Normal thought process present Skin: COMMON NORMALS: no rashes or lesions noted and no wounds GENERAL SKIN EXAM: no rashes or lesions noted Course 2 Vital Signs: Vital signs: Vital Signs Temperature 98.9 F 02/26/24 14:53 Pulse Rate 84 02/26/24 16:41 Respiratory Rate 16 02/26/24 16:41 Blood Pressure 142/102 02/26/24 16:41 Pulse Oximetry 96 02/26/24 16:41 Oxygen Delivery Me thod Room Air 02/26/24 14:53 MDM - Weakness Medical Decision Making Patient presents here with generalized weakness she had a headache that is since resolved she is well-appearing here blood works normal head CT is normal she has no signs of subarachnoid hemorrhage or meningitis patient is stable for discharge follow-up PCP return if worsening. Medical Records I reviewed the patient's medical records. Lab Data I reviewed the patient's lab results. 02/26/24 15:14 02/26/24 15:[address] 02/26/24 16:05 IMPRESSION: No acute intracranial abnormality. ASSESSMENT: ASPECTS (Otley Stroke Program Early CT Score) is 10. Laboratory Results WBC 9.50 10^3/uL (3.29-11.43) 02/26/24 15:14 RBC 5.04 10^6/uL (3.85-5.65) 02/26/24 15:14 Hgb 15.10 g/dL (11.27-16.99) 02/26/24 15:14 Hct 45.0 % (36-47) 02/26/24 15:14 MCV 89.3 fl (85-98) 02/26/24 15:14 MCH 30.0 pg (27-33) 02/26/24 15:14 MCHC 33.6 g/dL (30-55) 02/26/24 15:14 RDW 12.6 % (12.1-15.1) 02/26/24 15:14 Plt Count 272 10^3/cmm (157-399) 02/26/24 15:14 MPV 9.2 fL (7.4-10.4) 02/26/24 15:14 Neut % (Auto) 65.6 % 02/26/24 15:14 Lymph % (Auto) 26.7 % 02/26/24 15:14 Kimball % (Auto) 6.3 % 02/26/24 15:14 Eos % (Auto) 0.6 % 02/26/24 15:14 Baso % (Auto) 0.6 % 02/26/24 15:14 Neut # (Auto) 6.22 10^3/uL (1.8-7.7) 02/26/24 15:14 Lymph # (Auto) 2.5 10^3/uL (0.8-4.8) 02/26/24 15:14 Kimball # (Auto) 0.6 10^3/uL (0.2-0.9) 02/26/24 15:14 Eos # (Auto) 0.1 10^3/uL (0.0-0.8) 02/26/24 15:14 Baso # (Auto) 0.1 10^3/uL (0.0-0.1) 02/26/24 15:14 Nucleated RBC % (auto) 0 % 02/26/24 15:14 Nucleated RBCs # 0.0 /100WBC 02/26/24 15:14 Sodium 139 mmol/L (136-145) 02/26/24 15:14 Potassium 4.2 mmol/L (3.5-5.1) 02/26/24 15:14 Chloride 100 mmol/L (98-107) 02/26/24 15:14 Carbon Dioxide 24 mmol/L (22-29) 02/26/24 15:14 Anion Gap 19.2 (5-19) H 02/26/24 15:14 BUN 10 mg/dL (6-20) 02/26/24 15:14 Creatinine 0.9 mg/dL (0.5-0.9) 02/26/24 15:14 GFR Calculation 69.7 mL/min (90-130) L 02/26/24 15:14 Glucose 94 mg/dL (65-115) 02/26/24 15:14 Calculated Osmolality 287 mOsm/kg (285-295) 02/26/24 15:14 Calcium 9.5 mg/dL (8.5-10.5) 02/26/24 15:14 Total Bilirubin 0.2 mg/dL (0.15-1.2) 02/26/24 15:14 AST 25 U/L (0-32) 02/26/24 15:14 ALT 39 U/L (0-33) H 02/26/24 15:14 Alkaline Phosphatase 43 U/L (35-105) 02/26/24 15:14 Total Protein 7.5 g/dL (6.6-8.7) 02/26/24 15:14 Albumin 4.5 g/dL (3.5-5.2) 02/26/24 15:14 Globulin 3.0 g/dL (1.3-4.6) 02/26/24 15:14 Urine Color Yellow (Yellow) 02/26/24 16:14 Urine Appearance Slightly cloudy (CLEAR) 02/26/24 16:14 Urine pH 5 (5-7) 02/26/24 16:14 Ur Specific Marks 1.010 (1.005-1.030) 02/26/24 16:14 Urine Protein Neg (Negative) 02/26/24 16:14 Urine Glucose (UA) Norm (Normal) 02/26/24 16:14 Urine Ketones Negative (Negative) 02/26/24 16:14 Urine Blood 2+ (Negative) H 02/26/24 16:14 Urine Nitrate Negative (Negative) 02/26/24 16:14 Urine Bilirubin Neg (Negative) 02/26/24 16:14 Urine Urobilinogen Norm mg/dL (Negative) 02/26/24 16:14 Ur Leukocyte Esterase 1+ (Negative) H 02/26/24 16:14 Urine RBC 0-4 /hpf (0-2) H 02/26/24 16:14 Urine WBC 15-25 /hpf (0-5) H 02/26/24 16:14 Ur Squamous Epith Cells 11-20 /hpf (0-5) 02/26/24 16:14 Amorphous Sediment Not Reportable 02/26/24 16:14 Urine Bacteria Trace /hpf (NONE) 02/26/24 16:14 All radiology interpretation(s) finalized by discharge EKG Data EKG 1: I personally reviewed and interpreted this EKG as follows: EKG interpretation date: 02/26/24 EKG interpretation time: 16:03 Interpretation: nsr hr [address] elevation qrs 84 qtc 420 Discharge Plan Discharge Patient Disposition: Home Clinical Impression: Headache, Generalized weakness Condition: Stable Prescriptions: No Action nitrofurantoin monohyd/m-cryst [Macrobid] 100 mg capsule 100 mg PO BID 5 Days Qty: 10 0RF Rx Instructions: must administer with a meal/food ibuprofen 200 mg Tablet 800 mg PO PRN MDD 2 PRN (Reason: Back Pain) Rx Instructions: BID / PRN Saline Nasal 0.65 % Aerosol,[place] 1 - 2 spray INTRANASAL DAILY PRN (Reason: Allergy Symptoms) amlodipine 5 mg tablet 5 mg PO BID Qty: 60 2RF sennosides-docusate sodium [Colace 2-In-1] 8.6-50 mg tablet 2 tab-cap PO BID PRN (Reason: constipation) Qty: 60 0RF nifedipine 30 mg Tablet Extended Release 24hr 30 mg PO DAILY 30 Days Qty: 30 1RF aspirin 81 mg Tablet,Delayed Release (Dr/Ec) 81 mg PO DAILY 30 Days Qty: 30 1RF divalproex 500 mg Tablet Extended Release 24 Hr 1,000 mg PO 0900 30 Days Qty: 60 1RF Keisha-Hex 4 % Liquid 1 applic topical 0900,2100 30 Days Qty: 1 1RF trazodone 100 mg tablet 100 mg PO BEDTIME PRN (Reason: Sleep) 30 Days Qty: 30 1RF zinc oxide 20 % Ointment 1 applic topical PRN PRN (Reason: Skin Protectant) 30 Days Qty: 1 1RF Invega Sustenna 156 mg/mL syringe 156 mg IM Q30D 30 Days Qty: 1 1RF Rx Instructions: Next injection 09/13/22 atorvastatin 20 mg tablet 20 mg PO DAILY 30 Days Qty: 30 1RF cetirizine 10 mg tablet 10 mg PO DAILY 30 Days Qty: 30 1RF sildenafil 25 mg tablet 25 mg PO DAILY 30 Days Qty: 30 1RF gabapentin 300 mg capsule 300 mg PO BID 30 Days Qty: 60 1RF Discharge Orders: Discharge ED (Routine); Ordered 02/26/24 Ordered By: Korby Janki Referrals: Kirsten Pearce [Primary Care Provider] - 4-7 days Discharge Diet: Advance as tolerated Discharge Activity: Resume usual activity Patient Instructions: Weakness (ED), General Headache (ED) Coding Level of Care Code ED Insole Tape Stitcher [place] for Maritza Cherry
[2024-02-26] MEDS: sodium chloride 0.9% 1,000 ML 999 ML IV (16:32)
[2024-02-26 16:41] VITALS: BP 142/102; PULSE 84; RESP 16; O2SAT 96
[2024-02-26 17:28] LABS: Add Urine Microscopic? YES; Bilirubin Urine Neg (Negative); Blood Urine 2+ (Negative); Glucose Urine UA Norm (Normal); Ketones Urine Negative (Negative); Leukocyte Esterase Urine 1+ (Negative); Nitrate Urine Negative (Negative); Protein Urine Neg (Negative); Urine Appearance Slightly Cloudy (CLEAR); Urine Color Yellow (Yellow); Urobilinogen Urine Norm (Negative); pH Urine 5 (5-7)
[2024-02-26 17:29] LABS: Add Urine Culture? No; Bacteria Urine TRACE /hpf; RBC Urine 0-4 /hpf (0-2); WBC Urine 15-25 /hpf (0-5)
[2024-02-26 17:41] VITALS: BP 119/94; PULSE 76; RESP 16; O2SAT 97
[2024-02-26 17:47] VITALS: BP 119/94; PULSE 76; RESP 16; TEMP 37.2; O2SAT 97
== END 2024-02-26 17:45 | disposition home or self-care (01) ==
PROVIDERS: Emergency Provider Emergency Medicine; PCP Nurse Practitioner Family
DX: R51.9 Headache, unspecified (principal); R53.1 Weakness; Z79.82 Long term (current) use of aspirin; Z72.0 Tobacco use; E78.5 Hyperlipidemia, unspecified; I10 Essential (primary) hypertension
CPT/HCPCS: 36415; 70450; 71045; 80053; 81001; 85025; 93005; 99285; J7030

== ENCOUNTER 2024-11-10 12:31 | Inpatient (IN) | payer MEDICAID, SELFPAY ==
[2024-11-10 12:40] VITALS: BP 164/88; PULSE 119; RESP 20; TEMP 36.8; O2SAT 96; BMI 41.8
[2024-11-10 13:30] LABS: Basophils # 0.1 10^3/uL (0.0-0.1); Basophils % 0.5 %; Eosinophils # 0.1 10^3/uL (0.0-0.8); Eosinophils % 1.2 %; Hematocrit 38.4 % (36-47); Lymphocytes # 1.8 10^3/uL (0.8-4.8); Lymphocytes % 19.3 %; Mean Corpuscular HGB Conc 32.8 g/dL (30-55); Mean Corpuscular Hemoglobin 29.8 pg (27-33); Mean Corpuscular Volume 90.8 fl (85-98); Mean Platelet Volume 8.9 fL (7.4-10.4); Monocytes # 0.6 10^3/uL (0.2-0.9); Monocytes % 6.7 %; Neutrophils # 6.63 10^3/uL (1.8-7.7); Neutrophils % 71.3 %; Nucleated Red Blood Cells % 0 %; Platelet Count 332 10^3/cmm (157-399); Red Blood Count 4.23 10^6/uL (3.85-5.65); Red Cell Distribution Width 11.9 % (12.1-15.1); White Blood Count 9.29 10^3/uL (3.29-11.43)
[2024-11-10 13:36] LABS: Erythrocyte Sedimentation Rate 25 mm/hr (0-15)
[2024-11-10 13:47] LABS: Alanine Aminotransferase 19 U/L (0-33); Albumin Level 3.8 g/dL (3.5-5.2); Alkaline Phosphatase 75 U/L (35-105); Anion Gap 19.9 (5-19); Aspartate Amino Transferase 17 U/L (0-32); Blood Urea Nitrogen 12 mg/dL (6-20); Carbon Dioxide 23 mmol/L (22-29); Chloride 99 mmol/L (98-107); Creatinine Clr Calc Pharmacy 115.7406; Globulin 3.8 g/dL (1.3-4.6); Glomerular Filtration Rate 69.3 mL/min (90-130); Glucose 158 mg/dL (65-115); Osmolality Calculated 289 mOsm/kg (285-295); Potassium 3.9 mmol/L (3.5-5.1); Sodium 138 mmol/L (136-145); Total Bilirubin 0.2 mg/dL (0.15-1.2); Total Protein 7.6 g/dL (6.6-8.7)
--- NOTE | 2024-11-10 13:58 | W.ED.SKABFB ---
HPI - Skin/Abscess/Foreign Bdy General: Chief complaint: Skin/Abscess/Foreign Body Stated complaint: [facility] [place] sent infection in right leg Time Seen by Provider: 11/10/24 13:36 History of Present Illness: 39-year-old female presents emergency room was seen at a local clinic complaining of infection in her right leg. Patient was seen late last week started on Bactrim despite this is continued to worsen. No fever at home she has been taking Tylenol Associated symptoms: Deny chills or fever(s) Related Data Home Medications ?Medication ?Instructions ?Recorded ?Confirmed gabapentin 100 mg capsule 100 mg PO TID 11/10/24 11/10/24 mupirocin 2 % topical ointment 1 applic topical BID 11/10/24 11/10/24 nifedipine 60 mg tablet,extended 60 mg PO DAILY 11/10/24 11/10/24 release 24 hr sulfamethoxazole 800 1 tab PO Q12H 11/10/24 11/10/24 mg-trimethoprim 160 mg tablet Previous Rx's ?Medication ?Instructions ?Recorded aspirin 81 mg tablet,delayed 81 mg PO DAILY 30 days #30 tabs 08/14/22 release atorvastatin 20 mg tablet 20 mg PO DAILY 30 days #30 tabs 08/14/22 cetirizine 10 mg tablet 10 mg PO DAILY 30 days #30 tabs 08/14/22 divalproex 500 mg tablet,extended 1,000 mg (2 x 500 mg) PO 0900 30 08/14/22 release 24 hr days #60 tabs trazodone 100 mg tablet 100 mg PO BEDTIME PRN Sleep 30 08/14/22 days #30 tabs Allergies Allergy/AdvReac Type Severity Reaction Status Date / Time amoxicillin Allergy Unknown Unknown Verified 11/10/24 12:43 cod liver oil Allergy ADR-Anxiety Verified 11/10/24 12:43 Penicillins Allergy Unknown Verified 11/10/24 12:43 Review of Systems Const: Denies: fever(s) or chills Card: Denies: chest pain Resp: Denies: dyspnea GI: Denies: abdominal pain : Denies: dysuria, urinary frequency or urinary urgency Musc: Denies: neck pain or back pain Skin/Breast: Reports: erythema and skin tenderness [facility] ED PFSH: Medical History Raynauds disease Obesity Hyperlipidemia Hypertension Mental health disorder Drug abuse Social History Smoking and tobacco/nicotine status: current every day tobacco/nicotine user Physical Exam Const: GENERAL APPEARANCE: cooperative ORIENTATION/CONSCIOUSNESS: Yes awake, Yes oriented to person, Yes oriented to place and Yes oriented to time HENMT: COMMON NORMALS: normocephalic, atraumatic and hearing grossly normal bilaterally HEAD & SCALP: normocephalic and atraumatic Resp: COMMON NORMALS: normal respiratory effort, No retractions, No use of accessory muscles and clear to auscultation bilaterally AUSCULTATION: clear to auscultation bilaterally Cardio: COMMON NORMALS: regular rate, regular rhythm and No murmurs present (Cardio) RATE: regular rate RHYTHM: regular rhythm GI: COMMON NORMALS: Soft to palpation and No hepatosplenomegaly present AUSCULTATION: Yes normoactive bowel sounds PALPATION: Yes Soft to palpation, No Tenderness to palpation present (GI), No Guarding due to palpation present (GI) and Yes No hepatosplenomegaly present Extremity: COMMON NORMALS: normal to inspection, capillary refill normal, no clubbing, cyanosis or edema, no calf tenderness and no pedal edema Neuro: SENSORIUM/ORIENTATION: Yes oriented to person, Yes oriented to place and Yes oriented to time Skin: OTHER: Thickened indurated skin posterior proximal medial thigh extends about 8 inches in length angling up towards the perineum. There is a dry eschar in place inferiorly no active drainage is not fluctuant to palpation it is indurated but mildly erythematous tender to the touch. No bleeding from rectum. Swelling extends to the perineum. Course Vital Signs: Vital signs: Vital Signs Temperature 98.7 F 11/11/24 07:41 Pulse Rate 77 11/11/24 07:41 Respiratory Rate 16 11/11/24 07:40 Blood Pressure 103/66 11/11/24 07:41 Pulse Oximetry 91 11/11/24 07:41 Oxygen Delivery Me thod Room Air 11/11/24 07:41 MDM - Skin/Abscess/Foreign Bdy Medicial Decision Making CT does not show any abscess. Will admit with IV vancomycin discussed with hospitalist consult surgery to monitor as well. Patient has failed outpatient therapy Medical Records I reviewed the patient's medical records. Lab Data I reviewed the patient's lab results. 11/11/24 05:16 11/11/24 05:[address] 11/10/24 14:08 IMPRESSION: Induration in the RIGHT perineum compatible with cellulitis. No evidence of drainable fluid collection or abscess. Induration extends into the mid and distal medial thigh soft tissues. Laboratory Results WBC 9.29 10^3/uL (3.29-11.43) 11/10/24 13:02 RBC 4.23 10^6/uL (3.85-5.65) 11/10/24 13:02 Hgb 12.60 g/dL (11.27-16.99) 11/10/24 13:02 Hct 38.4 % (36-47) 11/10/24 13:02 MCV 90.8 fl (85-98) 11/10/24 13:02 MCH 29.8 pg (27-33) 11/10/24 13:02 MCHC 32.8 g/dL (30-55) 11/10/24 13:02 RDW 11.9 % (12.1-15.1) L 11/10/24 13:02 Plt Count 332 10^3/cmm (157-399) 11/10/24 13:02 MPV 8.9 fL (7.4-10.4) 11/10/24 13:02 Neut % (Auto) 71.3 % 11/10/24 13:02 Lymph % (Auto) 19.3 % 11/10/24 13:02 [place] % (Auto) 6.7 % 11/10/24 13:02 Eos % (Auto) 1.2 % 11/10/24 13:02 Baso % (Auto) 0.5 % 11/10/24 13:02 Neut # (Auto) 6.63 10^3/uL (1.8-7.7) 11/10/24 13:02 Lymph # (Auto) 1.8 10^3/uL (0.8-4.8) 11/10/24 13:02 [place] # (Auto) 0.6 10^3/uL (0.2-0.9) 11/10/24 13:02 Eos # (Auto) 0.1 10^3/uL (0.0-0.8) 11/10/24 13:02 Baso # (Auto) 0.1 10^3/uL (0.0-0.1) 11/10/24 13:02 Nucleated RBC % (auto) 0 % 11/10/24 13:02 Nucleated RBCs # 0.0 /100WBC 11/10/24 13:02 ESR 25 mm/hr (0-15) H 11/10/24 13:02 Sodium 138 mmol/L (136-145) 11/10/24 13:02 Potassium 3.9 mmol/L (3.5-5.1) 11/10/24 13:02 Chloride 99 mmol/L (98-107) 11/10/24 13:02 Carbon Dioxide 23 mmol/L (22-29) 11/10/24 13:02 Anion Gap 19.9 (5-19) H 11/10/24 13:02 BUN 12 mg/dL (6-20) 11/10/24 13:02 Creatinine 0.9 mg/dL (0.5-0.9) 11/10/24 13:02 GFR Calculation 69.3 mL/min (90-130) L 11/10/24 13:02 Glucose 158 mg/dL (65-115) H 11/10/24 13:02 Estimat Average Glucose 91 11/10/24 13:02 Hemoglobin A1c 4.8 % (4.0-6.0) 11/10/24 13:02 Calculated Osmolality 289 mOsm/kg (285-295) 11/10/24 13:02 Calcium 9.0 mg/dL (8.5-10.5) 11/10/24 13:02 Magnesium 2.2 mg/dL (1.7-2.3) 11/10/24 13:02 Total Bilirubin 0.2 mg/dL (0.15-1.2) 11/10/24 13:02 AST 17 U/L (0-32) 11/10/24 13:02 ALT 19 U/L (0-33) 11/10/24 13:02 Alkaline Phosphatase 75 U/L (35-105) 11/10/24 13:02 C-Reactive Protein 31.0 mg/L (0.0-4.9) H 11/10/24 13:02 Total Protein 7.6 g/dL (6.6-8.7) 11/10/24 13:02 Albumin 3.8 g/dL (3.5-5.2) 11/10/24 13:02 Globulin 3.8 g/dL (1.3-4.6) 11/10/24 13:02 All radiology interpretation(s) finalized by discharge Discharge Plan Discharge Patient Disposition: Placed in Observation Admit Provider: Odalis Weir Clinical Impression: Cellulitis of perineum Coding Level of Care Code ED Windscreen Fitter for Maritza Cherry
--- NOTE | 2024-11-10 14:08 | CT_ITS ---
WS: [id number] CT pelvis TECHNIQUE: Contrast-enhanced CT of the pelvis with coronal and sagittal reformatted images. CLINICAL INFORMATION: abscess COMPARISON: None. DLP: 1210.[address] scans at [facility] use at least one of these dose optimization techniques: automated exposure control; mA and/or kV adjustment per patient size (includes targeted exams where dose is matched to clinical indication); or iterative reconstruction. FINDINGS: Induration with skin thickening in the RIGHT perineum extending into the mid and distal RIGHT thigh. No evidence of drainable abscess or fluid collection. No free fluid in the abdomen or pelvis. Multi follicular ovaries. Normal sigmoid colon. Disc space narrowing L4-L5 and L5-S1. Anteverted uterus. CT/CT pelvis w con* [id number] IMPRESSION: Induration in the RIGHT perineum compatible with cellulitis. No evidence of ashley inable fluid collection or abscess. Induration extends into the mid and distal medial thigh soft tissues.
--- NOTE | 2024-11-10 16:16 | PM.HP ---
Providers/Chief Complaint Primary Care Provider: Kirsten Pearce Chief Complaint: Olson Livingston sent infection in right leg History of Present Illness Noni Rodríguez is a 39 year old female who presented to the hospital with chief complaint of groin pain and right thigh redness. Patient is stating that her symptoms started last , she has been noticing some tightness, pain and discomfort around her groin area she has not noticed any fever, nausea, vomiting or diarrhea. No rigors or chills. She is not endorsing history of diabetes. Does not smoke or drink alcohol. Endorses electronic cigarettes. Patient uses razor to remove hair around her groin area. Workup in the ER consistent with nonpurulent cellulitis CT scan of pelvis did not show any abscess. She does have significant induration on clinical exam. 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 Requested clindamycin, vancomycin and aztreonam because of penicillin allergy Review of Systems Const: Denies: fever(s) Eyes: Denies: change in vision ENMT: Denies: throat pain Card: Denies: chest pain Resp: Denies: dyspnea GI: Denies: abdominal pain Skin/Breast: Reports: rash, pruritus and skin tenderness Medications/Allergies Home Medications ?Medication ?Instructions ?Recorded ?Confirmed ?Last Taken ?Type aspirin 81 mg tablet,delayed 81 mg PO DAILY 30 days #30 tabs 08/14/22 11/10/24 11/10/24 Rx release atorvastatin 20 mg tablet 20 mg PO DAILY 30 days #30 tabs 08/14/22 11/10/24 11/10/24 Rx cetirizine 10 mg tablet 10 mg PO DAILY 30 days #30 tabs 08/14/22 11/10/24 Unknown Rx divalproex 500 mg tablet,extended 1,000 mg (2 x 500 mg) PO 0900 30 08/14/22 11/10/24 11/10/24 Rx release 24 hr days #60 tabs trazodone 100 mg tablet 100 mg PO BEDTIME PRN Sleep 30 08/14/22 11/10/24 Unknown Rx days #30 tabs gabapentin 100 mg capsule 100 mg PO TID 11/10/24 11/10/24 11/10/24 History mupirocin 2 % topical ointment 1 applic topical BID 11/10/24 11/10/24 11/10/24 History nifedipine 60 mg tablet,extended 60 mg PO DAILY 11/10/24 11/10/24 11/10/24 History release 24 hr sulfamethoxazole 800 1 tab PO Q12H 11/10/24 11/10/24 11/10/24 History mg-trimethoprim 160 mg tablet Allergies Allergy/AdvReac Type Severity Reaction Status Date / Time amoxicillin Allergy Unknown Unknown Verified 11/10/24 12:43 cod liver oil Allergy ADR-Anxiety Verified 11/10/24 12:43 Penicillins Allergy Unknown Verified 11/10/24 12:43 PFSH Acute PFSH: Medical History Raynauds disease Obesity Hyperlipidemia Hypertension Mental health disorder Drug abuse Social History Smoking and tobacco/nicotine status: current every day tobacco/nicotine user Vitals/I&O/Wt Last Vital Signs Temp 98.2 F 11/10/24 12:40 Pulse 119 H 11/10/24 12:40 Resp 20 H 11/10/24 12:40 BP 164/88 11/10/24 12:40 Pulse Ox 96 11/10/24 12:40 O2 Del Method Room Air 11/10/24 12:40 Weight last 48 hrs Weight 124.738 kg Physical Exam Narrative: Nonpurulent cellulitis right perineal area extending to medial thigh area is warm and tender to touch. Area has been demarcated No active drainage Significant induration posterior perineal area No active drainage There is a scab with signs of granulation tissue No active purulence noted Awake and alert Morbidly obese Hemodynamic stable On room air Pleasant and cooperative Data 11/10/24 13:02 11/10/24 13:02 Micro: Microbiology 11/10/24 14:33 Blood Culture - Preliminary Blood SPECIMEN COLLECTED 11/10/24 14:31 Blood Culture - Preliminary Blood SPECIMEN COLLECTED A&P Assessment and plan (1) Cellulitis of perineum: Plan Nonpurulent cellulitis of perineal area with extension to right thigh No signs of Dianna's gangrene CT pelvis did not show any abscess No active fever No sign of sepsis For toxin suppression secondary to progressive cellulitis I will use clindamycin along vancomycin and aztreonam Rule out type 2 diabetes will request hemoglobin A1c Patient uses razor to remove around her perineal area. She is also endorsing similar episodes in her left axillary area in the past Will keep her on consistent carb diet use insulin sliding scale Will use anti-inflammatory medication along opioids: Area has been demarcated Patient has been counseled on not using razor DVT prophylaxis: On board Full code PDMP PDMP Reviewed: Not Reviewed Attestations Medical Necessity Statement*: anticipaiting DC in 48 hrs Diagnoses Cellulitis of perineum L03.315
[2024-11-10] MEDS: morphine 4 mg/mL SDV 1 mL 2 MG IVP (16:39)
[2024-11-10] MEDS: ketorolac 30 mg/mL INJ IVP (16:39)
[2024-11-10 17:48] LABS: Glucose Point of Care 102 mg/dL (70-110)
[2024-11-10 18:07] LABS: Magnesium 2.2 mg/dL (1.7-2.3)
[2024-11-10 18:08] VITALS: PULSE 80; RESP 16; O2SAT 95
[2024-11-10 18:09] VITALS: BMI 42.3
[2024-11-10] MEDS: vancomycin 2,000 MG/400 ML PIGGYBACK 200 MG IV (18:43)
[2024-11-10 20:00] VITALS: BP 114/75; PULSE 78; RESP 17; TEMP 37.1; O2SAT 94
--- NOTE | 2024-11-10 20:00 | PHA.VACGOAL ---
Vancomycin Goal - Goal Vancomycin Goal:: 10-15 mg/L Vancomycin Indication:: SSTI - Therapy Current therapy:: Clindamycin, Other Antibiotic (AZTREONAM) Day of therpy:: Day [1]of [] . Actual body weight (kg): 126.325 kg - Data Labs: WBC 9.29 10^3/uL (3.29-11.43) 11/10/24 13:02 RBC 4.23 10^6/uL (3.85-5.65) 11/10/24 13:02 Hgb 12.60 g/dL (11.27-16.99) 11/10/24 13:02 Hct 38.4 % (36-47) 11/10/24 13:02 MCV 90.8 fl (85-98) 11/10/24 13:02 MCH 29.8 pg (27-33) 11/10/24 13:02 MCHC 32.8 g/dL (30-55) 11/10/24 13:02 RDW 11.9 % (12.1-15.1) L 11/10/24 13:02 Sodium 138 mmol/L (136-145) 11/10/24 13:02 Potassium 3.9 mmol/L (3.5-5.1) 11/10/24 13:02 Chloride 99 mmol/L (98-107) 11/10/24 13:02 Carbon Dioxide 23 mmol/L (22-29) 11/10/24 13:02 Anion Gap 19.9 (5-19) H 11/10/24 13:02 BUN 12 mg/dL (6-20) 11/10/24 13:02 Creatinine 0.9 mg/dL (0.5-0.9) 11/10/24 13:02 GFR Calculation 69.3 mL/min (90-130) L 11/10/24 13:02 Treatment plan:: new consult Regimen:: New start vancomycin for Cellulitis. Loading dose of 2000 mg ordered. Started on maintenance dose of 1500 q12h.
[2024-11-10 20:03] LABS: Estmated Average Glucose 91; Hemoglobin A1C 4.8 % (4.0-6.0)
[2024-11-10] MEDS: gabapentin 100 mg Capsule PO (20:43)
[2024-11-10] MEDS: aztreonam 2,000 MG in sodium chloride 0.9% (plus) 100 ML 200 MG IV (20:47)
--- NOTE | 2024-11-10 20:50 | PM.CONSULT ---
Providers/Reason For Consult Consulting Physician/Specialty*: Dr. Arteaga general surgery Reason for Consult*: Cellulitis Attending Physician: Odalis Weir MD Primary Care Provider: Kirsten Pearce History of Present Illness History of Present Illness Noni Rodríguez is a 39 year old female who presents with right thigh cellulitis and a very small perineal abscess that has already drained spontaneously. Patient failed oral antibiotics and is being admitted. CT scan did not demonstrate any drainable abscesses. Medications/Allergies Home Medications ?Medication ?Instructions ?Recorded ?Confirmed ?Last Taken ?Type aspirin 81 mg tablet,delayed 81 mg PO DAILY 30 days #30 tabs 08/14/22 11/10/24 11/10/24 Rx release atorvastatin 20 mg tablet 20 mg PO DAILY 30 days #30 tabs 08/14/22 11/10/24 11/10/24 Rx cetirizine 10 mg tablet 10 mg PO DAILY 30 days #30 tabs 08/14/22 11/10/24 Unknown Rx divalproex 500 mg tablet,extended 1,000 mg (2 x 500 mg) PO 0900 30 08/14/22 11/10/24 11/10/24 Rx release 24 hr days #60 tabs trazodone 100 mg tablet 100 mg PO BEDTIME PRN Sleep 30 08/14/22 11/10/24 Unknown Rx days #30 tabs gabapentin 100 mg capsule 100 mg PO TID 11/10/24 11/10/24 11/10/24 History mupirocin 2 % topical ointment 1 applic topical BID 11/10/24 11/10/24 11/10/24 History nifedipine 60 mg tablet,extended 60 mg PO DAILY 11/10/24 11/10/24 11/10/24 History release 24 hr sulfamethoxazole 800 1 tab PO Q12H 11/10/24 11/10/24 11/10/24 History mg-trimethoprim 160 mg tablet Allergies Allergy/AdvReac Type Severity Reaction Status Date / Time amoxicillin Allergy Unknown Unknown Verified 11/10/24 12:43 cod liver oil Allergy ADR-Anxiety Verified 11/10/24 12:43 Penicillins Allergy Unknown Verified 11/10/24 12:43 Current Medications Generic Name Dose Route Start Last Admin Trade Name Freq PRN Reason Stop Dose Admin Gabapentin 100 mg 11/10/24 21:00 11/10/24 20:43 Gabapentin 100 Mg Capsule PO 100 mg TID COLLIN Administration Heparin Sodium (Porcine) 5,000 unit 11/10/24 18:00 11/10/24 18:08 Heparin 5,000 Unit/Ml Inj 1 Ml SUBCUT Not Given Q12H [facility] Insulin Human Lispro 0 unit 11/10/24 18:00 11/10/24 17:46 Insulin Lispro 100 Unit/1 Ml SUBCUT Not Given WM&BEDTIME [facility] Protocol PFSH Acute PFSH: Medical History Raynauds disease Obesity Hyperlipidemia Hypertension Mental health disorder Drug abuse Social History Smoking and tobacco/nicotine status: current every day tobacco/nicotine user Vitals/I&O/Wt Last Vital Signs Temp 98.2 F 11/10/24 12:40 Pulse 80 11/10/24 18:08 Resp 16 11/10/24 18:08 BP 164/88 11/10/24 12:40 Pulse Ox 95 11/10/24 18:08 O2 Del Method Room Air 11/10/24 18:09 Weight last 48 hrs Weight 278 lb 8 oz Weight 275 lb Physical Exam Narrative: Chest: Unlabored breathing room air. No lymphadenopathy. Heart: Regular rate and rhythm. Abdomen: Soft, nontender, nondistended. No masses or lymphadenopathy. Cellulitis of perineum and right thigh Data 11/11/24 05:16 11/11/24 05:16 Micro: Microbiology 11/10/24 14:33 Blood Culture - Preliminary Blood SPECIMEN COLLECTED 11/10/24 14:31 Blood Culture - Preliminary Blood SPECIMEN COLLECTED A&P Assessment and plan (1) Cellulitis of perineum: Plan 39-year-old female who presents with right thigh and perineal cellulitis. Surgery consulted to evaluate for any drainable abscesses. Small abscess in the perineum has already drained. No fluctuance or any targets to drain on CT scan. Agree with IV antibiotics. Will follow PDMP PDMP Reviewed: Not Reviewed Coding Level of Care Code 08440 Diagnoses Cellulitis of perineum L03.315
[2024-11-10 21:13] LABS: Glucose Point of Care 142 mg/dL (70-110)
[2024-11-10] MEDS: clindamycin 900 MG/50 ML PREMIX 100 MG IV (21:21)
[2024-11-10] MEDS: trazodone 100 mg Tablet PO (21:22)
[2024-11-10] MEDS: insulin lispro 100 unit/1 mL SUBCUT (21:57)
[2024-11-11] VITALS (8 sets, daily range): BP systolic 103–130; BP diastolic 66–93; PULSE 77–104; RESP 15–17; TEMP 37–37.5; O2SAT 91–98; BMI 42.3
[2024-11-11] MEDS: oxyCODONE-APAP 5-325 mg Tablet 1 TAB PO (02:30)
[2024-11-11] MEDS: clindamycin 900 MG/50 ML PREMIX 100 MG IV ×3 (05:30→23:52)
[2024-11-11] MEDS: heparin 5,000 unit/mL INJ 1 mL 5000 UNIT SUBCUT (05:31)
[2024-11-11 05:40] LABS: Basophils % 0.3 %; Eosinophils # 0.2 10^3/uL (0.0-0.8); Eosinophils % 1.3 %; Hematocrit 40.9 % (36-47); Lymphocytes # 2.1 10^3/uL (0.8-4.8); Lymphocytes % 16.1 %; Mean Corpuscular HGB Conc 32.3 g/dL (30-55); Mean Corpuscular Hemoglobin 29.7 pg (27-33); Mean Corpuscular Volume 91.9 fl (85-98); Mean Platelet Volume 8.6 fL (7.4-10.4); Monocytes # 1.5 10^3/uL (0.2-0.9); Monocytes % 11.6 %; Neutrophils # 8.82 10^3/uL (1.8-7.7); Nucleated Red Blood Cells % 0 %; Platelet Count 402 10^3/cmm (157-399); Red Blood Count 4.45 10^6/uL (3.85-5.65); Red Cell Distribution Width 11.9 % (12.1-15.1); White Blood Count 12.77 10^3/uL (3.29-11.43)
[2024-11-11 05:51] LABS: Anion Gap 17.4 (5-19); Blood Urea Nitrogen 11 mg/dL (6-20); Calcium 9.1 mg/dL (8.5-10.5); Carbon Dioxide 24 mmol/L (22-29); Chloride 98 mmol/L (98-107); Glomerular Filtration Rate 79.4 mL/min (90-130); Glucose 87 mg/dL (65-115); Osmolality Calculated 279 mOsm/kg (285-295); Potassium 4.4 mmol/L (3.5-5.1); Sodium 135 mmol/L (136-145)
[2024-11-11] MEDS: vancomycin 1,500 MG/300 ML PIGGYBACK 200 MG IV ×2 (06:05→17:51)
[2024-11-11 06:29] LABS: Glucose Point of Care 141 mg/dL (70-110)
[2024-11-11] MEDS: aztreonam 2,000 MG in sodium chloride 0.9% (plus) 100 ML 200 MG IV ×2 (09:04→20:55)
[2024-11-11] MEDS: gabapentin 100 mg Capsule PO ×3 (09:04→20:55)
[2024-11-11] MEDS: divalproex ER 500 mg Tablet (24H) 1000 MG PO (09:04)
--- NOTE | 2024-11-11 10:11 | P.PN_ITS ---
Subjective 2 Subjective: Cellulitis improving Vitals/I&O/Wt Last Vital Signs Temp 98.7 F 11/11/24 07:41 Pulse 77 11/11/24 07:41 Resp 16 11/11/24 07:40 BP 103/66 11/11/24 07:41 Pulse Ox 91 11/11/24 07:41 O2 Del Method Room Air 11/11/24 07:41 11/10/24 11/11/24 11/11/24 22:59 06:59 14:59 Intake Total 950 / 950 850 / 1800 660 / 660 Output Total 900 / 900 Balance 950 / 950 850 / 1800 -240 / -240 Weight last 48 hrs Weight 278 lb Weight 278 lb 8 oz Weight 275 lb Physical Exam 2 Narrative: Chest: Unlabored breathing room air. No lymphadenopathy. Heart: Regular rate and rhythm. Abdomen: Soft, nontender, nondistended. No masses or lymphadenopathy. Cellulitis of right thigh and perineum Data 11/11/24 05:16 11/11/24 05:16 Micro: Microbiology 11/10/24 14:33 Blood Culture - Preliminary Blood SPECIMEN COLLECTED 11/10/24 14:31 Blood Culture - Preliminary Blood SPECIMEN COLLECTED A&P Assessment and plan (1) Cellulitis of perineum: Plan 39-year-old female who presented with cellulitis. Agree with antibiotics. Cellulitis improving. No surgical intervention indicated. PDMP PDMP Reviewed: Not Reviewed Attestations 2 Medical Necessity Statement*: N/A Coding Level of Care Code 47036 Diagnoses Cellulitis of perineum L03.315
[2024-11-11 11:02] LABS: Glucose Point of Care 148 mg/dL (70-110)
--- NOTE | 2024-11-11 14:13 | P.PN_ITS ---
Subjective 2 Subjective: Seen today. Patient's rash has improved significantly however there is still an area that is quite erythematous. Vitals/I&O/Wt Last Vital Signs Temp 98.8 F 11/11/24 11:52 Pulse 104 H 11/11/24 11:52 Resp 15 11/11/24 11:52 BP 122/69 11/11/24 11:52 Pulse Ox 94 11/11/24 11:52 O2 Del Method Room Air 11/11/24 11:52 11/10/24 11/11/24 11/11/24 22:59 06:59 14:59 Intake Total 950 / 950 850 / 1800 900 / 900 Output Total 900 / 900 Balance 950 / 950 850 / 1800 0 / 0 Weight last 48 hrs Weight 126.099 kg Weight 126.325 kg Weight 124.738 kg Physical Exam 2 Narrative: Nonpurulent cellulitis right perineal area extending to medial thigh area is warm and tender to touch.?Improving Area has been demarcated?improving No active drainage Significant induration posterior perineal area?improving No active drainage No active purulence noted Awake and alert Morbidly obese Hemodynamic stable On room air Pleasant and cooperative Data 11/11/24 05:16 11/11/24 05:16 Micro: Microbiology 11/10/24 14:33 Blood Culture - Preliminary Blood SPECIMEN COLLECTED 11/10/24 14:31 Blood Culture - Preliminary Blood SPECIMEN COLLECTED A&P Assessment and plan (1) Cellulitis of perineum: Plan Nonpurulent cellulitis of perineal area with extension to right thigh No signs of Dianna's gangrene CT pelvis did not show any abscess No active fever No sign of sepsis For toxin suppression secondary to progressive cellulitis I will use clindamycin along vancomycin and aztreonam Rule out type 2 diabetes will request hemoglobin A1c Patient uses razor to remove around her perineal area. She is also endorsing similar episodes in her left axillary area in the past Will keep her on consistent carb diet use insulin sliding scale Will use anti-inflammatory medication along opioids: Area has been demarcated Patient has been counseled on not using razor DVT prophylaxis: On board Full code 11/11/2024 General Surgery following Continue IV antibiotics at this time. Will stop clindamycin at 48 hours. Continue to hospitalize patient at this time. Will discharge pending cellulitis improvement. Patient will likely require another 24 to 48 hours inpatient. PDMP PDMP Reviewed: Not Reviewed Attestations 2 Medical Necessity Statement*: IV antibiotics for cellulitis. Diagnoses Cellulitis of perineum L03.315
[2024-11-11 17:01] LABS: Glucose Point of Care 124 mg/dL (70-110)
[2024-11-11 20:38] LABS: Glucose Point of Care 95 mg/dL (70-110)
[2024-11-11] MEDS: trazodone 100 mg Tablet PO (20:55)
[2024-11-12] VITALS (7 sets, daily range): BP systolic 126–144; BP diastolic 76–93; PULSE 64–84; RESP 15–16; TEMP 36.4–36.9; O2SAT 93–98; BMI 42.3
[2024-11-12 04:59] LABS: Basophils # 0.1 10^3/uL (0.0-0.1); Basophils % 0.6 %; Eosinophils # 0.2 10^3/uL (0.0-0.8); Eosinophils % 2.9 %; Hematocrit 36.5 % (36-47); Lymphocytes # 2.4 10^3/uL (0.8-4.8); Lymphocytes % 30.6 %; Mean Corpuscular HGB Conc 33.7 g/dL (30-55); Mean Corpuscular Hemoglobin 29.6 pg (27-33); Mean Platelet Volume 8.8 fL (7.4-10.4); Monocytes % 11.9 %; Neutrophils # 4.03 10^3/uL (1.8-7.7); Neutrophils % 50.5 %; Nucleated Red Blood Cells % 0 %; Platelet Count 253 10^3/cmm (157-399); Red Blood Count 4.15 10^6/uL (3.85-5.65); Red Cell Distribution Width 11.8 % (12.1-15.1); White Blood Count 7.98 10^3/uL (3.29-11.43)
[2024-11-12] MEDS: heparin 5,000 unit/mL INJ 1 mL 5000 UNIT SUBCUT ×2 (06:08→17:34)
[2024-11-12] MEDS: vancomycin 1,500 MG/300 ML PIGGYBACK 200 MG IV (06:08)
[2024-11-12 06:16] LABS: Glucose Point of Care 95 mg/dL (70-110)
[2024-11-12 06:24] LABS: Anion Gap 15.6 (5-19); Blood Urea Nitrogen 12 mg/dL (6-20); Calcium 8.7 mg/dL (8.5-10.5); Carbon Dioxide 23 mmol/L (22-29); Chloride 100 mmol/L (98-107); Creatinine Clr Calc Pharmacy 149.7275; Glomerular Filtration Rate 92.7 mL/min (90-130); Glucose 90 mg/dL (65-115); Magnesium 2.2 mg/dL (1.7-2.3); Osmolality Calculated 277 mOsm/kg (285-295); Potassium 4.6 mmol/L (3.5-5.1); Sodium 134 mmol/L (136-145)
[2024-11-12] MEDS: gabapentin 100 mg Capsule PO ×3 (08:07→21:10)
[2024-11-12] MEDS: ketorolac 30 mg/mL INJ 15 MG IVP (08:07)
[2024-11-12] MEDS: divalproex ER 500 mg Tablet (24H) 1000 MG PO (08:07)
[2024-11-12] MEDS: clindamycin 900 MG/50 ML PREMIX 100 MG IV (08:08)
[2024-11-12] MEDS: aztreonam 2,000 MG in sodium chloride 0.9% (plus) 100 ML 200 MG IV ×2 (09:41→21:09)
--- NOTE | 2024-11-12 10:04 | P.PN_ITS ---
Subjective 2 Subjective: Patient feels better Cellulitis improving No fluctuance Vitals/I&O/Wt Last Vital Signs Temp 98.2 F 11/12/24 07:15 Pulse 70 11/12/24 08:42 Resp 16 11/12/24 08:42 BP 135/81 11/12/24 07:15 Pulse Ox 97 11/12/24 08:42 O2 Del Method Room Air 11/12/24 08:42 11/11/24 11/12/24 11/12/24 22:59 06:59 14:59 Intake Total 1030 / 1930 1150 / 3080 600 / 600 Balance 1030 / 1030 1150 / 2180 600 / 600 Weight last 48 hrs Weight 278 lb Weight 278 lb Weight 278 lb 8 oz Weight 275 lb Physical Exam 2 Narrative: Chest: Unlabored breathing room air. No lymphadenopathy. Heart: Regular rate and rhythm. Abdomen: Soft, nontender, nondistended. No masses or lymphadenopathy. Perineum: Cellulitis improving no fluctuance Data 11/12/24 04:38 11/12/24 05:58 Micro: Microbiology 11/10/24 14:33 Blood Culture - Preliminary Blood NEGATIVE TO DATE 11/10/24 14:31 Blood Culture - Preliminary Blood NEGATIVE TO DATE A&P Assessment and plan (1) Cellulitis of perineum: Plan 39-year-old female who presents with cellulitis. No abscess to drain. Continue IV antibiotics. PDMP PDMP Reviewed: Not Reviewed Attestations 2 Medical Necessity Statement*: N/A Coding Level of Care Code 90805 Diagnoses Cellulitis of perineum L03.315
[2024-11-12 10:53] LABS: Glucose Point of Care 113 mg/dL (70-110)
--- NOTE | 2024-11-12 11:52 | P.PN_ITS ---
Subjective 2 Subjective: seen this am redness improving on thigh however perineal area still quite erythematous with a small area draining Vitals/I&O/Wt Last Vital Signs Temp 98.4 F 11/12/24 11:10 Pulse 73 11/12/24 11:10 Resp 16 11/12/24 11:10 BP 134/86 11/12/24 11:10 Pulse Ox 93 11/12/24 11:10 O2 Del Method Room Air 11/12/24 11:10 11/11/24 11/12/24 11/12/24 22:59 06:59 14:59 Intake Total 1030 / 1930 1150 / 3080 1080 / 1080 Balance 1030 / 1030 1150 / 2180 1080 / 1080 Weight last 48 hrs Weight 126.099 kg Weight 126.099 kg Weight 126.325 kg Weight 124.738 kg Physical Exam 2 Narrative: Nonpurulent cellulitis right perineal area extending to medial thigh area is warm and tender to touch.?Improving signficantly Area has been demarcated?improving No active drainage Significant induration posterior perineal area?improving - small area draining and perineal erythema still present No active drainage No active purulence noted Awake and alert Morbidly obese Hemodynamic stable On room air Pleasant and cooperative Data 11/12/24 04:38 11/12/24 05:58 Micro: Microbiology 11/10/24 14:33 Blood Culture - Preliminary Blood NEGATIVE TO DATE 11/10/24 14:31 Blood Culture - Preliminary Blood NEGATIVE TO DATE A&P Assessment and plan (1) Cellulitis of perineum: Plan Nonpurulent cellulitis of perineal area with extension to right thigh No signs of Dianna's gangrene CT pelvis did not show any abscess No active fever No sign of sepsis For toxin suppression secondary to progressive cellulitis I will use clindamycin along vancomycin and aztreonam Rule out type 2 diabetes will request hemoglobin A1c Patient uses razor to remove around her perineal area. She is also endorsing similar episodes in her left axillary area in the past Will keep her on consistent carb diet use insulin sliding scale Will use anti-inflammatory medication along opioids: Area has been demarcated Patient has been counseled on not using razor DVT prophylaxis: On board Full code 11/11/2024 General Surgery following Continue IV antibiotics at this time. Will stop clindamycin at 48 hours. Continue to hospitalize patient at this time. Will discharge pending cellulitis improvement. Patient will likely require another 24 to 48 hours inpatient. 11/12/2024 General Surgery following Continue IV antibiotics at this time. Will stop clindamycin at 48 hours. Continue to hospitalize patient at this time. Will discharge pending cellulitis improvement. Patient will likely require another 24 to 48 hours inpatient. stop IV clindamycin continue vanc requires another day of IV antibiotics, will re-evaluate in AM PDMP PDMP Reviewed: Not Reviewed Attestations 2 Medical Necessity Statement*: cellulitis requiring IV antibiotics Diagnoses Cellulitis of perineum L03.315
--- NOTE | 2024-11-12 11:58 | PM.PN ---
Vitals/I&O/Wt Last Vital Signs Temp 98.4 F 11/12/24 11:10 Pulse 73 11/12/24 11:10 Resp 16 11/12/24 11:10 BP 134/86 11/12/24 11:10 Pulse Ox 93 11/12/24 11:10 O2 Del Method Room Air 11/12/24 11:10 11/11/24 11/12/24 11/12/24 22:59 06:59 14:59 Intake Total 1030 / 1930 1150 / 3080 1080 / 1080 Balance 1030 / 1030 1150 / 2180 1080 / 1080 Weight last 48 hrs Weight 126.099 kg Weight 126.099 kg Weight 126.325 kg Weight 124.738 kg Data 11/12/24 04:38 11/12/24 05:58 Micro: Microbiology 11/10/24 14:33 Blood Culture - Preliminary Blood NEGATIVE TO DATE 11/10/24 14:31 Blood Culture - Preliminary Blood NEGATIVE TO DATE A&P PDMP PDMP Reviewed: Not Reviewed Coding Level of Care Code Acute Code for Chg Dilip
[2024-11-12 16:49] LABS: Glucose Point of Care 101 mg/dL (70-110)
[2024-11-12 17:50] LABS: Vancomycin Trough 8.2 ug/mL (10-15)
[2024-11-12] MEDS: vancomycin 2,000 MG/400 ML PIGGYBACK 200 MG IV (18:10)
[2024-11-12 21:04] LABS: Glucose Point of Care 128 mg/dL (70-110)
[2024-11-12] MEDS: trazodone 100 mg Tablet PO (21:10)
[2024-11-13] VITALS: BP 126/76; PULSE 71; RESP 18; TEMP 36.6; O2SAT 96
[2024-11-13 03:57] LABS: Basophils # 0.1 10^3/uL (0.0-0.1); Eosinophils # 0.4 10^3/uL (0.0-0.8); Eosinophils % 4.3 %; Hematocrit 39.1 % (36-47); Lymphocytes # 2.8 10^3/uL (0.8-4.8); Lymphocytes % 31.3 %; Mean Corpuscular HGB Conc 32.2 g/dL (30-55); Mean Corpuscular Hemoglobin 30.1 pg (27-33); Mean Corpuscular Volume 93.3 fl (85-98); Mean Platelet Volume 8.8 fL (7.4-10.4); Monocytes # 0.8 10^3/uL (0.2-0.9); Monocytes % 8.4 %; Neutrophils # 4.47 10^3/uL (1.8-7.7); Neutrophils % 49.2 %; Nucleated Red Blood Cells % 0 %; Platelet Count 355 10^3/cmm (157-399); Red Blood Count 4.19 10^6/uL (3.85-5.65); Red Cell Distribution Width 11.8 % (12.1-15.1); White Blood Count 9.08 10^3/uL (3.29-11.43)
[2024-11-13 04:00] VITALS: BP 103/66; PULSE 75; RESP 19; TEMP 37.1; O2SAT 95
[2024-11-13 04:01] LABS: Slide Review Slide Review Perform
[2024-11-13 04:19] LABS: Anion Gap 14.5 (5-19); Blood Urea Nitrogen 15 mg/dL (6-20); Calcium 8.6 mg/dL (8.5-10.5); Carbon Dioxide 27 mmol/L (22-29); Chloride 102 mmol/L (98-107); Creatinine Clr Calc Pharmacy 149.7275; Glomerular Filtration Rate 92.7 mL/min (90-130); Glucose 121 mg/dL (65-115); Osmolality Calculated 290 mOsm/kg (285-295); Potassium 4.5 mmol/L (3.5-5.1); Sodium 139 mmol/L (136-145)
[2024-11-13] MEDS: vancomycin 2,000 MG/400 ML PIGGYBACK 200 MG IV (05:48)
[2024-11-13] MEDS: heparin 5,000 unit/mL INJ 1 mL 5000 UNIT SUBCUT (05:49)
[2024-11-13 06:27] LABS: Glucose Point of Care 121 mg/dL (70-110)
[2024-11-13 07:48] VITALS: BP 130/72; PULSE 60; RESP 14; TEMP 36.4; O2SAT 97
--- NOTE | 2024-11-13 08:33 | P.PN_ITS ---
Subjective 2 Subjective: Erythema improved No abscess Vitals/I&O/Wt Last Vital Signs Temp 97.5 F L 11/13/24 07:48 Pulse 60 11/13/24 07:48 Resp 14 11/13/24 07:48 BP 130/72 11/13/24 07:48 Pulse Ox 97 11/13/24 07:48 O2 Del Method Room Air 11/13/24 07:48 11/12/24 11/13/24 11/13/24 22:59 06:59 14:59 Intake Total 980 / 2160 360 / 360 Balance 980 / 2160 360 / 360 Weight last 48 hrs Weight 282 lb 9.6 oz Weight 278 lb Physical Exam 2 Narrative: RRR unlabored breathing RA Abdomen soft, nt, nd Right thigh cellulitis much improved,no drainable abscess Data 11/13/24 03:18 11/13/24 03:18 A&P Assessment and plan (1) Cellulitis of perineum: Plan 39 yo female who presents with cellulitis. No drainable abscess. Agree with antibiotics. PDMP PDMP Reviewed: Not Reviewed Attestations 2 Medical Necessity Statement*: NA Coding Level of Care Code 90274 Diagnoses Cellulitis of perineum L03.315
[2024-11-13 08:35] VITALS: PULSE 79; RESP 16; O2SAT 98
[2024-11-13] MEDS: aztreonam 2,000 MG in sodium chloride 0.9% (plus) 100 ML 200 MG IV (08:46)
[2024-11-13] MEDS: gabapentin 100 mg Capsule PO (08:47)
[2024-11-13] MEDS: divalproex ER 500 mg Tablet (24H) 1000 MG PO (08:47)
[2024-11-13 11:28] LABS: Glucose Point of Care 124 mg/dL (70-110)
[2024-11-13 11:38] VITALS: BP 169/89; PULSE 89; RESP 16; TEMP 36.6; O2SAT 95
--- NOTE | 2024-11-13 11:50 | PM.DCS ---
Discharge Providers Date of Admission: 11/11/24 16:44 Date of Discharge: November 13, 2024 Attending Provider at Admission: Odalis Weir MD Attending Provider at Discharge: Odalis Weir MD Primary Care Provider: Kirsten Pearce Diagnoses at Discharge Discharge Diagnosis (1) Cellulitis of perineum: Status: Acute Reason for Visit Reason for Visit: Wesley Cesar sent infection in right leg Hospital Course Hospital Course Patient was admitted for nonpurulent cellulitis of perineal area with extension to the right thigh. She did receive clindamycin for 48 hours for toxin suppression. She had failed antibiotic therapy as an outpatient. She took Bactrim for 5 days. She was placed on vancomycin and aztreonam in the hospital. Once she clinically improved and erythema had resolved she was sent home with another 7 days of doxycycline to complete 10-day course. She was also seen by general surgery and they agree with management. CT pelvis did not show any drainable abscess or fluid collection. Physical Exam Narrative: Nonpurulent cellulitis right perineal area extending to medial thigh area is warm and tender to touch.?Has significantly improved. Erythema has resolved. No active drainage No active drainage No active purulence noted Awake and alert Morbidly obese Hemodynamic stable On room air Pleasant and cooperative Discharge Data Studies Completed and Pending Completed Studies During Hospitalization Category Date Time Status CT pelvis w con* [id number] Stat Cat Scan 11/10/24 14:08 Completed Pending at discharge Category Date Time Status Blood Culture Stat Lab 11/10/24 14:33 Results Vancomycin Trough Timed Lab 11/15/24 17:00 Ordered Radiology Impressions Pelvis CT 11/10/24 14:08 IMPRESSION: Induration in the RIGHT perineum compatible with cellulitis. No evidence of drainable fluid collection or abscess. Induration extends into the mid and distal medial thigh soft tissues. Laboratory Results WBC 9.08 10^3/uL (3.29-11.43) 11/13/24 03:18 RBC 4.19 10^6/uL (3.85-5.65) 11/13/24 03:18 Hgb 12.60 g/dL (11.27-16.99) 11/13/24 03:18 Hct 39.1 % (36-47) 11/13/24 03:18 MCV 93.3 fl (85-98) D 11/13/24 03:18 MCH 30.1 pg (27-33) 11/13/24 03:18 MCHC 32.2 g/dL (30-55) 11/13/24 03:18 RDW 11.8 % (12.1-15.1) L 11/13/24 03:18 Plt Count 355 10^3/cmm (157-399) D 11/13/24 03:18 MPV 8.8 fL (7.4-10.4) 11/13/24 03:18 Neut % (Auto) 49.2 % 11/13/24 03:18 Lymph % (Auto) 31.3 % 11/13/24 03:18 [place] % (Auto) 8.4 % 11/13/24 03:18 Eos % (Auto) 4.3 % 11/13/24 03:18 Baso % (Auto) 1.0 % 11/13/24 03:18 Neut # (Auto) 4.47 10^3/uL (1.8-7.7) 11/13/24 03:18 Lymph # (Auto) 2.8 10^3/uL (0.8-4.8) 11/13/24 03:18 [place] # (Auto) 0.8 10^3/uL (0.2-0.9) 11/13/24 03:18 Eos # (Auto) 0.4 10^3/uL (0.0-0.8) 11/13/24 03:18 Baso # (Auto) 0.1 10^3/uL (0.0-0.1) 11/13/24 03:18 Nucleated RBC % (auto) 0 % 11/13/24 03:18 Nucleated RBCs # 0.0 /100WBC 11/13/24 03:18 ESR 25 mm/hr (0-15) H 11/10/24 13:02 Sodium 139 mmol/L (136-145) 11/13/24 03:18 Potassium 4.5 mmol/L (3.5-5.1) 11/13/24 03:18 Chloride 102 mmol/L (98-107) 11/13/24 03:18 Carbon Dioxide 27 mmol/L (22-29) 11/13/24 03:18 Anion Gap 14.5 (5-19) 11/13/24 03:18 BUN 15 mg/dL (6-20) 11/13/24 03:18 Creatinine 0.7 mg/dL (0.5-0.9) 11/13/24 03:18 GFR Calculation 92.7 mL/min (90-130) 11/13/24 03:18 Glucose 121 mg/dL (65-115) H 11/13/24 03:18 POC Glucose 124 mg/dL (70-110) H 11/13/24 11:24 Estimat Average Glucose 91 11/10/24 13:02 Hemoglobin A1c 4.8 % (4.0-6.0) 11/10/24 13:02 Calculated Osmolality 290 mOsm/kg (285-295) 11/13/24 03:18 Calcium 8.6 mg/dL (8.5-10.5) 11/13/24 03:18 Magnesium 2.2 mg/dL (1.7-2.3) 11/12/24 05:58 Total Bilirubin 0.2 mg/dL (0.15-1.2) 11/10/24 13:02 AST 17 U/L (0-32) 11/10/24 13:02 ALT 19 U/L (0-33) 11/10/24 13:02 Alkaline Phosphatase 75 U/L (35-105) 11/10/24 13:02 C-Reactive Protein 31.0 mg/L (0.0-4.9) H 11/10/24 13:02 Total Protein 7.6 g/dL (6.6-8.7) 11/10/24 13:02 Albumin 3.8 g/dL (3.5-5.2) 11/10/24 13:02 Globulin 3.8 g/dL (1.3-4.6) 11/10/24 13:02 Vancomycin Trough 8.2 ug/mL (10-15) L 11/12/24 17:14 Vitals Last Vital Signs Temp 97.8 F 11/13/24 11:38 Pulse 89 11/13/24 11:38 Resp 16 11/13/24 11:38 BP 169/89 11/13/24 11:38 Pulse Ox 95 11/13/24 11:38 O2 Del Method Room Air 11/13/24 11:38 Discharge Plan Discharge Patient Disposition: Home Condition: Stable Prescriptions: New doxycycline hyclate 100 mg tablet 100 mg PO BID 7 Days Qty: 14 0RF Continued mupirocin 2 % ointment 1 applic TOPICAL BID nifedipine 60 mg tablet extended release 24hr 60 mg PO DAILY gabapentin 100 mg capsule 100 mg PO TID aspirin 81 mg Tablet,Delayed Release (Dr/Ec) 81 mg PO DAILY 30 Days Qty: 30 1RF divalproex 500 mg Tablet Extended Release 24 Hr 1,000 mg PO 0900 30 Days Qty: 60 1RF trazodone 100 mg tablet 100 mg PO BEDTIME PRN (Reason: Sleep) 30 Days Qty: 30 1RF atorvastatin 20 mg tablet 20 mg PO DAILY 30 Days Qty: 30 1RF cetirizine 10 mg tablet 10 mg PO DAILY 30 Days Qty: 30 1RF Discontinued sulfamethoxazole-trimethoprim 800-160 mg tablet 1 tab PO Q12H Discharge Orders: Discharge Order (Routine); Ordered 11/13/24 Ordered By: Odalis Weir Referrals: Vinny Arteaga MD [Physician] - 11/18/24 2:20 pm Kirsten Pearce [Primary Care Provider] - 11/24/24 9:30 am Discharge Diet: Cardiac Discharge Activity: Resume usual activity Patient Instructions: Doxycycline (By mouth), Cellulitis (GEN), Opioid Safety Discharge Attestations Time Spent in Discharge Care*: less than 30 min Status at Discharge: Cognitive status at discharge: cognitively intact, Behavioral status at discharge: cooperative, Quality Metrics Clinical Quality Measures [ No reported AMI, CVA or VTE this stay] Coding Level of Care Code Acute Code for Chg Fwd Diagnoses Cellulitis of perineum L03.315
--- NOTE | 2024-11-13 12:30 | PC.NURSE ---
Discharge paperwork discussed with patient. Patient was asking for ways to prevent cellulitis from coming back. This nurse educated patient to keep skin clean and dry and wear loose fit clothing when possible. All other questions were answered. IV was removed. Patient ambulated to ER entrance with all belongings, escorted by this nurse at 1210.
[2024-11-13 12:52] VITALS: BP 169/89; PULSE 89; RESP 16; TEMP 36.6; O2SAT 95
== END 2024-11-13 12:10 | disposition home or self-care (01) | DRG 603 ==
LOC: ER 14:00 → MEDSURG 16:45
PROVIDERS: Emergency Medicine; Internal Medicine; Admitting Provider Internal Medicine; Emergency Provider Family Medicine; PCP Nurse Practitioner Family; Visit Provider Internal Medicine
DX: L03.315 Cellulitis of perineum (principal); L03.115 Cellulitis of right lower limb; Z68.41 Body mass index [BMI] 40.0-44.9, adult; E66.01 Morbid (severe) obesity due to excess calories; I73.00 Raynaud's syndrome without gangrene; E78.5 Hyperlipidemia, unspecified; I10 Essential (primary) hypertension; F17.290 Nicotine dependence, other tobacco product, uncomplicated; Z79.82 Long term (current) use of aspirin; Z79.891 Long term (current) use of opiate analgesic; Z88.0 Allergy status to penicillin
CPT/HCPCS: 36415; 36416; 72193; 80048; 80053; 80202; 82962; 83036; 83735; 85025; 85651; 86140; 87040; 96372; 99285; G0378; J1644; J1815; J1885; J2270; J3370; J3372; J3490; J9999